=== PATIENT | female | born 1980 | race African-American/Black ===

== ENCOUNTER 2020-01-31 17:02 | Observation (INO) | payer OTHER ==
--- OUTSIDE RECORDS SUMMARY | 2020-01-31 17:07 | XMS REPORT | Continuity of Care Document ---
:1980 Author Organization [facility] t Address [address] [place] [address] Care Team Providers Name Role Phone UNKNOWN Primary Care Physician Unavailable MARIA E TRAORE MD MCandelario. 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 Medications Ordered Filled Start Stop Current Ordering Indication Dosage Frequency Signature Comments Components Source Medication Medication Date Date Medication? Clinician (SIG) Name Name amox/k clav amox/k clav No amox/k [place] tab tab clav tab da 875-125 875-125 875-125 [facility] amoxicillin amoxicillin No amoxicilli [place] 500 mg 500 mg n 500 mg da capsule capsule capsule [facility] brom/pse/dm brom/pse/dm No brom/pse/d [place] syp syp m syp da [facility] ciprofloxac ciprofloxac No ciprofloxa [place] in in nick da hydrochlori hydrochlori hydrochlor [facility] de 500 mg de 500 mg bryce 500 al tabs tabs mg tabs Health Outreac h Program fluticasone fluticasone No fluticason [place] propionate propionate e da 50 mcg/act 50 mcg/act propionate [facility] susp susp 50 al mcg/act Health susp Outreac h Program fluticasone fluticasone No fluticason [place] propionate propionate e da 50 50 propionate [facility] mcg/actuati mcg/actuati 50 a l on nasal on nasal mcg/actuat H ealth spray,suspe spray,suspe ion nasal Outreac nsion nsion spray,susp h ension Program hydrocodone hydrocodone No hydrocodon [place] 10 10 e 10 da mg-acetamin mg-acetamin mg-acetami [facility] ophen 325 ophen 325 nophen 325 al mg tablet mg tablet mg tablet Health Outreac h Program hydrocodone hydrocodone No hydrocodon [place] 5 5 e 5 da mg-acetamin mg-acetamin mg-acetami [facility] ophen 325 ophen 325 nophen 325 al mg tablet mg tablet mg tablet Health Outreac h Program hydroxyzine hydroxyzine No hydroxyzin [place] hcl 50 mg hcl 50 mg e hcl 50 da tabs tabs mg tabs [facility] hydroxyzine hydroxyzine No 1 TID hydroxyzin [place] HCl 25 mg HCl 25 mg e HCl 25 d a tablet Take tablet Take mg tablet [facility] 1 tablet 3 1 tablet 3 Take 1 a l times a day times a day tablet 3 Health by oral by oral times a Outrea c route as route as day by h needed. needed. oral route Pro gram as needed. ibuprofen ibuprofen No ibuprofen [place] 600 mg tabs 600 mg tabs 600 mg da tabs [facility] indomethaci indomethaci No indomethac [place] n 50 mg n 50 mg in 50 mg da caps caps caps [facility] latuda 60 latuda 60 No latuda 60 [place] mg tabs mg tabs mg tabs da [facility] Latuda 60 Latuda 60 No 1 Q1D Latuda 60 [place] mg tablet mg tablet mg tablet da Take 1 Take 1 Take 1 [facility] tablet tablet tablet al every day every day every day Health by oral by oral by oral Outrea c route at route at route at h bedtime. bedtime. bedtime. Pro gram Lexapro 10 Lexapro 10 No 1 Q1D Lexapro 10 [place] mg tablet mg tablet mg tablet da Take 1 Take 1 Take 1 [facility] tablet tablet tablet al every day every day every day Health by oral by oral by oral Outrea c route in route in route in h the the the Program morning. morning. morning. lisinopril lisinopril No lisinopril [place] 10 mg tabs 10 mg tabs 10 mg d a tabs [facility] loratadine loratadine No loratadine [place] 10 mg tabs 10 mg tabs 10 mg d a tabs [facility] Lyrica 100 Lyrica 100 No Lyrica 100 [place] mg capsule mg capsule mg capsule da [facility] Lyrica 50 Lyrica 50 No Lyrica 50 [place] mg capsule mg capsule mg capsule da [facility] ondansetron ondansetron No ondansetro [place] odt 4 mg odt 4 mg n odt 4 d a tbdp tbdp mg tbdp [facility] prazosin 2 prazosin 2 No 1capsul Q1D prazosin 2 [place] mg capsule mg capsule e(s) mg capsule da Take 1 Take 1 Take 1 [facility] capsule capsule capsule al every day every day every day Health by oral by oral by oral Outrea c route at route at route at h bedtime. bedtime. bedtime. Pro gram tizanidine tizanidine No tizanidine [place] 4 mg tablet 4 mg tablet 4 mg d a tablet [facility] tramadol 50 tramadol 50 No tramadol [place] mg tablet mg tablet 50 mg da tablet [facility] Van[place]of DM [place] DM No Van[place]of DM [place] 10 mg-18 10 mg-18 10 mg-18 da mg-200 mg-200 mg-200 [facility] mg/15 mL mg/15 mL mg/15 mL al oral liquid oral liquid oral H ealth liquid Outreac h Program Procedures This patient has no known procedures. Plan of Care Planned Activity Planned Date Details Comments Source Future Appointment 2020-02-04 00:00:00 Juankeith Weiner, [address] [facility]; , [place] Program [id number] [facility] Outreach Program Encounters Start End Encounter Admission Attending Care Care Encounter Source Date/Time Date/Time Type Type Clinicians Facility Department ID 2020-01-05 2020-01-05 Juan LOPEZ [place] - [id number] M ashleigh 00:00:00 00:00:00 Todd Weiner MD: [facility] [address] [facility] [id number] Progr am , Ph. [phone] Results Test Description Test Time Test Comments Results Result Comments Source Culture, Blood 2017-06-28 Specimen: Routine 08:19:00 BloodCollected: 06/23/2017 04:30 Status: Final Last Updated: 06/28/2017 08:18 Culture Result (Final) (Final) No Growth After 5 Days Culture, Blood 2017-06-28 Specimen: Routine 08:18:00 BloodCollected: 06/23/2017 04:15 Status: Final Last Updated: 06/28/2017 08:18 Culture Result (Final) (Final) No Growth After 5 Days Uric Acid, Urine Random 2017-06-26 06:06:00 Test Item Value Reference Range Interpretation Comme nts Uric Acid, Urine (test code = UAURRM) 28 mg/dL Magnesium, [id number] 05:40:00 Test Item Value Reference Range Interpretation Comments Magnesium (test code = MG) 1.8 mg/dL 1.7-2.5 N Basic Metabolic [id number] 05:40:00 Test Item Value Reference Range Interpretation Comments Sodium (test code = 139 mmol/L 135-145 N NA) Potassium (test 3.7 mmol/L 3.5-5.1 N code = K) Chloride (test code 103 mmol/L 98-105 N = CL) Carbon Dioxide 24 mmol/L 22-29 N (test code = CO2) Glucose (test code 96 mg/dL 70-115 N = GLU) Blood Urea Nitrogen 5 mg/dL 6-20 L (test code = BUN) Creatinine (test 0.7 mg/dL 0.5-0.9 N code = CREAT) Calcium (test code 8.6 mg/dL 8.3-10.5 N = CA) BUN/Creatinine 7.1 Ratio (test code = BCRATIO) Anion Gap (test 12 mmol/L 7-16 N code = AGAP) Estimated GFR (test >60 eGFR (es timated code = GFR) mL/min/1.73m2 Glomerular Keron tration Rate) is an est imated value,calculate d from the patient's s teddy creatinine usin g the MDRD equation.I t is NOT the patient 's actual GFR. The eGFR provides a more clinicallyusefu l measure of kidn ey disease than se rum creatinine alone.This calculation rich es sex and race into account, if the informationis provided. If th e race is not provided , and the patient isAfrican-Ameri can, multiply by 1.2 12. If sex is not prov ided, and thepatient is female, multipl y by 0.742. Results for patients <18 ye ars ofage have not been validated by th e MDRD study and shoul d be interpretedwith caution.eGFR Re sult Interpretation: eGFR > or = 60 is in t he Normal RangeeGF R < 60 may mean kidney diseaseeGFR < 1 5 may mean kidney failureRange s recommended by the National Kidney Foundation,http ://nkd ep.nih.gov CBC with [id number] 05:28:00 Test Item Value Reference Range Interpretation Comments WBC (test code = WBC) 14.9 K/cumm 4.4-10.5 H RBC (test code = RBC) 3.57 M/cumm 3.75-5.20 L Hemoglobin (test code = HGB) 10.7 gm/dL 12.2-14.8 L Hematocrit (test code = HCT) 31.2 % 36.5-44.4 L MCV (test code = MCV) 87.4 fL 80-100 N MCH (test code = MCH) 30.0 pg 27.0-32.5 N MCHC (test code = MCHC) 34.4 g/dL 32.0-37.5 N RDW (test code = RDW) 13.3 % 11.5-14.5 N Platelet Count (test code = 336 K/cumm 140-440 N PLTCT) MPV (test code = MPV) 10.1 fL Diff Method (test code = DIFFM) Auto Neutrophil (test code = NEUT) 55.2 % 36-70 N Lymphocyte (test code = LYMPH) 32.7 % 12-44 N Monocyte (test code = MONO) 7.7 % 0-11 N Eosinophil (test code = EOS) 3.9 % 0-7 N Basophil (test code = BASO) 0.6 % 0-2 N Neutro Abs (test code = ANEUT) 8.3 K/cumm 1.6-7.4 H Lymph Abs (test code = ALYMPH) 4.9 K/cumm 0.5-4.6 H [place] Abs (test code = AMONO) 1.1 K/cumm 0.0-1.2 N Eos Abs (test code = AEOS) 0.59 K/cumm 0.00-0.74 N Baso Abs (test code = ABASO) 0.1 K/cumm 0.00-0.21 N [id number] 05:20:00 Test Item Value Reference Range Interpretation Comments Phosphorus (test code = PO4) 3.3 mg/dL 2.70-4.50 N Basic Metabolic [id number] 05:20:00 Test Item Value Reference Range Interpretation Comments Sodium (test code = 139 mmol/L 135-145 N NA) Potassium (test 3.5 mmol/L 3.5-5.1 N code = K) Chloride (test code 106 mmol/L 98-105 H = CL) Carbon Dioxide 22 mmol/L 22-29 N (test code = CO2) Glucose (test code 94 mg/dL 70-115 N = GLU) Blood Urea Nitrogen 6 mg/dL 6-20 N (test code = BUN) Creatinine (test 0.8 mg/dL 0.5-0.9 N code = CREAT) Calcium (test code 8.0 mg/dL 8.3-10.5 L = CA) BUN/Creatinine 7.5 Ratio (test code = BCRATIO) Anion Gap (test 11 mmol/L 7-16 N code = AGAP) Estimated GFR (test >60 eGFR (es timated code = GFR) mL/min/1.73m2 Glomerular Keron tration Rate) is an est imated value,calculate d from the patient's s teddy creatinine usin g the MDRD equation.I t is NOT the patient 's actual GFR. The eGFR provides a more clinicallyusefu l measure of kidn ey disease than se rum creatinine alone.This calculation rich es sex and race into account, if the informationis provided. If th e race is not provided , and the patient isAfyohana-Amdestiney can, multiply by 1.2 12. If sex is not prov ided, and thepatient is female, multipl y by 0.742. Results for patients <18 ye ars ofage have not been validated by th e MDRD study and neetuul d be interpretedwith caution.eGFR Re sult Interpretation: eGFR > or = 60 is in t he Normal RangeeGF R < 60 may mean kidney diseaseeGFR < 1 5 may mean kidney failureRange s recommended by the National Kidney Foundation,http ://nkd ep.nih.gov Magnesium, [id number] 05:20:00 Test Item Value Reference Range Interpretation Comments Magnesium (test code = MG) 1.6 mg/dL 1.7-2.5 L CBC with [id number] 04:55:00 Test Item Value Reference Range Interpretation Comments WBC (test code = WBC) 17.9 K/cumm 4.4-10.5 H RBC (test code = RBC) 3.31 M/cumm 3.75-5.20 L Hemoglobin (test code = HGB) 9.6 gm/dL 12.2-14.8 L Hematocrit (test code = HCT) 30.2 % 36.5-44.4 L MCV (test code = MCV) 91.4 fL 80-100 N MCH (test code = MCH) 29.2 pg 27.0-32.5 N MCHC (test code = MCHC) 31.9 g/dL 32.0-37.5 L RDW (test code = RDW) 13.6 % 11.5-14.5 N Platelet Count (test code = 299 K/cumm 140-440 N PLTCT) MPV (test code = MPV) 9.7 fL Diff Method (test code = DIFFM) Auto Neutrophil (test code = NEUT) 63.4 % 36-70 N Lymphocyte (test code = LYMPH) 26.0 % 12-44 N Monocyte (test code = MONO) 7.5 % 0-11 N Eosinophil (test code = EOS) 2.6 % 0-7 N Basophil (test code = BASO) 0.6 % 0-2 N Neutro Abs (test code = ANEUT) 11.4 K/cumm 1.6-7.4 H Lymph Abs (test code = ALYMPH) 4.7 K/cumm 0.5-4.6 H [place] Abs (test code = AMONO) 1.4 K/cumm 0.0-1.2 H Eos Abs (test code = AEOS) 0.46 K/cumm 0.00-0.74 N Baso Abs (test code = ABASO) 0.1 K/cumm 0.00-0.21 N Hypochromic (test code = HYPO) Slight Blood Gas+Lytes+Glu+Ca+Hgb+Hct+[id number] 12:34:00 Test Item Value Reference Range Interpretation Comments pH, Blood Gas (test code = 7.412 pH Units 7.35-7.45 N BGPH) pCO2 (test code = PCO2) 39.9 mm Hg 35-45 N pO2 (test code = PO2) 103.0 mm Hg 80-100 HH Bicarbonate (test code = 25.4 mmol/L 22.0-26.0 N HCO3) Base Excess (test code = BE) 0.7 mmol/L O2 Saturation (test code = 98.5 % 80.0-100.0 N O2SAT) Sodium, Blood Gas (test code 146 mmol/L 135-145 H = BGNA) Potassium, Blood Gas (test 3.7 mmol/L 3.5-4.5 N code = BGK) Chloride, Blood Gas (test 113 mmol/L 98-105 H code = BGCL) Calcium, Ionized, Blood Gas 1.20 mmol/L 1.00-1.50 N (test code = BGCAI) Glucose, Blood Gas (test 118 mg/dL 75-115 H code = BGGLU) tHB (test code = RTHB) 10.6 gm/dL 12.2-17.4 L Hematocrit, Blood Gas (test 32.5 % 34.0-52.0 L code = BGHCT) O2Hb (test code = RO2HB) 97 80-100 N Carboxyhemoglobin (test code 1.3 % 0.0-20.0 N = CARHGB) Methemoglobin (test code = 0.7 % 0.0-20.0 N METHGB) FIO2 % (test code = FIO2) 30 % Patient Temperature (test 37.0 Degrees code = PTTEMP) Celcius Comment (test code = qns rblv crit COMMENT) vals to Dr. Hoover @ [id number] Puncture Site (test code = Brachial. R PUNSITE) Drawing Tech ID (test code = dnguyen DRAWTECH) Lactic Acid, Blood Gas (test 1.3 mmol/L code = BGLA) iPAP (test code = IPAP) 0 cmH2O Peep (test code = RPEEP) 5 Respiratory Rate (test code 0 = RESP RATE) XR CHEST 1 [id number] 07:41:10EXAM: CHEST ONE VIEWINDICATION: IntubatedCOMPARISON: None availableTECHNIQUE: AP view of the chest.FINDINGS: The endotracheal tube and enteric tube are unchanged. Thecardiomediastinal silhouette is normal. There is mild diffuse pulmonaryedema. No pneumothorax or pleural effusion is identified. The osseousstructures are unremarkable.IMPRESSION: Mild diffuse pulmonary edema.LOCATION: [id number] Metabolic [id number] 05:44:00 Test Item Value Reference Range Interpretation Comments Sodium (test code = 143 mmol/L 135-145 N NA) Potassium (test 3.3 mmol/L 3.5-5.1 L code = K) Chloride (test code 111 mmol/L 98-105 H = CL) Carbon Dioxide 25 mmol/L 22-29 N (test code = CO2) Glucose (test code 109 mg/dL 70-115 N = GLU) Blood Urea Nitrogen 6 mg/dL 6-20 N (test code = BUN) Creatinine (test 0.6 mg/dL 0.5-0.9 N code = CREAT) Calcium (test code 8.5 mg/dL 8.3-10.5 N = CA) BUN/Creatinine 10.0 Ratio (test code = BCRATIO) Anion Gap (test 7 mmol/L 7-16 N code = AGAP) Estimated GFR (test >60 eGFR (es timated code = GFR) mL/min/1.73m2 Glomerular Keron tration Rate) is an est imated value,calculate d from the patient's s teddy creatinine usin g the MDRD equation.I t is NOT the patient 's actual GFR. The eGFR provides a more clinicallyusefu l measure of kidn ey disease than se rum creatinine alone.This calculation rich es sex and race into account, if the informationis provided. If th e race is not provided , and the patient isJaniya can, multiply by 1.2 12. If sex is not prov ided, and thepatient is female, multipl y by 0.742. Results for patients <18 ye ars ofage have not been validated by th e MDRD study and stef d be interpretedwith caution.eGFR Re sult Interpretation: eGFR > or = 60 is in t he Normal RangeeGF R < 60 may mean kidney diseaseeGFR < 1 5 may mean kidney failureRange s recommended by the National Kidney Foundation,http ://nkd ep.nih.gov [id number] 05:44:00 Test Item Value Reference Range Interpretation Comments Phosphorus (test code = PO4) 3.2 mg/dL 2.70-4.50 N Magnesium, [id number] 05:44:00 Test Item Value Reference Range Interpretation Comments Magnesium (test code = MG) 1.7 mg/dL 1.7-2.5 N CBC with [id number] 05:28:00 Test Item Value Reference Range Interpretation Comments WBC (test code = WBC) 17.0 K/cumm 4.4-10.5 H RBC (test code = RBC) 3.56 M/cumm 3.75-5.20 L Hemoglobin (test code = HGB) 10.2 gm/dL 12.2-14.8 L Hematocrit (test code = HCT) 31.8 % 36.5-44.4 L MCV (test code = MCV) 89.4 fL 80-100 N MCH (test code = MCH) 28.8 pg 27.0-32.5 N MCHC (test code = MCHC) 32.1 g/dL 32.0-37.5 N RDW (test code = RDW) 14.0 % 11.5-14.5 N Platelet Count (test code = 349 K/cumm 140-440 N PLTCT) MPV (test code = MPV) 9.6 fL Diff Method (test code = DIFFM) Auto Neutrophil (test code = NEUT) 76.4 % 36-70 H Lymphocyte (test code = LYMPH) 14.3 % 12-44 N Monocyte (test code = MONO) 6.2 % 0-11 N Eosinophil (test code = EOS) 2.9 % 0-7 N Basophil (test code = BASO) 0.2 % 0-2 N Neutro Abs (test code = ANEUT) 13.0 K/cumm 1.6-7.4 H Lymph Abs (test code = ALYMPH) 2.4 K/cumm 0.5-4.6 N [place] Abs (test code = AMONO) 1.1 K/cumm 0.0-1.2 N Eos Abs (test code = AEOS) 0.50 K/cumm 0.00-0.74 N Baso Abs (test code = ABASO) 0.0 K/cumm 0.00-0.21 N Blood Gas+Lytes+Glu+Ca+Hgb+Hct+[id number] 05:12:00 Test Item Value Reference Range Interpretation Comments pH, Blood Gas (test code = 7.371 pH Units 7.35-7.45 N BGPH) pCO2 (test code = PCO2) 43.6 mm Hg 35-45 N pO2 (test code = PO2) 105.0 mm Hg 80-100 HH Bicarbonate (test code = 25.2 mmol/L 22.0-26.0 N HCO3) Base Excess (test code = -0.2 mmol/L BE) O2 Saturation (test code = 98.4 % 80.0-100.0 N O2SAT) Sodium, Blood Gas (test 147 mmol/L 135-145 H code = BGNA) Potassium, Blood Gas (test 3.4 mmol/L 3.5-4.5 L code = BGK) Chloride, Blood Gas (test 115 mmol/L 98-105 H code = BGCL) Calcium, Ionized, Blood 1.23 mmol/L 1.00-1.50 N Gas (test code = BGCAI) Glucose, Blood Gas (test 112 mg/dL 75-115 N code = BGGLU) tHB (test code = RTHB) 10.2 gm/dL 12.2-17.4 L Hematocrit, Blood Gas 31.1 % 34.0-52.0 L (test code = BGHCT) O2Hb (test code = RO2HB) 96 80-100 N Carboxyhemoglobin (test 1.3 % 0.0-20.0 N code = CARHGB) Methemoglobin (test code = 0.7 % 0.0-20.0 N METHGB) FIO2 % (test code = FIO2) 30 % Patient Temperature (test 37.0 Degrees code = PTTEMP) Celcius Comment (test code = qns.[email or web address].p02.rblv.o COMMENT) [email or web address] Puncture Site (test code = Radial. R PUNSITE) Drawing Tech ID (test code jzozobrado = DRAWTECH) Lactic Acid, Blood Gas 0.8 mmol/L (test code = BGLA) iPAP (test code = IPAP) 0 cmH2O Peep (test code = RPEEP) 5 Respiratory Rate (test 0 code = RESP RATE) CBC with [id number] 05:34:00 Test Item Value Reference Range Interpretation Comments WBC (test code = WBC) 10.4 K/cumm 4.4-10.5 N RBC (test code = RBC) 3.71 M/cumm 3.75-5.20 L Hemoglobin (test code 10.9 gm/dL 12.2-14.8 L = HGB) Hematocrit (test code 33.2 % 36.5-44.4 L = HCT) MCV (test code = MCV) 89.5 fL 80-100 N MCH (test code = MCH) 29.5 pg 27.0-32.5 N MCHC (test code = 32.9 g/dL 32.0-37.5 N MCHC) RDW (test code = RDW) 13.7 % 11.5-14.5 N Platelet Count (test 309 K/cumm 140-440 N VERIFIE D BY REPEAT code = PLTCT) TESTINGREAD BA CK LAB VALUESPLT DELTA CHECKED WITH Celina MARTINEZ /SAMAN @ 05 30 ON 06/23/2017 BY Dian Yen MPV (test code = MPV) 9.9 fL Diff Method (test Auto code = DIFFM) Neutrophil (test code 75.8 % 36-70 H = NEUT) Lymphocyte (test code 18.9 % 12-44 N = LYMPH) Monocyte (test code = 3.8 % 0-11 N MONO) Eosinophil (test code 1.4 % 0-7 N = EOS) Basophil (test code = 0.2 % 0-2 N BASO) Neutro Abs (test code 7.9 K/cumm 1.6-7.4 H = ANEUT) Lymph Abs (test code 2.0 K/cumm 0.5-4.6 N = ALYMPH) [place] Abs (test code = 0.4 K/cumm 0.0-1.2 N AMONO) Eos Abs (test code = 0.14 K/cumm 0.00-0.74 N AEOS) Baso Abs (test code = 0.0 K/cumm 0.00-0.21 N ABASO) Thyroid Stimulating Hormone (TSH)2017-06-23 05:31:00 Test Item Value Reference Range Interpretation Comments TSH (test code = TSH) 0.24 mIU/mL 0.270-4.200 L Free T4 (Free Thyroxine)2017-06-23 05:31:00 Test Item Value Reference Range Interpretation Comments T4, Free (test code = FT4) 0.83 ng/dL 0.930-1.700 L Urinalysis [id number] 05:26:00 Test Item Value Reference Range Interpretation Comments Color (test code = COLOR) Yellow Yellow,Straw,Pl N yellow Clarity (test code = Clear Clear N CLAR) Specific [place] (test 1.004 1.001-1.035 N code = SPGR) pH (test code = PH) 6.0 5.0-9.0 N Ketone (test code = KET) Negative mg/dL Negative N Glucose (test code = Negative mg/dL Negative N GLUCUR) Protein (test code = Negative mg/dL Negative N PROT) Bilirubin (test code = Negative mg/dL Negative N BILI) Occult Blood (test code = Moderate Negative A UDOB) Urobilinogen (test code = 0.2 mg/dL 0.2-1.0 N UROB) Nitrite (test code = NIT) Negative Negative N Leuk Esterase (test code Small Negative A = LEUK) Micros Exam (test code = Indicated MEXAM) Epithelial Cells (test Few /LPF 0-30 A code = EPI) WBC, Urine (test code = 6-10 /HPF 0-5 A UWBC) RBC, Urine (test code = 3-5 /HPF 0-5 A URBC) Bacteria (test code = Few /HPF BACT) [id number] 05:20:00 Test Item Value Reference Range Interpretation Comments Phosphorus (test code = PO4) 1.7 mg/dL 2.70-4.50 L Comprehensive Metabolic [id number] 05:20:00 Test Item Value Reference Range Interpretation Comments Sodium (test code = 145 mmol/L 135-145 N NA) Potassium (test 3.9 mmol/L 3.5-5.1 N code = K) Chloride (test code 112 mmol/L 98-105 H = CL) Carbon Dioxide 24 mmol/L 22-29 N (test code = CO2) Glucose (test code 97 mg/dL 70-115 N = GLU) Blood Urea Nitrogen 8 mg/dL 6-20 N (test code = BUN) Creatinine (test 0.7 mg/dL 0.5-0.9 N code = CREAT) Calcium (test code 8.7 mg/dL 8.3-10.5 N = CA) Prot Total (test 5.3 g/dL 6.4-8.3 L code = TP) Albumin (test code 3.2 g/dL 3.5-5.2 L = ALB) A/G Ratio (test 1.5 Ratio code = AGRATIO) Globulin (test code 2.1 2.9-3.1 L = GLOB) Bili Total (test 0.3 mg/dL 0.1-0.9 N code = TBIL) Alk Phos (test code 62 U/L 35-104 N = APHOS) AST (test code = 79 U/L 1-32 H AST) ALT (test code = 31 U/L 1-33 N ALT) BUN/Creatinine 11.4 Ratio (test code = BCRATIO) Anion Gap (test 9 mmol/L 7-16 N code = AGAP) Estimated GFR (test >60 eGFR (es timated code = GFR) mL/min/1.73m2 Glomerular Keron tration Rate) is an est imated value,calculate d from the patient's s teddy creatinine usin g the MDRD equation.I t is NOT the patient 's actual GFR. The eGFR provides a more clinicallyusefu l measure of kidn ey disease than se rum creatinine alone.This calculation rich es sex and race into account, if the informationis provided. If th e race is not provided , and the patient isAfrican-Ameri can, multiply by 1.2 12. If sex is not prov ided, and thepatient is female, multipl y by 0.742. Results for patients <18 ye ars ofage have not been validated by vitaly fisher MDRD study and stef yen be interpretedwith caution.eGFR Re sult Interpretation: eGFR > or = 60 is in t he Normal RangeeGF R < 60 may mean kidney diseaseeGFR < 1 5 may mean kidney failureRange s recommended by the National Kidney Foundation,http ://nkd ep.nih.gov Magnesium, [id number] 05:20:00 Test Item Value Reference Range Interpretation Comments Magnesium (test code = MG) 1.7 mg/dL 1.7-2.5 N Blood Gas+Lytes+Glu+Ca+Hgb+Hct+[id number] 05:14:00 Test Item Value Reference Range Interpretation Comments pH, Blood Gas (test code = 7.408 pH Units 7.35-7.45 N BGPH) pCO2 (test code = PCO2) 38.0 mm Hg 35-45 N pO2 (test code = PO2) 155.0 mm Hg 80-100 HH Bicarbonate (test code = 24.0 mmol/L 22.0-26.0 N HCO3) Base Excess (test code = -0.5 mmol/L BE) O2 Saturation (test code = 99.8 % 80.0-100.0 N O2SAT) Sodium, Blood Gas (test 148 mmol/L 135-145 H code = BGNA) Potassium, Blood Gas (test 3.7 mmol/L 3.5-4.5 N code = BGK) Chloride, Blood Gas (test 117 mmol/L 98-105 H code = BGCL) Calcium, Ionized, Blood Gas 1.25 mmol/L 1.00-1.50 N (test code = BGCAI) Glucose, Blood Gas (test 99 mg/dL 75-115 N code = BGGLU) tHB (test code = RTHB) 10.2 gm/dL 12.2-17.4 L Hematocrit, Blood Gas (test 31.3 % 34.0-52.0 L code = BGHCT) O2Hb (test code = RO2HB) 98 80-100 N Carboxyhemoglobin (test 1.2 % 0.0-20.0 N code = CARHGB) Methemoglobin (test code = 0.8 % 0.0-20.0 N METHGB) FIO2 % (test code = FIO2) 50 % Patient Temperature (test 37.0 Degrees code = PTTEMP) Celcius Comment (test code = crit- po2/ rblv- COMMENT) jeffrey [place] @ [id number] ebrown Puncture Site (test code = Brachial. R PUNSITE) Drawing Tech ID (test code ebrown = DRAWTECH) Lactic Acid, Blood Gas 2.2 mmol/L (test code = BGLA) iPAP (test code = IPAP) 0 cmH2O Peep (test code = RPEEP) 5 Respiratory Rate (test code 18 = RESP RATE) Tidal Volume (test code = 0.500 Liters TIDALVOL) CT HEAD OR BRAIN WO [id number] 02:06:48AFTER HOURS SERVICE ON: 06/23/2017 2:06 AMCT Scan of the Brain Without ContrastLocation Code [id number]: altered mental statusTechnique: Scans were performed on a helical scanner pre IV contrastonly. The study is limited secondary to lack of intravenous contrast,particularly for evaluation of masses.CT images were performed kozoth11 hours at arrival to the facility. One or more of the following dose reduction techniques were used:Automated exposure control, adjustment of the mA and/or kV accordingtopatient size, and/or utilization of iterative reconstruction technique.Findings: There is no hydrocephalus. Basal cisterns are patent. There is nointracranial hyperdense hemorrhage. There is no midline shift or masseffect. No effacement of the mcgrath-white matter junction to indicateacute infarction. Air-fluid level noted in the left sphenoid sinus. Impression:No acute intracranial CT findings.Acute sphenoid sinusitis.Lactic Acid Bld 2017-06-23 00:55:00 Test Item Value Reference Range Interpretation Comments Lactic Acid, Bld (test 4.5 mmol/L 0.5-1.9 HH александр r blvver rblv code = LAC) Basic Metabolic [id number] 23:49:00 Test Item Value Reference Range Interpretation Comments Sodium (test code = 140 mmol/L 135-145 N NA) Potassium (test 5.4 mmol/L 3.5-5.1 H The value H EMO code = K) originally rele ased by MAREK on 06/22/2017 23:4 6 waschanged to 5 .4 by MAREK on 06/22/2017 23:48hemolyzed Chloride (test code 107 mmol/L 98-105 H = CL) Carbon Dioxide 22 mmol/L 22-29 N (test code = CO2) Glucose (test code 120 mg/dL 70-115 H = GLU) Blood Urea Nitrogen 9 mg/dL 6-20 N (test code = BUN) Creatinine (test 0.9 mg/dL 0.5-0.9 N code = CREAT) Calcium (test code 8.6 mg/dL 8.3-10.5 N = CA) BUN/Creatinine 10.0 Ratio (test code = BCRATIO) Anion Gap (test 11 mmol/L 7-16 N code = AGAP) Estimated GFR (test >60 eGFR (es timated code = GFR) mL/min/1.73m2 Glomerular Keron tration Rate) is an est imated value,calculate d from the patient's s teddy creatinine usin g the MDRD equation.I t is NOT the patient 's actual GFR. The eGFR provides a more clinicallyusefu l measure of kidn ey disease than se rum creatinine alone.This calculation rich es sex and race into account, if the informationis provided. If th e race is not provided , and the patient isAfrican-Ameri can, multiply by 1.2 12. If sex is not prov ided, and thepatient is female, multipl y by 0.742. Results for patients <18 ye ars ofage have not been validated by th e MDRD study and stef d be interpretedwith caution.eGFR Re sult Interpretation: eGFR > or = 60 is in t he Normal RangeeGF R < 60 may mean kidney diseaseeGFR < 1 5 may mean kidney failureRange s recommended by the National Kidney Foundation,http ://nkd ep.nih.gov [id number] 23:46:00 Test Item Value Reference Range Interpretation Comments Acetaminophen (test code = ACET) <15.0 ug/mL 15.0-30.0 L [id number] 23:46:00 Test Item Value Reference Range Interpretation Comments Phosphorus (test code = PO4) 1.8 mg/dL 2.70-4.50 L Magnesium, [id number] 23:46:00 Test Item Value Reference Range Interpretation Comments Magnesium (test code = MG) 1.8 mg/dL 1.7-2.5 N CBC with [id number] 23:40:00 Test Item Value Reference Range Interpretation Comments WBC (test code = 6.8 K/cumm 4.4-10.5 N WBC) RBC (test code = 3.76 M/cumm 3.75-5.20 N RBC) Hemoglobin (test 11.2 gm/dL 12.2-14.8 L code = HGB) Hematocrit (test 33.9 % 36.5-44.4 L code = HCT) MCV (test code = 90.2 fL 80-100 N MCV) MCH (test code = 29.8 pg 27.0-32.5 N MCH) MCHC (test code = 33.1 g/dL 32.0-37.5 N MCHC) RDW (test code = 13.4 % 11.5-14.5 N RDW) Platelet Count (test 74 K/cumm 140-440 L VERIFIE D BY REPEAT code = PLTCT) TESTINGREAD BA CK LAB VALUESPLATELET DELTA CHECKED WITH Ewelina CURTIS/SAMAN @23 32 ON 06/22/2017REASO N UNKNOWN PER MICHELLE SE MPV (test code = 10.6 fL MPV) Diff Method (test Auto code = DIFFM) Neutrophil (test 70.9 % 36-70 H code = NEUT) Lymphocyte (test 22.7 % 12-44 N code = LYMPH) Monocyte (test code 5.3 % 0-11 N = MONO) Eosinophil (test 0.7 % 0-7 N code = EOS) Basophil (test code 0.3 % 0-2 N = BASO) Neutro Abs (test 4.8 K/cumm 1.6-7.4 N code = ANEUT) Lymph Abs (test code 1.5 K/cumm 0.5-4.6 N = ALYMPH) [place] Abs (test code 0.4 K/cumm 0.0-1.2 N = AMONO) Eos Abs (test code = 0.05 K/cumm 0.00-0.74 N AEOS) Baso Abs (test code 0.0 K/cumm 0.00-0.21 N = ABASO) Hypochromic (test Slight code = HYPO) Urinalysis [id number] 20:50:00 Test Item Value Reference Range Interpretation Comments Color (test code = Yellow Yellow,Straw,Pl N COLOR) yellow Clarity (test code = Clear Clear N CLAR) Specific [place] (test 1.028 1.001-1.035 N code = SPGR) pH (test code = PH) 5.0 5.0-9.0 N Ketone (test code = 5 mg/dL Negative A KET) Glucose (test code = Negative mg/dL Negative N GLUCUR) Protein (test code = 75 mg/dL Negative A PROT) Bilirubin (test code = Negative mg/dL Negative N BILI) Occult Blood (test code Mod to Large Negative A = UDOB) Urobilinogen (test code 0.2 mg/dL 0.2-1.0 N = UROB) Nitrite (test code = Negative Negative N NIT) Leuk Esterase (test Small Negative A code = LEUK) Micros Exam (test code Indicated = MEXAM) Epithelial Cells (test 0-2 /LPF 0-30 A code = EPI) WBC, Urine (test code = 6-10 /HPF 0-5 A UWBC) RBC, Urine (test code = 21-30 /HPF 0-5 A URBC) Bacteria (test code = Few /HPF BACT) Casts (test code = 25-50 Hyaline 0-1 CASTS) Granular /HPF BHCG, Urine, [id number] 20:30:00 Test Item Value Reference Range Interpretation Comments Preg Qual [Ur] (test code = HUHCG) Negative Negative N [id number] 20:28:00 Test Item Value Reference Range Interpretation Comments Amphetamine (test Negative Negative N For diagno stic code = AMPH) purposes only, positive result s should always b e assessedin conjunctionwith the patient's medic al history,clinica l examination and otherfindings.T o fulfill legal requirements, a more specific altern ate chemical method must be used inorder to obtain a Confirmed radha lytical result. GC/MS i s the preferred confi rmatory method. Barbiturates (test Negative Negative N code = KLARISSA) Benzodiazepine (test POSITIVE Negative A code = HAMLET) Cocaine (test code = Negative Negative N COCA) Methadone (test code Negative Negative N = MTHD) Opiates (test code = POSITIVE Negative A OPIA) PCP (test code = PCP) Negative Negative N Propoxyphene (test Negative Negative N code = PROPOX) THC (test code = THC) Negative Negative N Alcohol, Urine (test <0.01 g/dL 0.00-0.01 N code = ETOHU) XR CHEST 1 [id number] 20:19:17CHEST X-RAY 1 VIEW Location: [id number] HISTORY: IntubationTechnique:2 frontal views of the chest were obtainedFindings:The bony structures are unremarkable. The aortic, hilar, and cardiacoutlines are normal. ET tube projects over the trachea in satisfactoryposition. An NG tube is seen in the stomach projecting in satisfactoryposition. There is mild central vascular congestion. The lungs are clearof infiltrates or nodules. No pneumothorax. No pleural effusions. IMPRESSION:ET tube and NG tube project in satisfactory position. Mild centralvascular congestion.Partial Thromboplastin [id number] 20:14:00 Test Item Value Reference Range Interpretation Comments aPTT (test code = PTT) 29.10 seconds 24.39-37.25 N Prothrombin [id number] 20:14:00 Test Item Value Reference Range Interpretation Comments PT (test code = PT) 11.60 seconds 9.78-13.35 N INR (test code = INR) 1.02 Ratio 0.6-1.2 N CBC with [id number] 20:06:00 Test Item Value Reference Range Interpretation Comments WBC (test code = WBC) 11.2 K/cumm 4.4-10.5 H RBC (test code = RBC) 4.07 M/cumm 3.75-5.20 N Hemoglobin (test code = HGB) 11.8 gm/dL 12.2-14.8 L Hematocrit (test code = HCT) 37.7 % 36.5-44.4 N MCV (test code = MCV) 92.8 fL 80-100 N MCH (test code = MCH) 29.1 pg 27.0-32.5 N MCHC (test code = MCHC) 31.4 g/dL 32.0-37.5 L RDW (test code = RDW) 13.3 % 11.5-14.5 N Platelet Count (test code = 397 K/cumm 140-440 N PLTCT) MPV (test code = MPV) 9.3 fL Diff Method (test code = DIFFM) Auto Neutrophil (test code = NEUT) 70.8 % 36-70 H Lymphocyte (test code = LYMPH) 21.4 % 12-44 N Monocyte (test code = MONO) 6.9 % 0-11 N Eosinophil (test code = EOS) 0.6 % 0-7 N Basophil (test code = BASO) 0.3 % 0-2 N Neutro Abs (test code = ANEUT) 7.9 K/cumm 1.6-7.4 H Lymph Abs (test code = ALYMPH) 2.4 K/cumm 0.5-4.6 N [place] Abs (test code = AMONO) 0.8 K/cumm 0.0-1.2 N Eos Abs (test code = AEOS) 0.07 K/cumm 0.00-0.74 N Baso Abs (test code = ABASO) 0.0 K/cumm 0.00-0.21 N Hypochromic (test code = HYPO) Slight Blood Gas+Lytes+Glu+Ca+Hgb+[id number] 20:04:00 Test Item Value Reference Range Interpretation Comments pH, Blood Gas (test code = 7.208 pH Units 7.35-7.45 L BGPH) pCO2 (test code = PCO2) 54.5 mm Hg 35-45 H pO2 (test code = PO2) 530.0 mm Hg 80-100 HH Bicarbonate (test code = 21.7 mmol/L 22.0-26.0 LL HCO3) Base Excess (test code = -6.6 mmol/L BE) O2 Saturation (test code = 100.6 % 80.0-100.0 H O2SAT) Sodium, Blood Gas (test 142 mmol/L 135-145 N code = BGNA) Potassium, Blood Gas (test 4.1 mmol/L 3.5-4.5 N code = BGK) Chloride, Blood Gas (test 111 mmol/L 98-105 H code = BGCL) Calcium, Ionized, Blood 1.28 mmol/L 1.00-1.50 N Gas (test code = BGCAI) Glucose, Blood Gas (test 148 mg/dL 75-115 H code = BGGLU) tHB (test code = RTHB) 12.0 gm/dL 12.2-17.4 L Hematocrit, Blood Gas 36.8 % 34.0-52.0 N (test code = BGHCT) O2Hb (test code = RO2HB) 97 80-100 N Carboxyhemoglobin (test 3.3 % 0.0-20.0 N code = CARHGB) Methemoglobin (test code = 0.7 % 0.0-20.0 N METHGB) FIO2 % (test code = FIO2) 100 % FLOW (LPM) (test code = 15 L/min FLOW) Patient Temperature (test 37.0 Degrees code = PTTEMP) Celcius Comment (test code = qns.crit.vals.rblv. COMMENT) [email or web address] Puncture Site (test code = Brachial. L PUNSITE) Drawing Tech ID (test code jzozobrado = DRAWTECH) iPAP (test code = IPAP) 0 cmH2O Respiratory Rate (test 0 code = RESP RATE) Lactic Acid, Blood Gas 4.3 mmol/L (test code = BGLA) [id number] 20:03:00 Test Item Value Reference Range Interpretation Comments Acetaminophen (test code = ACET) <15.0 ug/mL 15.0-30.0 L [id number] 20:03:00 Test Item Value Reference Range Interpretation Comments Salicylate (test code <0.3 mg/dL 0.3-10.0 L Anayeli nge in unit of = SALI) measurement for Salicylate ( fr om ug/mL to mg/dL ) Comprehensive Metabolic [id number] 20:03:00 Test Item Value Reference Range Interpretation Comments Sodium (test code = 142 mmol/L 135-145 N NA) Potassium (test 4.0 mmol/L 3.5-5.1 N code = K) Chloride (test code 105 mmol/L 98-105 N = CL) Carbon Dioxide 25 mmol/L 22-29 N (test code = CO2) Glucose (test code 139 mg/dL 70-115 H = GLU) Blood Urea Nitrogen 10 mg/dL 6-20 N (test code = BUN) Creatinine (test 1.1 mg/dL 0.5-0.9 H code = CREAT) Calcium (test code 9.1 mg/dL 8.3-10.5 N = CA) Prot Total (test 6.7 g/dL 6.4-8.3 N code = TP) Albumin (test code 4.2 g/dL 3.5-5.2 N = ALB) A/G Ratio (test 1.7 Ratio code = AGRATIO) Globulin (test code 2.5 2.9-3.1 L = GLOB) Bili Total (test <0.1 mg/dL 0.1-0.9 L code = TBIL) Alk Phos (test code 69 U/L 35-104 N = APHOS) AST (test code = 20 U/L 1-32 N AST) ALT (test code = 19 U/L 1-33 N ALT) BUN/Creatinine 9.1 Ratio (test code = BCRATIO) Anion Gap (test 12 mmol/L 7-16 N code = AGAP) Estimated GFR (test >60 eGFR (es timated code = GFR) mL/min/1.73m2 Glomerular Keron tration Rate) is an est imated value,calculate d from the patient's s teddy creatinine usin g the MDRD equation.I t is NOT the patient 's actual GFR. The eGFR provides a more clinicallyusefu l measure of kidn ey disease than se rum creatinine alone.This calculation rich es sex and race into account, if the informationis provided. If th e race is not provided , and the patient isAfrican-Ameri can, multiply by 1.2 12. If sex is not prov ided, and thepatient is female, multipl y by 0.742. Results for patients <18 ye ars ofage have not been validated by th e MDRD study and shoul d be interpretedwith caution.eGFR Re sult Interpretation: eGFR > or = 60 is in t he Normal RangeeGF R < 60 may mean kidney diseaseeGFR < 1 5 may mean kidney failureRange s recommended by the National Kidney Foundation,http ://nkd ep.nih.gov
[2020-01-31 17:42] LABS: Basophils % 0.8 % (0-1.3); Hematocrit 34.5 % (36.0-45.0); Lymphocytes % 42.3 % (15.3-44.8); MPV 7.6 fL (7.6-11.3); RBC Red Blood Cell Count 3.81 M/uL (3.86-4.86)
[2020-01-31 17:44] LABS: Protime INR 1.12
[2020-01-31 17:57] LABS: ALT/SGPT 30 U/L (12-78); AST/SGOT 24 U/L (15-37); Albumin 3.3 g/dL (3.4-5.0); Alkaline Phosphatase 64 U/L (45-117); BUN Blood Urea Nitrogen 8 mg/dL (7-18); Bicarbonate 26 mmol/L (21-32); Bilirubin Direct < 0.1 mg/dL (0-0.2); Bilirubin Total 0.3 mg/dL (0.2-1.0); Glucose Level 112 mg/dL (74-106); Potassium 3.7 mmol/L (3.5-5.1); Protein, Total 6.8 g/dL (6.4-8.2); Sodium Level 141 mmol/L (136-145)
--- NOTE | 2020-01-31 19:07 | ER ---
Nurse's Notes [facility] Name: Anamaria Baer Age: 39 yrs Sex: Female : 1980 Arrival Date: 01/31/2020 Time: 17:05 Bed 7 Private MD: Diagnosis: Altered mental status, unspecified Presentation: 01/30 17:06 Chief complaint: EMS states: called out by family for AMS and not breathing. On EMS sv arrival pt was breathing on her own and altered. Pt stated that she had taken her Lisinopril and 2 tabs of Advil PM today because she didn't sleep last night. [facility] and was seen here. BP 110/82 HR-85 BS-126. Coronavirus screen: Proceed with normal triage. Patient denies a cough. Patient denies shortness of breath or difficulty breathing. Patient denies measured and/or subjective temperature greater than 100.4F prior to today's visit. Patient denies travel on a cruise ship or to a country the [facility] currently lists as an affected area. Patient denies contact with known and/or suspected case of COVID-19. Ebola Screen: No symptoms or risks identified at this time. Initial Sepsis Screen: Does the patient meet any 2 criteria? HR > 90 bpm. No. Patient's initial sepsis screen is negative. Does the patient have a suspected source of infection? No. Patient's initial sepsis screen is negative. Risk Assessment: Do you want to hurt yourself or someone else? Patient reports no desire to harm self or others. Onset of symptoms was January 31, 2020. 17:06 Method Of Arrival: EMS: [facility] sv 17:06 Acuity: DEVONTE 3 sv Triage Assessment: 17:06 General: Appears in no apparent distress. comfortable, obese, well groomed, well sv developed, Behavior is calm, cooperative, appropriate for age, crying. Pain: Denies pain. Neuro: Level of Consciousness is awake, alert, obeys commands, Oriented to person, place, time, situation, Moves all extremities. Full function Speech is normal, Facial symmetry appears normal. Respiratory: Airway is patent Respiratory effort is even, unlabored, Respiratory pattern is regular, symmetrical. Derm: Skin is intact, Skin is pink, warm \T\ dry. Musculoskeletal: Range of motion: intact in all extremities. 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 - Social history:: Patient/guardian denies using alcohol, street drugs, The patient lives with family, Smoking status: unknown. - Family history:: not pertinent. Screenin:48 Abuse screen: Denies threats or abuse. Denies injuries from another. Nutritional ph screening: No deficits noted. Tuberculosis screening: No symptoms or risk factors identified. Fall Risk No fall in past 12 months (0 pts). No secondary diagnosis (0 pts). IV access (20 points). Ambulatory Aid- None/Bed Rest/Nurse Assist (0 pts). Gait- Weak (10 pts.). Mental Status- Overestimates/Forgets Limitations (15 pts.). Total Arredondo Fall Scale indicates Low Risk Score (25-44 pts). Fall prevention measures have been instituted. Side Rails Up X 2 Placed close to Nursing Station Frequent Obs/Assesments occuring As available Patient and Family Educated on Fall Prevention Program and strategies. Assessment: 17:47 General: Appears in no apparent distress. comfortable, Behavior is cooperative, drowsy. ph Pain: Denies pain. Neuro: Level of Consciousness is obeys commands, confused, Oriented to person, place, Speech is normal. Cardiovascular: Capillary refill < 3 seconds in bilateral fingers Patient's skin is warm and dry. Respiratory: Airway is patent Respiratory effort is even, unlabored, Respiratory pattern is regular, symmetrical. GI: No signs and/or symptoms were reported involving the gastrointestinal system. Derm: Skin is intact, is healthy with good turgor, Skin is pink, warm \T\ dry. Musculoskeletal: Circulation, motion, and sensation intact. Range of motion: intact in all extremities. 18:19 Reassessment: Patient appears in no apparent distress at this time. Pt asleep at this sv time. No respiratory distress noted. Will continue to monitor. 19:12 Reassessment: Patient appears in no apparent distress at this time. Patient and/or family updated on plan of care and expected duration. Pain level reassessed. Pt still drowsy but is awake able, informed of POC need for admit. General: Appears in no apparent distress. Behavior is cooperative, drowsy. Pain: Denies pain. Neuro: Level of Consciousness is obeys commands, drowsy. Oriented to person, place, time, Speech is normal. Cardiovascular: Capillary refill < 3 seconds. Respiratory: Airway is patent Respiratory effort is even, unlabored, Respiratory pattern is regular, symmetrical. GI: Abdomen is flat, non-distended. : No signs and/or symptoms were reported regarding the genitourinary system. EENT: No signs and/or symptoms were reported regarding the EENT system. Derm: Skin is intact, is healthy with good turgor, Skin is pink, warm \T\ dry. normal. Musculoskeletal: Circulation, motion, and sensation intact. Range of motion: intact in all extremities. Vital Signs: 17:06 BP 127 / 90; Pulse 92; Resp 14; Temp 98.4; Pulse Ox 96% ; Height 5 ft. 5 in. (165.10 sv cm); 18:21 BP 111 / 80; Pulse 86; Resp 13; Pulse Ox 94% ; sv 19:14 BP 97 / 64; Pulse 85; Resp 14; Pulse Ox 96% ; wh 20:00 BP 111 / 85; Pulse 85; Resp 18; Pulse Ox 98% on R/A; wh 21:05 BP 116 / 92; Pulse 83; Resp 14; Pulse Ox 99% on R/A; wh ED Course: 17:05 Patient arrived in ED. sv 17:06 Evi Garibay, RN is Primary Nurse. sv 17:06 Maintain EMS IV. Dressing intact. Good blood return noted. Site clean \T\ dry. Gauge \T\ sv site: 18G R AC. 17:07 Triage completed. sv 17:10 Arm band placed on. sv 17:10 Patient has correct armband on for positive identification. Placed in gown. Bed in low sv position. Call light in reach. Side rails up X2. Pulse ox on. NIBP on. monitoring specialist on. Door closed. Head of bed elevated. 17:11 Landon Baker MD is Attending Physician. ma2 17:49 Patient has correct armband on for positive identification. Placed in gown. Bed in low ph position. Call light in reach. Side rails up X2. monitoring specialist on. Pulse ox on. NIBP on. 17:50 Awaiting lab results. sv 17:50 Acetaminophen Sent. sv 17:50 Basic Metabolic Panel Sent. sv 18:19 EKG done, by ED staff, reviewed by Landon Baker MD. 19:02 Primary Nurse role handed off by Evi Garibay, SAMAN 19:06 Landon Brar MD is Hospitalizing Provider. ma 19:53 Ayala Casey is Primary Nurse. 20:02 Urine Drug Screen Sent. oe 21:04 No provider procedures requiring assistance completed. Patient admitted, IV remains in place. Administered Medications: No medications were administered Outcome: 19:06 Decision to Hospitalize by Provider. ma2 21:04 Admitted to ER Hold. Please see [facility] for further documentation. 21:04 Condition: stable 21:04 Instructed on the need for admit. 07 06:16 Patient left the ED. Signatures: Evi Garibay, RN SAMAN Maria Luz Steinberg RN RN Rashel Smith Ayala Casey Landon Baker MD MD ma2 Corrections: (The following items were deleted from the chart) 01/30 17:49 17:06 Chief complaint: EMS states: called out by family for AMS and not breathing. On EMS arrival pt was breathing on her own and altered. Pt stated that she had taken her Lisinopril and 2 tabs of Advil PM today. BP 110/82 HR-85 BS-126 sv
--- NOTE | 2020-01-31 19:07 | EDPHYS ---
Physician Documentation [facility] Name: Anamaria Baer Age: 39 yrs Sex: Female : 1980 Arrival Date: 01/31/2020 Time: 17:05 Bed 7 Private MD: ED Physician Landon Baker HPI: 01/30 17:35 This 39 yrs old Black Female presents to ER via EMS with complaints of Altered Mental ma2 Status. 17:35 The patient presents with confusion. The patient presents with confusion, decreased ma2 mental status. Onset: The symptoms/episode began/occurred gradually, 1 day(s) ago. Associated signs and symptoms: Pertinent positives: Pertinent negatives: ataxia, chest pain, confusion, diaphoresis. Current symptoms: In the emergency department the patient's symptoms have improved. The patient has experienced similar episodes in the past. CLIENT SUCCESS DIRECTOR: 20:00 LMP 12/2019 wh Historical: - Allergies: 17:08 Naproxen; sv - PMHx: 17:08 Hypertension; sv - PSHx: 17:08 None; sv - Immunization history:: Adult Immunizations unknown. - Social history:: Patient/guardian denies using alcohol, street drugs, The patient lives with family, Smoking status: unknown. - Family history:: not pertinent. ROS: 17:35 Constitutional: Negative for fever, chills, and weight loss. ma2 17:35 All other systems are negative. Exam: 17:35 Constitutional: This is a well developed, well nourished patient who is awake, alert, ma2 and in no acute distress. Chest/axilla: Normal chest wall appearance and motion. Nontender with no deformity. No lesions are appreciated. Cardiovascular: Regular rate and rhythm with a normal S1 and S2. No gallops, murmurs, or rubs. Normal PMI, no JVD. No pulse deficits. Respiratory: Lungs have equal breath sounds bilaterally, clear to auscultation and percussion. No rales, rhonchi or wheezes noted. No increased work of breathing, no retractions or nasal flaring. Abdomen/GI: Soft, non-tender, with normal bowel sounds. No distension or tympany. No guarding or rebound. No evidence of tenderness throughout. Back: No spinal tenderness. No costovertebral tenderness. Full range of motion. Skin: Warm, dry with normal turgor. Normal color with no rashes, no lesions, and no evidence of cellulitis. MS/ Extremity: Pulses equal, no cyanosis. Neurovascular intact. Full, normal range of motion. Neuro: samnolent yet arousable to verbal stimuli, GCS 14, oriented to person, place, time, and situation. Cranial nerves II-XII grossly intact. Motor strength 5/5 in all extremities. Sensory grossly intact. Cerebellar exam normal. Normal gait. 17:35 Psych: Awake, alert, with orientation to person, place and time. Behavior, mood, and [facility] affect are within normal limits. Vital Signs: 17:06 BP 127 / 90; Pulse 92; Resp 14; Temp 98.4; Pulse Ox 96% ; Height 5 ft. 5 in. (165.10 sv cm); 18:21 BP 111 / 80; Pulse 86; Resp 13; Pulse Ox 94% ; sv 19:14 BP 97 / 64; Pulse 85; Resp 14; Pulse Ox 96% ; wh 20:00 BP 111 / 85; Pulse 85; Resp 18; Pulse Ox 98% on R/A; wh 21:05 BP 116 / 92; Pulse 83; Resp 14; Pulse Ox 99% on R/A; wh MDM: 17:12 Patient medically screened. [facility] 17:35 Differential Diagnosis: hypoglycemia, overdose, UTI, volume depletion. [facility] 19:03 Data reviewed: vital signs, nurses notes. Counseling: I had a detailed discussion with [facility] the patient and/or guardian regarding: the historical points, exam findings, and any diagnostic results supporting the discharge/admit diagnosis, the presence of at least one elevated blood pressure reading (>120/80) during this emergency department visit, the need for further work-up and treatment in the hospital. Response to treatment: the patient's symptoms have markedly improved after treatment. 01/30 17:12 Order name: Acetaminophen [facility] 01/30 17:12 Order name: Basic Metabolic Panel [facility] 01/30 17:12 Order name: CBC with Diff; Complete Time: 18:38 [facility] 01/30 17:12 Order name: ETOH Level; Complete Time: 18:38 [facility] 01/30 17:12 Order name: Hepatic Function; Complete Time: 18:38 [facility] 01/30 17:12 Order name: PT-INR; Complete Time: 18:38 [facility] 01/30 17:12 Order name: Ptt, Activated; Complete Time: 18:38 [facility] 01/30 17:12 Order name: Salicylate; Complete Time: 18:38 [facility] 01/30 17:12 Order name: Urine Drug Screen [facility] 01/30 17:13 Order name: Acetaminophen Level; Complete Time: 18:38 [facility] 01/30 17:13 Order name: Basic Metabolic Panel; Complete Time: 18:38 [facility] 01/30 19:14 Order name: Comprehensive Metabolic Panel [facility] 01/30 19:14 Order name: Comprehensive Metabolic Panel [facility] 01/30 19:15 Order name: Protime (+INR) [facility] 01/30 17:12 Order name: Urine Test (obtain specimen); Complete Time: 19:53 [facility] 01/30 17:12 Order name: EKG; Complete Time: 17:14 [facility] 01/30 17:12 Order name: EKG - Nurse/Tech; Complete Time: 18:21 [facility] 01/30 19:14 Order name: CONS Pharmacy Consult [facility] 01/30 19:14 Order name: Heart Healthy [facility] 01/30 19:15 Order name: Protime (+INR) [facility] 01/30 19:15 Order name: PTT, Activated Partial Thromb [facility] 01/30 19:15 Order name: PTT, Activated Partial Thromb [facility] 01/30 19:15 Order name: CBC with Automated Diff [facility] 01/30 19:15 Order name: CBC with Automated Diff [facility] 01/30 19:56 Order name: CT Head Brain wo Cont ss 01/30 20:00 Order name: Urine Dipstick--Ancillary (enter results) [facility] 01/30 20:00 Order name: Urine --Ancillary (enter results) [facility] 01/30 20:06 Order name: Urine --Ancillary [facility] 01/30 20:06 Order name: Urine Dipstick-Ancillary [facility] 01/30 20:29 Order name: CT [facility] 01/30 17:12 Order name: IV Saline Lock; Complete Time: 17:39 [facility] 01/30 17:12 Order name: Labs collected and sent; Complete Time: 17:39 [facility] 01/30 17:12 Order name: Urine Dipstick-Ancillary (obtain specimen); Complete Time: 19:54 ma2 Administered Medications: No medications were administered Disposition: 01/31/20 19:06 Hospitalization ordered by Landon Brar for Observation. Preliminary diagnosis is Altered mental status, unspecified. - Bed requested for [facility] ER HOLD. - Status is Observation. - Condition is Stable. - Problem is new. - Symptoms are unchanged. Signatures: Dispatcher [employer] EDMS Evi Garibay RN RN Kate Coats RN RN Maria Luz Steinberg RN RN [facility] DaciaLandon barron MD MD ma2 Corrections: (The following items were deleted from the chart) 21:02 19:06 Hospitalization Ordered by Landon Brar MD for Observation. Preliminary diagnosis is Altered mental status, unspecified. Bed requested for Telemetry/MedSurg (observation). Status is Observation. Condition is Stable. Problem is new. Symptoms are unchanged. ma2 01/31 06:16 07/04 21:02 01/31/2020 19:06 Hospitalization Ordered by Landon Brar MD for Observation. Preliminary diagnosis is Altered mental status, unspecified. Bed requested for [facility] ER HOLD. Status is Observation. Condition is Stable. Problem is new. Symptoms are unchanged. ss
[2020-01-31] MEDS ORDERED: ONDANSETRON 4 MG/2 ML VIAL IV PRN (19:11)
[2020-01-31] MEDS ORDERED: ACETAMINOPHEN 500 MG TAB PO PRN (19:11)
[2020-01-31] MEDS: NA CHLORIDE 0.9% 1,000 ML IV SCH (20:00)
[2020-01-31 20:06] LABS: Urine Blood 1+ (NEG); Urine Glucose NEGATIVE (NEG); Urine Protein NEGATIVE (NEG); Urine Specific Gravity 1.025 (1.005-1.030)
[2020-01-31 20:20] LABS: Barbiturates NEGATIVE (NEGATIVE); Benzodiazepines POSITIVE (NEGATIVE); Cocaine NEGATIVE (NEGATIVE); METHAMPHETAM NEGATIVE (NEGATIVE); Methadone NEGATIVE (NEGATIVE); Opiates NEGATIVE (NEGATIVE); Phencyclidine NEGATIVE (NEGATIVE); THC Cannibis NEGATIVE (NEGATIVE)
--- NOTE | 2020-01-31 20:28 | RAD REPORT ---
EXAM DESCRIPTION: CT - Head Brain Wo Cont - 01/31/2020 8:23 pm CLINICAL HISTORY: drowsy Headache, drowsiness COMPARISON: No comparisons TECHNIQUE: All CT scans are performed using dose optimization technique as appropriate and may inclu de automated exposure control or mA/KV adjustment according to patient size. FINDINGS: No intracranial hemorrhage, hydrocephalus or extra-axial fluid collection.No areas of brai n edema or evidence of midline shift. The paranasal sinuses and mastoids are clear. The calvarium is intact. IMPRESSION: No acute intracranial abnormality.
[2020-01-31 21:14] VITALS: BMI 43.2
[2020-01-31] MEDS ORDERED: NA CHLORIDE 0.9% 1,000 ML ONE (21:53)
--- NOTE | 2020-01-31 21:56 | P.SSS ---
Patient History Date of Service: 02/13/20 Reason for admission: OD History of Present Illness: Patient is a 39-year-old female came to the hospital with unintentional overdose of Benadryl. She was lethargic and difficult to arouse. She was admitted to the hospital for observation. Her son from gunshot wound. She has been really upset and depressed and wanted to sleep so she took a few Benadryl. She was admitted to the hospital for further evaluation. Allergies naproxen Allergy (Intermediate, Verified 01/31/20 21:09) Hives/Rash Home Medications: ALPRAZolam [Xanax*] 0.25 mg PO BID #30 tab 02/01/20 Escitalopram [Lexapro*] 10 mg PO BID #60 tab 02/01/20 - Past Medical/Surgical History Diabetic: No -: Hypertension -: Bipolar -: Anxiety Past Surgical History: Patient denies surgical history - Family History Family History: Reviewed- Non-Contributory - Social History Smoking Status: Unknown if ever smoked Place of Residence: Home Review of Systems 10-point ROS is otherwise unremarkable Physical Examination - Vital Signs Temperature: 98 F Blood Pressure: 130/80 Pulse: 80 Respirations: 16 Pulse Ox (%): 96 - Physical Exam General: Alert, In no apparent distress, Oriented x3 HEENT: Atraumatic, PERRLA, Mucous membr. moist/pink, EOMI, Sclerae nonicteric Neck: Supple, 2+ carotid pulse no bruit, No LAD, Without JVD or thyroid abnormality Respiratory: Clear to auscultation bilaterally, Normal air movement Cardiovascular: Regular rate/rhythm, Normal S1 S2 Gastrointestinal: Normal bowel sounds, No tenderness Musculoskeletal: No tenderness Integumentary: No rashes Neurological: Normal gait, Normal speech, Normal strength at 5/5 x4 extr, Normal tone, Normal affect Lymphatics: No axilla or inguinal lymphadenopathy - Studies Laboratory Data (last 24 hrs) 01/31/20 17:20: PT 13.2 H, INR 1.12, APTT 33.8 01/31/20 17:20: WBC 9.4, Hgb 11.5 L, Hct 34.5 L, Plt Count 343 01/31/20 17:20: Sodium 141, Potassium 3.7, BUN 8, Creatinine 0.78, Glucose 112 H, Total Bilirubin 0.3, AST 24, ALT 30, Alkaline Phosphatase 64 Treatment Summary: Patient has done well during hospital stay. Clinically she appears to be doing well. Will observe her as her Benadryl level has made her really lethargic and she is having a hard time staying awake. Anticipate discharge home in the morning. - Disposition Condition: GOOD Patient Discharge Instructions: OK TO DC IV AND DC HOME. FOLLOW-UP WITH PRIMARY CARE PROVIDER IN 1-2 WEEKS. RETURN TO THE ER IF SYMPTOMS WORSENS. CALL DR. LOPEZ AT [phone] IF ANY QUESTIONS REGARDING HOSPITAL STAY. PLEASE CALL THE FLOOR AT [phone] IF ANY MEDICATION OR NURSING QUESTIONS. Diet: Regular Activity: Fall precautions Time Spent Managing Pts Care (In Minutes): 54
[2020-01-31] MEDS ORDERED: ALPRAZOLAM 0.25 MG TABLET PO PRN (22:27)
[2020-01-31] MEDS ORDERED: ESCITALOPRAM 20 MG TAB PO SCH (23:00)
[2020-01-31] MEDS ORDERED: ESCITALOPRAM 20 MG TAB ONE (23:44)
[2020-02-01 02:34] VITALS: O2SAT 99
[2020-02-01 04:51] LABS: Basophils % 1.2 % (0-1.3); Hematocrit 33.4 % (36.0-45.0); MPV 7.8 fL (7.6-11.3); RBC Red Blood Cell Count 3.65 M/uL (3.86-4.86)
[2020-02-01 05:09] LABS: ALT/SGPT 31 U/L (12-78); AST/SGOT 24 U/L (15-37); Alkaline Phosphatase 63 U/L (45-117); BUN Blood Urea Nitrogen 8 mg/dL (7-18); Bicarbonate 27 mmol/L (21-32); Bilirubin Total 0.2 mg/dL (0.2-1.0); Glucose Level 103 mg/dL (74-106); Potassium 3.8 mmol/L (3.5-5.1); Protein, Total 6.3 g/dL (6.4-8.2); Sodium Level 142 mmol/L (136-145)
[2020-02-01 05:13] LABS: Protime INR 1.11
[2020-02-01] MEDS: NA CHLORIDE 0.9% 1,000 ML IV SCH (05:20)
[2020-02-13 05:14] VITALS: BP 130/80; TEMP 98
--- NOTE | 2020-02-13 05:15 | P.DS ---
Discharge Date: 02/01/20 Disposition: ROUTINE DISCHARGE Discharge Condition: GOOD Reason for Admission: OD Brief History of Present Illness: Patient is a 39-year-old female came to the hospital with unintentional overdose of Benadryl. She was lethargic and difficult to arouse. She was admitted to the hospital for observation. Her son from gunshot wound. She has been really upset and depressed and wanted to sleep so she took a few Benadryl. She was admitted to the hospital for further evaluation. Hospital Course: Patient has done well during hospital stay. At this time, patient is stable for discharge home with outpatient follow-up. Vital Signs/Physical Exam: Temp Pulse Resp BP Pulse Ox 98 F 80 16 130/80 96 02/13/20 05:13 02/13/20 05:13 02/13/20 05:13 02/13/20 05:13 02/13/20 05:13 General: Alert, In no apparent distress, Oriented x3 Laboratory Data at Discharge: WBC 8.2 K/uL (4.3-10.9) 02/01/20 04:28 Hgb 10.9 g/dL (12.0-15.0) L 02/01/20 04:28 Hct 33.4 % (36.0-45.0) L 02/01/20 04:28 Plt Count 340 K/uL (152-406) 02/01/20 04:28 PT 13.1 SECONDS (9.5-12.5) H 02/01/20 04:55 INR 1.11 02/01/20 04:55 APTT 34.1 SECONDS (24.3-36.9) 02/01/20 04:55 Sodium 142 mmol/L (136-145) 02/01/20 04:28 Potassium 3.8 mmol/L (3.5-5.1) 02/01/20 04:28 BUN 8 mg/dL (7-18) 02/01/20 04:28 Creatinine 0.73 mg/dL (0.55-1.3) 02/01/20 04:28 Glucose 103 mg/dL (74-106) 02/01/20 04:28 Total Bilirubin 0.2 mg/dL (0.2-1.0) 02/01/20 04:28 AST 24 U/L (15-37) 02/01/20 04:28 ALT 31 U/L (12-78) 02/01/20 04:28 Alkaline Phosphatase 63 U/L (45-117) 02/01/20 04:28 Home Medications: ALPRAZolam [Xanax*] 0.25 mg PO BID #30 tab 02/01/20 Escitalopram [Lexapro*] 10 mg PO BID #60 tab 02/01/20 New Medications: Escitalopram [Lexapro*] 10 mg PO BID #60 tab ALPRAZolam [Xanax*] 0.25 mg PO BID #30 tab Patient Discharge Instructions: OK TO DC IV AND DC HOME. FOLLOW-UP WITH PRIMARY CARE PROVIDER IN 1-2 WEEKS. RETURN TO THE ER IF SYMPTOMS WORSENS. CALL DR. LOPEZ AT [phone] IF ANY QUESTIONS REGARDING HOSPITAL STAY. PLEASE CALL THE FLOOR AT [phone] IF ANY MEDICATION OR NURSING QUESTIONS. Diet: Regular Activity: Fall precautions Time spent managing pt's care (in minutes): 25
== END 2020-02-01 06:18 | disposition home or self-care (01) ==
LOC: ER 17:02 → ERHOLD 19:11
PROVIDERS: ADMIT Hospitalist; ATTEND Hospitalist
DX: T45.0X1A Poisoning by antiallergic and antiemetic drugs, accidental (unintentional), initial encounter (principal); I49.3 Ventricular premature depolarization; R94.31 Abnormal electrocardiogram [ECG] [EKG]; F41.9 Anxiety disorder, unspecified; F31.9 Bipolar disorder, unspecified; I10 Essential (primary) hypertension; Z79.899 Other long term (current) drug therapy
CPT/HCPCS: 93005; 85025 ×2; 80048; 36415; 80320; 80329 ×2; 81025; 85610 ×2; 80076; 80307 ×8; 85730 ×2; 81003; 80053; 70450; 99285; J7030; G0378 ×3

== ENCOUNTER 2020-03-03 11:57 | Emergency (ER) | payer OTHER ==
--- OUTSIDE RECORDS SUMMARY | 2020-03-03 12:04 | XMS REPORT | Continuity of Care Document ---
:1980 Author Organization [facility] t Address [address] [place] [address] Care Team Providers Name Role Phone UNKNOWN [...] I 6-08 da disorder, Disorder, 00:00: Epis manager endoscopy most Most 00 al recent Recent Health [...] 50 da tabs tabs mg tabs [facility] hydroxyzine hydroxyzine No [...] mg tabs 600 mg da tabs [facility] indomethaci indomethaci No indomethac [place] n 50 mg n 50 mg in 50 mg da caps caps caps [facility] latuda 60 latuda 60 No latuda 60 [place] mg tabs mg tabs mg tabs da [facility] Latuda 60 Latuda [...] tabs 10 mg d a tabs [facility] loratadine loratadine No loratadine [place] 10 mg tabs 10 mg tabs 10 mg d a tabs [facility] Lyrica 100 Lyrica 100 No Lyrica 100 [place] mg capsule mg capsule mg capsule da [facility] Lyrica 50 Lyrica 50 No Lyrica 50 [place] mg capsule mg capsule mg capsule da [facility] ondansetron ondansetron No ondansetro [place] odt 4 mg odt 4 mg n odt 4 d a tbdp tbdp mg tbdp [facility] prazosin 2 prazosin [...] mg tablet 4 mg d [facility] tramadol 50 tramadol 50 No tramadol [place] mg tablet mg tablet 50 mg da tablet [facility] [place] DM [place] DM No [place] DM [place] 10 mg-18 10 mg-18 10 mg-18 da mg-200 mg-200 mg-200 [facility] mg/15 mL mg/15 mL mg/15 mL al oral liquid oral liquid oral H ealth liquid Outreac [facility] Program Procedures This patient has no known procedures. Plan of Care Planned Activity Planned Date Details Comments Source Instructions [facility] Encounters Start End Encounter Admission Attending Care Care Encounter Source Date/Time Date/Time Type Type Clinicians Facility Department ID 2020-01-05 2020-01-05 Juan LOPEZ [place] - [id number] M [facility] 00:00:00 00:00:00 Todd Weiner MD: [facility] [address] [facility] [place] [facility] [place] [address] [place]gr am , Ph. [phone] Results Test Description Test Time Test Comments [...] (test code = UAURRM) 28 mg/dL Magnesium, [id number] 05:40:00 Test Item Value Reference Range Interpretation Comments Magnesium (test code = MG) 1.8 mg/dL 1.7-2.5 N Basic Metabolic [id number] 05:40:00 Test Item Value Reference Range Interpretation [...] National Kidney Foundation,http ://nkd ep.nih.gov CBC with [id number] 05:28:00 Test Item Value Reference Range Interpretation [...] code = ALYMPH) 4.9 K/cumm 0.5-4.6 H [place] Abs (test code = AMONO) 1.1 K/cumm 0.0-1.2 N Eos Abs (test code = AEOS) 0.59 K/cumm 0.00-0.74 N Baso Abs (test code = ABASO) 0.1 K/cumm 0.00-0.21 N [id number] 05:20:00 Test Item Value Reference Range Interpretation Comments Phosphorus (test code = PO4) 3.3 mg/dL 2.70-4.50 N Basic Metabolic [id number] 05:20:00 Test Item Value Reference Range Interpretation [...] the National Kidney Foundation,http ://nkd ep.nih.gov Magnesium, [id number] 05:20:00 Test Item Value Reference Range Interpretation Comments Magnesium (test code = MG) 1.6 mg/dL 1.7-2.5 L CBC with [id number] 04:55:00 Test Item Value Reference Range Interpretation [...] code = ALYMPH) 4.7 K/cumm 0.5-4.6 H [place] Abs (test code = AMONO) 1.4 K/cumm 0.0-1.2 H Eos Abs (test code = AEOS) 0.46 K/cumm 0.00-0.74 N Baso Abs (test code = ABASO) 0.1 K/cumm 0.00-0.21 N Hypochromic (test code = HYPO) Slight Blood Gas+Lytes+Glu+Ca+Hgb+Hct+[id number] 12:34:00 Test Item Value Reference Range Interpretation [...] crit COMMENT) vals to Dr. Hoover @ 7722.dn Puncture Site (test code = Brachial. R PUNSITE) Drawing Tech ID (test code = dnguyen DRAWTECH) Lactic Acid, Blood Gas (test 1.3 mmol/L code = BGLA) iPAP (test code = IPAP) 0 cmH2O Peep (test code = RPEEP) 5 Respiratory Rate (test code 0 = RESP RATE) XR CHEST 1 [id number] 07:41:10EXAM: CHEST ONE VIEWINDICATION: IntubatedCOMPARISON: None availableTECHNIQUE: AP view of the chest.FINDINGS: The endotracheal tube and enteric tube are unchanged. Thecardiomediastinal silhouette is normal. There is mild diffuse pulmonaryedema. No pneumothorax or pleural effusion is identified. The osseousstructures are unremarkable.IMPRESSION: Mild diffuse pulmonary edema.LOCATION: [id number] Metabolic [id number] 05:44:00 Test Item Value Reference Range Interpretation [...] by the National Kidney Foundation,http ://nkd ep.nih.gov [id number] 05:44:00 Test Item Value Reference Range Interpretation Comments Phosphorus (test code = PO4) 3.2 mg/dL 2.70-4.50 N Magnesium, [id number] 05:44:00 Test Item Value Reference Range Interpretation Comments Magnesium (test code = MG) 1.7 mg/dL 1.7-2.5 N CBC with [id number] 05:28:00 Test Item Value Reference Range Interpretation [...] code = ALYMPH) 2.4 K/cumm 0.5-4.6 N [place] Abs (test code = AMONO) 1.1 K/cumm 0.0-1.2 N Eos Abs (test code = AEOS) 0.50 K/cumm 0.00-0.74 N Baso Abs (test code = ABASO) 0.0 K/cumm 0.00-0.21 N Blood Gas+Lytes+Glu+Ca+Hgb+Hct+[id number] 05:12:00 Test Item Value Reference Range Interpretation [...] Celcius Comment (test code = qns.crit.p02.rblv.o COMMENT) [id number] Puncture Site (test code = Radial. R PUNSITE) Drawing Tech ID (test code jzozobrado = DRAWTECH) Lactic Acid, Blood Gas 0.8 mmol/L (test code = BGLA) iPAP (test code = IPAP) 0 cmH2O Peep (test code = RPEEP) 5 Respiratory Rate (test 0 code = RESP RATE) CBC with [id number] 05:34:00 Test Item Value Reference Range Interpretation [...] DELTA CHECKED WITH Celina MARTINEZ /SAMAN @ 12 26 ON 06/23/2017 BY Dian Yen MPV (test [...] code 2.0 K/cumm 0.5-4.6 N = ALYMPH) [place] Abs (test code = 0.4 K/cumm 0.0-1.2 [...] = FT4) 0.83 ng/dL 0.930-1.700 L Urinalysis [id number] 05:26:00 Test Item Value Reference Range Interpretation Comments Color (test code = COLOR) Yellow Yellow,Straw,Pl N yellow Clarity (test code = Clear Clear N CLAR) Specific Point Clear (test 1.004 1.001-1.035 N code = SPGR) [...] Bacteria (test code = Few /HPF BACT) [id number] 05:20:00 Test Item Value Reference Range Interpretation Comments Phosphorus (test code = PO4) 1.7 mg/dL 2.70-4.50 L Comprehensive Metabolic [id number] 05:20:00 Test Item Value Reference Range Interpretation [...] by th e MDRD study and stef yen be interpretedwith caution.eGFR Re sult Interpretation: eGFR > or = 60 is in t he Normal RangeeGF R < 60 may mean kidney diseaseeGFR < 1 5 may mean kidney failureRange s recommended by the National Kidney Foundation,http ://nkd ep.nih.gov Magnesium, [id number] 05:20:00 Test Item Value Reference Range Interpretation Comments Magnesium (test code = MG) 1.7 mg/dL 1.7-2.5 N Blood Gas+Lytes+Glu+Ca+Hgb+Hct+[id number] 05:14:00 Test Item Value Reference Range Interpretation [...] (test code = crit- po2/ rblv- COMMENT) rnEd Sabillon @ 0593 ebrown Puncture Site (test code = Brachial. R PUNSITE) Drawing Tech ID (test code ebrown = DRAWTECH) Lactic Acid, Blood Gas 2.2 mmol/L (test code = BGLA) iPAP (test code = IPAP) 0 cmH2O Peep (test code = RPEEP) 5 Respiratory Rate (test code 18 = RESP RATE) Tidal Volume (test code = 0.500 Liters TIDALVOL) CT HEAD OR BRAIN WO [id number] 02:06:48AFTER HOURS SERVICE ON: 06/23/2017 2:06 AMCT Scan of the Brain Without ContrastLocation Code E56Iuacifa: altered mental statusTechnique: Scans were performed on a helical scanner pre IV contrastonly. The study is limited secondary to lack of intravenous contrast,particularly for evaluation of masses.CT images were performed prhjyk45 hours at arrival to the facility. One [...] blvver rblv code = LAC) Basic Metabolic [id number] 23:49:00 Test Item Value Reference Range Interpretation [...] by the National Kidney Foundation,http ://nkd ep.nih.gov [id number] 23:46:00 Test Item Value Reference Range Interpretation Comments Acetaminophen (test code = ACET) <15.0 ug/mL 15.0-30.0 L [id number] 23:46:00 Test Item Value Reference Range Interpretation Comments Phosphorus (test code = PO4) 1.8 mg/dL 2.70-4.50 L Magnesium, [id number] 23:46:00 Test Item Value Reference Range Interpretation Comments Magnesium (test code = MG) 1.8 mg/dL 1.7-2.5 N CBC with [id number] 23:40:00 Test Item Value Reference Range Interpretation [...] CK LAB VALUESPLATELET DELTA CHECKED WITH Ewelina SABILLON/SAMAN @[facility] ON 06/22/2017REASO N UNKNOWN PER MICHELLE SE [...] code 1.5 K/cumm 0.5-4.6 N = ALYMPH) [place] Abs (test code 0.4 K/cumm 0.0-1.2 N = AMONO) Eos Abs (test code = 0.05 K/cumm 0.00-0.74 N AEOS) Baso Abs (test code 0.0 K/cumm 0.00-0.21 N = ABASO) Hypochromic (test Slight code = HYPO) Urinalysis [id number] 20:50:00 Test Item Value Reference Range Interpretation Comments Color (test code = Yellow Yellow,Straw,Pl N COLOR) yellow Clarity (test code = Clear Clear N CLAR) Specific Point Clear (test 1.028 1.001-1.035 N code = SPGR) [...] Hyaline 0-1 CASTS) Granular /HPF BHCG, Urine, [id number] 20:30:00 Test Item Value Reference Range Interpretation Comments Preg Qual [Ur] (test code = HUHCG) Negative Negative N [id number] 20:28:00 Test Item Value Reference Range Interpretation [...] N code = ETOHU) XR CHEST 1 [id number] 20:19:17CHEST X-RAY 1 VIEW Location: [id number] HISTORY: IntubationTechnique:2 frontal views of the chest [...] in satisfactory position. Mild centralvascular congestion.Partial Thromboplastin [id number] 20:14:00 Test Item Value Reference Range Interpretation Comments aPTT (test code = PTT) 29.10 seconds 24.39-37.25 N Prothrombin [id number] 20:14:00 Test Item Value Reference Range Interpretation Comments PT (test code = PT) 11.60 seconds 9.78-13.35 N INR (test code = INR) 1.02 Ratio 0.6-1.2 N CBC with [id number] 20:06:00 Test Item Value Reference Range Interpretation [...] code = ALYMPH) 2.4 K/cumm 0.5-4.6 N [place] Abs (test code = AMONO) 0.8 K/cumm 0.0-1.2 N Eos Abs (test code = AEOS) 0.07 K/cumm 0.00-0.74 N Baso Abs (test code = ABASO) 0.0 K/cumm 0.00-0.21 N Hypochromic (test code = HYPO) Slight Blood Gas+Lytes+Glu+Ca+Hgb+Hct+[id number] 20:04:00 Test Item Value Reference Range Interpretation [...] Celcius Comment (test code = qns.crit.vals.rblv. COMMENT) [email or web address] Puncture Site (test code = Brachial. L PUNSITE) Drawing Tech ID (test code jzozobrado = DRAWTECH) iPAP (test code = IPAP) 0 cmH2O Respiratory Rate (test 0 code = RESP RATE) Lactic Acid, Blood Gas 4.3 mmol/L (test code = BGLA) [id number] 20:03:00 Test Item Value Reference Range Interpretation Comments Acetaminophen (test code = ACET) <15.0 ug/mL 15.0-30.0 L [id number] 20:03:00 Test Item Value Reference Range Interpretation Comments Salicylate (test code <0.3 mg/dL 0.3-10.0 L Anayeli nge in unit of = SALI) measurement for Salicylate ( fr om ug/mL to mg/dL ) Comprehensive Metabolic [id number] 20:03:00 Test Item Value Reference Range Interpretation [...]
--- NOTE | 2020-03-03 14:07 | ER ---
Nurse's Notes [facility] Name: Anamaria Baer Age: 39 yrs Sex: Female : 1980 Arrival Date: 03/03/2020 Time: 12:02 Bed 20 Private MD: Diagnosis: Depression Presentation: 03/03 12:35 Chief complaint: Patient states: Son was murdered on the 24 of January. Was on ca1 Alprazolam and another medication for anxiety prescribed by Dr. Brar. Was told to come back once meds run out. Feels sad, not eating, not sleeping, and can't get anything done. Coronavirus screen: Client denies travel out of the [place] in the last 14 days. At this time, the client does not indicate any symptoms associated with coronavirus-19. Ebola Screen: Patient negative for fever greater than or equal to 101.5 degrees Fahrenheit, and additional compatible Ebola Virus Disease symptoms Patient denies exposure to infectious person. Patient denies travel to an Ebola-affected area in the 21 days before illness onset. No symptoms or risks identified at this time. Initial Sepsis Screen: Does the patient meet any 2 criteria? No. Patient's initial sepsis screen is negative. Does the patient have a suspected source of infection? No. Patient's initial sepsis screen is negative. Risk Assessment: Do you want to hurt yourself or someone else? Patient reports no desire to harm self or others. Onset of symptoms was March 03, 2020. 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 - Social history:: Smoking status: Patient reports the use of cigarette tobacco products, smokes one-half pack cigarettes per day. Screenin:07 Abuse screen: Denies threats or abuse. Nutritional screening: No deficits noted. tw2 Tuberculosis screening: No symptoms or risk factors identified. Fall Risk None identified. Assessment: 13:53 Reassessment: provider at bedside at this time. tw2 14:08 General: Appears in no apparent distress. Behavior is calm, cooperative, appropriate tw2 for age, pt denies SI/HI. Pain: Denies pain. Cardiovascular: Patient's skin is warm and dry. Respiratory: Airway is patent Respiratory effort is even, unlabored, Respiratory pattern is regular, symmetrical. GI: No signs and/or symptoms were reported involving the gastrointestinal system. :. Musculoskeletal: Range of motion: intact in all extremities. 14:18 Neuro: Level of Consciousness is awake, alert, obeys commands, Oriented to person, tw2 place, time, situation. 14:19 Reassessment: Patient appears in no apparent distress at this time. No changes from tw2 previously documented assessment. Patient and/or family updated on plan of care and expected duration. Pain level reassessed. Patient is alert, oriented x 3, equal unlabored respirations, skin warm/dry/pink. Vital Signs: 12:35 BP 120 / 83; Pulse 86; Resp 18 S; Temp 97.5(TE); Pulse Ox 100% on R/A; Height 5 ft. 5 ca1 in. (165.10 cm) (R); ED Course: 12:02 Patient arrived in ED. fj1 12:39 Triage completed. ca1 12:39 Arm band placed on right wrist. ca1 13:26 Bed in low position. Call light in reach. tw2 13:30 Amy Childers RN is Primary Nurse. tw2 13:37 Justin Bagley PA is PHCP. [facility] 13:37 Blaise Banks MD is Attending Physician. [facility] 14:19 No provider procedures requiring assistance completed. Patient did not have IV access tw2 during this emergency room visit. Administered Medications: No medications were administered Outcome: 14:07 Discharge ordered by . [facility] 14:19 Discharged to home ambulatory. tw2 14:19 Condition: stable 14:19 Discharge instructions given to patient, Instructed on discharge instructions, follow up and referral plans. no drinking with medication, no driving heavy equipment, medication usage, Demonstrated understanding of instructions, follow-up care, medications, Prescriptions given X 1. 14:19 Patient left the ED. tw2 Signatures: Justin Bagley PA PA Amy Cespedes RN RN tw2 Kathryn Blackmon RN RN ca1 Alvin Mehta fj1 Corrections: (The following items were deleted from the chart) 14:18 14:08 General: Appears in no apparent distress. Behavior is calm, cooperative, tw2 appropriate for age, tw2
--- NOTE | 2020-03-03 14:07 | EDPHYS ---
Physician Documentation [facility] Name: Anamaria Baer Age: 39 yrs Sex: Female : 1980 Arrival Date: 03/03/2020 Time: 12:02 Bed 20 Private MD: ED Physician Blaise Banks HPI: 03/03 13:48 This 39 yrs old Black Female presents to ER via Ambulatory with complaints of jmm Depression. 13:48 The patient presents to the emergency department with anxiety, depression. Onset: The jmm symptoms/episode began/occurred gradually. This is a 39 year old female with a history of htn, bipolar, that presents to the ED with complaints of ongoing depression since her son was killed approx 1 month ago. Patient was admitted to the hospital for a benadryl over dose. Patient states she was not trying to harm herself at the time. Patient discharged with alprazolam but states she has run out. Patient states she has an appoint with psychiatry next week. Currently denies HI or SI. . 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 - Social history:: Smoking status: Patient reports the use of cigarette tobacco products, smokes one-half pack cigarettes per day. ROS: 13:48 Constitutional: Negative for fever, chills, and weight loss, Cardiovascular: Negative jmm for chest pain, palpitations, and edema, Respiratory: Negative for shortness of breath, cough, wheezing, and pleuritic chest pain. 13:48 Psych: Positive for anxiety, depression. 13:48 All other systems are negative. Exam: 13:48 Constitutional: This is a well developed, well nourished patient who is awake, alert, jmm and in no acute distress. Head/Face: atraumatic. Eyes: EOMI, no conjunctival erythema appreciated ENT: Moist Mucus Membranes Neck: Trachea midline, Supple Chest/axilla: Normal chest wall appearance and motion. Cardiovascular: Regular rate and rhythm. No edema appreciated Respiratory: Normal respirations, no respiratory distress appreciated Abdomen/GI: Non distended, soft Back: Normal ROM Skin: General appearance color normal MS/ Extremity: Moves all extremities, no obvious deformities appreciated, no edema noted to the lower extremities Neuro: Awake and alert, normal gait 13:48 Psych: Behavior/mood is pleasant, cooperative, anxious. Vital Signs: 12:35 BP 120 / 83; Pulse 86; Resp 18 S; Temp 97.5(TE); Pulse Ox 100% on R/A; Height 5 ft. 5 ca1 in. (165.10 cm) (R); MDM: 13:48 Patient medically screened. [facility] 14:03 Data reviewed: vital signs, nurses notes. Counseling: I had a detailed discussion with [facility] the patient and/or guardian regarding: the historical points, exam findings, and any diagnostic results supporting the discharge/admit diagnosis, the need for outpatient follow up, to return to the emergency department if symptoms worsen or persist or if there are any questions or concerns that arise at home. 14:03 ED course: Previous admission was reviewed. Patient is advised to follow up with [facility] psychiatry for further management. I do not currently suspect the patient is suicidal or homicidal or have intent to harm herself. . Administered Medications: No medications were administered Disposition: 03/04 08:05 Co-signature as Attending Physician, Blaise Banks MD I agree with the assessment and kdr plan of care. Disposition: 03/03/20 14:07 Discharged to Home. Impression: Depression. - Condition is Stable. - Discharge Instructions: Major Depressive Disorder. - Prescriptions for Xanax 0.5 mg Oral Tablet - take 1 tablet by ORAL route every 8 hours As needed; 10 tablet. - Medication Reconciliation Form, Thank You Letter, Antibiotic Education, Prescription Opioid Use form. - Follow up: Private Physician; When: 2 - 3 days; Reason: Recheck today's complaints, Continuance of care, Re-evaluation by your physician. Signatures: Blaise Banks MD MD kdr Mickail, Joel, PA PA [facility] Amy Childers RN RN tw2 Kathryn Blackmon RN RN ca1 Corrections: (The following items were deleted from the chart) 03/03 14:19 14:07 03/03/2020 14:07 Discharged to Home. Impression: Depression. Condition is Stable. tw2 Forms are Medication Reconciliation Form, Thank You Letter, Antibiotic Education, Prescription Opioid Use. Follow up: Private Physician; When: 2 - 3 days; Reason: Recheck today's complaints, Continuance of care, Re-evaluation by your physician. radha
[2020-03-03 14:24] VITALS: BP 120/83; TEMP 97.5; O2SAT 100
== END 2020-03-03 14:19 | disposition home or self-care (01) ==
LOC: ER 11:57
DX: F32.9 Major depressive disorder, single episode, unspecified (principal); I10 Essential (primary) hypertension; F17.210 Nicotine dependence, cigarettes, uncomplicated; Z88.6 Allergy status to analgesic agent
CPT/HCPCS: 99282

== ENCOUNTER 2020-04-22 16:00 | Emergency (ER) | payer OTHER ==
--- OUTSIDE RECORDS SUMMARY | 2020-04-22 16:03 | XMS REPORT | Continuity of Care Document ---
:1980 Author Organization [facility] t Address [address] [place] [address] Care Team Providers Name Role Phone UNKNOWN Primary Care Physician Unavailable MARIA E TRAORE MD MCandelario. 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.] tabs 10 mg d a tabs [facility] loratadine loratadine No loratadine [place] 10 mg tabs 10 mg tabs 10 mg d a tabs [facility] Lyrica 100 Lyrica 100 No Lyrica 100 [place] mg capsule mg capsule mg capsule da [facility] Lyrica 50 Lyrica 50 No Lyrica 50 [place] mg capsule mg capsule mg capsule da [facility] ondansetron ondansetron No ondansetro [place] odt 4 mg odt 4 mg n odt 4 d a tbdp tbdp mg tbdp [facility] prazosin 2 prazosin [...] tablet 4 mg d a tablet [facility] tramadol 50 tramadol 50 No tramadol [place] mg tablet mg tablet 50 mg da tablet [facility] [place] DM [place] DM No [place]of DM [place] 10 mg-18 10 mg-18 10 mg-18 da mg-200 mg-200 mg-200 [facility] mg/15 mL mg/15 mL mg/15 mL al oral liquid oral liquid oral H ealth liquid Outreac h Program Procedures This patient has no known procedures. Plan of Care Planned Activity Planned Date Details Comments Source Instructions [facility] Outreach Program Encounters Start End Encounter Admission Attending Care Care Encounter Source Date/Time Date/Time Type Type Clinicians Facility Department ID 2020-01-05 2020-01-05 Juan LOPEZ [place] - [id number] M [facility] 00:00:00 00:00:00 Todd Weiner MD: [facility] [address] [facility] [place] [address] Progr am , Ph. [phone] Results Test Description Test Time Test Comments [...] (test code = UAURRM) 28 mg/dL Magnesium, [id number] 05:40:00 Test Item Value Reference Range Interpretation Comments Magnesium (test code = MG) 1.8 mg/dL 1.7-2.5 N Basic Metabolic [id number] 05:40:00 Test Item Value Reference Range Interpretation [...] imated value,calculate d from the patient's s tedyd creatinine usin g the MDRD equation.I t [...] National Kidney Foundation,http ://nkd ep.nih.gov CBC with [id number] 05:28:00 Test Item Value Reference Range Interpretation [...] code = ALYMPH) 4.9 K/cumm 0.5-4.6 H Kenton Abs (test code = AMONO) 1.1 K/cumm 0.0-1.2 N Eos Abs (test code = AEOS) 0.59 K/cumm 0.00-0.74 N Baso Abs (test code = ABASO) 0.1 K/cumm 0.00-0.21 N [id number] 05:20:00 Test Item Value Reference Range Interpretation Comments Phosphorus (test code = PO4) 3.3 mg/dL 2.70-4.50 N Basic Metabolic [id number] 05:20:00 Test Item Value Reference Range Interpretation [...] the National Kidney Foundation,http ://nkd ep.nih.gov Magnesium, [id number] 05:20:00 Test Item Value Reference Range Interpretation Comments Magnesium (test code = MG) 1.6 mg/dL 1.7-2.5 L CBC with [id number] 04:55:00 Test Item Value Reference Range Interpretation [...] code = ALYMPH) 4.7 K/cumm 0.5-4.6 H Kenton Abs (test code = AMONO) 1.4 K/cumm 0.0-1.2 H Eos Abs (test code = AEOS) 0.46 K/cumm 0.00-0.74 N Baso Abs (test code = ABASO) 0.1 K/cumm 0.00-0.21 N Hypochromic (test code = HYPO) Slight Blood Gas+Lytes+Glu+Ca+Hgb+Hct+[id number] 12:34:00 Test Item Value Reference Range Interpretation [...] crit COMMENT) vals to Dr. Hoover @ 1876.dn Puncture Site (test code = Brachial. R PUNSITE) Drawing Tech ID (test code = dnguyen DRAWTECH) Lactic Acid, Blood Gas (test 1.3 mmol/L code = BGLA) iPAP (test code = IPAP) 0 cmH2O Peep (test code = RPEEP) 5 Respiratory Rate (test code 0 = RESP RATE) XR CHEST 1 [id number] 07:41:10EXAM: CHEST ONE VIEWINDICATION: IntubatedCOMPARISON: None availableTECHNIQUE: AP view of the chest.FINDINGS: The endotracheal tube and enteric tube are unchanged. Thecardiomediastinal silhouette is normal. There is mild diffuse pulmonaryedema. No pneumothorax or pleural effusion is identified. The osseousstructures are unremarkable.IMPRESSION: Mild diffuse pulmonary edema.LOCATION: V24Odtud Metabolic [id number] 05:44:00 Test Item Value Reference Range Interpretation [...] by the National Kidney Foundation,http ://nkd ep.nih.gov [id number] 05:44:00 Test Item Value Reference Range Interpretation Comments Phosphorus (test code = PO4) 3.2 mg/dL 2.70-4.50 N Magnesium, [id number] 05:44:00 Test Item Value Reference Range Interpretation Comments Magnesium (test code = MG) 1.7 mg/dL 1.7-2.5 N CBC with [id number] 05:28:00 Test Item Value Reference Range Interpretation [...] code = ALYMPH) 2.4 K/cumm 0.5-4.6 N Kenton Abs (test code = AMONO) 1.1 K/cumm 0.0-1.2 N Eos Abs (test code = AEOS) 0.50 K/cumm 0.00-0.74 N Baso Abs (test code = ABASO) 0.0 K/cumm 0.00-0.21 N Blood Gas+Lytes+Glu+Ca+Hgb+Hct+[id number] 05:12:00 Test Item Value Reference Range Interpretation [...] 0 code = RESP RATE) CBC with [id number] 05:34:00 Test Item Value Reference Range Interpretation [...] /SAMAN @ 12 26 ON 06/23/2017 BY Phillip Yen MPV (test code = MPV) 9.9 [...] code 2.0 K/cumm 0.5-4.6 N = ALYMPH) Kenton Abs (test code = 0.4 K/cumm 0.0-1.2 [...] = FT4) 0.83 ng/dL 0.930-1.700 L Urinalysis [id number] 05:26:00 Test Item Value Reference Range Interpretation Comments Color (test code = COLOR) Yellow Yellow,Straw,Pl N yellow Clarity (test code = Clear Clear N CLAR) Specific [place] (test 1.004 1.001-1.035 N code = SPGR) [...] Bacteria (test code = Few /HPF BACT) [id number] 05:20:00 Test Item Value Reference Range Interpretation Comments Phosphorus (test code = PO4) 1.7 mg/dL 2.70-4.50 L Comprehensive Metabolic [id number] 05:20:00 Test Item Value Reference Range Interpretation [...] ofage have not been validated by th phillip MDRD study and stef d be interpretedwith caution.eGFR Re sult Interpretation: eGFR > or = 60 is in t he Normal RangeeGF R < 60 may mean kidney diseaseeGFR < 1 5 may mean kidney failureRange s recommended by the National Kidney Foundation,http ://nkd ep.nih.gov Magnesium, [id number] 05:20:00 Test Item Value Reference Range Interpretation Comments Magnesium (test code = MG) 1.7 mg/dL 1.7-2.5 N Blood Gas+Lytes+Glu+Ca+Hgb+Hct+[id number] 05:14:00 Test Item Value Reference Range Interpretation [...] crit- po2/ rblv- COMMENT) rnEd Sabillon @ 0545 ebrown Puncture Site (test code = Brachial. R PUNSITE) Drawing Tech ID (test code ebrown = DRAWTECH) Lactic Acid, Blood Gas 2.2 mmol/L (test code = BGLA) iPAP (test code = IPAP) 0 cmH2O Peep (test code = RPEEP) 5 Respiratory Rate (test code 18 = RESP RATE) Tidal Volume (test code = 0.500 Liters TIDALVOL) CT HEAD OR BRAIN WO [id number] 02:06:48AFTER HOURS SERVICE ON: 06/23/2017 2:06 AMCT Scan of the Brain Without ContrastLocation Code T60Lujiqis: altered mental statusTechnique: Scans were performed on a helical scanner pre IV contrastonly. The study is limited secondary to lack of intravenous contrast,particularly for evaluation of masses.CT images were performed swovuo68 hours at arrival to the facility. One [...] blvver rblv code = LAC) Basic Metabolic [id number] 23:49:00 Test Item Value Reference Range Interpretation [...] by the National Kidney Foundation,http ://nkd ep.nih.gov [id number] 23:46:00 Test Item Value Reference Range Interpretation Comments Acetaminophen (test code = ACET) <15.0 ug/mL 15.0-30.0 L [id number] 23:46:00 Test Item Value Reference Range Interpretation Comments Phosphorus (test code = PO4) 1.8 mg/dL 2.70-4.50 L Magnesium, [id number] 23:46:00 Test Item Value Reference Range Interpretation Comments Magnesium (test code = MG) 1.8 mg/dL 1.7-2.5 N CBC with [id number] 23:40:00 Test Item Value Reference Range Interpretation [...] LAB VALUESPLATELET DELTA CHECKED WITH Ewelina SABILLON/SAMAN @ ON 06/22/2017REASO N UNKNOWN PER MICHELLE SE [...] code 1.5 K/cumm 0.5-4.6 N = ALYMPH) Kenton Abs (test code 0.4 K/cumm 0.0-1.2 N = AMONO) Eos Abs (test code = 0.05 K/cumm 0.00-0.74 N AEOS) Baso Abs (test code 0.0 K/cumm 0.00-0.21 N = ABASO) Hypochromic (test Slight code = HYPO) Urinalysis [id number] 20:50:00 Test Item Value Reference Range Interpretation Comments Color (test code = Yellow Yellow,Straw,Pl N COLOR) yellow Clarity (test code = Clear Clear N CLAR) Specific [place] (test 1.028 1.001-1.035 N code = SPGR) [...] Hyaline 0-1 CASTS) Granular /HPF BHCG, Urine, [id number] 20:30:00 Test Item Value Reference Range Interpretation Comments Preg Qual [Ur] (test code = HUHCG) Negative Negative N [id number] 20:28:00 Test Item Value Reference Range Interpretation [...] N code = ETOHU) XR CHEST 1 [id number] 20:19:17CHEST X-RAY 1 VIEW Location: [id number] HISTORY: IntubationTechnique:2 frontal views of the chest [...] in satisfactory position. Mild centralvascular congestion.Partial Thromboplastin [id number] 20:14:00 Test Item Value Reference Range Interpretation Comments aPTT (test code = PTT) 29.10 seconds 24.39-37.25 N Prothrombin [id number] 20:14:00 Test Item Value Reference Range Interpretation Comments PT (test code = PT) 11.60 seconds 9.78-13.35 N INR (test code = INR) 1.02 Ratio 0.6-1.2 N CBC with [id number] 20:06:00 Test Item Value Reference Range Interpretation [...] code = ALYMPH) 2.4 K/cumm 0.5-4.6 N Kenton Abs (test code = AMONO) 0.8 K/cumm 0.0-1.2 N Eos Abs (test code = AEOS) 0.07 K/cumm 0.00-0.74 N Baso Abs (test code = ABASO) 0.0 K/cumm 0.00-0.21 N Hypochromic (test code = HYPO) Slight Blood Gas+Lytes+Glu+Ca+Hgb+Hct+[id number] 20:04:00 Test Item Value Reference Range Interpretation [...] Gas 4.3 mmol/L (test code = BGLA) [id number] 20:03:00 Test Item Value Reference Range Interpretation Comments Acetaminophen (test code = ACET) <15.0 ug/mL 15.0-30.0 L [id number] 20:03:00 Test Item Value Reference Range Interpretation Comments Salicylate (test code <0.3 mg/dL 0.3-10.0 L Anayeli nge in unit of = SALI) measurement for Salicylate ( fr om ug/mL to mg/dL ) Comprehensive Metabolic [id number] 20:03:00 Test Item Value Reference Range Interpretation [...]
--- NOTE | 2020-04-22 16:50 | EDPHYS ---
[facility] Name: Anamaria Baer Age: 39 yrs Sex: Female : 1980 Arrival Date: 04/22/2020 Time: 16:03 Bed 24 Private MD: ED Physician Tanner Collier HPI: 04/22 16:48 This 39 yrs old Black Female presents to ER via Ambulatory with complaints of Anxiety, jr8 Depression. 16:48 pt presents with continuous anxiety/depression. The pt states that she would like Xanax jr8 for anxiety because she is not able to function at home. The patient denies SI/HI and states that her daughter stays with her as a support. Denies any other symptoms at this time. The pt is tearful in the room, but in no acute distress.. Historical: - Allergies: 16:31 Naproxen; ss - PMHx: 16:31 Hypertension; ss - PSHx: 16:31 None; ss - Immunization history:: Adult Immunizations up to date. - Social history:: Smoking status: Patient denies any tobacco usage or history of. ROS: 17:21 Eyes: Negative for injury, pain, redness, and discharge, ENT: Negative for injury, jr8 pain, and discharge, Neck: Negative for injury, pain, and swelling, Cardiovascular: Negative for chest pain, palpitations, and edema, Respiratory: Negative for shortness of breath, cough, wheezing, and pleuritic chest pain, Abdomen/GI: Negative for abdominal pain, nausea, vomiting, diarrhea, and constipation, Back: Negative for injury and pain, MS/Extremity: Negative for injury and deformity, Skin: Negative for injury, rash, and discoloration, Neuro: Negative for headache, weakness, numbness, tingling, and seizure. 17:21 Psych: Positive for anxiety, depression, Negative for alcohol dependence, auditory hallucinations, visual hallucinations, homicidal ideation, insomnia, suicide gesture, suicidal ideation. Exam: 17:21 Constitutional: This is a well developed, well nourished patient who is awake, alert, jr8 and in no acute distress. Cardiovascular: Regular rate and rhythm with a normal S1 and S2. No gallops, murmurs, or rubs. Normal PMI, no JVD. No pulse deficits. Respiratory: Lungs have equal breath sounds bilaterally, clear to auscultation and percussion. No rales, rhonchi or wheezes noted. No increased work of breathing, no retractions or nasal flaring. Skin: Warm, dry with normal turgor. Normal color with no rashes, no lesions, and no evidence of cellulitis. MS/ Extremity: Pulses equal, no cyanosis. Neurovascular intact. Full, normal range of motion. Neuro: Awake and alert, GCS 15, oriented to person, place, time, and situation. Cranial nerves II-XII grossly intact. Motor strength 5/5 in all extremities. Sensory grossly intact. Cerebellar exam normal. Normal gait. 17:21 Psych: Behavior/mood is cooperative, depressed, Affect is calm, Oriented to person, place, time, Patient has no thoughts/intents to harm self or others. Judgement / Insight is normal. Memory is normal. Delusions/hallucinations are not present. Vital Signs: 16:29 BP 162 / 115; Pulse 102; Resp 18; Temp 99.1(TE); Pulse Ox 99% on R/A; Weight 96.62 kg; ss Height 5 ft. 5 in. (165.10 cm); Pain 0/10; 16:29 Body Mass Index 35.44 (96.62 kg, 165.10 cm) ss MDM: 16:[address] [facility] 16:48 Data reviewed: vital signs, nurses notes, and as a result, I will discharge patient. jr8 Data interpreted: Pulse oximetry: on room air is 99 %. Interpretation: normal. Counseling: I had a detailed discussion with the patient and/or guardian regarding: the historical points, exam findings, and any diagnostic results supporting the discharge/admit diagnosis, the need for outpatient follow up, a psychiatrist, to return to the emergency department if symptoms worsen or persist or if there are any questions or concerns that arise at home. ED course: Patient with no HI/SI. Has good support system at home. Will refer to psych out patient [place] for chronic anxiety and depression. Patient very interested in this and wants the help. Administered Medications: 16:55 Drug: XANax Tablet 1 mg Route: PO; ss 17:23 Follow up: Response: No adverse reaction; Anxiety decreased ss 17:04 Drug: TORadol 30 mg Route: IM; Site: left deltoid; ss 17:23 Follow up: Response: No adverse reaction; Marked relief of symptoms ss Disposition: 17:34 Co-signature as Attending Physician, Tanner Collier MD. rn Disposition: 04/22/20 16:49 Discharged to Home. Impression: Anxiety disorder, unspecified, Major depressive disorder, recurrent. - Condition is Stable. - Discharge Instructions: Panic Attacks, Generalized Anxiety Disorder, Major Depressive Disorder. - Prescriptions for Hydroxyzine HCl 50 mg Oral Tablet - take 1 tablet by ORAL route every 8 hours As needed; 20 tablet. - Medication Reconciliation Form, Thank You Letter, Antibiotic Education, Prescription Opioid Use form. - Follow up: Humberto Kelly MD; When: 2 - 3 days; Reason: Recheck today's complaints, Continuance of care, Re-evaluation by your physician. - Problem is new. - Symptoms have improved. Signatures: Tanner Collier MD MD rn Kate Coats RN RN Stanley Crenshaw, SOPHIA CORTES jr8 Corrections: (The following items were deleted from the chart) 17:23 16:49 04/22/2020 16:49 Discharged to Home. Impression: Anxiety disorder, unspecified; ss Major depressive disorder, recurrent. Condition is Stable. Forms are Medication Reconciliation Form, Thank You Letter, Antibiotic Education, Prescription Opioid Use. Follow up: Humberto Kelly; When: 2 - 3 days; Reason: Recheck today's complaints, Continuance of care, Re-evaluation by your physician. Problem is new. Symptoms have improved. jr8
--- NOTE | 2020-04-22 16:50 | ER ---
Nurse's Notes [facility] Name: Anamaria Baer Age: 39 yrs Sex: Female : 1980 Arrival Date: 04/22/2020 Time: 16:03 Bed 24 Private MD: Diagnosis: Anxiety disorder, unspecified;Major depressive disorder, recurrent Presentation: 04/22 16:29 Chief complaint: Patient states: "I lost my son a couple months ago and I just haven't ss gotten over it yet." Pt reports anxiety. Coronavirus screen: Client denies travel out of the [place] in the last 14 days. Ebola Screen: Patient denies exposure to infectious person. Patient denies travel to an Ebola-affected area in the 21 days before illness onset. Initial Sepsis Screen: Does the patient meet any 2 criteria? No. Patient's initial sepsis screen is negative. Does the patient have a suspected source of infection? No. Patient's initial sepsis screen is negative. Risk Assessment: Do you want to hurt yourself or someone else? Patient reports no desire to harm self or others. Onset of symptoms is unknown. 16:29 Method Of Arrival: Ambulatory ss 16:29 Acuity: DEVONTE 5 ss Historical: - Allergies: 16:31 Naproxen; ss - PMHx: 16:31 Hypertension; ss - PSHx: 16:31 None; ss - Immunization history:: Adult Immunizations up to date. - Social history:: Smoking status: Patient denies any tobacco usage or history of. Screenin:44 Abuse screen: Denies threats or abuse. Denies injuries from another. Nutritional ss screening: No deficits noted. Tuberculosis screening: Never had TB. Fall Risk None identified. Assessment: 16:44 General: Appears uncomfortable, Behavior is cooperative, anxious. General: Pt reports ss she is out of her Xanax from her previous ER visit and would like another prescription and perhaps something stronger. . Pain: Complains of pain in headache. 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 Full function. Cardiovascular: Capillary refill < 3 seconds is brisk in bilateral fingers Patient's skin is warm and dry. Respiratory: Airway is patent Respiratory effort is even, unlabored, Respiratory pattern is regular, symmetrical. GI: Patient currently denies nausea, vomiting. : Denies burning with urination, urinary frequency. EENT: Nares are clear. Derm: Skin is dry, Skin is pink, warm \\T\\ dry. normal. Musculoskeletal: Circulation, motion, and sensation intact. Range of motion: intact in all extremities. Vital Signs: 16:29 BP 162 / 115; Pulse 102; Resp 18; Temp 99.1(TE); Pulse Ox 99% on R/A; Weight 96.62 kg; ss Height 5 ft. 5 in. (165.10 cm); Pain 0/10; 16:29 Body Mass Index 35.44 (96.62 kg, 165.10 cm) ED Course: 16:03 Patient arrived in ED. ag5 16:31 Triage completed. 16:31 Arm band placed on right wrist. 16:44 Stanley Crenshaw PA is PHCP. jr8 16:44 Tanner Collier MD is Attending Physician. [facility] 16:44 Patient has correct armband on for positive identification. Bed in low position. Call ss light in reach. 16:49 Humberto Kelly MD is Referral Physician. jr8 17:22 Kate Coats RN is Primary Nurse. 17:23 No provider procedures requiring assistance completed. Patient did not have IV access ss during this emergency room visit. Administered Medications: 16:55 Drug: XANax Tablet 1 mg Route: PO; 17:23 Follow up: Response: No adverse reaction; Anxiety decreased 17:04 Drug: TORadol 30 mg Route: IM; Site: left deltoid; 17:23 Follow up: Response: No adverse reaction; Marked relief of symptoms Outcome: 16:49 Discharge ordered by . jr8 17:23 Discharged to home ambulatory, with family. 17:23 Condition: good 17:23 Discharge instructions given to patient, Instructed on discharge instructions, follow up and referral plans. medication usage, Demonstrated understanding of instructions, follow-up care, medications, Prescriptions given X 1. 17:23 Patient left the ED. Signatures: Kate Coats RN RN Stanley Crenshaw PA PA 8 Scarlett Oconnor 5
[2020-04-22] MEDS ORDERED: ALPRAZOLAM 1 MG TABLET ONE (17:06)
[2020-04-22] MEDS ORDERED: KETOROLAC 30 MG/ML INJ ONE (17:11)
[2020-04-22 17:30] VITALS: BP 162/115; TEMP 99.1; O2SAT 99
== END 2020-04-22 17:23 | disposition home or self-care (01) ==
LOC: ER 16:00
DX: F33.9 Major depressive disorder, recurrent, unspecified (principal); I10 Essential (primary) hypertension; Z88.5 Allergy status to narcotic agent
CPT/HCPCS: 96372; 99283

== ENCOUNTER 2020-11-01 08:42 | Emergency (ER) | payer OTHER ==
--- OUTSIDE RECORDS SUMMARY | 2020-11-01 08:46 | XMS REPORT | Continuity of Care Document ---
:1980 Author Organization [facility] t Address [address] [place] [address] Care Team Providers Name Role Phone UNKNOWN Primary Care Physician Unavailable MARIA E TRAORE MD, M.D. 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 Clinician (SIG) Name Name alprazolam alprazolam No alprazolam [place] 0.25 mg 0.25 mg 0.25 mg da tablet tablet tablet [facility] alprazolam alprazolam No alprazolam [place] 0.5 mg 0.5 mg 0.5 mg da tablet tablet tablet [facility] amox/k clav amox/k clav No amox/k [place] tab tab clav tab da 875-125 875-125 875-125 [facility] amoxicillin amoxicillin No amoxicilli [place] 500 mg 500 mg n 500 mg da capsule capsule capsule [facility] brom/pse/dm brom/pse/dm No brom/pse/d [place] syp syp m syp da [facility] buspirone buspirone No buspirone [place] 15 mg 15 mg 15 mg da tablet tablet tablet [facility] buspirone buspirone No buspirone [place] hcl 15 mg hcl 15 mg hcl 15 mg da tabs tabs tabs [facility] ciprofloxac ciprofloxac No ciprofloxa [place] in in nick da hydrochlori hydrochlori hydrochlor [facility] de 500 mg de 500 mg bryce 500 al tabs tabs mg tabs [facility] escitalopra escitalopra No escitalopr [place] m oxalate m oxalate am oxalate da 10 mg tabs 10 mg tabs 10 mg E [facility]isc[facility] tabs al [facility] fluticasone fluticasone No [...] 50 da tabs tabs mg tabs [facility] hydroxyzine hydroxyzine No [...] needed. oral route Pro gram as needed. hydroxyzine hydroxyzine No hydroxyzin [place] HCl 50 mg HCl 50 mg e HCl 50 d a tablet tablet mg tablet [facility] hydroxyzine hydroxyzine No hydroxyzin [place] hydrochlori hydrochlori e d a de 25 mg de 25 mg hydrochlor [facility] tabs tabs [facility] ibuprofen ibuprofen No ibuprofen [place] 600 mg tabs 600 mg tabs 600 mg da tabs [facility] ibuprofen ibuprofen No ibuprofen [place] 600 mg 600 mg 600 mg da tablet tablet tablet [facility] indomethaci indomethaci No indomethac [place] n 50 mg n 50 mg in 50 mg da caps caps caps [facility] lamotrigine lamotrigine No lamotrigin [place] 25 mg 25 mg e 25 mg da tablet tablet tablet [facility] h Program latuda 20 latuda 20 No latuda 20 [place] mg tabs mg tabs mg tabs da [facility] h Program latuda 60 latuda 60 No latuda 60 [place] mg tabs mg tabs mg tabs da [facility] h Program Latuda 40 Latuda 40 No Latuda 40 [place] mg tablet mg tablet mg tablet da [facility] Program Latuda 60 Latuda 60 No 1 [...] mg tabs 10 mg d a tabs [facility] lisinopril lisinopril No lisinopril [place] 10 mg 10 mg 10 mg da tablet tablet tablet [facility] loratadine loratadine No loratadine [place] 10 mg tabs 10 mg tabs 10 mg d a tabs [facility] Lyrica 100 Lyrica 100 No Lyrica 100 [place] mg capsule mg capsule mg capsule da [facility] Lyrica 50 Lyrica 50 No Lyrica 50 [place] mg capsule mg capsule mg capsule da [facility] ondansetron ondansetron No ondansetro [place] odt 4 mg odt 4 mg n odt 4 d a tbdp tbdp mg tbdp [facility] prazosin 2 prazosin 2 No 1capsul Q1D prazosin 2 [place] mg capsule mg capsule e(s) mg capsule da Take 1 Take 1 Take 1 [facility] capsule capsule capsule al every day every day every day Health by oral by oral by oral Outrea c route at route at route at h bedtime. bedtime. bedtime. Pro gram prazosin prazosin No prazosin [place] hydrochlori hydrochlori hydrochlor da de 2 mg de 2 mg bryce 2 mg [facility] caps caps caps al [facility] pregabalin pregabalin No pregabalin [place] 150 mg 150 mg 150 mg da capsule capsule capsule [facility] tizanidine tizanidine No tizanidine [place] 4 mg tablet 4 mg tablet 4 mg d a tablet [facility] tizanidine tizanidine No tizanidine [place] hydrochlori hydrochlori hydrochlor da de 4 mg de 4 mg bryce 4 mg [facility] tabs tabs tabs al [facility] tramadol 50 tramadol 50 No tramadol [place] mg tablet mg tablet 50 mg da tablet [facility] [place] DM [place] DM No [place] DM [place] 10 mg-18 10 mg-18 10 mg-18 da mg-200 mg-200 mg-200 [facility] mg/15 mL mg/15 mL mg/15 mL al oral liquid oral liquid oral [facility] liquid [facility]re[facility] Procedures This patient has no known procedures. Encounters Start End Encounter Admission Attending Care Care Encounter Source Date/Time Date/Time Type Type Clinicians Facility Department ID 2020-05-17 2020-05-17 Juan LOPEZ [place] - [id number] M [place] 00:00:00 00:00:00 Todd Weiner MD: Yarsani [facility] [address] [facility] [address].[facility] [place] [address] Progr am , Ph. [phone] -20072020-01-05 2020-01-05 Juan LOPEZ [place] - [id number] M [place] 00:00:00 00:00:00 Todd Weiner MD: Yarsani [facility]pi [facility] [address].[facility] [address] Progr am , Ph. [phone] -[phone] Results Test Description Test Time Test Comments [...] (test code = UAURRM) 28 mg/dL Magnesium, [id number] 05:40:00 Test Item Value Reference Range Interpretation Comments Magnesium (test code = MG) 1.8 mg/dL 1.7-2.5 N Basic Metabolic [id number] 05:40:00 Test Item Value Reference Range Interpretation [...] National Kidney Foundation,http ://nkd ep.nih.gov CBC with [id number] 05:28:00 Test Item Value Reference Range Interpretation [...] code = ALYMPH) 4.9 K/cumm 0.5-4.6 H Bland Abs (test code = AMONO) 1.1 K/cumm 0.0-1.2 N Eos Abs (test code = AEOS) 0.59 K/cumm 0.00-0.74 N Baso Abs (test code = ABASO) 0.1 K/cumm 0.00-0.21 N [id number] 05:20:00 Test Item Value Reference Range Interpretation Comments Phosphorus (test code = PO4) 3.3 mg/dL 2.70-4.50 N Basic Metabolic [id number] 05:20:00 Test Item Value Reference Range Interpretation [...] ars ofage have not been validated by e MDRD study and neetuul d be interpretedwith caution.eGFR Re sult Interpretation: eGFR > or = 60 is in t he Normal RangeeGF R < 60 may mean kidney diseaseeGFR < 1 5 may mean kidney failureRange s recommended by the National Kidney Foundation,http ://nkd ep.nih.gov Magnesium, [id number] 05:20:00 Test Item Value Reference Range Interpretation Comments Magnesium (test code = MG) 1.6 mg/dL 1.7-2.5 L CBC with [id number] 04:55:00 Test Item Value Reference Range Interpretation [...] code = ALYMPH) 4.7 K/cumm 0.5-4.6 H Bland Abs (test code = AMONO) 1.4 K/cumm 0.0-1.2 H Eos Abs (test code = AEOS) 0.46 K/cumm 0.00-0.74 N Baso Abs (test code = ABASO) 0.1 K/cumm 0.00-0.21 N Hypochromic (test code = HYPO) Slight Blood Gas+Lytes+Glu+Ca+Hgb+Hct+[id number] 12:34:00 Test Item Value Reference Range Interpretation [...] crit COMMENT) vals to Dr. Hoover @ 3585.dn Puncture Site (test code = Brachial. R PUNSITE) Drawing Tech ID (test code = dnguyen DRAWTECH) Lactic Acid, Blood Gas (test 1.3 mmol/L code = BGLA) iPAP (test code = IPAP) 0 cmH2O Peep (test code = RPEEP) 5 Respiratory Rate (test code 0 = RESP RATE) XR CHEST 1 [id number] 07:41:10EXAM: CHEST ONE VIEWINDICATION: IntubatedCOMPARISON: None availableTECHNIQUE: AP view of the chest.FINDINGS: The endotracheal tube and enteric tube are unchanged. Thecardiomediastinal silhouette is normal. There is mild diffuse pulmonaryedema. No pneumothorax or pleural effusion is identified. The osseousstructures are unremarkable.IMPRESSION: Mild diffuse pulmonary edema.LOCATION: B98Mtxre Metabolic [id number] 05:44:00 Test Item Value Reference Range Interpretation [...] ars ofage have not been validated by e MDRD study and stef d be interpretedwith caution.eGFR Re sult Interpretation: eGFR > or = 60 is in t he Normal RangeeGF R < 60 may mean kidney diseaseeGFR < 1 5 may mean kidney failureRange s recommended by the National Kidney Foundation,http ://nkd ep.nih.gov [id number] 05:44:00 Test Item Value Reference Range Interpretation Comments Phosphorus (test code = PO4) 3.2 mg/dL 2.70-4.50 N Magnesium, [id number] 05:44:00 Test Item Value Reference Range Interpretation Comments Magnesium (test code = MG) 1.7 mg/dL 1.7-2.5 N CBC with [id number] 05:28:00 Test Item Value Reference Range Interpretation [...] code = ALYMPH) 2.4 K/cumm 0.5-4.6 N Bland Abs (test code = AMONO) 1.1 K/cumm 0.0-1.2 N Eos Abs (test code = AEOS) 0.50 K/cumm 0.00-0.74 N Baso Abs (test code = ABASO) 0.0 K/cumm 0.00-0.21 N Blood Gas+Lytes+Glu+Ca+Hgb+Hct+[id number] 05:12:00 Test Item Value Reference Range Interpretation [...] 0 code = RESP RATE) CBC with [id number] 05:34:00 Test Item Value Reference Range Interpretation [...] code 2.0 K/cumm 0.5-4.6 N = ALYMPH) Bland Abs (test code = 0.4 K/cumm 0.0-1.2 [...] = FT4) 0.83 ng/dL 0.930-1.700 L Urinalysis [id number] 05:26:00 Test Item Value Reference Range Interpretation Comments Color (test code = COLOR) Yellow Yellow,Straw,Pl N yellow Clarity (test code = Clear Clear N CLAR) Specific Purmela (test 1.004 1.001-1.035 N code = SPGR) [...] Bacteria (test code = Few /HPF BACT) [id number] 05:20:00 Test Item Value Reference Range Interpretation Comments Phosphorus (test code = PO4) 1.7 mg/dL 2.70-4.50 L Comprehensive Metabolic [id number] 05:20:00 Test Item Value Reference Range Interpretation [...] the National Kidney Foundation,http ://nkd ep.nih.gov Magnesium, [id number] 05:20:00 Test Item Value Reference Range Interpretation Comments Magnesium (test code = MG) 1.7 mg/dL 1.7-2.5 N Blood Gas+Lytes+Glu+Ca+Hgb+Hct+[id number] 05:14:00 Test Item Value Reference Range Interpretation [...] Liters TIDALVOL) CT HEAD OR BRAIN WO [id number] 02:06:48AFTER HOURS SERVICE ON: 06/23/2017 2:06 AMCT Scan of the Brain Without ContrastLocation Code [id number]: altered mental statusTechnique: Scans were performed on a helical scanner pre IV contrastonly. The study is limited secondary to lack of intravenous contrast,particularly for evaluation of masses.CT images were performed qxeupy58 hours at arrival to the facility. One [...] blvver rblv code = LAC) Basic Metabolic [id number] 23:49:00 Test Item Value Reference Range Interpretation [...] by the National Kidney Foundation,http ://nkd ep.nih.gov [id number] 23:46:00 Test Item Value Reference Range Interpretation Comments Acetaminophen (test code = ACET) <15.0 ug/mL 15.0-30.0 L [id number] 23:46:00 Test Item Value Reference Range Interpretation Comments Phosphorus (test code = PO4) 1.8 mg/dL 2.70-4.50 L Magnesium, [id number] 23:46:00 Test Item Value Reference Range Interpretation Comments Magnesium (test code = MG) 1.8 mg/dL 1.7-2.5 N CBC with [id number] 23:40:00 Test Item Value Reference Range Interpretation [...] VALUESPLATELET DELTA CHECKED WITH Ewelina SABILLON/SAMAN @ 32 ON 06/22/2017REASO N UNKNOWN PER MICHELLE [...] code 1.5 K/cumm 0.5-4.6 N = ALYMPH) Bland Abs (test code 0.4 K/cumm 0.0-1.2 N = AMONO) Eos Abs (test code = 0.05 K/cumm 0.00-0.74 N AEOS) Baso Abs (test code 0.0 K/cumm 0.00-0.21 N = ABASO) Hypochromic (test Slight code = HYPO) Urinalysis [id number] 20:50:00 Test Item Value Reference Range Interpretation Comments Color (test code = Yellow Yellow,Straw,Pl N COLOR) yellow Clarity (test code = Clear Clear N CLAR) Specific Purmela (test 1.028 1.001-1.035 N code = SPGR) [...] Hyaline 0-1 CASTS) Granular /HPF BHCG, Urine, [id number] 20:30:00 Test Item Value Reference Range Interpretation Comments Preg Qual [Ur] (test code = HUHCG) Negative Negative N [id number] 20:28:00 Test Item Value Reference Range Interpretation [...] N code = ETOHU) XR CHEST 1 [id number] 20:19:17CHEST X-RAY 1 VIEW Location: [id number] HISTORY: IntubationTechnique:2 frontal views of the chest [...] in satisfactory position. Mild centralvascular congestion.Partial Thromboplastin [id number] 20:14:00 Test Item Value Reference Range Interpretation Comments aPTT (test code = PTT) 29.10 seconds 24.39-37.25 N Prothrombin [id number] 20:14:00 Test Item Value Reference Range Interpretation Comments PT (test code = PT) 11.60 seconds 9.78-13.35 N INR (test code = INR) 1.02 Ratio 0.6-1.2 N CBC with [id number] 20:06:00 Test Item Value Reference Range Interpretation [...] code = ALYMPH) 2.4 K/cumm 0.5-4.6 N Bland Abs (test code = AMONO) 0.8 K/cumm 0.0-1.2 N Eos Abs (test code = AEOS) 0.07 K/cumm 0.00-0.74 N Baso Abs (test code = ABASO) 0.0 K/cumm 0.00-0.21 N Hypochromic (test code = HYPO) Slight Blood Gas+Lytes+Glu+Ca+Hgb+Hct+[id number] 20:04:00 Test Item Value Reference Range Interpretation [...] Gas 4.3 mmol/L (test code = BGLA) [id number] 20:03:00 Test Item Value Reference Range Interpretation Comments Acetaminophen (test code = ACET) <15.0 ug/mL 15.0-30.0 L [id number] 20:03:00 Test Item Value Reference Range Interpretation Comments Salicylate (test code <0.3 mg/dL 0.3-10.0 L Anayeli nge in unit of = SALI) measurement for Salicylate ( fr om ug/mL to mg/dL ) Comprehensive Metabolic [id number] 20:03:00 Test Item Value Reference Range Interpretation [...]
[2020-11-01 09:48] LABS: Absolute Lymphocytes (CBC) 4.2 K/uL (0.7-4.9); Hematocrit 31.8 % (36.0-45.0); Lymphocytes % 42.5 % (15.3-44.8); MPV 7.7 fL (7.6-11.3); RBC Red Blood Cell Count 3.71 M/uL (3.86-4.86)
[2020-11-01 10:15] LABS: ALT/SGPT 29 U/L (12-78); AST/SGOT 13 U/L (15-37); Albumin 3.4 g/dL (3.4-5.0); Alkaline Phosphatase 86 U/L (45-117); BUN Blood Urea Nitrogen 7 mg/dL (7-18); Bicarbonate 27 mmol/L (21-32); Bilirubin Direct < 0.1 mg/dL (0-0.2); Bilirubin Total 0.2 mg/dL (0.2-1.0); Glucose Level 96 mg/dL (74-106); NT PRO-BNP 71 pg/mL (<125); Potassium 3.8 mmol/L (3.5-5.1); Protein, Total 7.4 g/dL (6.4-8.2); Sodium Level 139 mmol/L (136-145); Troponin (Emerg Dept Use Only) < 0.02 ng/mL (0.0-0.045)
--- NOTE | 2020-11-01 11:07 | RAD REPORT ---
EXAM DESCRIPTION: CT - Chest For Pe Angio - 11/01/2020 10:49 am CLINICAL HISTORY: CHEST PAIN COMPARISON: No comparisons TECHNIQUE: Dynamically enhanced 3 mm thick images of the chest were obtained during administration o f approximately 150mL Isovue 370 IV contrast. Coronal and oblique MIP reconstruction images were gene rated and reviewed. Exam utilizes a protocol to evaluate the pulmonary arterial tree. All CT scans are performed using dose optimization technique as appropriate and may include automated exposure control or mA/KV adjustment according to patient size. FINDINGS: No pulmonary emboli are identified. The aorta as imaged shows no acute or suspicious finding. No pericardial thickening or effusion. No infiltrate or mass in the lung parenchyma. Minimal atelectasis changes are present. There is some motion component which could mask mild lung base edema or infiltrate. No pleural effusion or pleural thickening. No mediastinal or hilar suspicious masses. No chest wall masses or abnormal axillary lymphadenopathy. Thyroid gland is enlarged but not adequately assessed on this study. Gland extends into the uppermost mediastinum. IMPRESSION: No pulmonary emboli identified. No mass, focal infiltrate or other acute lung parenchymal finding seen. There is some minimal atelect asis. Lung base motion artifact could mask minimal interstitial edema or infiltrate. Thyromegaly is present with the inferior left lobe extending into the upper mediastinum. This is inco mpletely assessed. Follow-up outpatient thyroid ultrasound could be performed as warranted.
--- NOTE | 2020-11-01 11:07 | RAD REPORT ---
EXAM DESCRIPTION: RAD - Chest Single View - 11/01/2020 10:28 am CLINICAL HISTORY: CHEST PAIN COMPARISON: No prior imaging TECHNIQUE: AP portable chest image was obtained 11/01/2020 10:28 am . FINDINGS: Lung volumes are low. Shallow inspiration and large body habitus affects create hazy incre ased opacification over both lung gregorio. True lung parenchymal process is unlikely. Heart and vasculature are normal. No measurable pleural effusion and no pneumothorax. No acute bony abnormality seen. No acute aortic findings suspected. IMPRESSION: No acute cardiopulmonary process.
[2020-11-01 11:53] LABS: Thyroid Stimulating Hormone 1.99 uIU/mL (0.360-3.740)
[2020-11-01 12:28] LABS: Blood Morphology Comment NOT SEEN (NOT SEEN); Platelet Estimate ADEQ
--- NOTE | 2020-11-01 12:56 | ER ---
Nurse's Notes [facility] Name: Anamaria Baer Age: 39 yrs Sex: Female : 1980 Arrival Date: 11/01/2020 Time: 08:43 Bed 18 Private MD: Diagnosis: Chest pain, unspecified;Palpitations Presentation: 11/01 08:48 Chief complaint: Patient states: yesterday started feeling like her heart was beating iw fast and having right arm pain and numbness , no cardiac history. Coronavirus screen: At this time, the client does not indicate any symptoms associated with coronavirus-19. Ebola Screen: Patient negative for fever greater than or equal to 101.5 degrees Fahrenheit, and additional compatible Ebola Virus Disease symptoms Patient denies exposure to infectious person. Patient denies travel to an Ebola-affected area in the 21 days before illness onset. No symptoms or risks identified at this time. Initial Sepsis Screen: Does the patient meet any 2 criteria? No. Patient's initial sepsis screen is negative. Does the patient have a suspected source of infection? No. Patient's initial sepsis screen is negative. Risk Assessment: Do you want to hurt yourself or someone else? Patient reports no desire to harm self or others. Onset of symptoms was October 31, 2020. 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 - Social history:: Smoking status: Patient reports the use of cigarette tobacco products, smokes one-half pack cigarettes per day. - Family history:: not pertinent. - Hospitalizations: : No recent hospitalization is reported. Screenin:54 Abuse screen: Denies threats or abuse. Nutritional screening: No deficits noted. bw Tuberculosis screening: No symptoms or risk factors identified. Fall Risk None identified. Assessment: 09:54 Reassessment: Patient appears in no apparent distress at this time. Patient and/or bw family updated on plan of care and expected duration. Pain level reassessed. Patient is alert, oriented x 3, equal unlabored respirations, skin warm/dry/pink. Pain: Complains of pain in chest Pain does not radiate. Pain began 1 day ago. Neuro: No deficits noted. Cardiovascular: No deficits noted. Respiratory: No deficits noted. GI: No deficits noted. : No deficits noted. EENT: No deficits noted. Derm: No deficits noted. 10:10 Reassessment: elevated DDIMER of 3,[address] Collier. bw 10:54 Reassessment: Patient appears in no apparent distress at this time. Patient and/or bw family updated on plan of care and expected duration. Pain level reassessed. Patient is alert, oriented x 3, equal unlabored respirations, skin warm/dry/pink. 13:19 Reassessment: Pt AA\T\Ox4, equal unlabored resp, skin warm/dry/nc, IV site dc'd intact, sr5 gauze and coban applied. Vital Signs: 08:50 BP 124 / 95; Pulse 90; Resp 20; Temp 98.3; Pulse Ox 100% on R/A; Weight 96.62 kg; iw Height 5 ft. 5 in. (165.10 cm); Pain 8/10; 09:54 BP 105 / 66; Pulse 79; Resp 19; Pulse Ox 99% on R/A; bw 10:54 BP 91 / 66; Pulse 64; Resp 20; Pulse Ox 100% on R/A; bw 08:50 Body Mass Index 35.45 (96.62 kg, 165.10 cm) iw ED Course: 08:43 Patient arrived in ED. ds1 08:49 Triage completed. iw 08:53 Tanner Collier MD is Attending Physician. rn 08:59 Ember Murphy, SAMAN is Primary Nurse. bw 09:54 Patient has correct armband on for positive identification. Bed in low position. Call light in reach. Side rails up X 1. desk monitor on. Pulse ox on. NIBP on. Warm blanket given. 09:54 No provider procedures requiring assistance completed. Inserted saline lock: 20 gauge bw in right antecubital area, using aseptic technique. Patient maintains SpO2 saturation greater than 95% on room air. 10:28 XRAY Chest (1 view) In Process Unspecified. EDMS 10:49 CT Chest For PE Angio In Process Unspecified. EDMS 12:23 Add On-Lab Sent. bw Administered Medications: No medications were administered Outcome: 12:55 Discharge ordered by . rn 13:30 Patient left the ED. bw Signatures: Dispatcher [employer] EDMS Saadia Reeves ds1 Teresita Castro, RN RN iw Tanner Collier MD MD rn Resecker, Sam, RN RN sr5 Ember Murphy RN RN bw Corrections: (The following items were deleted from the chart) 08:55 08:50 BP 147 / 103; Pulse 90bpm; Resp 20bpm; Pulse Ox 100% RA; Temp 98.3F; 96.62 kg; iw Height 5 ft. 5 in.; BMI: 35.4; Pain 8/10; iw
--- NOTE | 2020-11-01 12:56 | EDPHYS ---
Physician Documentation [facility] Name: Anamaria Baer Age: 39 yrs Sex: Female : 1980 Arrival Date: 11/01/2020 Time: 08:43 Bed 18 Private MD: ED Physician Tanner Collier HPI: 11/01 10:31 This 39 yrs old Black Female presents to ER via Ambulatory with complaints of Chest rn Pain, Irregular Pulse. 10:31 The patient or guardian reports chest pain that is located primarily in the anterior rn aspect of right upper chest. The pain radiates to the right arm. Associated signs and symptoms: Pertinent positives: palpitations, Pertinent negatives: abdominal pain, cough, lower extremity pain, lower extremity swelling, syncope. The chest pain is described as aching. Duration: The patient or guardian reports multiple episodes, that are intermittent. Modifying factors: The symptoms are alleviated by nothing. the symptoms are aggravated by nothing. Severity of pain: At its worst the pain was moderate in the emergency department the pain is unchanged. The patient has not experienced similar symptoms in the past. The patient has not recently seen a physician. Reports chest pain and palpitations since last night, not improved, different from previous anxiety episodes. No fever/cough. Reports pain radiates to right shoulder. . 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 - Social history:: Smoking status: Patient reports the use of cigarette tobacco products, smokes one-half pack cigarettes per day. - Family history:: not pertinent. - Hospitalizations: : No recent hospitalization is reported. ROS: 10:31 Constitutional: Negative for fever, chills, and weight loss, Eyes: Negative for injury, rn pain, redness, and discharge, Neck: Negative for injury, pain, and swelling, Cardiovascular: Negative for edema Respiratory: Negative for cough, wheezing, and pleuritic chest pain, Abdomen/GI: Negative for abdominal pain, nausea, vomiting, diarrhea, and constipation, Back: Negative for injury and pain, MS/Extremity: Negative for injury and deformity, Skin: Negative for injury, rash, and discoloration, Neuro: Negative for headache, and seizure. Exam: 10:31 Constitutional: This is a well developed, well nourished patient who is awake, alert, rn and in no acute distress. Appears anxious, + mild hyperventilation. Head/Face: Normocephalic, atraumatic. Eyes: Pupils equal round and reactive to light, extra-ocular motions intact. Lids and lashes normal. Conjunctiva and sclera are non-icteric and not injected. Cornea within normal limits. Periorbital areas with no swelling, redness, or edema. Cardiovascular: Regular rate and rhythm. No pulse deficits. Respiratory: Mild tachypnea, no retractions. Abdomen/GI: soft, non-tender Skin: Warm, dry MS/ Extremity: Pulses equal, no cyanosis. Equal circumference. Neuro: Awake and alert, GCS 15, oriented to person, place, time, and situation. Cranial nerves II-XII grossly intact. Motor strength 5/5 in all extremities. Sensory grossly intact. 11:51 ECG was reviewed by the Attending Physician. rn Vital Signs: 08:50 BP 124 / 95; Pulse 90; Resp 20; Temp 98.3; Pulse Ox 100% on R/A; Weight 96.62 kg; iw Height 5 ft. 5 in. (165.10 cm); Pain 8/10; 09:54 BP 105 / 66; Pulse 79; Resp 19; Pulse Ox 99% on R/A; bw 10:54 BP 91 / 66; Pulse 64; Resp 20; Pulse Ox 100% on R/A; bw 08:50 Body Mass Index 35.45 (96.62 kg, 165.10 cm) iw MDM: 08:53 Patient medically screened. rn 12:50 Differential diagnosis: acute myocardial infarction, acute pericarditis, anxiety, rn coronary artery disease chest wall pain, costochondritis, esophagitis, gastritis, gastroesophageal reflux disease (GERD), pleurisy, pneumothorax, pulmonary embolus. Data reviewed: vital signs, nurses notes, lab test result(s), EKG, radiologic studies, CT scan, plain films, and as a result, I will discharge patient. Counseling: I had a detailed discussion with the patient and/or guardian regarding: the historical points, exam findings, and any diagnostic results supporting the discharge/admit diagnosis, lab results, radiology results, the need for outpatient follow up, to return to the emergency department if symptoms worsen or persist or if there are any questions or concerns that arise at home. Response to treatment: the patient's symptoms have mildly improved after treatment, and as a result, I will discharge patient. Special discussion: I discussed with the patient/guardian in detail that at this point there is no indication for admission to the hospital. It is understood, however, that if the symptoms persist or worsen the patient needs to return immediately for re-evaluation. ED course: No acute findings on imaging, neg ct chest, neg bloodwork, stable vitals, BP cuff noted to be on wrist, explaining borderline BP. Pt states under a lot of stress lately with holidays, son murdered somewhat recently, and also started on lamictal, a couple of days ago and then had these palpitations, possibly side effect. Will dc home with pcp f/u and hold lamictal , will give a few doses of valium prn at home with return precautions. . 11/01 08:59 Order name: Basic Metabolic Panel; Complete Time: 10:30 rn 11/01 08:59 Order name: CBC with Diff; Complete Time: 12:45 rn 11/01 08:59 Order name: NT PRO-BNP; Complete Time: 10:30 rn 11/01 08:59 Order name: Troponin (emerg Dept Use Only); Complete Time: 10:30 rn 11/01 08:59 Order name: D-Dimer; Complete Time: 10:30 rn 11/01 08:59 Order name: LFT's; Complete Time: 10:30 rn 11/01 08:59 Order name: XRAY Chest (1 view); Complete Time: 11:16 rn 11/01 08:59 Order name: EKG; Complete Time: 08:59 rn 11/01 08:59 Order name: Cardiac monitoring; Complete Time: 09:16 rn 11/01 09:58 Order name: Manual Differential; Complete Time: 12:45 EDMS 11/01 10:31 Order name: CT Chest For PE Angio; Complete Time: 11:16 rn 11/01 11:20 Order name: Add On-Lab bd 11/01 11:22 Order name: T4 Free; Complete Time: 12:21 EDMS 11/01 11:22 Order name: Thyroid Stimulating Hormone; Complete Time: 12:21 [facility] 11/01 08:59 Order name: EKG - Nurse/Tech; Complete Time: rn 11/01 08:59 Order name: IV Saline Lock; Complete Time: rn 11/01 08:59 Order name: Labs collected and sent; Complete Time: rn 11/01 08:59 Order name: O2 Per Protocol; Complete Time: rn 11/01 08:59 Order name: O2 Sat Monitoring; Complete Time: rn EC:51 Rate is 81 beats/min. Rhythm is regular. QRS [place] is Normal. [place] interval is normal. QRS rn interval is normal. QT interval is normal. No Q waves. T waves are Normal. No ST changes noted. Clinical impression: NSR w/ Non-specific ST/T Changes. Interpreted by me. Reviewed by me. Administered Medications: No medications were administered Disposition: 11/01/20 12:55 Discharged to Home. Impression: Chest pain, unspecified, Palpitations. - Condition is Stable. - Discharge Instructions: Nonspecific Chest Pain, Palpitations. - Prescriptions for Valium 2 mg Oral Tablet - take 1 tablet by ORAL route every 8-12 hours As needed; 5 tablet. - Medication Reconciliation Form, Thank You Letter, Antibiotic Education, Prescription Opioid Use, Work release form form. - Follow up: Private Physician; When: As needed; Reason: Recheck today's complaints, Re-evaluation by your physician. - Problem is new. - Symptoms have improved. Signatures: Dispatcher [employer] Teresita Drake RN RN iw Nieto, Roman, MD MD rn Webb, Bethany, RN RN bw Corrections: (The following items were deleted from the chart) 13:30 12:55 11/01/2020 12:55 Discharged to Home. Impression: Chest pain, unspecified; bw Palpitations. Condition is Stable. Forms are Medication Reconciliation Form, Thank You Letter, Antibiotic Education, Prescription Opioid Use. Follow up: Private Physician; When: As needed; Reason: Recheck today's complaints, Re-evaluation by your physician. Problem is new. Symptoms have improved. rn
== END 2020-11-01 13:30 | disposition home or self-care (01) ==
LOC: ER 08:42
DX: R07.9 Chest pain, unspecified (principal); R00.2 Palpitations; F17.210 Nicotine dependence, cigarettes, uncomplicated; I10 Essential (primary) hypertension; F41.9 Anxiety disorder, unspecified
CPT/HCPCS: 93005; 85025; 80048; 36415; 85379; 80076; 84443; 84484; 84439; 83880; 71275; 71045; Q9967; 99285

== ENCOUNTER 2021-06-02 20:13 | Emergency (ER) | payer OTHER ==
[2021-06-02] MEDS ORDERED: ASPIRIN 81 MG CHEWABLE TABLET ONE (20:31)
[2021-06-02] MEDS ORDERED: ONDANSETRON 4 MG/2 ML VIAL ONE (20:32)
[2021-06-02] MEDS ORDERED: MORPHINE 2 MG/ML SYR ONE (20:32)
[2021-06-02] MEDS ORDERED: NA CHLORIDE 0.9% 1,000 ML ONE ×2 (20:32→21:14)
--- NOTE | 2021-06-02 20:41 | RAD REPORT ---
EXAM DESCRIPTION: RAD - Chest Single View - 06/02/2021 8:35 pm CLINICAL HISTORY: CHEST PAIN COMPARISON: Chest Single View dated 11/01/2020 FINDINGS: Lines: None. Lungs: No evidence of edema or pneumonia. Pleural: No significant pleural effusions or pneumothorax. Cardiac: The heart size is within normal limits. Bones: No acute fractures. Other: IMPRESSION: No acute cardiopulmonary disease.
[2021-06-02 20:43] LABS: Absolute Lymphocytes (CBC) 2.7 K/uL (0.7-4.9); Basophils % 0.4 % (0-1.3); Hematocrit 36.3 % (36.0-45.0); Lymphocytes % 15.9 % (15.3-44.8); MPV 7.2 fL (7.6-11.3); RBC Red Blood Cell Count 4.16 M/uL (3.86-4.86)
[2021-06-02 20:47] LABS: Protime INR 1.13
[2021-06-02 20:59] LABS: ALT/SGPT 22 U/L (12-78); AST/SGOT 12 U/L (15-37); Albumin 3.7 g/dL (3.4-5.0); Alkaline Phosphatase 82 U/L (45-117); BUN Blood Urea Nitrogen 6 mg/dL (7-18); Bicarbonate 23 mmol/L (21-32); Bilirubin Direct < 0.1 mg/dL (0-0.2); Bilirubin Total 0.4 mg/dL (0.2-1.0); Glucose Level 136 mg/dL (74-106); Magnesium 2.1 mg/dL (1.8-2.4); NT PRO-BNP 99 pg/mL (<125); Potassium 3.5 mmol/L (3.5-5.1); Protein, Total 7.8 g/dL (6.4-8.2); Sodium Level 142 mmol/L (136-145); Troponin (Emerg Dept Use Only) < 0.02 ng/mL (0.0-0.045)
[2021-06-02] MEDS ORDERED: LORazepam 2 MG/ML VIAL ONE (21:14)
[2021-06-02 21:20] LABS: Urine Blood Trace-intact (Negative); Urine Glucose Negative (Negative); Urine Protein Negative (Negative)
[2021-06-02 21:52] LABS: Barbiturates NEGATIVE (NEGATIVE); Benzodiazepines NEGATIVE (NEGATIVE); Cocaine NEGATIVE (NEGATIVE); METHAMPHETAM NEGATIVE (NEGATIVE); Methadone NEGATIVE (NEGATIVE); Opiates NEGATIVE (NEGATIVE); Phencyclidine NEGATIVE (NEGATIVE); THC Cannibis NEGATIVE (NEGATIVE)
[2021-06-02 23:02] LABS: Absolute Lymphocytes (CBC) 2.8 K/uL (0.7-4.9); Basophils % 0.2 % (0-1.3); Hematocrit 31.5 % (36.0-45.0); Lymphocytes % 17.3 % (15.3-44.8); MPV 7.2 fL (7.6-11.3)
--- NOTE | 2021-06-02 23:43 | EDPHYS ---
Physician Documentation [facility] Name: Anamaria Baer Age: 40 yrs Sex: Female : 1980 Arrival Date: 06/02/2021 Time: 20:14 Bed 5 Private MD: REENA Physician Onel Hein HPI: 06/02 21:05 This 40 yrs old Black Female presents to ER via Wheelchair with complaints of Breathing tara Difficulty, Chest Pain > 30 y/o. 21:05 The patient has shortness of breath at rest, during emotionally upset. 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 - Social history:: Smoking status: Patient reports the use of cigarette tobacco products, smokes one-half pack cigarettes per day. ROS: 21:08 Constitutional: Negative for fever, chills, and weight loss, Eyes: Negative for injury, tara pain, redness, and discharge, ENT: Negative for injury, pain, and discharge, Neck: Negative for injury, pain, and swelling, Abdomen/GI: Negative for abdominal pain, nausea, vomiting, diarrhea, and constipation, Back: Negative for injury and pain, : Negative for injury, bleeding, discharge, and swelling, MS/Extremity: Negative for injury and deformity, Skin: Negative for injury, rash, and discoloration, Neuro: Negative for headache, weakness, numbness, tingling, and seizure, Psych: Negative for depression, anxiety, suicide ideation, homicidal ideation, and hallucinations, Allergy/Immunology: Negative for hives, rash, and allergies, Endocrine: Negative for neck swelling, polydipsia, polyuria, polyphagia, and marked weight changes, Hematologic/Lymphatic: Negative for swollen nodes, abnormal bleeding, and unusual bruising. 21:08 Cardiovascular: Positive for chest pain, of the chest. 21:08 Respiratory: Positive for shortness of breath, at rest. Exam: 21:08 Constitutional: This is a well developed, well nourished patient who is awake, alert, tara and in no acute distress. Head/Face: Normocephalic, atraumatic. Eyes: Pupils equal round and reactive to light, extra-ocular motions intact. Lids and lashes normal. Conjunctiva and sclera are non-icteric and not injected. Cornea within normal limits. Periorbital areas with no swelling, redness, or edema. ENT: Nares patent. No nasal discharge, no septal abnormalities noted. Tympanic membranes are normal and external auditory canals are clear. Oropharynx with no redness, swelling, or masses, exudates, or evidence of obstruction, uvula midline. Mucous membranes moist. Neck: Trachea midline, no thyromegaly or masses palpated, and no cervical lymphadenopathy. Supple, full range of motion without nuchal rigidity, or vertebral point tenderness. No Meningismus. Chest/axilla: Normal chest wall appearance and motion. Nontender with no deformity. No lesions are appreciated. Cardiovascular: Regular rate and rhythm with a normal S1 and S2. No gallops, murmurs, or rubs. Normal PMI, no JVD. No pulse deficits. Respiratory: Lungs have equal breath sounds bilaterally, clear to auscultation and percussion. No rales, rhonchi or wheezes noted. No increased work of breathing, no retractions or nasal flaring. Abdomen/GI: Soft, non-tender, with normal bowel sounds. No distension or tympany. No guarding or rebound. No evidence of tenderness throughout. Back: No spinal tenderness. No costovertebral tenderness. Full range of motion. Skin: Warm, dry with normal turgor. Normal color with no rashes, no lesions, and no evidence of cellulitis. MS/ Extremity: Pulses equal, no cyanosis. Neurovascular intact. Full, normal range of motion. Neuro: Awake and alert, GCS 15, oriented to person, place, time, and situation. Cranial nerves II-XII grossly intact. Motor strength 5/5 in all extremities. Sensory grossly intact. Cerebellar exam normal. Normal gait. Psych: Awake, alert, with orientation to person, place and time. Behavior, mood, and affect are within normal limits. 21:08 ECG was reviewed by the Attending Physician. 21:08 Musculoskeletal/extremity: DVT Exam: No signs of deep vein thrombosis. no pain, no swelling, no tenderness, negative Homans' sign noted on exam, no appreciated bluish discoloration, no erythema, no increased warmth. Vital Signs: 20:30 BP 159 / 95; Pulse 113; Resp 24; Pulse Ox 100% on R/A; Weight 101.15 kg; Height 5 ft. 5 df1 in. (165.10 cm); Pain 10/10; 20:45 BP 152 / 94; Pulse 96; Resp 20; Temp 98.8(O); Pulse Ox 99% on R/A; Pain 9/10; kc4 21:49 BP 168 / 98; Pulse 100; Resp 20; Temp 98.8(O); Pulse Ox 100% on R/A; Pain 5/10; kc4 23:57 BP 158 / 96; Pulse 98; Resp 20; Temp 98.8; Pulse Ox 100% on R/A; Pain 3/10; kc4 20:30 Body Mass Index 37.11 (101.15 kg, 165.10 cm) df1 MDM: 20:19 Patient medically screened. tara 21:09 Differential diagnosis: Anemia Anxiety Reaction Bronchitis CHF exacerbation, pneumonia, tara Pneumothorax pulmonary edema, Pulmonary Embolism Sepsis. Antibiotic administration: Not indicated. The patient's Wells Deep Vein Thrombosis Score was calculated as follows: Heart Rate >100 BPM (1.5 Pts) Total Score: 0-2 Pts- Low Risk. The patient's pulmonary embolism risk score was calculated as follows: the patients heart rate is greater than 100 beats per minute (1.5 Pts) Total Score: 0-2 points. This patient was found to be at low risk for a pulmonary embolism by using the Well's assessment criteria. Immunization status:. Data reviewed: vital signs, nurses notes, lab test result(s), EKG, radiologic studies, plain films. Data interpreted: management assistant: rate is 113 beats/min, rhythm is regular, Pulse oximetry: on room air is 100 %. Test interpretation: by ED physician or midlevel provider: ECG, plain radiologic studies. Counseling: I had a detailed discussion with the patient and/or guardian regarding: the historical points, exam findings, and any diagnostic results supporting the discharge/admit diagnosis, lab results, radiology results, the need for further work-up and treatment in the hospital. 06/02 20:21 Order name: Basic Metabolic Panel [facility] 06/02 20:21 Order name: CBC with Diff; Complete Time: 21:03 [facility] 06/02 20:21 Order name: LFT's [facility] 06/02 20:21 Order name: Magnesium [facility] 06/02 20:21 Order name: NT PRO-BNP [facility] 06/02 20:21 Order name: PT-INR; Complete Time: 21:03 [facility] 06/02 20:21 Order name: Troponin (emerg Dept Use Only); Complete Time: 21:03 [facility] 06/02 20:21 Order name: UDS; Complete Time: 21:57 [facility] 06/02 20:21 Order name: SARS-COV-2 RT PCR (Document "Date of Onset" if Symptomatic); Complete Time: [facility] :57 06/02 20:22 Order name: Basic Metabolic Panel; Complete Time: 21:03 [facility] 06/02 20:22 Order name: Liver (Hepatic) Function; Complete Time: 21:03 [facility] 06/02 20:22 Order name: NT PRO-BNP; Complete Time: 21:03 [facility] 06/02 20:22 Order name: Magnesium; Complete Time: 21:04 [facility] 06/02 20:30 Order name: D-Dimer; Complete Time: 21:57 [facility] 06/02 20:21 Order name: XRAY Chest (1 view); Complete Time: 21:04 [facility] 06/02 20:21 Order name: EKG; Complete Time: 20:22 [facility] 06/02 21:05 Order name: CBC with Diff: after 2nd liter; Complete Time: 23:16 [facility] 06/02 21:19 Order name: Urine Dipstick-Ancillary; Complete Time: 21:57 [facility]MO 06/02 21:21 Order name: Urine --Ancillary (enter results) tt3 06/02 21:22 Order name: Urine --Ancillary; Complete Time: 21:57 [facility]MO 06/02 21:58 Order name: CT Chest For PE Angio [facility] 06/02 21:58 Order name: US Extremity Venous W Compression [place] [facility] 06/02 21:58 Order name: Troponin (emerg Dept Use Only): 11 pm; Complete Time: 23:34 [facility] 06/02 20:21 Order name: Cardiac monitoring; Complete Time: 20:30 [facility] 06/02 20:21 Order name: EKG - Nurse/Tech; Complete Time: 20:30 [facility] 06/02 20:21 Order name: IV Saline Lock; Complete Time: 20:30 [facility] 06/02 20:21 Order name: Labs collected and sent; Complete Time: 20:30 [facility] 06/02 20:21 Order name: O2 Per Protocol; Complete Time: 20:30 [facility] 06/02 20:21 Order name: O2 Sat Monitoring; Complete Time: 20:30 [facility] EC:08 Rate is 112 beats/min. Rhythm is regular. QRS [place] is Normal. [place] interval is normal. tara QRS interval is normal. QT interval is normal. No Q waves. T waves are Normal. No ST changes noted. Clinical impression: NSR w/ Non-specific ST/T Changes and No evidence of ischemia. Interpreted by me. Reviewed by me. Administered Medications: 20:36 Drug: morphine 2 mg Route: IVP; Site: right antecubital; [facility] 06/03 00:10 Follow up: Response: No adverse reaction; Pain is decreased [facility] 06/02 20:36 Drug: Zofran (Ondansetron) 4 mg Route: IVP; Site: right antecubital; 4 06/03 00:09 Follow up: Response: No adverse reaction [facility] 06/02 20:37 Drug: NS 0.9% 1000 ml Route: IV; Rate: 1 bolus; Site: right antecubital; 4 20:39 Drug: Aspirin Chewable Tablet 162 mg Route: PO; kc4 21:22 Drug: Ativan (LORazepam) 1 mg Route: IVP; Site: right antecubital; 3 06/03 00:09 Follow up: Response: No adverse reaction [facility] 06/02 21:22 Drug: NS 0.9% 1000 ml Route: IV; Rate: 1 bolus; Site: right antecubital; 3 06/03 00:09 Follow up: IV Status: Completed infusion 4 00:09 Follow up: Response: No adverse reaction [facility] 06/02 21:30 Drug: Ativan (LORazepam) 1 mg Route: IVP; Site: right antecubital; 4 23:49 Follow up: Response: No adverse reaction [facility] 06/03 00:09 Follow up: Response: No adverse reaction [facility] Disposition Summary: 06/02/21 23:42 Discharge Ordered Location: Home tara Problem: new tara Symptoms: have improved tara Condition: Stable tara Diagnosis - Chest pain, unspecified tara - Adjustment disorder with anxiety tara - Anxiety disorder, unspecified tara - Essential (primary) hypertension tara - Elevated white blood cell count tara Followup: tara - With: Private Physician - When: 2 - 3 days - Reason: Recheck today's complaints, Continuance of care, Re-evaluation by your physician Followup: tara - With: - When: 2 - 3 days - Reason: Recheck today's complaints, Continuance of care, Re-evaluation by your physician Discharge Instructions: - Discharge Summary Sheet tara - Panic Attack tara - Nonspecific Chest Pain, Adult tara - Hypertension, Adult tara - Hypertension, Adult, [id number] tara - Panic Attack, [id number] tara - Aspirin and Your Heart tara Forms: - Medication Reconciliation Form tara - Thank You Letter tara - Antibiotic Education tara - Prescription Opioid Use tara Prescriptions: - Xanax 1 mg Oral Tablet - take 1 tablet by ORAL route every 8 hours As needed; 20 tablet; Refills: 0, tara Product Selection Permitted Signatures: Dispatcher [employer] EDOnel Pereira MD MD cha Hardee, Latisha, RN RN lh3 Shannon Baez kc4 Neelam Juan df1
--- NOTE | 2021-06-02 23:43 | ER ---
Nurse's Notes [facility] Name: Anamaria Baer Age: 40 yrs Sex: Female : 1980 Arrival Date: 06/02/2021 Time: 20:14 Bed 5 Private MD: Diagnosis: Chest pain, unspecified;Adjustment disorder with anxiety;Anxiety disorder, unspecified;Essential (primary) hypertension;Elevated white blood cell count Presentation: 06/02 20:30 Chief complaint: Patient states: right side chest pain radiates to right arm x 2 hours. df1 Coronavirus screen: Vaccine status: Patient reports being unvaccinated. Client denies travel out of the [place] in the last 14 days. At this time, the client does not indicate any symptoms associated with coronavirus-19. Ebola Screen: Patient negative for fever greater than or equal to 101.5 degrees Fahrenheit, and additional compatible Ebola Virus Disease symptoms Patient denies exposure to infectious person. Patient denies travel to an Ebola-affected area in the 21 days before illness onset. Initial Sepsis Screen: Does the patient meet any 2 criteria? No. Patient's initial sepsis screen is negative. Does the patient have a suspected source of infection? No. Patient's initial sepsis screen is negative. Risk Assessment: Do you want to hurt yourself or someone else? Patient reports no desire to harm self or others. Onset of symptoms was June 02, 2021 at 18:00. 20:30 Method Of Arrival: Wheelchair df1 20:30 Acuity: DEVONTE 3 df1 20:33 Note Pt states right chest pain into right arm with numbness and vomiting x 2 hours. Pt df1 states at rest when pain started. daily smoker. Unable to state LMP. Triage Assessment: 23:55 General: Appears comfortable. Respiratory:. Respiratory: No deficits noted. kc4 23:56 Respiratory: No deficits noted. Reports. kc4 23:57 General: Appears Behavior is calm, cooperative, appropriate for age. Respiratory:. 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 - Social history:: Smoking status: Patient reports the use of cigarette tobacco products, smokes one-half pack cigarettes per day. Screenin:34 Abuse screen: Denies threats or abuse. Nutritional screening: No deficits noted. df1 Tuberculosis screening: No symptoms or risk factors identified. Fall Risk None identified. Assessment: 21:40 General: Appears distressed, uncomfortable, obese, Behavior is cooperative, anxious, kc4 crying, restless. Pain: Complains of pain in chest Pain does not radiate. Pain currently is 9 out of 10 on a pain scale. at worst was 10 out of 10 on a pain scale. level that patient reports is acceptable is 0 out of 10 on a pain scale. Quality of pain is described as sharp, shooting, Pain began 4 hours ago. Is continuous, Alleviated by medications, Aggravated by increased activity, Noted to be crying, moaning, restless, Also complains of Current management is with Morphine, is partially effective Goal of pain control is to. Neuro: No deficits noted. Cardiovascular: Rhythm is sinus tachycardia. Respiratory: Airway is patent Trachea midline Respiratory effort is even, unlabored, Respiratory pattern is regular, symmetrical, Breath sounds are clear bilaterally. GI: No deficits noted. No signs and/or symptoms were reported involving the gastrointestinal system. : No deficits noted. No signs and/or symptoms were reported regarding the genitourinary system. EENT: No deficits noted. No signs and/or symptoms were reported regarding the EENT system. Derm: No deficits noted. No signs and/or symptoms reported regarding the dermatologic system. Musculoskeletal: No deficits noted. No signs and/or symptoms reported regarding the musculoskeletal system. 06/03 00:08 Pain: Denies pain. kc4 Vital Signs: 06/02 20:30 BP 159 / 95; Pulse 113; Resp 24; Pulse Ox 100% on R/A; Weight 101.15 kg; Height 5 ft. 5 df1 in. (165.10 cm); Pain 10/10; 20:45 BP 152 / 94; Pulse 96; Resp 20; Temp 98.8(O); Pulse Ox 99% on R/A; Pain 9/10; kc4 21:49 BP 168 / 98; Pulse 100; Resp 20; Temp 98.8(O); Pulse Ox 100% on R/A; Pain 5/10; kc4 23:57 BP 158 / 96; Pulse 98; Resp 20; Temp 98.8; Pulse Ox 100% on R/A; Pain 3/10; kc4 20:30 Body Mass Index 37.11 (101.15 kg, 165.10 cm) df1 ED Course: 20:14 Patient arrived in ED. bp1 20:19 Onel Hein MD is Attending Physician. tara 20:25 Inserted saline lock: 18 gauge in right antecubital area, using aseptic technique. kc4 20:29 Yasmani Torres, RN is Primary Nurse. bp 20:30 Basic Metabolic Panel Sent. bp 20:30 LFT's Sent. bp 20:30 Magnesium Sent. bp 20:30 NT PRO-BNP Sent. bp 20:32 Triage completed. df1 20:34 No provider procedures requiring assistance completed. df1 20:34 Patient has correct armband on for positive identification. Placed in gown. Bed in low df1 position. Call light in reach. Side rails up X 1. 20:35 XRAY Chest (1 view) In Process Unspecified. EDMS 20:36 D-Dimer Sent. kc4 20:36 Magnesium Sent. kc4 20:36 Liver (Hepatic) Function Sent. kc4 20:36 Basic Metabolic Panel Sent. kc4 20:36 NT PRO-BNP Sent. kc4 20:36 SARS-COV-2 RT PCR (Document "Date of Onset" if Symptomatic) Sent. kc4 20:37 CBC with Diff Sent. kc4 20:37 PT-INR Sent. kc4 20:37 Troponin (emerg Dept Use Only) Sent. kc4 20:37 Magnesium Sent. kc4 20:37 Liver (Hepatic) Function Sent. kc4 20:37 NT PRO-BNP Sent. kc4 20:37 Basic Metabolic Panel Sent. kc4 20:37 SARS-COV-2 RT PCR (Document "Date of Onset" if Symptomatic) Sent. kc4 21:24 Urine --Ancillary (enter results) Sent. lh3 22:25 US Extremity Venous W Compression Kirby In Process Unspecified. EDMS 22:30 Arm band placed on right wrist. kc4 22:33 CT Chest For PE Angio In Process Unspecified. EDMS 22:53 Troponin (emerg Dept Use Only): 11 pm Sent. kc4 22:54 CBC with Diff: after 2nd liter Sent. kc4 23:42 Alexander Lopez MD is Referral Physician. [facility] 23:56 IV discontinued, intact, bleeding controlled, No redness/swelling at site. Pressure kc4 dressing applied. 23:59 Primary Nurse role handed off by Yasmani Torres RN [facility] 06/03 00:08 Shannon Baez is Primary Nurse. kc4 Administered Medications: 06/02 20:36 Drug: morphine 2 mg Route: IVP; Site: right antecubital; kc4 06/03 00:10 Follow up: Response: No adverse reaction; Pain is decreased [facility] 06/02 20:36 Drug: Zofran (Ondansetron) 4 mg Route: IVP; Site: right antecubital; kc4 06/03 00:09 Follow up: Response: No adverse reaction [facility] 06/02 20:37 Drug: NS 0.9% 1000 ml Route: IV; Rate: 1 bolus; Site: right antecubital; kc4 20:39 Drug: Aspirin Chewable Tablet 162 mg Route: PO; kc4 21:22 Drug: Ativan (LORazepam) 1 mg Route: IVP; Site: right antecubital; [facility] 06/03 00:09 Follow up: Response: No adverse reaction [facility] 06/02 21:22 Drug: NS 0.9% 1000 ml Route: IV; Rate: 1 bolus; Site: right antecubital; [facility] 06/03 00:09 Follow up: IV Status: Completed infusion kc4 00:09 Follow up: Response: No adverse reaction [facility] 06/02 21:30 Drug: Ativan (LORazepam) 1 mg Route: IVP; Site: right antecubital; kc4 23:49 Follow up: Response: No adverse reaction [facility] 06/03 00:09 Follow up: Response: No adverse reaction [facility] Outcome: 06/02 23:35 Discharged to home via wheelchair, with family. 3 Condition: good Discharge instructions given to patient, family, Instructed on discharge instructions, follow up and referral plans. medication usage, Demonstrated understanding of instructions, follow-up care, medications. 23:42 Discharge ordered by . tara 23:56 Discharged to home ambulatory. kc4 23:56 Condition: improved 23:56 Discharge instructions given to patient, Instructed on discharge instructions, follow up and referral plans. medication usage, Demonstrated understanding of instructions, follow-up care, medications, Prescriptions given X 1. 23:58 Patient left the ED. 3 11 00:10 Patient left the ED. kc4 Signatures: Dispatcher [employer] EDNV Onel Hein MD MD cha Peltier, Brian RN RN Carine Velásquez [facility] Beulah Samayoa RN RN [facility] Shannon Baez 4 Neelam Juan df1
[2021-06-03 00:54] VITALS: TEMP 98.8
[2021-06-03 00:56] VITALS: O2SAT 100
[2021-06-03 00:57] VITALS: BP 158/96
--- NOTE | 2021-06-03 08:27 | RAD REPORT ---
EXAM DESCRIPTION: US - Extrem Venous W Compress Kirby - 06/02/2021 10:25 pm CLINICAL HISTORY: PAIN Bilateral leg edema and swelling. COMPARISON: No comparisons TECHNIQUE: Real-time sonographic interrogation of the left and right lower extremity deep venous sys tems was performed. FINDINGS: Normal compressibility, flow augmentation, phasic flow and spontaneous flow is identified in both the left and right lower extremity deep venous systems. IMPRESSION: No sonographic evidence of left or right lower extremity deep venous thrombosis.
--- NOTE | 2021-06-03 08:33 | RAD REPORT ---
EXAM DESCRIPTION: CT CHEST ANGIOGRAPHY WITH IV CONTRAST CLINICAL HISTORY: Chest pain;Dyspnea COMPARISON: CT chest November 01, 2020 TECHNIQUE: Multiple helical axial tomographic images were obtained of the chest following administra tion of intravenous contrast per angiographic protocol. MIP reformatted images were obtained. This exam was performed according to our departmental dose-optimization program, which includes autom ated exposure control, adjustment of the mA and/or kV according to patient size and/or use of iterati ve reconstruction technique. FINDINGS: Thyroid gland: A 2 cm nodular density projecting from the inferior left thyroid lobe is un changed. Axilla: unremarkable. Pulmonary arteries: Pulmonary arteries appear patent. No evidence of pulmonary embolism. Aorta: No evidence of aortic dissection or aneurysm. Mediastinum: Unremarkable. No adenopathy. Heart: Heart is normal in size. Lungs/airways: No consolidation. Airways are patent. Small calcified granuloma in the right upper lob e is present. Pleural spaces: No significant pleural effusion. No pneumothorax. Osseous: Unremarkable. Soft tissues: Unremarkable. Visualized abdomen: Unremarkable. IMPRESSION: 1. No acute intrathoracic abnormality. 2. Left thyroid lobe 2 cm nodular density again demonstrated. Follow-up ultrasound recommended if n ot already performed. Electronically signed by: Daniel Mejia MD 06/02/2021 11:05 PM CDT Due to temporary technical issues with the PACS/Fluency reporting system, reports are being signed by the in house radiologist without review as a courtesy to ensure prompt reporting. The interpreting r adiologist is fully responsible for the content of the report.
--- NOTE | 2021-06-06 18:34 | EKG ---
Test Date: 2021-06-02 Test Time: 20:22:34 Pharmacist Apprentice: VICKY MEASUREMENT RESULTS: Intervals: Rate: 112 NM: 150 QRSD: 72 QT: 332 QTc: 453 [place]: P: 31 NM: 150 QRS: 21 T: 56 INTERPRETIVE STATEMENTS: Sinus tachycardia Possible Left atrial enlargement Cannot rule out Anterior infarct, age undetermined Abnormal ECG Compared to ECG 11/01/2020 09:09:00 Myocardial infarct finding now present Sinus rhythm no longer present Left ventricular hypertrophy no longer present Electronically Signed On 06-06-21 18:24:44 LEASE EXAMINER by Alexander Lopez
--- OUTSIDE RECORDS SUMMARY | 2021-06-11 12:02 | XMS REPORT | Continuity of Care Document ---
:1980 Author Organization [facility] t Address [address] [place] [address] Care Team Providers Name Role Phone UNKNOWN Primary Care Physician Unavailable MARIA E TRAORE MD MCandelario. 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 hydroxyzine hydroxyzine No hydroxyzin [place] hydrochlori hydrochlori e d a de 25 mg de 25 mg hydrochlor [facility] tabs tabs bryce 25 mg al tabFormerly [facility] ibuprofen ibuprofen No ibuprofen [place] 600 mg tabs 600 mg tabs 600 mg da tabs [facility] ibuprofen ibuprofen No ibuprofen [place] 600 mg 600 mg 600 mg da tablet tablet tablet [facility] indomethaci indomethaci No indomethac [place] n 50 mg n 50 mg in 50 mg da caps caps caps [facility] lamotrigine lamotrigine No lamotrigin [place] 25 mg 25 mg e 25 mg da tablet tablet tablet [facility] latuda 20 latuda 20 No latuda 20 [place] mg tabs mg tabs mg tabs da [facility] latuda 60 latuda 60 No latuda 60 [place] mg tabs mg tabs mg tabs da [facility] Latuda 40 Latuda 40 No Latuda 40 [place] mg tablet mg tablet mg tablet da [facility] Latuda 60 Latuda 60 No 1 [...] mg tabs 10 mg d a tabs [facility] lisinopril lisinopril No lisinopril [place] 10 mg 10 mg 10 mg da tablet tablet tablet [facility] loratadine loratadine No loratadine [place] 10 mg tabs 10 mg tabs 10 mg d a tabs [facility] [place] 100 Lyrica 100 No Lyrica 100 [place] mg capsule mg capsule mg capsule da [facility] Lyrica 50 Lyrica 50 No Lyrica 50 [place] mg capsule mg capsule mg capsule da [facility] ondansetron ondansetron No ondansetro [place] odt 4 mg odt 4 mg n odt 4 d a tbdp tbdp mg tbdp [facility] prazosin 2 prazosin [...] ID 2020-05-17 2020-05-17 Juan LOPEZ [place] - [id number] M [place] 00:00:00 00:00:00 Todd Weiner MD: [facility] [address] [place] [address] Progr am , Ph. [phone] 2020-01-05 Juan LOPEZ [place] - [id number] M [place] 00:00:00 00:00:00 Todd Weiner MD: [facility] [address] [place] [id number] Progr am , Ph. [phone] Results Test Description Test Time Test [...] (test code = UAURRM) 28 mg/dL Magnesium, [id number] 05:40:00 Test Item Value Reference Range Interpretation Comments Magnesium (test code = MG) 1.8 mg/dL 1.7-2.5 N Basic Metabolic [id number] 05:40:00 Test Item Value Reference Range Interpretation [...] National Kidney Foundation,http ://nkd ep.nih.gov CBC with [id number] 05:28:00 Test Item Value Reference Range Interpretation [...] code = ALYMPH) 4.9 K/cumm 0.5-4.6 H Cecil Abs (test code = AMONO) 1.1 K/cumm 0.0-1.2 N Eos Abs (test code = AEOS) 0.59 K/cumm 0.00-0.74 N Baso Abs (test code = ABASO) 0.1 K/cumm 0.00-0.21 N [id number] 05:20:00 Test Item Value Reference Range Interpretation Comments Phosphorus (test code = PO4) 3.3 mg/dL 2.70-4.50 N Basic Metabolic [id number] 05:20:00 Test Item Value Reference Range Interpretation [...] the National Kidney Foundation,http ://nkd ep.nih.gov Magnesium, [id number] 05:20:00 Test Item Value Reference Range Interpretation Comments Magnesium (test code = MG) 1.6 mg/dL 1.7-2.5 L CBC with [id number] 04:55:00 Test Item Value Reference Range Interpretation [...] code = ALYMPH) 4.7 K/cumm 0.5-4.6 H Cecil Abs (test code = AMONO) 1.4 K/cumm 0.0-1.2 H Eos Abs (test code = AEOS) 0.46 K/cumm 0.00-0.74 N Baso Abs (test code = ABASO) 0.1 K/cumm 0.00-0.21 N Hypochromic (test code = HYPO) Slight Blood Gas+Lytes+Glu+Ca+Hgb+Hct+[id number] 12:34:00 Test Item Value Reference Range Interpretation [...] crit COMMENT) vals to Dr. Hoover @ 1235.dn Puncture Site (test code = Brachial. R PUNSITE) Drawing Tech ID (test code = dnguyen DRAWTECH) Lactic Acid, Blood Gas (test 1.3 mmol/L code = BGLA) iPAP (test code = IPAP) 0 cmH2O Peep (test code = RPEEP) 5 Respiratory Rate (test code 0 = RESP RATE) XR CHEST 1 [id number] 07:41:10EXAM: CHEST ONE VIEWINDICATION: IntubatedCOMPARISON: None availableTECHNIQUE: AP view of the chest.FINDINGS: The endotracheal tube and enteric tube are unchanged. Thecardiomediastinal silhouette is normal. There is mild diffuse pulmonaryedema. No pneumothorax or pleural effusion is identified. The osseousstructures are unremarkable.IMPRESSION: Mild diffuse pulmonary edema.LOCATION: [id number] Metabolic [id number] 05:44:00 Test Item Value Reference Range Interpretation [...] been validated by e MDRD study and shoul d be interpretedwith caution.eGFR Re sult Interpretation: eGFR > or = 60 is in t he Normal RangeeGF R < 60 may mean kidney diseaseeGFR < 1 5 may mean kidney failureRange s recommended by the National Kidney Foundation,http ://nkd ep.nih.gov [id number] 05:44:00 Test Item Value Reference Range Interpretation Comments Phosphorus (test code = PO4) 3.2 mg/dL 2.70-4.50 N Magnesium, [id number] 05:44:00 Test Item Value Reference Range Interpretation Comments Magnesium (test code = MG) 1.7 mg/dL 1.7-2.5 N CBC with [id number] 05:28:00 Test Item Value Reference Range Interpretation [...] code = ALYMPH) 2.4 K/cumm 0.5-4.6 N Cecil Abs (test code = AMONO) 1.1 K/cumm 0.0-1.2 N Eos Abs (test code = AEOS) 0.50 K/cumm 0.00-0.74 N Baso Abs (test code = ABASO) 0.0 K/cumm 0.00-0.21 N Blood Gas+Lytes+Glu+Ca+Hgb+Hct+[id number] 05:12:00 Test Item Value Reference Range Interpretation [...] 0 code = RESP RATE) CBC with [id number] 05:34:00 Test Item Value Reference Range Interpretation [...] code 2.0 K/cumm 0.5-4.6 N = ALYMPH) Cecil Abs (test code = 0.4 K/cumm 0.0-1.2 [...] = FT4) 0.83 ng/dL 0.930-1.700 L Urinalysis [id number] 05:26:00 Test Item Value Reference Range Interpretation Comments Color (test code = COLOR) Yellow Yellow,Straw,Pl N yellow Clarity (test code = Clear Clear N CLAR) Specific [place] (test 1.004 1.001-1.035 N code = SPGR) [...] Bacteria (test code = Few /HPF BACT) [id number] 05:20:00 Test Item Value Reference Range Interpretation Comments Phosphorus (test code = PO4) 1.7 mg/dL 2.70-4.50 L Comprehensive Metabolic [id number] 05:20:00 Test Item Value Reference Range Interpretation [...] the National Kidney Foundation,http ://nkd ep.nih.gov Magnesium, [id number] 05:20:00 Test Item Value Reference Range Interpretation Comments Magnesium (test code = MG) 1.7 mg/dL 1.7-2.5 N Blood Gas+Lytes+Glu+Ca+Hgb+Hct+[id number] 05:14:00 Test Item Value Reference Range Interpretation [...] Liters TIDALVOL) CT HEAD OR BRAIN WO [id number] 02:06:48AFTER HOURS SERVICE ON: 06/23/2017 2:06 AMCT Scan of the Brain Without ContrastLocation Code [id number]: altered mental statusTechnique: Scans were performed on a helical scanner pre IV contrastonly. The study is limited secondary to lack of intravenous contrast,particularly for evaluation of masses.CT images were performed bafotc24 hours at arrival to the facility. One [...] blvver rblv code = LAC) Basic Metabolic [id number] 23:49:00 Test Item Value Reference Range Interpretation [...] by the National Kidney Foundation,http ://nkd ep.nih.gov [id number] 23:46:00 Test Item Value Reference Range Interpretation Comments Acetaminophen (test code = ACET) <15.0 ug/mL 15.0-30.0 L [id number] 23:46:00 Test Item Value Reference Range Interpretation Comments Phosphorus (test code = PO4) 1.8 mg/dL 2.70-4.50 L Magnesium, [id number] 23:46:00 Test Item Value Reference Range Interpretation Comments Magnesium (test code = MG) 1.8 mg/dL 1.7-2.5 N CBC with [id number] 23:40:00 Test Item Value Reference Range Interpretation [...] code 1.5 K/cumm 0.5-4.6 N = ALYMPH) Cecil Abs (test code 0.4 K/cumm 0.0-1.2 N = AMONO) Eos Abs (test code = 0.05 K/cumm 0.00-0.74 N AEOS) Baso Abs (test code 0.0 K/cumm 0.00-0.21 N = ABASO) Hypochromic (test Slight code = HYPO) Urinalysis [id number] 20:50:00 Test Item Value Reference Range Interpretation Comments Color (test code = Yellow Yellow,Straw,Pl N COLOR) yellow Clarity (test code = Clear Clear N CLAR) Specific [place] (test 1.028 1.001-1.035 N code = SPGR) [...] Hyaline 0-1 CASTS) Granular /HPF BHCG, Urine, [id number] 20:30:00 Test Item Value Reference Range Interpretation Comments Preg Qual [Ur] (test code = HUHCG) Negative Negative N [id number] 20:28:00 Test Item Value Reference Range Interpretation [...] N code = ETOHU) XR CHEST 1 [id number] 20:19:17CHEST X-RAY 1 VIEW Location: [id number] HISTORY: IntubationTechnique:2 frontal views of the chest [...] in satisfactory position. Mild centralvascular congestion.Partial Thromboplastin [id number] 20:14:00 Test Item Value Reference Range Interpretation Comments aPTT (test code = PTT) 29.10 seconds 24.39-37.25 N Prothrombin [id number] 20:14:00 Test Item Value Reference Range Interpretation Comments PT (test code = PT) 11.60 seconds 9.78-13.35 N INR (test code = INR) 1.02 Ratio 0.6-1.2 N CBC with [id number] 20:06:00 Test Item Value Reference Range Interpretation [...] code = ALYMPH) 2.4 K/cumm 0.5-4.6 N Cecil Abs (test code = AMONO) 0.8 K/cumm 0.0-1.2 N Eos Abs (test code = AEOS) 0.07 K/cumm 0.00-0.74 N Baso Abs (test code = ABASO) 0.0 K/cumm 0.00-0.21 N Hypochromic (test code = HYPO) Slight Blood Gas+Lytes+Glu+Ca+Hgb+Hct+[id number] 20:04:00 Test Item Value Reference Range Interpretation [...] Gas 4.3 mmol/L (test code = BGLA) [id number] 20:03:00 Test Item Value Reference Range Interpretation Comments Acetaminophen (test code = ACET) <15.0 ug/mL 15.0-30.0 L [id number] 20:03:00 Test Item Value Reference Range Interpretation Comments Salicylate (test code <0.3 mg/dL 0.3-10.0 L Anayeli nge in unit of = SALI) measurement for Salicylate ( fr om ug/mL to mg/dL ) Comprehensive Metabolic [id number] 20:03:00 Test Item Value Reference Range Interpretation [...]
== END 2021-06-03 00:10 | disposition home or self-care (01) ==
LOC: ER 20:13
DX: F43.22 Adjustment disorder with anxiety (principal); F41.9 Anxiety disorder, unspecified; I10 Essential (primary) hypertension; D72.829 Elevated white blood cell count, unspecified; F17.210 Nicotine dependence, cigarettes, uncomplicated; Z88.5 Allergy status to narcotic agent; Z20.822 Contact with and (suspected) exposure to COVID-19
CPT/HCPCS: 96361; 93005; 85025 ×2; 80048; 36415; 83735; 81025; 85610; 85379; 80076; 81003; 84484 ×2; 83880; 80307; 71275; 71045; 93970; 96375; 96374; 99284; U0003; Q9967; J2270; J7030 ×2; J2405

== ENCOUNTER 2021-10-03 08:16 | Emergency (ER) | payer OTHER ==
--- OUTSIDE RECORDS SUMMARY | 2021-10-03 08:20 | XMS REPORT | Continuity of Care Document ---
:1980 Author Organization [facility] t Address [address] [place] [address] Care Team Providers Name Role Phone Dian Wheeler Primary Care Physician Patricia RUFF, S Attending Clinician Doctor Unassigned, Name Attending Clinician Unavailable BEATRIZ Attending Clinician Unavailable Ge Attending Clinician Unavailable MARIA E TRAORE MD, MNoman Attending Clinician Unavailable BEATRIZ Admitting Clinician Unavailable Ge Admitting Clinician Unavailable MARIA E TRAORE MD MNoman, M Admitting Clinician Unavail able Payers Payer Name Policy Type Policy Number Effective Date Expiration Date S shwetha [facility] [id number] 2019 COMMUNITY PLAN - 00:00:00 [facility] (MEDICAID HMO) [facility] [id number] 2019 2019 [facility] - OPTION 00:00:00 00:00:00 PLUS (MEDICARE REPLACEMENT HMO) Problems Condition Condition Condition Status Onset Resolution Last Treating Co mments Source Name Details Category Date Date Treatment Clinician Date Chronic Chronic Problem Active [place] bipolar I Bipolar I 6-08 da disorder, 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 Social History Social Habit Start Date Stop Date Quantity Comments Source Sex Assigned At [birth year] [facility] 00:00:00 00:00:00 Medical Branch Smoking Status Start Date Stop Date Source Unknown if ever smoked [facility] Medical [facility] Medications Ordered Filled Start Stop Current Ordering Indication Dosage Frequency Signature Comments Components Source Medication Medication Date Date Medication? Clinician (SIG) Name Name alprazolam alprazolam No alprazolam [place] 0.25 mg 0.25 mg 0.25 mg da tablet tablet tablet [facility] alprazolam alprazolam No alprazolam [place] 0.5 mg 0.5 mg 0.5 mg da tablet tablet tablet [facility] amox/k clav amox/k clav No amox/k [place] tab tab clav tab da 875-125 875-125 875-125 [facility] amoxicillin amoxicillin No amoxicilli [place] 500 mg 500 mg n 500 mg da capsule capsule capsule [facility] brom/pse/dm brom/pse/dm No brom/pse/d [place] syp syp m syp da [facility] buspirone buspirone No buspirone [place] 15 mg 15 mg 15 mg da tablet tablet tablet [facility] buspirone buspirone No buspirone [place] hcl 15 mg hcl 15 mg hcl 15 mg da tabs tabs tabs [facility] ciprofloxac ciprofloxac No [...] 50 da tabs tabs mg tabs [facility] hydroxyzine hydroxyzine No [...] a tablet tablet mg tablet [facility] hydroxyzine hydroxyzine No hydroxyzin [place] hydrochlori hydrochlori e d a de 25 mg de 25 mg hydrochlor [facility] tabs tabs bryce 25 mg al tabs Health Outreac h Program ibuprofen ibuprofen No ibuprofen [place] 600 mg tabs 600 mg tabs 600 mg da tabs [facility] ibuprofen ibuprofen No ibuprofen [place] 600 mg 600 mg 600 mg da tablet tablet tablet [facility] indomethaci indomethaci No indomethac [place] n 50 mg n 50 mg in 50 mg da caps caps caps [facility] lamotrigine lamotrigine No lamotrigin [place] 25 mg 25 mg e 25 mg da tablet tablet tablet [facility] latuda 20 latuda 20 No latuda 20 [place] mg tabs mg tabs mg tabs da [facility] latuda 60 latuda 60 No latuda 60 [place] mg tabs mg tabs mg tabs da [facility] Out[facility] Program Latuda 40 Latuda 40 No Latuda 40 [place] mg tablet mg tablet mg tablet da [facility] h Program Latuda 60 Latuda 60 No [...] mg tabs 10 mg d a tabs [facility] Out[facility] Program lisinopril lisinopril No lisinopril [place] 10 mg 10 mg 10 mg da tablet tablet tablet [facility] h Program loratadine loratadine No loratadine [place] 10 mg tabs 10 mg tabs 10 mg d a tabs [facility] h Program Lyrica 100 Lyrica 100 No Lyrica 100 [place] mg capsule mg capsule mg capsule da [facility] Out[facility] Program Lyrica 50 Lyrica 50 No Lyrica 50 [place] mg capsule mg capsule mg capsule da [facility] h Program ondansetron ondansetron No ondansetro [place] odt 4 mg odt 4 mg n odt 4 d a tbdp tbdp mg tbdp [facility] h Program prazosin 2 prazosin 2 No [...] H ealth liquid Outreac h Program Procedures Procedure Date / Time Performed Performing Clinician [facility] e REFERRAL- 2021-08-15 06:01:00 Doctor Unassdonald, Hamida [facility] REQUEST/RESPONSE Name Medical Branch Encounters Start End Encounter Admission Attending Care Care Encounter Source Date/Time Date/Time Type Type Clinicians Facility Department ID 2021-08-25 2021-08-25 Letter YAJAIRA Gomez [id number] [facility] 00:00:00 00:00:00 (Out) Marco Antonio MENDOZA [id number] i ty of [place] [id number] Darek as [id number] [facility] 043 Branch 2021-08-15 2021-08-15 Orders Doctor YAJAIRA [id number] Univers 00:00:00 00:00:00 Only UnassignedKELLY [id number] ity of [place] [id number] Darek as [id number] [facility] 009 Branch 2020-05-31 2020-05-31 Outpatient [facility]Y [facility] 106 [id number] [place] 11:40:00 11:40:00 H [id number] [facility] 2020-05-17 2020-05-17 Outpatient DESAI_RAKES [facility] [id number] [place] 02:20:00 02:20:00 H [id number] [facility] 2020-05-17 2020-05-17 Juan LOPEZ [place] - [id number] [place] [facility] 00:00:00 00:00:00 Todd Weiner MD: [employer] [facility] 1700 HOP - [facility] [address] [facility] , Ph. ([phone]) --20072020-04-23 2020-04-23 Outpatient DESAI_RAKES [facility] 106 [id number] [place] 10:21:00 10:21:00 H [id number] [facility] 2020-01-05 2020-01-05 Outpatient DESAI_RAKES [facility] 106 [id number] [place] 03:51:00 03:51:00 H [id number] [facility] 2020-01-05 2020-01-05 Juan LOPEZ [place] - [id number] [facility] 00:00:00 00:00:00 Todd Weiner MD: [employer] [facility] [facility] [address] [place] [address] N[facility] , Ph. ([phone]) --20072019-11-25 2019-11-25 Outpatient DESAI_RAKES [facility] 106 [id number] [place] 12:49:00 12:49:00 H [id number] [facility] 2019-08-26 2019-08-26 Outpatient Palermo_Kai [facility] 106 [id number] [place] 04:57:00 04:57:00 tlin [id number] [facility] 2019-08-26 2019-08-26 Outpatient Palermo_Kai [facility] [phone] [place] 04:55:00 04:55:00 tlin [id number] da [facility] h Program Results Test Description Test Time Test Comments Results Result Comments Source SARS-CoV-2 (COVID-19), RT-PCR/TMA 2021-08-09 07:59:55 Test Item Value Reference Range Interpretation Comme nts SARS-CoV-2 INTERPRETATION NEGATIVE SEE NOTE S ARS-CoV-2 RNA NOT (test code = 84970) DETECTED Negative results do not preclude SARS-C oV-2 infection and should notb e used as the sole basis for patient management deci sions. Negativeresults must be combined with clinical o bservations, patient history ,and epidemiological information. Optimum specime n types and timingfor peak viral levels during infectio ns caused by SARS-CoV-2 have notbeen determined. Col lection of multiple specim ens or types ofspecimens may be necessary to detect virus. I mproper specimencollect ion and handling, sequence variab ility under primers/probes, or organism present below t he limit of detection may l ead to falsenegative r esults. Positive and negative pr edictive values oftesting are h ighly dependent on prevalence. False negative testresults are more likely when prevalence is h igh. SOURCE (test code = 20277) NASOPHARYNGEAL Note: Methodology is Kourtney Ophelia Real-Time RT-PCR. The expected r esult or reference range is NEGATIVE (Not Detected). For more information regarding COVID -19 testing to include clinica linformation, methodology det ail, intended use, FDA author ization andrecommended fact sheets for patients or a lthcare providers, see NewTest Announcement: S ARS-CoV-2 (COVID-19) by N AAT at URL below (note,fact shee ts are provided by method given in report:https:// www.[employer]/c linicians/alberto t-communications/ Alternatively, see downloadable PDF fact sheet at:https://www. [employer]/COVID -19-RT-PCR UNLESS OTHERWISE INDIC ATED, ALL TESTING PERFORMED [facility], [place] [address] [place] [address] 78 [phone] LABORATORY DIRE CTOR: DAVID HEATON M.D. CLIA NUMBER [id number] [place]. [id number] Culture, Blood [id number] 08:19:00Specimen: BloodCollected: 06/23/2017 04:30 Status: Final Last Updated: 06/28/2017 08:18 Culture Result (Final) (Final) No Growth After 5 DaysCulture, Blood [id number] 08:18:00 Specimen: BloodCollected: 06/23/2017 04:15 Status: Final Last Updated: 06/28/2017 08:18 Culture Result (Final) (Final) No Growth After 5 DaysUric Acid, Urine [id number] 06:06:00 Test Item Value Reference Range Interpretation Comments Uric Acid, Urine (test code = 28 mg/dL UAURRM) Magnesium, [id number] 05:40:00 Test Item Value Reference Range Interpretation Comments Magnesium (test code = MG) 1.8 mg/dL 1.7-2.5 N Basic Metabolic [id number] 05:40:00 Test Item Value Reference Range Interpretation [...] National Kidney Foundation,http ://nkd ep.nih.gov CBC with [id number] 05:28:00 Test Item Value Reference Range Interpretation [...] code = ALYMPH) 4.9 K/cumm 0.5-4.6 H Hale Abs (test code = AMONO) 1.1 K/cumm 0.0-1.2 N Eos Abs (test code = AEOS) 0.59 K/cumm 0.00-0.74 N Baso Abs (test code = ABASO) 0.1 K/cumm 0.00-0.21 N [id number] 05:20:00 Test Item Value Reference Range Interpretation Comments Phosphorus (test code = PO4) 3.3 mg/dL 2.70-4.50 N Basic Metabolic [id number] 05:20:00 Test Item Value Reference Range Interpretation [...] the National Kidney Foundation,http ://nkd ep.nih.gov Magnesium, [id number] 05:20:00 Test Item Value Reference Range Interpretation Comments Magnesium (test code = MG) 1.6 mg/dL 1.7-2.5 L CBC with [id number] 04:55:00 Test Item Value Reference Range Interpretation [...] code = ALYMPH) 4.7 K/cumm 0.5-4.6 H Hale Abs (test code = AMONO) 1.4 K/cumm 0.0-1.2 H Eos Abs (test code = AEOS) 0.46 K/cumm 0.00-0.74 N Baso Abs (test code = ABASO) 0.1 K/cumm 0.00-0.21 N Hypochromic (test code = HYPO) Slight Blood Gas+Lytes+Glu+Ca+Hgb+Hct+[id number] 12:34:00 Test Item Value Reference Range Interpretation [...] crit COMMENT) vals to Dr. Hoover @ 6315.dn Puncture Site (test code = Brachial. R PUNSITE) Drawing Tech ID (test code = dnguyen DRAWTECH) Lactic Acid, Blood Gas (test 1.3 mmol/L code = BGLA) iPAP (test code = IPAP) 0 cmH2O Peep (test code = RPEEP) 5 Respiratory Rate (test code 0 = RESP RATE) XR CHEST 1 [id number] 07:41:10EXAM: CHEST ONE VIEWINDICATION: IntubatedCOMPARISON: None availableTECHNIQUE: AP view of the chest.FINDINGS: The endotracheal tube and enteric tube are unchanged. Thecardiomediastinal silhouette is normal. There is mild diffuse pulmonaryedema. No pneumothorax or pleural effusion is identified. The osseousstructures are unremarkable.IMPRESSION: Mild diffuse pulmonary edema.LOCATION: S10Mioqs Metabolic [id number] 05:44:00 Test Item Value Reference Range Interpretation [...] by the National Kidney Foundation,http ://nkd ep.nih.gov [id number] 05:44:00 Test Item Value Reference Range Interpretation Comments Phosphorus (test code = PO4) 3.2 mg/dL 2.70-4.50 N Magnesium, [id number] 05:44:00 Test Item Value Reference Range Interpretation Comments Magnesium (test code = MG) 1.7 mg/dL 1.7-2.5 N CBC with [id number] 05:28:00 Test Item Value Reference Range Interpretation [...] code = ALYMPH) 2.4 K/cumm 0.5-4.6 N Hale Abs (test code = AMONO) 1.1 K/cumm 0.0-1.2 N Eos Abs (test code = AEOS) 0.50 K/cumm 0.00-0.74 N Baso Abs (test code = ABASO) 0.0 K/cumm 0.00-0.21 N Blood Gas+Lytes+Glu+Ca+Hgb+Hct+[id number] 05:12:00 Test Item Value Reference Range Interpretation [...] R PUNSITE) Drawing Tech ID (test code jzozobra = DRAWTECH) Lactic Acid, Blood Gas 0.8 mmol/L (test code = BGLA) iPAP (test code = IPAP) 0 cmH2O Peep (test code = RPEEP) 5 Respiratory Rate (test 0 code = RESP RATE) CBC with [id number] 05:34:00 Test Item Value Reference Range Interpretation [...] code 2.0 K/cumm 0.5-4.6 N = ALYMPH) Hale Abs (test code = 0.4 K/cumm 0.0-1.2 [...] = FT4) 0.83 ng/dL 0.930-1.700 L Urinalysis [id number] 05:26:00 Test Item Value Reference Range Interpretation Comments Color (test code = COLOR) Yellow Yellow,Straw,Pl N yellow Clarity (test code = Clear Clear N CLAR) Specific [place] (test 1.004 1.001-1.035 N code = SPGR) [...] Bacteria (test code = Few /HPF BACT) [id number] 05:20:00 Test Item Value Reference Range Interpretation Comments Phosphorus (test code = PO4) 1.7 mg/dL 2.70-4.50 L Comprehensive Metabolic [id number] 05:20:00 Test Item Value Reference Range Interpretation [...] the National Kidney Foundation,http ://nkd ep.nih.gov Magnesium, [id number] 05:20:00 Test Item Value Reference Range Interpretation Comments Magnesium (test code = MG) 1.7 mg/dL 1.7-2.5 N Blood Gas+Lytes+Glu+Ca+Hgb+Hct+[id number] 05:14:00 Test Item Value Reference Range Interpretation [...] code = crit- po2/ rblv- COMMENT) jeffrey Sabillon @ 0545 ebrown Puncture Site (test [...] Liters TIDALVOL) CT HEAD OR BRAIN WO [id number] 02:06:48AFTER HOURS SERVICE ON: 06/23/2017 2:06 AMCT Scan of the Brain Without ContrastLocation Code J01Sdpfrzx: altered mental statusTechnique: Scans were performed on a helical scanner pre IV contrastonly. The study is limited secondary to lack of intravenous contrast,particularly for evaluation of masses.CT images were performed vlmsxi55 hours at arrival to the facility. One [...] blvver rblv code = LAC) Basic Metabolic [id number] 23:49:00 Test Item Value Reference Range Interpretation [...] by the National Kidney Foundation,http ://nkd ep.nih.gov [id number] 23:46:00 Test Item Value Reference Range Interpretation Comments Acetaminophen (test code = ACET) <15.0 ug/mL 15.0-30.0 L [id number] 23:46:00 Test Item Value Reference Range Interpretation Comments Phosphorus (test code = PO4) 1.8 mg/dL 2.70-4.50 L Magnesium, [id number] 23:46:00 Test Item Value Reference Range Interpretation Comments Magnesium (test code = MG) 1.8 mg/dL 1.7-2.5 N CBC with [id number] 23:40:00 Test Item Value Reference Range Interpretation [...] code 1.5 K/cumm 0.5-4.6 N = ALYMPH) Hale Abs (test code 0.4 K/cumm 0.0-1.2 N = AMONO) Eos Abs (test code = 0.05 K/cumm 0.00-0.74 N AEOS) Baso Abs (test code 0.0 K/cumm 0.00-0.21 N = ABASO) Hypochromic (test Slight code = HYPO) Urinalysis [id number] 20:50:00 Test Item Value Reference Range Interpretation Comments Color (test code = Yellow Yellow,Straw,Pl N COLOR) yellow Clarity (test code = Clear Clear N CLAR) Specific [place] (test 1.028 1.001-1.035 N code = SPGR) [...] Hyaline 0-1 CASTS) Granular /HPF BHCG, Urine, [id number] 20:30:00 Test Item Value Reference Range Interpretation Comments Preg Qual [Ur] (test code = HUHCG) Negative Negative N [id number] 20:28:00 Test Item Value Reference Range Interpretation [...] N code = ETOHU) XR CHEST 1 [id number] 20:19:17CHEST X-RAY 1 VIEW Location: [id number] HISTORY: IntubationTechnique:2 frontal views of the chest [...] in satisfactory position. Mild centralvascular congestion.Partial Thromboplastin [id number] 20:14:00 Test Item Value Reference Range Interpretation Comments aPTT (test code = PTT) 29.10 seconds 24.39-37.25 N Prothrombin [id number] 20:14:00 Test Item Value Reference Range Interpretation Comments PT (test code = PT) 11.60 seconds 9.78-13.35 N INR (test code = INR) 1.02 Ratio 0.6-1.2 N CBC with [id number] 20:06:00 Test Item Value Reference Range Interpretation [...] code = ALYMPH) 2.4 K/cumm 0.5-4.6 N Hale Abs (test code = AMONO) 0.8 K/cumm 0.0-1.2 N Eos Abs (test code = AEOS) 0.07 K/cumm 0.00-0.74 N Baso Abs (test code = ABASO) 0.0 K/cumm 0.00-0.21 N Hypochromic (test code = HYPO) Slight Blood Gas+Lytes+Glu+Ca+Hgb+Hct+[id number] 20:04:00 Test Item Value Reference Range Interpretation [...] Celcius Comment (test code = qns.crit.vals.rblv. COMMENT) [email or web address] Puncture Site (test code = Brachial. L PUNSITE) Drawing Tech ID (test code jzozobrado = DRAWTECH) iPAP (test code = IPAP) 0 cmH2O Respiratory Rate (test 0 code = RESP RATE) Lactic Acid, Blood Gas 4.3 mmol/L (test code = BGLA) [id number] 20:03:00 Test Item Value Reference Range Interpretation Comments Acetaminophen (test code = ACET) <15.0 ug/mL 15.0-30.0 L [id number] 20:03:00 Test Item Value Reference Range Interpretation Comments Salicylate (test code <0.3 mg/dL 0.3-10.0 L Anayeli nge in unit of = SALI) measurement for Salicylate ( fr om ug/mL to mg/dL ) Comprehensive Metabolic [id number] 20:03:00 Test Item Value Reference Range Interpretation [...]
--- NOTE | 2021-10-03 08:31 | EDPHYS ---
Physician Documentation [facility] Name: Anamaria Baer Age: 40 yrs Sex: Female : 1980 Arrival Date: 10/03/2021 Time: 08:18 Bed 12 Private MD: ED Physician Wallace Atwood HPI: 10/03 09:12 This 40 yrs old Black Female presents to ER via Ambulatory with complaints of kb Toothache, Facial Swelling. 09:12 The patient presents with pain. The problem is located in the lower right first molar kb (#30). The patient has not recently seen a physician. 09:14 Onset: The symptoms/episode began/occurred 2 day(s) ago. Duration: The symptoms are kb continuous. Modifying factors: The symptoms are alleviated by nothing, the symptoms are aggravated by nothing. Associated signs and symptoms: Pertinent positives: pain. Severity of symptoms: At their worst the symptoms were moderate, in the emergency department the symptoms are unchanged. The patient has experienced similar episodes in the past. Pt reports toothache for 2 days. States it is the same tooth that she has had problems with in the past, but the pain stopped so she cancelled the appt she made with the dentist. 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 - Social history:: Smoking status: Patient reports the use of cigarette tobacco products, smokes one-half pack cigarettes per day. ROS: 09:12 Constitutional: Negative for fever, chills, and weight loss. kb 09:12 ENT: Positive for dental pain. 09:12 All other systems are negative. Exam: 09:12 Constitutional: This is a well developed, well nourished patient who is awake, alert, kb and in no acute distress. Head/Face: Normocephalic, atraumatic. Cardiovascular: Regular rate and rhythm with a normal S1 and S2. No gallops, murmurs, or rubs. No pulse deficits. Respiratory: Respirations even and unlabored. No increased work of breathing. Talking in full sentences Skin: Warm, dry with normal turgor. Normal color. MS/ Extremity: Pulses equal, no cyanosis. Neurovascular intact. Full, normal range of motion. Neuro: Awake and alert, GCS 15, oriented to person, place, time, and situation. Moves all extremities. Normal gait. Psych: Awake, alert, with orientation to person, place and time. Behavior, mood, and affect are within normal limits. 09:12 ENT: Dental exam: dental caries, that is moderate, specifically in the lower right first molar (#30), pain, that is moderate, specifically in the lower right first molar (#30). Vital Signs: 08:29 BP 142 / 92; Pulse 89; Resp 16; Temp 98.2(TE); Pulse Ox 100% on R/A; Weight 96.62 kg; ss Height 5 ft. 5 in. (165.10 cm); Pain 8/10; 08:29 Body Mass Index 35.44 (96.62 kg, 165.10 cm) ss MDM: 08:28 Patient medically screened. kb 09:12 Data reviewed: vital signs, nurses notes. Data interpreted: Pulse oximetry: on room air kb is 100 %. Interpretation: normal. Counseling: I had a detailed discussion with the patient and/or guardian regarding: the historical points, exam findings, and any diagnostic results supporting the discharge/admit diagnosis, the need for outpatient follow up, a dentist, to return to the emergency department if symptoms worsen or persist or if there are any questions or concerns that arise at home. Administered Medications: 08:34 Drug: Ketorolac 30 mg Route: IM; Site: right deltoid; ss 09:00 Follow up: Response: No adverse reaction; Medication administered at discharge. ss Disposition Summary: 10/03/21 08:30 Discharge Ordered Location: Home kb Condition: Stable kb Diagnosis - Dental caries, unspecified kb Followup: kb - With: Emergency Department - When: As needed - Reason: Worsening of condition Followup: kb - With: Private Physician - When: 2 - 3 days - Reason: Recheck today's complaints, Continuance of care, Re-evaluation by your physician Discharge Instructions: - Discharge Summary Sheet kb - Dental Caries, Adult kb - Dental Pain, Mhaa-yx-Egfj kb - Dental Abscess, Yaij-vy-Ruua kb Forms: - Medication Reconciliation Form kb - Thank You Letter kb - Antibiotic Education kb - Prescription Opioid Use kb Prescriptions: - Amoxicillin 875 mg Oral Tablet - take 1 tablet by ORAL route every 12 hours for 10 days; 20 tablet; Refills: 0, kb Product Selection Permitted Signatures: Katrina Jimenez, Kate Galvan, RN RN ss
[2021-10-03] MEDS ORDERED: KETOROLAC 30 MG/ML INJ ONE (08:36)
--- NOTE | 2021-10-03 09:02 | ER ---
Nurse's Notes [facility] Name: Anamaria Bare Age: 40 yrs Sex: Female : 1980 Arrival Date: 10/03/2021 Time: 08:18 Bed 12 Private MD: Diagnosis: Dental caries, unspecified Presentation: 10/03 08:29 Chief complaint: Patient states: Dental pain that began 2 days ago. Coronavirus screen: ss Client denies travel out of the [place] in the last 14 days. Ebola Screen: Patient denies exposure to infectious person. Patient denies travel to an Ebola-affected area in the 21 days before illness onset. Initial Sepsis Screen: Does the patient meet any 2 criteria? No. Patient's initial sepsis screen is negative. Does the patient have a suspected source of infection? No. Patient's initial sepsis screen is negative. Risk Assessment: Do you want to hurt yourself or someone else? Patient reports no desire to harm self or others. Onset of symptoms was October 02, 2021. 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 - Social history:: Smoking status: Patient reports the use of cigarette tobacco products, smokes one-half pack cigarettes per day. Screenin:30 Abuse screen: Denies threats or abuse. Denies injuries from another. Nutritional ss screening: No deficits noted. Tuberculosis screening: Never had TB. Fall Risk None identified. Assessment: 09:01 Reassessment: Patient appears in no apparent distress at this time. Patient and/or ss family updated on plan of care and expected duration. Pain level reassessed. Patient is alert, oriented x 3, equal unlabored respirations, skin warm/dry/pink. General: Appears in no apparent distress. comfortable, Behavior is calm, cooperative. Vital Signs: 08:29 BP 142 / 92; Pulse 89; Resp 16; Temp 98.2(TE); Pulse Ox 100% on R/A; Weight 96.62 kg; ss Height 5 ft. 5 in. (165.10 cm); Pain 8/10; 08:29 Body Mass Index 35.44 (96.62 kg, 165.10 cm) ED Course: 08:18 Patient arrived in ED. rg4 08:28 [facility] kb 08:28 Wallace Atwood MD is Attending Physician. kb 08:30 Triage completed. ss 08:30 Arm band placed on right wrist. ss 08:30 Patient has correct armband on for positive identification. Bed in low position. Call ss light in reach. 08:41 Kate Coats, SAMAN is Primary Nurse. ss 08:59 No provider procedures requiring assistance completed. Patient did not have IV access ss during this emergency room visit. Administered Medications: 08:34 Drug: Ketorolac 30 mg Route: IM; Site: right deltoid; 09:00 Follow up: Response: No adverse reaction; Medication administered at discharge. Outcome: 08:30 Discharge ordered by . kb 09:00 Discharged to home ambulatory. ss 09:00 Condition: good 09:00 Discharge instructions given to patient, Instructed on discharge instructions, follow up and referral plans. Demonstrated understanding of instructions, follow-up care, medications, Prescriptions given X 1. 09:01 Patient left the ED. Addendum: 08:33 Addendum: Other Pt c/o dental pain that began 2 weeks ago. Pain reported as 9/10. Pt s s reports she has had this issue in the past, and made a dental appointment, but cancelled it because her pain improved. Respirations even and unlabored. Skin is warm and dry. Signatures: Katrina Jimenez FNP-C FNP-Ckb Kate Coats, RN RN ss Bertram Shayla rg4
[2021-10-03 09:19] VITALS: BP 142/92; TEMP 98.2; O2SAT 100
== END 2021-10-03 09:01 | disposition home or self-care (01) ==
LOC: ER 08:16
DX: K02.9 Dental caries, unspecified (principal); I10 Essential (primary) hypertension; F17.210 Nicotine dependence, cigarettes, uncomplicated; Z88.5 Allergy status to narcotic agent
CPT/HCPCS: 96372; 99283

== ENCOUNTER 2021-10-03 17:52 | Emergency (ER) | payer OTHER ==
--- OUTSIDE RECORDS SUMMARY | 2021-10-03 17:55 | XMS REPORT | Continuity of Care Document ---
:[address] [facility] t Address [address] [place] [address] Care Team Providers Name Role Phone Dian Wheeler Primary Care Physician Patricia RUFF S Attending Clinician Doctor Unassigned, Name Attending Clinician Unavailable BEATRIZ Attending Clinician Unavailable Ge Attending Clinician Unavailable MARIA E TRAORE MD, MNoman Attending Clinician Unavailable BEATRIZ Admitting Clinician Unavailable Ge Admitting Clinician Unavailable MARIA E TRAORE MD MNoman, M Admitting Clinician Unavail able Payers Payer Name Policy Type Policy Number Effective Date Expiration Date S shwetha [facility] [id number] 2019 COMMUNITY PLAN - 00:00:00 [facility] (MEDICAID HMO) [facility] [id number] 2019 2019 [facility] 00:00:00 00:00:00 PLUS (MEDICARE REPLACEMENT [...] Comments Source Sex Assigned At [birth year] [facility] 00:00:00 00:00:00 Medical Branch Smoking Status Start Date Stop Date Source Unknown if ever smoked [facility] Medical [facility] Medications Ordered Filled Start Stop Current Ordering Indication Dosage Frequency Signature Comments Components Source Medication Medication Date Date Medication? Clinician (SIG) Name Name alprazolam alprazolam No alprazolam [place] 0.25 mg 0.25 mg 0.25 mg da tablet tablet tablet [facility] alprazolam alprazolam No alprazolam [place] 0.5 mg 0.5 mg 0.5 mg da tablet tablet tablet [facility] amox/k clav amox/k clav No amox/k [place] tab tab clav tab da [phone] 875-125 [facility] amoxicillin amoxicillin No amoxicilli [place] 500 mg 500 mg n 500 mg da capsule capsule capsule [facility] brom/pse/dm brom/pse/dm No brom/pse/d [place] syp syp m syp da [facility] buspirone buspirone No buspirone [place] 15 mg 15 mg 15 mg da tablet tablet tablet [facility] buspirone buspirone No buspirone [place] hcl 15 mg hcl 15 mg hcl 15 mg da tabs tabs tabs [facility] ciprofloxac ciprofloxac No [...] a tablet tablet mg tablet [facility] hydroxyzine hydroxyzine No hydroxyzin [place] hydrochlori hydrochlori e d a de 25 mg de 25 mg hydrochlor [facility] tabs tabs bryce 25 mg al tabs [facility] ibuprofen ibuprofen No ibuprofen [place] 600 mg tabs 600 mg tabs 600 mg da tabs [facility] ibuprofen ibuprofen No ibuprofen [place] 600 mg 600 mg 600 mg da tablet tablet tablet [facility] indomethaci indomethaci No indomethac [place] n 50 mg n 50 mg in 50 mg da caps caps caps [facility] lamotrigine lamotrigine No lamotrigin [place] 25 mg 25 mg e 25 mg da tablet tablet tablet [facility] latuda 20 latuda 20 No latuda 20 [place] mg tabs mg tabs mg tabs da [facility] latuda 60 latuda 60 No latuda 60 [place] mg tabs mg tabs mg tabs da [facility] Latuda 40 Latuda 40 No Latuda 40 [place] mg tablet mg tablet mg tablet da [facility] Latuda 60 Latuda 60 No [...] mg tabs 10 mg d a tabs [facility] lisinopril lisinopril No lisinopril [place] 10 mg 10 mg 10 mg da tablet tablet tablet [facility] loratadine loratadine No loratadine [place] 10 mg tabs 10 mg tabs 10 mg d a tabs [facility] Lyrica 100 Lyrica 100 No Lyrica 100 [place] mg capsule mg capsule mg capsule da [facility] Lyrica 50 Lyrica 50 No Lyrica 50 [place] mg capsule mg capsule mg capsule da [facility] ondansetron ondansetron No ondansetro [place] odt 4 mg odt 4 mg n odt 4 d a tbdp tbdp mg tbdp [facility] prazosin 2 prazosin 2 No [...] Procedure Date / Time Performed Performing Clinician [facility] e REFERRAL- 2021-08-15 06:01:00 Doctor Unassigned, Hamida [facility] REQUEST/RESPONSE Name Medical Branch Encounters Start End Encounter Admission Attending Care Care Encounter Source Date/Time Date/Time Type Type Clinicians Facility Department ID 2021-08-25 2021-08-25 Letter YAJAIRA Gomez [id number] [facility] 00:00:00 00:00:00 (Out) Marco Antonio MENDOZA [id number] i ty of [place] [id number] Darek as [phone] [facility] 043 Branch 2021-08-15 2021-08-15 Orders Doctor GATES [id number] Univers 00:00:00 00:00:00 Only UnassignedKELLY [id number] ity [place] [id number] Darek as [id number] [facility] 009 Branch 2020-05-31 2020-05-31 Outpatient MICHAEL_WENDY MAMILENA [facility] 106 [id number] [place] 11:40:00 11:40:00 H [id number] [facility] 2020-05-17 2020-05-17 Outpatient DESAI_RAKES [facility] [id number] [place] 02:20:00 02:20:00 H [id number] [facility] 2020-05-17 2020-05-17 Juan LOPEZ [place] - [id number] M [facility] 00:00:00 00:00:00 Todd Weiner MD: [facility] 1700 HOP - [facility] [place] [address] [facility] , Ph. ([phone]) --20072020-04-23 2020-04-23 Outpatient DESAI_RAKES [facility] 106 [id number] [place] 10:21:00 10:21:00 H [id number] [facility] 2020-01-05 2020-01-05 Outpatient DESAI_RAKES [facility] 106 [id number] [place] 03:51:00 03:51:00 H [id number] [facility] 2020-01-05 2020-01-05 Juan MAMILENA [place] - [id number] M [facility] 00:00:00 00:00:00 Todd Weiner MD: [facility] [address] [place] [address] [facility] , Ph. ([phone]) --20072019-11-25 2019-11-25 Outpatient DESAI_RAKES [facility] 106 [id number] [place] 12:49:00 12:49:00 H [id number] [facility] 2019-08-26 2019-08-26 Outpatient Palermo_Kai [facility] 106 [id number] [place] 04:57:00 04:57:00 tlin [id number] [facility] 2019-08-26 2019-08-26 Outpatient Palermo_Kai [facility] 106 [id number] [place] 04:55:00 04:55:00 tlin [id number] [facility] Results Test Description Test Time Test Comments Results Result Comments Source SARS-CoV-2 (COVID-19), RT-PCR/TMA 2021-08-09 07:59:55 Test Item Value Reference Range Interpretation Comme nts SARS-CoV-2 INTERPRETATION NEGATIVE SEE NOTE S ARS-CoV-2 RNA NOT (test code = 08196) DETECTED Negative results do not preclude SARS-C [...] is h igh. SOURCE (test code = 69650) NASOPHARYNGEAL Note: Methodology is Kourtney Ophelia Real-Time [...] are provided by method given in report:https:// www.[employer]/c linicians/alberto t-communications/ Alternatively, see downloadable PDF fact sheet at:https://www. [employer]/COVID -19-RT-PCR UNLESS OTHERWISE INDIC ATED, ALL TESTING PERFORMED [facility], [place] [address] [place] [address] 78 54 LABORATORY DIRE CTOR: DAVID HEATON M.D. CLIA NUMBER [id number] [place]. [id number] Culture, Blood [id number] 08:19:00Specimen: BloodCollected: 06/23/2017 04:30 Status: Final Last Updated: 06/28/2017 08:18 Culture Result (Final) (Final) No Growth After 5 DaysCulture, Blood [id number] 08:18:00 Specimen: BloodCollected: 06/23/2017 04:15 Status: Final Last Updated: 06/28/2017 08:18 Culture Result (Final) (Final) No Growth After 5 DaysUric Acid, Urine [id number] 06:06:00 Test Item Value Reference Range Interpretation Comments Uric Acid, Urine (test code = 28 mg/dL UAURRM) Magnesium, [id number] 05:40:00 Test Item Value Reference Range Interpretation Comments Magnesium (test code = MG) 1.8 mg/dL 1.7-2.5 N Basic Metabolic [id number] 05:40:00 Test Item Value Reference Range Interpretation [...] by vitaly fisher MDRD study and stef jorge be interpretedwith caution.eGFR Re sult Interpretation: eGFR > or = 60 is in t he Normal RangeeGF R < 60 may mean kidney diseaseeGFR < 1 5 may mean kidney failureRange s recommended by the National Kidney Foundation,http ://nkd ep.nih.gov CBC with [id number] 05:28:00 Test Item Value Reference Range Interpretation [...] code = ALYMPH) 4.9 K/cumm 0.5-4.6 H Hawkins Abs (test code = AMONO) 1.1 K/cumm 0.0-1.2 N Eos Abs (test code = AEOS) 0.59 K/cumm 0.00-0.74 N Baso Abs (test code = ABASO) 0.1 K/cumm 0.00-0.21 N [id number] 05:20:00 Test Item Value Reference Range Interpretation Comments Phosphorus (test code = PO4) 3.3 mg/dL 2.70-4.50 N Basic Metabolic [id number] 05:20:00 Test Item Value Reference Range Interpretation [...] the National Kidney Foundation,http ://nkd ep.nih.gov Magnesium, [id number] 05:20:00 Test Item Value Reference Range Interpretation Comments Magnesium (test code = MG) 1.6 mg/dL 1.7-2.5 L CBC with [id number] 04:55:00 Test Item Value Reference Range Interpretation [...] code = ALYMPH) 4.7 K/cumm 0.5-4.6 H Hawkins Abs (test code = AMONO) 1.4 K/cumm 0.0-1.2 H Eos Abs (test code = AEOS) 0.46 K/cumm 0.00-0.74 N Baso Abs (test code = ABASO) 0.1 K/cumm 0.00-0.21 N Hypochromic (test code = HYPO) Slight Blood Gas+Lytes+Glu+Ca+Hgb+Hct+[id number] 12:34:00 Test Item Value Reference Range Interpretation [...] crit COMMENT) vals to Dr. Hoover @ 9735.dn Puncture Site (test code = Brachial. R PUNSITE) Drawing Tech ID (test code = dnguyen DRAWTECH) Lactic Acid, Blood Gas (test 1.3 mmol/L code = BGLA) iPAP (test code = IPAP) 0 cmH2O Peep (test code = RPEEP) 5 Respiratory Rate (test code 0 = RESP RATE) XR CHEST 1 [id number] 07:41:10EXAM: CHEST ONE VIEWINDICATION: IntubatedCOMPARISON: None availableTECHNIQUE: AP view of the chest.FINDINGS: The endotracheal tube and enteric tube are unchanged. Thecardiomediastinal silhouette is normal. There is mild diffuse pulmonaryedema. No pneumothorax or pleural effusion is identified. The osseousstructures are unremarkable.IMPRESSION: Mild diffuse pulmonary edema.LOCATION: G11Of[facility]oy Metabolic [id number] 05:44:00 Test Item Value Reference Range Interpretation [...] by the National Kidney Foundation,http ://nkd ep.nih.gov [id number] 05:44:00 Test Item Value Reference Range Interpretation Comments Phosphorus (test code = PO4) 3.2 mg/dL 2.70-4.50 N Magnesium, [id number] 05:44:00 Test Item Value Reference Range Interpretation Comments Magnesium (test code = MG) 1.7 mg/dL 1.7-2.5 N CBC with [id number] 05:28:00 Test Item Value Reference Range Interpretation [...] code = ALYMPH) 2.4 K/cumm 0.5-4.6 N Hawkins Abs (test code = AMONO) 1.1 K/cumm 0.0-1.2 N Eos Abs (test code = AEOS) 0.50 K/cumm 0.00-0.74 N Baso Abs (test code = ABASO) 0.0 K/cumm 0.00-0.21 N Blood Gas+Lytes+Glu+Ca+Hgb+Hct+[id number] 05:12:00 Test Item Value Reference Range Interpretation [...] 0 code = RESP RATE) CBC with [id number] 05:34:00 Test Item Value Reference Range Interpretation [...] @ 12 26 ON 06/23/2017 BY Dian Jorge MPV (test code = MPV) 9.9 fL [...] code 2.0 K/cumm 0.5-4.6 N = ALYMPH) Hawkins Abs (test code = 0.4 K/cumm 0.0-1.2 [...] = FT4) 0.83 ng/dL 0.930-1.700 L Urinalysis [id number] 05:26:00 Test Item Value Reference Range Interpretation Comments Color (test code = COLOR) Yellow Yellow,Straw,Pl N yellow Clarity (test code = Clear Clear N CLAR) Specific Ferris (test 1.004 1.001-1.035 N code = SPGR) [...] Bacteria (test code = Few /HPF BACT) [id number] 05:20:00 Test Item Value Reference Range Interpretation Comments Phosphorus (test code = PO4) 1.7 mg/dL 2.70-4.50 L Comprehensive Metabolic [id number] 05:20:00 Test Item Value Reference Range Interpretation [...] by th e MDRD study and stef jorge be interpretedwith caution.eGFR Re sult Interpretation: eGFR > or = 60 is in t he Normal RangeeGF R < 60 may mean kidney diseaseeGFR < 1 5 may mean kidney failureRange s recommended by the National Kidney Foundation,http ://nkd ep.nih.gov Magnesium, [id number] 05:20:00 Test Item Value Reference Range Interpretation Comments Magnesium (test code = MG) 1.7 mg/dL 1.7-2.5 N Blood Gas+Lytes+Glu+Ca+Hgb+Hct+[id number] 05:14:00 Test Item Value Reference Range Interpretation [...] Liters TIDALVOL) CT HEAD OR BRAIN WO [id number] 02:06:48AFTER HOURS SERVICE ON: 06/23/2017 2:06 AMCT Scan of the Brain Without ContrastLocation Code A69Mymimrp: altered mental statusTechnique: Scans were performed on a helical scanner pre IV contrastonly. The study is limited secondary to lack of intravenous contrast,particularly for evaluation of masses.CT images were performed hours at arrival to the facility. One [...] blvver rblv code = LAC) Basic Metabolic [id number] 23:49:00 Test Item Value Reference Range Interpretation [...] by the National Kidney Foundation,http ://nkd ep.nih.gov [id number] 23:46:00 Test Item Value Reference Range Interpretation Comments Acetaminophen (test code = ACET) <15.0 ug/mL 15.0-30.0 L [id number] 23:46:00 Test Item Value Reference Range Interpretation Comments Phosphorus (test code = PO4) 1.8 mg/dL 2.70-4.50 L Magnesium, [id number] 23:46:00 Test Item Value Reference Range Interpretation Comments Magnesium (test code = MG) 1.8 mg/dL 1.7-2.5 N CBC with [id number] 23:40:00 Test Item Value Reference Range Interpretation [...] code 1.5 K/cumm 0.5-4.6 N = ALYMPH) Hawkins Abs (test code 0.4 K/cumm 0.0-1.2 N = AMONO) Eos Abs (test code = 0.05 K/cumm 0.00-0.74 N AEOS) Baso Abs (test code 0.0 K/cumm 0.00-0.21 N = ABASO) Hypochromic (test Slight code = HYPO) Urinalysis [id number] 20:50:00 Test Item Value Reference Range Interpretation Comments Color (test code = Yellow Yellow,Straw,Pl N COLOR) yellow Clarity (test code = Clear Clear N CLAR) Specific Ferris (test 1.028 1.001-1.035 N code = SPGR) [...] Hyaline 0-1 CASTS) Granular /HPF BHCG, Urine, [id number] 20:30:00 Test Item Value Reference Range Interpretation Comments Preg Qual [Ur] (test code = HUHCG) Negative Negative N [id number] 20:28:00 Test Item Value Reference Range Interpretation [...] N code = ETOHU) XR CHEST 1 [id number] 20:19:17CHEST X-RAY 1 VIEW Location: [id number] HISTORY: IntubationTechnique:2 frontal views of the chest [...] in satisfactory position. Mild centralvascular congestion.Partial Thromboplastin [id number] 20:14:00 Test Item Value Reference Range Interpretation Comments aPTT (test code = PTT) 29.10 seconds 24.39-37.25 N Prothrombin [id number] 20:14:00 Test Item Value Reference Range Interpretation Comments PT (test code = PT) 11.60 seconds 9.78-13.35 N INR (test code = INR) 1.02 Ratio 0.6-1.2 N CBC with [id number] 20:06:00 Test Item Value Reference Range Interpretation [...] code = ALYMPH) 2.4 K/cumm 0.5-4.6 N Hawkins Abs (test code = AMONO) 0.8 K/cumm 0.0-1.2 N Eos Abs (test code = AEOS) 0.07 K/cumm 0.00-0.74 N Baso Abs (test code = ABASO) 0.0 K/cumm 0.00-0.21 N Hypochromic (test code = HYPO) Slight Blood Gas+Lytes+Glu+Ca+Hgb+Hct+[id number] 20:04:00 Test Item Value Reference Range Interpretation [...] Gas 4.3 mmol/L (test code = BGLA) [id number] 20:03:00 Test Item Value Reference Range Interpretation Comments Acetaminophen (test code = ACET) <15.0 ug/mL 15.0-30.0 L [id number] 20:03:00 Test Item Value Reference Range Interpretation Comments Salicylate (test code <0.3 mg/dL 0.3-10.0 L Anayeli nge in unit of = SALI) measurement for Salicylate ( fr om ug/mL to mg/dL ) Comprehensive Metabolic [id number] 20:03:00 Test Item Value Reference Range Interpretation [...]
[2021-10-03] MEDS ORDERED: BUPIVACAINE 0.5% PF 10 ML VIAL ONE (19:39)
--- NOTE | 2021-10-03 20:29 | ER ---
Nurse's Notes [facility] Name: Anamaria Baer Age: 40 yrs Sex: Female : 1980 Arrival Date: 10/03/2021 Time: 17:55 Bed 11 Private MD: Diagnosis: Dental pain Presentation: 10/03 18:02 Chief complaint: Patient states: "I came in earlier about my tooth and she gave me a ab2 shot and antibiotics and told me to take ibuprofen. The pain has gotten worse.". Coronavirus screen: Vaccine status: Patient reports being unvaccinated. Client denies travel out of the [place] in the last 14 days. At this time, the client does not indicate any symptoms associated with coronavirus-19. Ebola Screen: Patient negative for fever greater than or equal to 101.5 degrees Fahrenheit, and additional compatible Ebola Virus Disease symptoms Patient denies exposure to infectious person. Patient denies travel to an Ebola-affected area in the 21 days before illness onset. No symptoms or risks identified at this time. Initial Sepsis Screen: Does the patient meet any 2 criteria? No. Patient's initial sepsis screen is negative. Does the patient have a suspected source of infection? No. Patient's initial sepsis screen is negative. Risk Assessment: Do you want to hurt yourself or someone else? Patient reports no desire to harm self or others. Onset of symptoms is unknown. 18:02 Method Of Arrival: Ambulatory ab2 18:02 Acuity: DEVONTE 4 ab2 Triage Assessment: 18:06 General: Appears in no apparent distress. uncomfortable, Behavior is calm, cooperative, ab2 appropriate for age. Pain: Complains of pain in left jaw Pain currently is 10 out of 10 on a pain scale. 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 - Social history:: Smoking status: Patient reports the use of cigarette tobacco products, smokes one-half pack cigarettes per day. Screenin:38 Abuse screen: Denies threats or abuse. Denies injuries from another. Nutritional sm5 screening: No deficits noted. Tuberculosis screening: No symptoms or risk factors identified. Fall Risk None identified. Assessment: 20:36 General: Appears in no apparent distress. Behavior is cooperative. Pain: Complains of sm5 pain in lower right first molar (#30) and face and left jaw. Neuro: No deficits noted. Level of Consciousness is awake, alert, obeys commands, Oriented to person, place, time, situation. Cardiovascular: No deficits noted. Capillary refill < 3 seconds Patient's skin is warm and dry. Respiratory: No deficits noted. Airway is patent Trachea midline Respiratory effort is even, unlabored. EENT: Reports pain in lower right first molar (#30) and face and left jaw. Vital Signs: 18:02 BP 146 / 90; Pulse 78; Resp 18; Temp 98.1; Pulse Ox 100% ; Weight 96.62 kg; Height 5 ab2 ft. 5 in. (165.10 cm); Pain 10/10; 20:37 BP 141 / 85; Pulse 71; Resp 17; Pulse Ox 99% on R/A; sm5 18:02 Body Mass Index 35.44 (96.62 kg, 165.10 cm) ab2 ED Course: 17:55 Patient arrived in ED. ds1 18:05 Triage completed. ab2 18:06 Arm band placed on right wrist. ab2 19:18 Justin Bagley PA is PHCP. [facility] 19:18 Blaise Banks MD is Attending Physician. [facility] 19:20 Johana Toribio, SAMAN is Primary Nurse. sm5 20:38 Patient has correct armband on for positive identification. Call light in reach. sm5 20:38 No provider procedures requiring assistance completed. Patient did not have IV access sm5 during this emergency room visit. Administered Medications: 19:42 Drug: Marcaine (bupivacaine) (0.5 %) 10 ml {Note: administered by SOPHIA Anderson.} Volume: 10 sm5 ml; Route: Infiltration; Outcome: 20:28 Discharge ordered by . [facility] 20:38 Discharged to home ambulatory. sm5 20:38 Condition: stable 20:38 Discharge instructions given to patient, Instructed on discharge instructions, follow up and referral plans. medication usage, Demonstrated understanding of instructions, follow-up care, medications, Prescriptions given X 1. 20:38 Patient left the ED. 5 Signatures: Justin Bagley PA PA jmm Sanford, Demi ds1 Johana Toribio RN RN sm5 Tereso Waldrop2
--- NOTE | 2021-10-03 20:29 | EDPHYS ---
Physician Documentation [facility] Name: Anamaria Baer Age: 40 yrs Sex: Female : 1980 Arrival Date: 10/03/2021 Time: 17:55 Bed 11 Private MD: ED Physician Blaise Banks HPI: 10/03 19:26 This 40 yrs old Black Female presents to ER via Ambulatory with complaints of Dental jmm Pain. 19:26 The patient presents with pain. Onset: The symptoms/episode began/occurred gradually, 2 jmm day(s) ago. Duration: The symptoms are continuous, and are steadily getting worse. Modifying factors: The symptoms are alleviated by nothing, the symptoms are aggravated by nothing. Associated signs and symptoms: Pertinent positives: swelling, Pertinent negatives: fever. It is unknown whether or not the patient has had similar symptoms in the past. Patient was seen earlier today for the same dental pain. Patient states the pain is worsened. Patient states taking ibuprofen without relief.. 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 Historical: - Allergies: 18:05 Naproxen; ab2 - Home Meds: 18:05 Clonidine Oral [Active]; lisinopril 10 mg Oral tab 1 tab once daily [Active]; ab2 - PMHx: 18:05 Anxiety; Hypertension; ab2 - PSHx: 18:05 None; ab2 - Immunization history:: Adult Immunizations up to date. - Social history:: Smoking status: Patient reports the use of cigarette tobacco products, smokes one-half pack cigarettes per day. ROS: 19:26 Constitutional: Negative for fever, chills, and weight loss. jmm 19:26 ENT: Positive for dental pain. 19:26 All other systems are negative. Exam: 19:26 Constitutional: This is a well developed, well nourished patient who is awake, alert, jmm and in no acute distress. Head/Face: atraumatic. Eyes: EOMI, no conjunctival erythema appreciated 19:26 Neck: Trachea midline, Supple Chest/axilla: Normal chest wall appearance and motion. Cardiovascular: Regular rate and rhythm. No edema appreciated Respiratory: Normal respirations, no respiratory distress appreciated Abdomen/GI: Non distended, soft Back: Normal ROM Skin: General appearance color normal MS/ Extremity: Moves all extremities, no obvious deformities appreciated, no edema noted to the lower extremities Neuro: Awake and alert Psych: Behavior is normal, Mood is normal, Patient is cooperative and pleasant 19:26 ENT: Posterior pharynx: is normal, Dental exam: dental caries, that is moderate, specifically in the lower right first molar (#30). Vital Signs: 18:02 BP 146 / 90; Pulse 78; Resp 18; Temp 98.1; Pulse Ox 100% ; Weight 96.62 kg; Height 5 ab2 ft. 5 in. (165.10 cm); Pain 10/10; 20:37 BP 141 / 85; Pulse 71; Resp 17; Pulse Ox 99% on R/A; sm5 18:02 Body Mass Index 35.44 (96.62 kg, 165.10 cm) ab2 MDM: 19:26 Patient medically screened. [facility] 20:26 Data reviewed: vital signs, nurses notes. Counseling: I had a detailed discussion with radha the patient and/or guardian regarding: the historical points, exam findings, and any diagnostic results supporting the discharge/admit diagnosis, the need for outpatient follow up, to return to the emergency department if symptoms worsen or persist or if there are any questions or concerns that arise at home. ED course: Patient was administered 3 mils of 0.5% Marcaine to the right infraalveolar region. This achieved partial anesthesia. Patient has decreased pain in the ED. Patient advised to continue previously prescribed oral antibiotics. Will prescribe some pain medication. 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 Administered Medications: 19:42 Drug: Marcaine (bupivacaine) (0.5 %) 10 ml {Note: administered by PA. Justin} Volume: 10 sm5 ml; Route: Infiltration; Disposition: 22:49 Co-signature as Attending Physician, Blaise Banks MD I agree with the assessment and kdr plan of care. Disposition Summary: 10/03/21 20:28 Discharge Ordered Location: Home [facility] Condition: Stable radha Diagnosis - Dental pain yelitza Followup: radha - With: Private Physician - When: 2 - 3 days - Reason: Recheck today's complaints, Continuance of care, Re-evaluation by your physician Discharge Instructions: - Discharge Summary Sheet yelitza - Dental Pain [facility] Forms: - Medication Reconciliation Form radha - Thank You Letter jmm - Antibiotic Education jmm - Prescription Opioid Use jmm - Work release form 5 Prescriptions: - Ultracet 37.5-325 mg Oral Tablet - take 1 tablet by ORAL route every 6 hours - for up to 5 days; do not exceed 8 jmm tablets per day.; 12 tablet; Refills: 0, Product Selection Permitted Signatures: Blaise Banks MD MD kdr Mickail, Joel, PA PA jmm Mazur, Sarah, RN RN [facility] Tereso Waldrop
[2021-10-03 21:38] VITALS: BP 141/85; O2SAT 99
[2021-10-03 21:40] VITALS: TEMP 98.1
== END 2021-10-03 20:38 | disposition home or self-care (01) ==
LOC: ER 17:52
DX: K08.89 Other specified disorders of teeth and supporting structures (principal); I10 Essential (primary) hypertension; F41.9 Anxiety disorder, unspecified; F17.210 Nicotine dependence, cigarettes, uncomplicated; Z88.5 Allergy status to narcotic agent
CPT/HCPCS: 99283

== ENCOUNTER 2021-12-21 14:06 | Emergency (ER) | payer OTHER ==
--- OUTSIDE RECORDS SUMMARY | 2021-12-21 14:10 | XMS REPORT | Continuity of Care Document ---
:1980 Author Organization [facility] Address [address] [place] [address] [address]. [address] [place] [address] Care Team Providers Name Role Phone UNKNOWN Primary Care Physician Unavailable BEATRIZ Attending Clinician Unavailable Ge Attending Clinician Unavailable MARIA E TRAORE MD, MNoman Attending Clinician Unavailable BEATRIZ Admitting Clinician Unavailable Ge Admitting Clinician Unavailable MARIA E TRAORE MD, MNoman, M Admitting Clinician Unavail able Payers Payer Name Policy Type Policy Number Effective Date Expiration Date S [facility] [id number] 2019 COMMUNITY PLAN - 00:00:00 [facility] (MEDICAID HMO) [facility] [id number] 2019 2019 [facility] 00:00:00 00:00:00 PLUS (MEDICARE REPLACEMENT HMO) Problems Condition Condition Condition Status Onset Resolution Last Treating Co mments Source Name Details Category Date Date Treatment Clinician Date Chronic Chronic Problem Active [place] bipolar I Bipolar I 6-08 da disorder, Disorder, 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 00 al 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 Recent Health episode Episode Outreac depressed Depressed h Program Posttrauma Posttrauma Problem Active 2020-0 M [place] tic stress tic Stress 6-08 [...] hcl 50 da tabs tabs [facility] hydroxyzine hydroxyzine No [...] a tablet tablet mg tablet [facility] hydroxyzine hydroxyzine No hydroxyzin [place] hydrochlori hydrochlori e d a de 25 mg de 25 mg hydrochlor [facility] tabs tabs bryce 25 mg al tabs Health Outreac h Program ibuprofen ibuprofen No ibuprofen [place] 600 mg tabs 600 mg tabs 600 mg da [facility] ibuprofen ibuprofen No ibuprofen [place] 600 mg 600 mg 600 mg da tablet tablet tablet [facility] indomethaci indomethaci No indomethac [place] n 50 mg n 50 mg in 50 mg da caps caps caps [facility] lamotrigine lamotrigine No lamotrigin [place] 25 mg 25 mg e 25 mg da tablet tablet tablet [facility] latuda 20 latuda 20 No latuda 20 [place] mg tabs mg tabs mg tabs da [facility] latuda 60 latuda 60 No latuda 60 [place] mg tabs mg tabs mg tabs da [facility] Latuda 40 Latuda 40 No Latuda 40 [place] mg tablet mg tablet mg tablet da [facility] Latuda 60 Latuda [...] tabs [facility] lisinopril lisinopril No lisinopril [place] 10 mg 10 mg 10 mg da tablet tablet tablet [facility] loratadine loratadine No loratadine [place] 10 mg tabs 10 mg tabs 10 mg d a tabs [facility] Lyrica 100 Lyrica 100 No Lyrica 100 [place] mg capsule mg capsule mg capsule da [facility] Lyrica 50 Lyrica 50 No Lyrica 50 [place] mg capsule mg capsule mg capsule da [facility] ondansetron ondansetron No ondansetro [place] odt 4 mg odt 4 mg n odt 4 d a tbdp tbdp mg tbdp [facility] prazosin 2 prazosin [...] Date/Time Type Type Clinicians Facility Department ID 2020-05-31 2020-05-31 Outpatient [facility] [phone] [place] 11:40:00 11:40:00 H [id number] [facility] 2020-05-17 2020-05-17 Outpatient DESAI_[facility] [phone] [place] 02:20:00 02:20:00 H [id number] [facility] 2020-05-17 2020[facility]05[facility] [place] [facility] [id number] [place] 00:00:00 00:00:00 Todd Weiner MD: Christian Epi scop [address] [facility] [address] [facility] , Ph. [phone] 2020-04-23 Outpatient DESAI_[facility] [phone] [place] 10:21:00 10:21:00 H [id number] [facility] 2020-01-05 2020-01-05 Outpatient DESAI_[facility] [phone] [place] 03:51:00 03:51:00 H [id number] [facility] 2020-01-05 2020-01-05 [facility] [place] [facility] [id number] [place] 00:00:00 00:00:00 Todd Weiner MD: Christian Epi sc[facility] [address] [place] [address] Progr am , Ph. [phone] 2019-11-25 2019-11-25 Outpatient ABRIL LOPEZ [facility] 106 [id number] [place] 12:49:00 12:49:00 H [id number] [facility] Program 2019-08-26 2019-08-26 Outpatient Rene [facility] 106 [id number] [place] 04:57:00 04:57:00 tlin [id number] da [facility] Program 2019-08-26 2019-08-26 Outpatient Rene [facility] 106 [id number] [place] 04:55:00 04:55:00 tlin [id number] [facility] Program Results Test Description Test Time Test Comments Results Result Comments Source COMPREHENSIVE METABOLIC PANEL 2021-11-16 05:01:16 Test Item Value Reference Range Interpretation Comme nts GLUCOSE (test code = 2217) 103 MG/DL 70-99 H BUN (test code = 2208) 8 MG/DL 6-20 CREATININE (test code = 0.73 MG/DL 0.60-1.30 2213) eGFR (2020 CKD-EPI) (test 107 ML/MIN/1.73 >60 code = 16328) CALC BUN/CREAT (test code = 11 RATIO 01-24) SODIUM (test code = 2231) 142 MEQ/L 133-146 POTASSIUM (test code = 2228) 4.4 MEQ/L 3.5-5.4 CHLORIDE (test code = 2215) 109 MEQ/L 95-107 H CARBON DIOXIDE (test code = 22 MEQ/L 31 2205) CALCIUM (test code = 2209) 9.2 MG/DL 8.5-10.5 PROTEIN, TOTAL (test code = 6.7 G/DL 6.1-8.3 2228) ALBUMIN (test code = 2201) 4.0 G/DL 3.5-5.2 CALC GLOBULIN (test code = 2.7 G/DL 1.9-3.7 2239) CALC A/G RATIO (test code = 1.5 RATIO 1.0-2.6 2233) BILIRUBIN, TOTAL (test code <0.2 MG/DL See_Comment [Automated message] The = 2207) system which ge nerated this result transmit viviana reference range : <=1.2. The reference range was not used to interpr et this result as hilary l/abnormal. ALKALINE PHOSPHATASE (test 84 U/L 40-112 code = 2204) AST (test code = 2218) 14 U/L 9-40 ALT (test code = 2219) 15 U/L 5-40 LIPID [id number] 05:01:16 Test Item Value Reference Range Interpretation Comments CHOLESTEROL (test 237 MG/DL <200 H code = 2210) TRIGLYCERIDES (test 274 MG/DL <150 H code = 2232) HDL CHOLESTEROL (test 35 MG/DL >39 L code = 2220) CALC LDL CHOL (test 157 MG/DL <100 H NOTE: C ALCULATED LDL code = 2237) IS BASED ON MELISA-DIAZ METHOD WHICHINCLUDES ADJUSTABLE TRIGLYCERIDE:VL DL CHOLESTEROL RAT IO.THIS FACTOR VARIES B Y MEASURED TRIGLY CERIDE AND NON-HDLCHOL ESTEROL CONCENTRATIONS WITH INCREASED CALCU LATED LDL SEENIN HIGH ER TRIGLYCERIDE OR LOWER NON-HDL SPECIME NS. FOR MOREINFORMATION , SEE CLIENT ANNOUNCE MENT AT [email or web address] RISK RATIO LDL/HDL 4.49 RATIO <3.22 H UN LESS (test code = 2238) OTHERWISE INDICATED, ALL TESTING PER FORMED [facility], I [address] [place] [address] LABORATORY DIRE CTOR: DAVID AVINA M.D. CLIA NUMBER [id number] CAP ACCREDITATION N O. [id number] CBC W/AUTO DIFF WITH [id number] 01:39:34 Test Item Value Reference Range Interpretation Comments WBC (test code = 8.3 K/UL 3.5-11.0 1001) RBC (test code = 3.72 M/UL 3.80-5.40 L 1002) HEMOGLOBIN (test code 9.8 G/DL 11.5-15.5 L = 1003) HEMATOCRIT (test code 30.2 % 34.0-45.0 L = 1004) MCV (test code = 81.2 fL 80.0-99.0 1005) MCH (test code = 26.3 PG 25.0-33.0 1006) MCHC (test code = 32.5 G/DL 31.0-36.0 1007) RDW (test code = 14.5 % 11.5-15.0 1038) NEUTROPHILS (test 35.9 % code = 1008) LYMPHOCYTES (test 44.6 % code = 1010) MONOCYTES (test code 12.4 % = 1011) EOSINOPHILS (test 5.5 % code = 1012) BASOPHILS (test code 1.4 % = 1013) IMMATURE GRANULOCYTES 0.2 % (test code = 1036) NUCLEATED RBCS (test 0.0 /100 See_Comment [Autom ated code = 1065) WBC'S message] The sy stem which generated this result transmitted reference range : 0.0. The refere nce range was not u sed to interpret th is result as normal/abnormal . PLATELET COUNT (test 619 K/UL 130-400 H code = 1015) ABSOLUTE NEUTROPHILS 2.99 K/UL 1.50-7.50 (test code = 1066) ABSOLUTE LYMPHOCYTES 3.72 K/UL 1.00-4.00 (test code = 1067) ABSOLUTE MONOCYTES 1.03 K/UL 0.20-1.00 H (test code = 1068) ABSOLUTE EOSINOPHILS 0.46 K/UL 0.00-0.50 (test code = 1040) ABSOLUTE BASOPHILS 0.12 K/UL 0.00-0.20 (test code = 1069) ABS IMMATURE 0.02 K/UL 0.00-0.10 GRANULOCYTES (test code = 1020) ABS NUCLEATED RBCS 0.00 K/UL 0.00-0.11 (test code = 99810) SARS-CoV-2 (COVID-19), RT-PCR/[id number] 07:59:55 Test Item Value Reference Interpretation Comments Range SARS-CoV-2 NEGATIVE SEE NOTE SARS-CoV-2 RNA NOT INTERPRETATION DETECTEDNegat audrey (test code = 60219) results do not preclude SARS-CoV-2 infe ction and should notb e used as the sole bas is for patient managem ent decisions. Negativeresults must be combined with c linical observations, p atient history,and epidemiological information. Op timum specimen types and timingfor peak viral levels during infections caus ed by SARS-CoV-2 have notbeen determined. Col lection of multiple spe cimens or types ofspec imens may be necessar y to detect virus. I mproper specimencollect ion and handling, seque nce variability und er primers/probes, or organism presen t below the limit of de tection may lead to falsenegative r esults. Positive and ne gative predictive valu es oftesting are h ighly dependent on prevalence. Fal se negative testre sults are more likely when prevalence is h igh. SOURCE (test code = NASOPHARY[place] [address]) Kourtney Ophelia [place] l-Time RT-PCR. The exp ected result or ref erence range is NEGATI VE (Not Detected). For more information reg arding COVID-19 testin g to include clinicalinforma tion, methodology det ail, intended use, F DA authorization andrecommended fact sheets for melodie ents or healthcare prov iders, see NewTest Announcement: SARS-CoV-2 (COV ID-19) by NAAT at URL below (note,fact shee ts are provided by met hod given in report:https:// www.Beepcom/clinici ans/clie nt-communicatio ns/ Alternatively, see downloadable PD F fact sheet at:https://www. Vastari/COVID-19-RT -PCR UNLESS OTHERW ISE INDICATED, ALL TESTING PERFORMED [facility] [address] [place] [address] 4 LABORATORY DI АННА: Alec ALSTON [id number] CAP ACCREDITATION N O. [id number] Culture, Blood [id number] 08:19:00Specimen: BloodCollected: 06/23/2017 04:30 Status: Final Last Updated: 06/28/2017 08:18 Culture Result (Final) (Final) No Growth After 5 DaysCulture, Blood [id number] 08:18:00 Specimen: BloodCollected: 06/23/2017 04:15 Status: Final Last Updated: 06/28/2017 08:18 Culture Result (Final) (Final) No Growth After 5 DaysUric Acid, Urine [id number] 06:06:00 Test Item Value Reference Range Interpretation Comments Uric Acid, Urine (test code = 28 mg/dL UAURRM) Magnesium, [id number] 05:40:00 Test Item Value Reference Range Interpretation Comments Magnesium (test code = MG) 1.8 mg/dL 1.7-2.5 N Basic Metabolic [id number] 05:40:00 Test Item Value Reference Range Interpretation [...] National Kidney Foundation,http ://nkd ep.nih.gov CBC with [id number] 05:28:00 Test Item Value Reference Range Interpretation [...] code = ALYMPH) 4.9 K/cumm 0.5-4.6 H Wake Abs (test code = AMONO) 1.1 K/cumm 0.0-1.2 N Eos Abs (test code = AEOS) 0.59 K/cumm 0.00-0.74 N Baso Abs (test code = ABASO) 0.1 K/cumm 0.00-0.21 N [id number] 05:20:00 Test Item Value Reference Range Interpretation Comments Phosphorus (test code = PO4) 3.3 mg/dL 2.70-4.50 N Basic Metabolic [id number] 05:20:00 Test Item Value Reference Range Interpretation [...] the National Kidney Foundation,http ://nkd ep.nih.gov Magnesium, [id number] 05:20:00 Test Item Value Reference Range Interpretation Comments Magnesium (test code = MG) 1.6 mg/dL 1.7-2.5 L CBC with [id number] 04:55:00 Test Item Value Reference Range Interpretation [...] code = ALYMPH) 4.7 K/cumm 0.5-4.6 H Wake Abs (test code = AMONO) 1.4 K/cumm 0.0-1.2 H Eos Abs (test code = AEOS) 0.46 K/cumm 0.00-0.74 N Baso Abs (test code = ABASO) 0.1 K/cumm 0.00-0.21 N Hypochromic (test code = HYPO) Slight Blood Gas+Lytes+Glu+Ca+Hgb+Hct+[id number] 12:34:00 Test Item Value Reference Range Interpretation [...] crit COMMENT) vals to Dr. Hoover @ 3688.dn Puncture Site (test code = Brachial. R PUNSITE) Drawing Tech ID (test code = dnguyen DRAWTECH) Lactic Acid, Blood Gas (test 1.3 mmol/L code = BGLA) iPAP (test code = IPAP) 0 cmH2O Peep (test code = RPEEP) 5 Respiratory Rate (test code 0 = RESP RATE) XR CHEST 1 [id number] 07:41:10EXAM: CHEST ONE VIEWINDICATION: IntubatedCOMPARISON: None availableTECHNIQUE: AP view of the chest.FINDINGS: The endotracheal tube and enteric tube are unchanged. Thecardiomediastinal silhouette is normal. There is mild diffuse pulmonaryedema. No pneumothorax or pleural effusion is identified. The osseousstructures are unremarkable.IMPRESSION: Mild diffuse pulmonary edema.LOCATION: C18Cvdtx Metabolic [id number] 05:44:00 Test Item Value Reference Range Interpretation [...] by the National Kidney Foundation,http ://nkd ep.nih.gov [id number] 05:44:00 Test Item Value Reference Range Interpretation Comments Phosphorus (test code = PO4) 3.2 mg/dL 2.70-4.50 N Magnesium, [id number] 05:44:00 Test Item Value Reference Range Interpretation Comments Magnesium (test code = MG) 1.7 mg/dL 1.7-2.5 N CBC with [id number] 05:28:00 Test Item Value Reference Range Interpretation [...] code = ALYMPH) 2.4 K/cumm 0.5-4.6 N Wake Abs (test code = AMONO) 1.1 K/cumm 0.0-1.2 N Eos Abs (test code = AEOS) 0.50 K/cumm 0.00-0.74 N Baso Abs (test code = ABASO) 0.0 K/cumm 0.00-0.21 N Blood Gas+Lytes+Glu+Ca+Hgb+Hct+[id number] 05:12:00 Test Item Value Reference Range Interpretation [...] Celcius Comment (test code = qns.crit.p02.rblv.o COMMENT) [email or web address] Puncture Site (test code = Radial. R PUNSITE) Drawing Tech ID (test code jzozobrado = DRAWTECH) Lactic Acid, Blood Gas 0.8 mmol/L (test code = BGLA) iPAP (test code = IPAP) 0 cmH2O Peep (test code = RPEEP) 5 Respiratory Rate (test 0 code = RESP RATE) CBC with [id number] 05:34:00 Test Item Value Reference Range Interpretation [...] code 2.0 K/cumm 0.5-4.6 N = ALYMPH) Wake Abs (test code = 0.4 K/cumm 0.0-1.2 [...] = FT4) 0.83 ng/dL 0.930-1.700 L Urinalysis [id number] 05:26:00 Test Item Value Reference Range Interpretation Comments Color (test code = COLOR) Yellow Yellow,Straw,Pl N yellow Clarity (test code = Clear Clear N CLAR) Specific [place] (test 1.004 1.001-1.035 N code = SPGR) [...] Bacteria (test code = Few /HPF BACT) [id number] 05:20:00 Test Item Value Reference Range Interpretation Comments Phosphorus (test code = PO4) 1.7 mg/dL 2.70-4.50 L Comprehensive Metabolic [id number] 05:20:00 Test Item Value Reference Range Interpretation [...] the National Kidney Foundation,http ://nkd ep.nih.gov Magnesium, [id number] 05:20:00 Test Item Value Reference Range Interpretation Comments Magnesium (test code = MG) 1.7 mg/dL 1.7-2.5 N Blood Gas+Lytes+Glu+Ca+Hgb+Hct+[id number] 05:14:00 Test Item Value Reference Range Interpretation [...] Liters TIDALVOL) CT HEAD OR BRAIN WO [id number] 02:06:48AFTER HOURS SERVICE ON: 06/23/2017 2:06 AMCT Scan of the Brain Without ContrastLocation Code Q30Dhlgxnh: altered mental statusTechnique: Scans were performed on a helical scanner pre IV contrastonly. The study is limited secondary to lack of intravenous contrast,particularly for evaluation of masses.CT images were performed fhfewo40 hours at arrival to the facility. One [...] blvver rblv code = LAC) Basic Metabolic [id number] 23:49:00 Test Item Value Reference Range Interpretation [...] by the National Kidney Foundation,http ://nkd ep.nih.gov [id number] 23:46:00 Test Item Value Reference Range Interpretation Comments Acetaminophen (test code = ACET) <15.0 ug/mL 15.0-30.0 L [id number] 23:46:00 Test Item Value Reference Range Interpretation Comments Phosphorus (test code = PO4) 1.8 mg/dL 2.70-4.50 L Magnesium, [id number] 23:46:00 Test Item Value Reference Range Interpretation Comments Magnesium (test code = MG) 1.8 mg/dL 1.7-2.5 N CBC with [id number] 23:40:00 Test Item Value Reference Range Interpretation [...] CK LAB VALUESPLATELET DELTA CHECKED WITH Ewelina SABILLON/RN @23 32 ON 06/22/2017REASO N UNKNOWN PER [...] code 1.5 K/cumm 0.5-4.6 N = ALYMPH) Wake Abs (test code 0.4 K/cumm 0.0-1.2 N = AMONO) Eos Abs (test code = 0.05 K/cumm 0.00-0.74 N AEOS) Baso Abs (test code 0.0 K/cumm 0.00-0.21 N = ABASO) Hypochromic (test Slight code = HYPO) Urinalysis [id number] 20:50:00 Test Item Value Reference Range Interpretation Comments Color (test code = Yellow Yellow,Straw,Pl N COLOR) yellow Clarity (test code = Clear Clear N CLAR) Specific [place] (test 1.028 1.001-1.035 N code = SPGR) [...] Hyaline 0-1 CASTS) Granular /HPF BHCG, Urine, [id number] 20:30:00 Test Item Value Reference Range Interpretation Comments Preg Qual [Ur] (test code = HUHCG) Negative Negative N [id number] 20:28:00 Test Item Value Reference Range Interpretation [...] N code = ETOHU) XR CHEST 1 [id number] 20:19:17CHEST X-RAY 1 VIEW Location: [id number] HISTORY: IntubationTechnique:2 frontal views of the chest [...] in satisfactory position. Mild centralvascular congestion.Partial Thromboplastin [id number] 20:14:00 Test Item Value Reference Range Interpretation Comments aPTT (test code = PTT) 29.10 seconds 24.39-37.25 N Prothrombin [id number] 20:14:00 Test Item Value Reference Range Interpretation Comments PT (test code = PT) 11.60 seconds 9.78-13.35 N INR (test code = INR) 1.02 Ratio 0.6-1.2 N CBC with [id number] 20:06:00 Test Item Value Reference Range Interpretation [...] code = ALYMPH) 2.4 K/cumm 0.5-4.6 N Wake Abs (test code = AMONO) 0.8 K/cumm 0.0-1.2 N Eos Abs (test code = AEOS) 0.07 K/cumm 0.00-0.74 N Baso Abs (test code = ABASO) 0.0 K/cumm 0.00-0.21 N Hypochromic (test code = HYPO) Slight Blood Gas+Lytes+Glu+Ca+Hgb+Hct+[id number] 20:04:00 Test Item Value Reference Range Interpretation [...] Gas 4.3 mmol/L (test code = BGLA) [id number] 20:03:00 Test Item Value Reference Range Interpretation Comments Acetaminophen (test code = ACET) <15.0 ug/mL 15.0-30.0 L [id number] 20:03:00 Test Item Value Reference Range Interpretation Comments Salicylate (test code <0.3 mg/dL 0.3-10.0 L Anayeli nge in unit of = SALI) measurement for Salicylate ( fr om ug/mL to mg/dL ) Comprehensive Metabolic [id number] 20:03:00 Test Item Value Reference Range Interpretation [...] validated by e MDRD study and stef yen be interpretedwith caution.eGFR Re sult Interpretation: eGFR > or = 60 is in t he Normal RangeeGF R < 60 may mean kidney diseaseeGFR < 1 5 may mean kidney failureRange s recommended by the National Kidney Foundation,http ://nkd ep.nih.gov
[2021-12-21 15:13] LABS: Urine Blood Trace-intact (Negative); Urine Glucose Negative (Negative); Urine Protein Trace (Negative); Urine Specific Gravity >=1.030 (1.005-1.030)
--- NOTE | 2021-12-21 15:17 | RAD REPORT ---
EXAM DESCRIPTION: US - Abdomen Exam Limited - 12/21/2021 2:59 pm CLINICAL HISTORY: ABD PAIN COMPARISON: No comparisons FINDINGS: The gallbladder demonstrates no gallstones. No pericholecystic fluid or gallbladder wall t hickening. The common bile duct is normal measuring 3mm. The liver demonstrates no findings of intrahepatic biliary dilatation. IMPRESSION: Unremarkable examination.
[2021-12-21 15:19] LABS: Absolute Lymphocytes (CBC) 3.5 K/uL (0.7-4.9); Hematocrit 34.4 % (36.0-45.0); Lymphocytes % 37.9 % (15.3-44.8); RBC Red Blood Cell Count 4.06 M/uL (3.86-4.86)
[2021-12-21] MEDS ORDERED: ONDANSETRON 4 MG/2 ML VIAL ONE (15:23)
[2021-12-21] MEDS ORDERED: MORPHINE 4 MG/ML SYR ONE ×2 (15:23→18:51)
[2021-12-21 15:49] LABS: Albumin 3.4 g/dL (3.4-5.0); Bilirubin Total 0.1 mg/dL (0.2-1.0); Potassium 3.6 mmol/L (3.5-5.1); Protein, Total 6.8 g/dL (6.4-8.2); Troponin High Sensitivity 6.7 pg/mL (<58.9)
--- NOTE | 2021-12-21 18:11 | RAD REPORT ---
EXAM DESCRIPTION: RAD - Chest Single View - 12/21/2021 5:48 pm CLINICAL HISTORY: CHEST PAIN Chest pain. COMPARISON: Chest Single View dated 06/02/2021; Chest Single View dated 11/01/2020 FINDINGS: Portable technique limits examination quality. There is a small opacity seen in the medial right lung base which may represent infiltrate/ pneumonia in the correct clinical setting. The lungs are otherwise grossly clear. The heart is normal in size. No displaced fractures.
--- NOTE | 2021-12-21 18:48 | ER ---
Nurse's Notes [facility] Name: Anamaria Baer Age: 40 yrs Sex: Female : 1980 Arrival Date: 12/21/2021 Time: 14:09 Bed 23 Private MD: Diagnosis: Chest pain, unspecified;Community-acquired pneumonia;Epigastric pain Presentation: 12/21 14:17 Chief complaint: Patient states: RUQ pain radiating up into chest since Sunday. iw Coronavirus screen: At this time, the client does not indicate any symptoms associated with coronavirus-19. Ebola Screen: Patient negative for fever greater than or equal to 101.5 degrees Fahrenheit, and additional compatible Ebola Virus Disease symptoms Patient denies exposure to infectious person. Patient denies travel to an Ebola-affected area in the 21 days before illness onset. No symptoms or risks identified at this time. Initial Sepsis Screen: Does the patient meet any 2 criteria? No. Patient's initial sepsis screen is negative. Does the patient have a suspected source of infection? No. Patient's initial sepsis screen is negative. Risk Assessment: Do you want to hurt yourself or someone else? Patient reports no desire to harm self or others. Onset of symptoms was December 18, 2021. 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 - Social history:: Smoking status: Patient reports the use of cigarette tobacco products, smokes one-half pack cigarettes per day. Screenin:38 Abuse screen: Denies threats or abuse. Denies injuries from another. Nutritional iw screening: No deficits noted. Tuberculosis screening: No symptoms or risk factors identified. Fall Risk None identified. Assessment: 14:37 General: Appears in no apparent distress. Behavior is calm, cooperative. Pain: iw Complains of pain in right breast Pain does not radiate. Pain currently is 8 out of 10 on a pain scale. Quality of pain is described as Pain began 2-3 days ago. Neuro: Level of Consciousness is awake, alert, obeys commands, Oriented to person, place, time, situation. Cardiovascular: Patient's skin is warm and dry. Respiratory: Respiratory effort is even, unlabored. 15:27 Reassessment: Patient appears in no apparent distress at this time. Patient and/or iw family updated on plan of care and expected duration. Pain level reassessed. Patient is alert, oriented x 3, equal unlabored respirations, skin warm/dry/pink. 19:35 Reassessment: Patient and/or family updated on plan of care and expected duration. Pain ag7 level reassessed. Patient is alert, oriented x 3, equal unlabored respirations, skin warm/dry/pink. Report received Patient states feeling better. Patient states symptoms have improved. Pain: Complains of pain in chest and abdomen Pain currently is 6 out of 10 on a pain scale. Vital Signs: 14:17 BP 114 / 71; Pulse 91; Resp 16; Temp 97.6; Pulse Ox 100% on R/A; Weight 101.15 kg; iw Height 5 ft. 5 in. (165.10 cm); Pain 8/10; 19:15 BP 118 / 90; Pulse 68; Resp 16 S; Pulse Ox 100% ; Pain 6/10; ag7 19:35 Pain 6/10; ag7 14:17 Body Mass Index 37.11 (101.15 kg, 165.10 cm) ED Course: 14:09 Patient arrived in ED. mr 14:10 Justin Bagley PA is PHCP. [facility] 14:10 Tanner Collier MD is Attending Physician. [facility] 14:18 Triage completed. iw 14:18 Arm band placed on. iw 14:37 Teresita Castro, RN is Primary Nurse. iw 14:51 US Abdomen Limited In Process Unspecified. EDMS 15:08 Bed in low position. Call light in reach. Side rails up X 1. Door closed. mb7 15:08 CBC with Diff Sent. mb7 15:08 CMP Sent. mb7 15:08 Lipase Sent. mb7 15:08 Inserted saline lock: 20 gauge in left antecubital area, using aseptic technique. Blood mb7 collected. 17:50 Chest Single View XRAY In Process Unspecified. EDMS 19:05 No provider procedures requiring assistance completed. Patient maintains SpO2 ss saturation greater than 95% on room air. 19:53 Client placed on continuous cardiac and pulse oximetry monitoring. NIBP monitoring ag7 applied. environmental monitoring technician on. Pulse ox on. 19:53 IV discontinued, intact, bleeding controlled, No redness/swelling at site. Pressure ag7 dressing applied. Administered Medications: 15:26 Drug: morphine 4 mg Route: IVP; Infused Over: 4 mins; Site: left antecubital; iw 16:42 Follow up: Response: No adverse reaction; RASS: Alert and Calm (0) ss 15:27 Drug: Zofran (Ondansetron) 4 mg Route: IVP; Site: left antecubital; iw 16:42 Follow up: Response: No adverse reaction ss 19:04 Drug: morphine 4 mg Route: IVP; Infused Over: 4 mins; Site: left antecubital; ss 19:35 Follow up: Pain 6/10 Adult; Response: No adverse reaction; Pain is decreased ag7 19:05 Drug: Rocephin (cefTRIAXone) 1 grams Route: IV; Rate: calculated rate; Site: left ss antecubital; 19:34 Follow up: Response: No adverse reaction; IV Status: Completed infusion; IV Intake: ag7 100ml 19:05 Drug: Zithromax (azithromycin) 500 mg Route: PO; ss 19:54 Follow up: Response: No adverse reaction ag7 Medication: 19:53 VIS not applicable for this client. ag7 Intake: 19:34 IV: 100ml; Total: 100ml. ag7 Outcome: 18:48 Discharge ordered by MD. garcia 19:53 Discharged to home ambulatory. ag7 19:53 Condition: stable 19:53 Discharge instructions given to patient, Instructed on discharge instructions, follow up and referral plans. medication usage, Demonstrated understanding of instructions, follow-up care, medications, Prescriptions given X 2. 19:54 Patient left the ED. ag7 Signatures: Dispatcher [employer] EDMS Justin Bagley PA PA jmm Rivera, Mary mr Williams, Irene, Kate Levi RN, RN RN ss Breneman, Mary mb7 Glenn, Angela, RN RN ag7 Corrections: (The following items were deleted from the chart) 14:19 14:17 Pulse 91bpm; Resp 16bpm; Pulse Ox 100% RA; Temp 97.6F; 101.15 kg; Height 5 ft. 5 iw in.; BMI: 37.1; Pain 8/10; iw 19:34 19:34 IV Status: Completed infusion; IV Intake: 100ml ag7 ag7
--- NOTE | 2021-12-21 18:48 | EDPHYS ---
Physician Documentation [facility] Name: Anamaria Baer Age: 40 yrs Sex: Female : 1980 Arrival Date: 12/21/2021 Time: 14:09 Bed 23 Private MD: ED Physician Tanner Collier HPI: 12/21 14:17 This 40 yrs old Black Female presents to ER via Ambulatory with complaints of Chest jmm Pain. 14:17 Is a 40-year-old female with history of hypertension the presents emerged part with [facility] complaints of right epigastric pain which is since to the right side of her chest. Denies radiation to the back. Denies vomiting or diarrhea. Denies shortness of breath or fever.. 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 - Social history:: Smoking status: Patient reports the use of cigarette tobacco products, smokes one-half pack cigarettes per day. ROS: 14:17 Constitutional: Negative for fever, chills, and weight loss. jmm 14:17 Cardiovascular: Positive for chest pain. 14:17 Respiratory: Negative for cough, shortness of breath. 14:17 Abdomen/GI: Positive for abdominal pain. 14:17 All other systems are negative. Exam: 14:17 Constitutional: This is a well developed, well nourished patient who is awake, alert, jmm and in no acute distress. Head/Face: atraumatic. Eyes: EOMI, no conjunctival erythema appreciated ENT: Moist Mucus Membranes Neck: Trachea midline, Supple Chest/axilla: Normal chest wall appearance and motion. Cardiovascular: Regular rate and rhythm. No edema appreciated Respiratory: Normal respirations, no respiratory distress appreciated 14:17 Back: Normal ROM Skin: General appearance color normal MS/ Extremity: Moves all extremities, no obvious deformities appreciated, no edema noted to the lower extremities Neuro: Awake and alert Psych: Behavior is normal, Mood is normal, Patient is cooperative and pleasant 14:17 Abdomen/GI: Inspection: abdomen appears normal, Bowel sounds: normal, Palpation: soft, mild abdominal tenderness, in the right upper quadrant. Vital Signs: 14:17 BP 114 / 71; Pulse 91; Resp 16; Temp 97.6; Pulse Ox 100% on R/A; Weight 101.15 kg; iw Height 5 ft. 5 in. (165.10 cm); Pain 8/10; 19:15 BP 118 / 90; Pulse 68; Resp 16 S; Pulse Ox 100% ; Pain 6/10; ag7 19:35 Pain 6/10; ag7 14:17 Body Mass Index 37.11 (101.15 kg, 165.10 cm) iw MDM: 14:17 Patient medically screened. [facility] 18:47 Data reviewed: vital signs, nurses notes. Counseling: I had a detailed discussion with radha the patient and/or guardian regarding: the historical points, exam findings, and any diagnostic results supporting the discharge/admit diagnosis, lab results, radiology results, the need for outpatient follow up, to return to the emergency department if symptoms worsen or persist or if there are any questions or concerns that arise at home. ED course: Patient is alert nontoxic in appearance in the ED. No signs of respiratory distress. Patient advised to follow-up PCP and otherwise given strict return precautions. Patient understood agrees plan of care.. 12/21 14:19 Order name: CBC with Diff; Complete Time: 15:36 [facility] 12/21 14:19 Order name: CMP; Complete Time: 16:02 [facility] 12/21 14:19 Order name: Lipase; Complete Time: 16:02 [facility] 12/21 14:19 Order name: Troponin High Sensitivity; Complete Time: 16:02 [facility] 12/21 15:13 Order name: Urine Dipstick-Ancillary; Complete Time: 15:13 [facility] 12/21 14:19 Order name: IV Saline Lock; Complete Time: 15:07 [facility] 12/21 14:21 Order name: US Abdomen Limited; Complete Time: 15:36 [facility] 12/21 17:06 Order name: Chest Single View XRAY; Complete Time: 18:20 [facility] 12/21 14:19 Order name: Labs collected and sent; Complete Time: 15:07 [facility] 12/21 14:19 Order name: Urine Dipstick-Ancillary (obtain specimen); Complete Time: 15:13 [facility] 12/21 14:20 Order name: EKG - Nurse/Tech; Complete Time: 16:42 [facility] Administered Medications: 15:26 Drug: morphine 4 mg Route: IVP; Infused Over: 4 mins; Site: left antecubital; iw 16:42 Follow up: Response: No adverse reaction; RASS: Alert and Calm (0) ss 15:27 Drug: Zofran (Ondansetron) 4 mg Route: IVP; Site: left antecubital; iw 16:42 Follow up: Response: No adverse reaction ss 19:04 Drug: morphine 4 mg Route: IVP; Infused Over: 4 mins; Site: left antecubital; ss 19:35 Follow up: Pain 6/10 Adult; Response: No adverse reaction; Pain is decreased ag7 19:05 Drug: Rocephin (cefTRIAXone) 1 grams Route: IV; Rate: calculated rate; Site: left ss antecubital; 19:34 Follow up: Response: No adverse reaction; IV Status: Completed infusion; IV Intake: ag7 100ml 19:05 Drug: Zithromax (azithromycin) 500 mg Route: PO; ss 19:54 Follow up: Response: No adverse reaction ag7 Disposition Summary: 12/21/21 18:48 Discharge Ordered Location: Home [facility] Condition: Stable jmm Diagnosis - Chest pain, unspecified jmm - Community-acquired pneumonia jmm - Epigastric pain [facility] Followup: [facility] - With: Private Physician - When: 2 - 3 days - Reason: Recheck today's complaints, Continuance of care, Re-evaluation by your physician Discharge Instructions: - Discharge Summary Sheet jmm - Nonspecific Chest Pain, Adult jmm - Community-Acquired Pneumonia, Adult jm Forms: - Medication Reconciliation Form [facility] - Thank You Letter jm - Antibiotic Education m - Prescription Opioid Use [facility] - Work release form ag7 Prescriptions: - Zithromax Z-Abraham 250 mg Oral Tablet - take 1 tablet by ORAL route as directed for 5 days Day 1 - take two (2) tablets jmm one time. Day 2, 3, 4 , 5 take one (1) tablet once daily.; 6 tablet; Refills: 0, Product Selection Permitted - Ultracet 37.5-325 mg Oral Tablet - take 1 tablet by ORAL route every 6 hours - for up to 5 days; do not exceed 8 jmm tablets per day.; 12 tablet; Refills: 0, Product Selection Permitted Addendum: 12/23/2021 06:59 Co-signature as Attending Physician, Tanner Collier MD. r n Signatures: Dispatcher [employer] Justin Duong PA PA jmm Williams, Irene, RN RN iw Nieto, Roman, MD MD rn Smirch, Shelby, RN RN ss Glenn, Angela RN ag7
[2021-12-21] MEDS ORDERED: AZITHROMYCIN 250 MG TAB ONE (18:52)
[2021-12-21] MEDS ORDERED: NA CHLORIDE 0.9% 50 ML ONE (18:52)
[2021-12-21] MEDS ORDERED: CEFTRIAXONE 1000 MG/VIAL ONE (18:52)
[2021-12-21 19:59] VITALS: TEMP 97.6; O2SAT 100
[2021-12-21 20:00] VITALS: BP 118/90
--- NOTE | 2021-12-22 07:54 | EKG ---
Test Date: 2021-12-21 Test Time: 16:00:33 Air Pollution Specialist: JESSICA MEASUREMENT RESULTS: Intervals: Rate: 72 NE: 164 QRSD: 76 QT: 416 QTc: 455 Tyler: P: 38 NE: 164 QRS: 38 T: 49 INTERPRETIVE STATEMENTS: Normal sinus rhythm Possible Left atrial enlargement Borderline ECG Compared to ECG 06/02/2021 20:22:34 Sinus tachycardia no longer present Myocardial infarct finding no longer present Electronically Signed On 12-22-21 07:52:08 CDT by Alexander Lopez
== END 2021-12-21 19:54 | disposition home or self-care (01) ==
LOC: ER 14:06
DX: J18.9 Pneumonia, unspecified organism (principal); R10.13 Epigastric pain; I10 Essential (primary) hypertension; F17.210 Nicotine dependence, cigarettes, uncomplicated; Z88.5 Allergy status to narcotic agent
CPT/HCPCS: 96365; 93005; 85025; 36415; 81003; 84484; 83690; 80053; 71045; 76705; 96375; 99285; J2405

== ENCOUNTER 2021-12-29 09:10 | Emergency (ER) | payer OTHER ==
--- OUTSIDE RECORDS SUMMARY | 2021-12-29 09:15 | XMS REPORT | Continuity of Care Document ---
:1980 Author Organization [facility] Address [address] [place] [address] Dr. Carpenter. [address] [place] [address] Care Team Providers Name Role Phone UNKNOWN Primary Care Physician Unavailable BEATRIZ Attending Clinician Unavailable Ge Attending Clinician Unavailable MARIA E TRAORE MD, MNoman Attending Clinician Unavailable BEATRIZ Admitting Clinician Unavailable Ge Admitting Clinician Unavailable MARIA E TRAORE MD, MNoman, M Admitting Clinician Unavail able Payers Payer Name Policy Type Policy Number Effective Date Expiration Date S [facility] [id number] 2019 COMMUNITY PLAN - 00:00:00 [facility] (MEDICAID HMO) [facility] [id number] 2019 2019 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 Recent Health [...] hcl 50 da tabs tabs mg tabs [facility] hydroxyzine hydroxyzine No [...] a tablet tablet mg tablet [facility] hydroxyzine hydroxyzine No hydroxyzin [place] hydrochlori hydrochlori e d a de 25 mg de 25 mg hydrochlor [facility] tabs tabs bryce 25 mg al tabs [facility] ibuprofen ibuprofen No ibuprofen [place] 600 mg tabs 600 mg tabs 600 mg da tabs [facility] ibuprofen ibuprofen No ibuprofen [place] 600 mg 600 mg 600 mg da tablet tablet tablet [facility] indomethaci indomethaci No indomethac [place] n 50 mg n 50 mg in 50 mg da caps caps caps [facility] lamotrigine lamotrigine No lamotrigin [place] 25 mg 25 mg e 25 mg da tablet tablet tablet [facility] latuda 20 latuda 20 No latuda 20 [place] mg tabs mg tabs mg tabs da [facility] latuda 60 latuda 60 No latuda 60 [place] mg tabs mg tabs mg tabs da [facility] Latuda 40 Latuda 40 No Latuda 40 [place] mg tablet mg tablet mg tablet da [facility] Latuda 60 [...] mg 10 mg da tablet tablet tablet [facility] loratadine loratadine No loratadine [place] 10 mg tabs 10 mg tabs 10 mg d a tabs [facility] Lyrica 100 Lyrica 100 No Lyrica 100 [place] mg capsule mg capsule mg capsule da [facility] Lyrica 50 Lyrica 50 No Lyrica 50 [place] mg capsule mg capsule mg capsule da [facility] ondansetron ondansetron No ondansetro [place] odt 4 mg odt 4 mg n odt 4 d a tbdp tbdp mg tbdp [facility] prazosin 2 prazosin [...] mg da capsule capsule capsule [facility] tizanidine tizanidine No [...] Clinicians Facility Department ID 2020-05-31 2020-05-31 Outpatient [facility] [phone] [place] 11:40:00 11:40:00 H [id number] da [facility] 2020-05-17 2020-05-17 Outpatient [facility] [phone] [place] 02:20:00 02:20:00 H [id number] [facility] 2020-05-17 2020-05-17 [facility] [place] [facility] [id number] M [place] 00:00:00 00:00:00 Todd Weiner MD: Scientologist Epi scop [facility] [facility] [place] [address] [facility] , Ph. [phone] 2020-04-23 Outpatient [facility] [phone] [place] 10:21:00 10:21:00 H [id number] [facility] 2020-01-05 2020-01-05 Outpatient [facility] [phone] [place] 03:51:00 03:51:00 H [id number] [facility] 2020-01-05 2020-01-05 [facility] [place] - [id number] [place] 00:00:00 00:00:00 Todd Weiner MD: Scientologist Epi scop [address] [facility] [place] [address] Progr am , Ph. [phone] 2019-11-25 Outpatient A[facility]IL [facility] 106 [place] 12:49:00 12:49:00 H [id number] [facility] 2019-08-26 2019-08-26 Outpatient Rene [facility] [id number] [place] 04:57:00 04:57:00 tlin [id number] [facility] 2019-08-26 2019-08-26 Outpatient Rene [facility] 106 [place] 04:55:00 04:55:00 tlin [id number] [facility] Program Results Test Description Test Time Test Comments Results Result Comments Source COMPREHENSIVE METABOLIC PANEL 2021-11-16 05:01:16 Test Item Value Reference Range Interpretation Comme nts GLUCOSE (test code = 2217) 103 MG/DL 70-99 H BUN (test code = 2208) 8 MG/DL 6-20 CREATININE (test code = 0.73 MG/DL 0.60-1.30 2213) eGFR (2020 CKD-EPI) (test 107 ML/MIN/1.73 >60 code = 84081) CALC BUN/CREAT (test code = 11 RATIO 01-24) SODIUM (test code = 2231) 142 MEQ/L 133-146 POTASSIUM (test code = 2228) 4.4 MEQ/L 3.5-5.4 CHLORIDE (test code = 2215) 109 MEQ/L 95-107 H CARBON DIOXIDE (test code = 22 MEQ/L 2205) CALCIUM (test code = 2209) 9.2 [...] code = 2219) 15 U/L 5-40 LIPID [id number] 05:01:16 Test Item Value Reference Range Interpretation [...] MOREINFORMATION , SEE CLIENT ANNOUNCE MENT AT [email or web address] Hyd /CalcLDL-C RISK RATIO LDL/HDL 4.49 RATIO <3.22 H UN LESS (test code = 2238) OTHERWISE INDICATED, ALL TESTING PER FORMED [facility], I [place]. [address] [place] [address] LABORATORY DIRE CTOR: DAVID AVINA M.D. CLIA NUMBER [id number] CAP ACCREDITATION N O. [id number] CBC W/AUTO DIFF WITH [id number] 01:39:34 Test Item Value Reference Range Interpretation [...] RBCS 0.00 K/UL 0.00-0.11 (test code = 28785) SARS-CoV-2 (COVID-19), RT-PCR/[id number] 07:59:55 Test Item Value Reference Interpretation Comments Range SARS-CoV-2 NEGATIVE SEE NOTE SARS-CoV-2 RNA NOT INTERPRETATION DETECTEDNegat audrey (test code = 17442) results do not preclude SARS-CoV-2 infe ction [...] (test code = [place]OP[place]: [place] [address]) Kourtney Ophelia [place] l-Time RT-PCR. The exp ected result or [...] provided by met hod given in report:https:// [email or web address].Fidel[employer]on Systemscom/clinici ans/clie nt-communicatio ns/ Alternatively, see downloadable PD F fact sheet at:[email or web address]://www. zappit/COVID-19-RT -PCR UNLESS OTHERW ISE INDICATED, ALL TESTING PERFORMED [facility] [address] [place] [address] 4 LABORATORY DI АННА: Alec ALSTON [id number] CAP ACCREDITATION N O. [id number] Culture, Blood [id number] 08:19:00Specimen: BloodCollected: 06/23/2017 04:30 Status: Final Last Updated: 06/28/2017 08:18 Culture Result (Final) (Final) No Growth After 5 DaysCulture, Blood [id number] 08:18:00 Specimen: BloodCollected: 06/23/2017 04:15 Status: Final Last Updated: 06/28/2017 08:18 Culture Result (Final) (Final) No Growth After 5 DaysUric Acid, Urine [id number] 06:06:00 Test Item Value Reference Range Interpretation Comments Uric Acid, Urine (test code = 28 mg/dL UAURRM) Magnesium, [id number] 05:40:00 Test Item Value Reference Range Interpretation Comments Magnesium (test code = MG) 1.8 mg/dL 1.7-2.5 N Basic Metabolic [id number] 05:40:00 Test Item Value Reference Range Interpretation [...] National Kidney Foundation,http ://nkd ep.nih.gov CBC with [id number] 05:28:00 Test Item Value Reference Range Interpretation [...] code = ALYMPH) 4.9 K/cumm 0.5-4.6 H [place] Abs (test code = AMONO) 1.1 K/cumm 0.0-1.2 N Eos Abs (test code = AEOS) 0.59 K/cumm 0.00-0.74 N Baso Abs (test code = ABASO) 0.1 K/cumm 0.00-0.21 N [id number] 05:20:00 Test Item Value Reference Range Interpretation Comments Phosphorus (test code = PO4) 3.3 mg/dL 2.70-4.50 N Basic Metabolic [id number] 05:20:00 Test Item Value Reference Range Interpretation [...] the National Kidney Foundation,http ://nkd ep.nih.gov Magnesium, [id number] 05:20:00 Test Item Value Reference Range Interpretation Comments Magnesium (test code = MG) 1.6 mg/dL 1.7-2.5 L CBC with [id number] 04:55:00 Test Item Value Reference Range Interpretation [...] code = ALYMPH) 4.7 K/cumm 0.5-4.6 H [place] Abs (test code = AMONO) 1.4 K/cumm 0.0-1.2 H Eos Abs (test code = AEOS) 0.46 K/cumm 0.00-0.74 N Baso Abs (test code = ABASO) 0.1 K/cumm 0.00-0.21 N Hypochromic (test code = HYPO) Slight Blood Gas+Lytes+Glu+Ca+Hgb+Hct+[id number] 12:34:00 Test Item Value Reference Range Interpretation [...] crit COMMENT) vals to Dr. Hoover @ 2150.dn Puncture Site (test code = Brachial. R PUNSITE) Drawing Tech ID (test code = dnguyen DRAWTECH) Lactic Acid, Blood Gas (test 1.3 mmol/L code = BGLA) iPAP (test code = IPAP) 0 cmH2O Peep (test code = RPEEP) 5 Respiratory Rate (test code 0 = RESP RATE) XR CHEST 1 [id number] 07:41:10EXAM: CHEST ONE VIEWINDICATION: IntubatedCOMPARISON: None availableTECHNIQUE: AP view of the chest.FINDINGS: The endotracheal tube and enteric tube are unchanged. Thecardiomediastinal silhouette is normal. There is mild diffuse pulmonaryedema. No pneumothorax or pleural effusion is identified. The osseousstructures are unremarkable.IMPRESSION: Mild diffuse pulmonary edema.LOCATION: Z84Uqkje Metabolic [id number] 05:44:00 Test Item Value Reference Range Interpretation [...] by the National Kidney Foundation,http ://nkd ep.nih.gov [id number] 05:44:00 Test Item Value Reference Range Interpretation Comments Phosphorus (test code = PO4) 3.2 mg/dL 2.70-4.50 N Magnesium, [id number] 05:44:00 Test Item Value Reference Range Interpretation Comments Magnesium (test code = MG) 1.7 mg/dL 1.7-2.5 N CBC with [id number] 05:28:00 Test Item Value Reference Range Interpretation [...] code = ALYMPH) 2.4 K/cumm 0.5-4.6 N [place] Abs (test code = AMONO) 1.1 K/cumm 0.0-1.2 N Eos Abs (test code = AEOS) 0.50 K/cumm 0.00-0.74 N Baso Abs (test code = ABASO) 0.0 K/cumm 0.00-0.21 N Blood Gas+Lytes+Glu+Ca+Hgb+Hct+[id number] 05:12:00 Test Item Value Reference Range Interpretation [...] Celcius Comment (test code = qns.crit.p02.rblv.o COMMENT) [email or web address] Puncture Site (test code = Radial. R PUNSITE) Drawing Tech ID (test code jzozobrado = DRAWTECH) Lactic Acid, Blood Gas 0.8 mmol/L (test code = BGLA) iPAP (test code = IPAP) 0 cmH2O Peep (test code = RPEEP) 5 Respiratory Rate (test 0 code = RESP RATE) CBC with [id number] 05:34:00 Test Item Value Reference Range Interpretation [...] code 2.0 K/cumm 0.5-4.6 N = ALYMPH) [place] Abs (test code = 0.4 K/cumm 0.0-1.2 [...] = FT4) 0.83 ng/dL 0.930-1.700 L Urinalysis [id number] 05:26:00 Test Item Value Reference Range Interpretation Comments Color (test code = COLOR) Yellow Yellow,Straw,Pl N yellow Clarity (test code = Clear Clear N CLAR) Specific [place] (test 1.004 1.001-1.035 N code = SPGR) [...] Bacteria (test code = Few /HPF BACT) [id number] 05:20:00 Test Item Value Reference Range Interpretation Comments Phosphorus (test code = PO4) 1.7 mg/dL 2.70-4.50 L Comprehensive Metabolic [id number] 05:20:00 Test Item Value Reference Range Interpretation [...] the National Kidney Foundation,http ://nkd ep.nih.gov Magnesium, [id number] 05:20:00 Test Item Value Reference Range Interpretation Comments Magnesium (test code = MG) 1.7 mg/dL 1.7-2.5 N Blood Gas+Lytes+Glu+Ca+Hgb+Hct+[id number] 05:14:00 Test Item Value Reference Range Interpretation [...] Liters TIDALVOL) CT HEAD OR BRAIN WO [id number] 02:06:48AFTER HOURS SERVICE ON: 06/23/2017 2:06 AMCT Scan of the Brain Without ContrastLocation Code B87Fkszvoe: altered mental statusTechnique: Scans were performed on a helical scanner pre IV contrastonly. The study is limited secondary to lack of intravenous contrast,particularly for evaluation of masses.CT images were performed xoalhn89 hours at arrival to the facility. One [...] blvver rblv code = LAC) Basic Metabolic [id number] 23:49:00 Test Item Value Reference Range Interpretation [...] by the National Kidney Foundation,http ://nkd ep.nih.gov [id number] 23:46:00 Test Item Value Reference Range Interpretation Comments Acetaminophen (test code = ACET) <15.0 ug/mL 15.0-30.0 L [id number] 23:46:00 Test Item Value Reference Range Interpretation Comments Phosphorus (test code = PO4) 1.8 mg/dL 2.70-4.50 L Magnesium, [id number] 23:46:00 Test Item Value Reference Range Interpretation Comments Magnesium (test code = MG) 1.8 mg/dL 1.7-2.5 N CBC with [id number] 23:40:00 Test Item Value Reference Range Interpretation [...] code 1.5 K/cumm 0.5-4.6 N = ALYMPH) [place] Abs (test code 0.4 K/cumm 0.0-1.2 N = AMONO) Eos Abs (test code = 0.05 K/cumm 0.00-0.74 N AEOS) Baso Abs (test code 0.0 K/cumm 0.00-0.21 N = ABASO) Hypochromic (test Slight code = HYPO) Urinalysis [id number] 20:50:00 Test Item Value Reference Range Interpretation Comments Color (test code = Yellow Yellow,Straw,Pl N COLOR) yellow Clarity (test code = Clear Clear N CLAR) Specific [place] (test 1.028 1.001-1.035 N code = SPGR) [...] Hyaline 0-1 CASTS) Granular /HPF BHCG, Urine, [id number] 20:30:00 Test Item Value Reference Range Interpretation Comments Preg Qual [Ur] (test code = HUHCG) Negative Negative N [id number] 20:28:00 Test Item Value Reference Range Interpretation [...] N code = ETOHU) XR CHEST 1 [id number] 20:19:17CHEST X-RAY 1 VIEW Location: [id number] HISTORY: IntubationTechnique:2 frontal views of the chest [...] in satisfactory position. Mild centralvascular congestion.Partial Thromboplastin [id number] 20:14:00 Test Item Value Reference Range Interpretation Comments aPTT (test code = PTT) 29.10 seconds 24.39-37.25 N Prothrombin [id number] 20:14:00 Test Item Value Reference Range Interpretation Comments PT (test code = PT) 11.60 seconds 9.78-13.35 N INR (test code = INR) 1.02 Ratio 0.6-1.2 N CBC with [id number] 20:06:00 Test Item Value Reference Range Interpretation [...] code = ALYMPH) 2.4 K/cumm 0.5-4.6 N [place] Abs (test code = AMONO) 0.8 K/cumm 0.0-1.2 N Eos Abs (test code = AEOS) 0.07 K/cumm 0.00-0.74 N Baso Abs (test code = ABASO) 0.0 K/cumm 0.00-0.21 N Hypochromic (test code = HYPO) Slight Blood Gas+Lytes+Glu+Ca+Hgb+Hct+[id number] 20:04:00 Test Item Value Reference Range Interpretation [...] Gas 4.3 mmol/L (test code = BGLA) [id number] 20:03:00 Test Item Value Reference Range Interpretation Comments Acetaminophen (test code = ACET) <15.0 ug/mL 15.0-30.0 L [id number] 20:03:00 Test Item Value Reference Range Interpretation Comments Salicylate (test code <0.3 mg/dL 0.3-10.0 L Anayeli nge in unit of = SALI) measurement for Salicylate ( fr om ug/mL to mg/dL ) Comprehensive Metabolic [id number] 20:03:00 Test Item Value Reference Range Interpretation [...] into account, if the informationis provided. If e race is not provided , and [...]
[2021-12-29] MEDS ORDERED: NA CHLORIDE 0.9% 1,000 ML ONE (09:42)
[2021-12-29 09:51] LABS: Absolute Lymphocytes (CBC) 3.6 K/uL (0.7-4.9); Hematocrit 33.4 % (36.0-45.0); Lymphocytes % 35.9 % (15.3-44.8); MPV 7.3 fL (7.6-11.3); RBC Red Blood Cell Count 4.01 M/uL (3.86-4.86)
[2021-12-29 09:57] LABS: Protime INR 1.09
[2021-12-29] MEDS ORDERED: ONDANSETRON 4 MG/2 ML VIAL ONE (10:08)
[2021-12-29] MEDS ORDERED: MORPHINE 4 MG/ML SYR ONE (10:08)
--- NOTE | 2021-12-29 10:12 | RAD REPORT ---
EXAM DESCRIPTION: RAD - Chest Single View - 12/29/2021 10:00 am CLINICAL HISTORY: CHEST PAIN COMPARISON: Chest Single View dated 12/21/2021; Chest Single View dated 06/02/2021; Chest Single View dated 11/01/2020; Chest For Pe Angio dated 06/02/2021 FINDINGS: Lines: None. Lungs: No evidence of edema or pneumonia. Pleural: No significant pleural effusions or pneumothorax. Cardiac: Mild cardiomegaly. Bones: No acute fractures. Other: IMPRESSION: No acute cardiopulmonary disease.
[2021-12-29 10:25] LABS: ALT/SGPT 28 U/L (12-78); AST/SGOT 14 U/L (15-37); Albumin 3.2 g/dL (3.4-5.0); Alkaline Phosphatase 75 U/L (45-117); BUN Blood Urea Nitrogen 5 mg/dL (7-18); Bicarbonate 24 mmol/L (21-32); Bilirubin Total 0.1 mg/dL (0.2-1.0); Glomerular Filtration Rate 111 ml/min (=/>90); Glucose Level 91 mg/dL (74-106); Lipase 86 U/L (73-393); Magnesium 1.8 mg/dL (1.8-2.4); NT PRO-BNP 85 pg/mL (<125); Potassium 3.8 mmol/L (3.5-5.1); Protein, Total 6.7 g/dL (6.4-8.2); Sodium Level 138 mmol/L (136-145); Troponin High Sensitivity 7.6 pg/mL (<58.9)
[2021-12-29 10:26] LABS: Bilirubin Direct < 0.1 mg/dL (0-0.2)
[2021-12-29 10:27] LABS: Urine Blood Trace-intact (Negative); Urine Glucose Negative (Negative); Urine Protein Negative (Negative); Urine pH 6.5 (5.0-7.0)
--- NOTE | 2021-12-29 11:07 | RAD REPORT ---
EXAM DESCRIPTION: CTAngio Aorta For Dissection - 12/29/2021 10:49 am CLINICAL HISTORY: cp dyspnea COMPARISON: No comparisons TECHNIQUE: CTA of the chest, abdomen, and pelvis was performed with IV contrast. MIPS were performed .. All CT scans are performed using dose optimization technique as appropriate and may include automated exposure control or mA/KV adjustment according to patient size. FINDINGS: Thorax: Chest Wall: Several thyroid nodules, the largest measuring 2 cm in the left lobe. Lungs: No acute abnormality. Pleura: Small left effusion. Trace right effusion. Selena/Mediastinum: No lymphadenopathy. Aorta/Pulmonary Arteries: Unremarkable Heart: Mild cardiomegaly. Abdomen/Pelvis: Liver: No acute abnormality or suspicious lesions. Biliary: No biliary ductal dilatation. Stomach: No significant focal abnormality. Duodenum: No significant focal abnormality. Pancreas: No significant abnormality. Spleen: No significant abnormality. Adrenal: No suspicious lesions. Kidney/ureter: No hydronephrosis. No renal calculi. Too small to characterize and/or benign appearing renal lesions are noted. Retroperitoneum: No retroperitoneal adenopathy. Vascular: No aneurysm. Bowel: Large colonic stool burden. Peritoneum: No ascites or free air. Bladder: Grossly unremarkable. Reproductive: Bilateral adnexal cysts, largest measuring 3.9 cm in the right ovary. These are likely physiologic. Bones: No acute fracture. Other: n/a IMPRESSION: No evidence of aortic aneurysm, aortic dissection, or pulmonary embolus. Small pleural effusions which are nonspecific could be related to a component of mild edema. Thyroid nodules, the largest measuring 2 cm. Recommend nonemergent thyroid ultrasound. Large stool burden in the proximal third of the colon. No bowel obstruction.
--- NOTE | 2021-12-29 11:48 | ER ---
Nurse's Notes [facility] Name: Anamaria Baer Age: 41 yrs Sex: Female : 1980 Arrival Date: 12/29/2021 Time: 09:11 Bed 5 Private MD: Shukri Irby Diagnosis: Pleural effusion, not elsewhere classified;UTI/ Urinary tract infection, site not specified Presentation: 12/29 09:15 Chief complaint: Patient states: last week i came in and they told me i had pneumonia. tw2 i took all the medicine like they told me. it has just gotten worse. the pain when i take a deep breath and my bra even hurts me. i went to my doctor, well the clinic in [place], and they told me to come back here. Coronavirus screen: difficulty breathing, Client presents with at least one sign or symptom that may indicate coronavirus-19. Standard/surgical mask placed on the client. Provider contacted for isolation considerations. Ebola Screen: Patient denies travel to an Ebola-affected area in the 21 days before illness onset. Initial Sepsis Screen: Does the patient meet any 2 criteria? No. Patient's initial sepsis screen is negative. Does the patient have a suspected source of infection? No. Patient's initial sepsis screen is negative. Risk Assessment: Do you want to hurt yourself or someone else? Patient reports no desire to harm self or others. Onset of symptoms was December 29, 2021. 09:15 Method Of Arrival: Ambulatory tw2 09:15 Acuity: DEVONTE 3 tw2 Triage Assessment: 09:18 General: Appears in no apparent distress. uncomfortable, obese, Behavior is calm, tw2 cooperative, appropriate for age. Pain: Complains of pain in back and chest. Cardiovascular: Reports chest pain. Respiratory: Airway is patent Respiratory effort is even, unlabored. 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 - Social history:: Smoking status: Patient reports the use of cigarette tobacco products, 6 or 7 cigarettes a day, maybe less. - Family history:: not pertinent. Screenin:20 Abuse screen: Denies threats or abuse. Nutritional screening: No deficits noted. tw2 Tuberculosis screening: No symptoms or risk factors identified. Fall Risk None identified. 09:40 Patient has been NPO before screening. The patient is alert, able to follow commands. kramer The patient does not exhibit slurred or garbled speech The patient is not exhibiting difficulty speaking. The patient does not exhibit difficulty understanding words. The patient is able to swallow own secretions with no drooling or need for suction. Patient tolerated one teaspoon of water. No drooling, immediate coughing, gurgling, or clearing of the throat was noted. The patient tolerated 90mL of water. No drooling, immediate coughing, gurgling, or clearing of the throat was noted. Assessment: 09:21 Pain: Pain radiates to back and left arm Pain began last week. tw2 09:40 Also complains of inability to perform ADLs. General: Appears in no apparent distress. kramer Behavior is cooperative. Neuro: Level of Consciousness is awake, alert, obeys commands, Oriented to person, place, time, situation, Reports numbness in left arm. Musculoskeletal: Reports weakness in left arm numbness in left arm. 10:30 Reassessment: PT RETURNED FROM CT. bp Vital Signs: 09:15 BP 114 / 66; Pulse 92; Resp 17; Temp 99.0(TE); Pulse Ox 100% on R/A; Weight 101.15 kg tw2 (R); Height 5 ft. 5 in. (165.10 cm); Pain 9/10; 10:30 BP 112 / 49; Pulse 76; Resp 21; Pulse Ox 100% ; bp 09:15 Body Mass Index 37.11 (101.15 kg, 165.10 cm) tw2 NIH Stroke Scale Scores: 09:36 NIHSS Score: 0 tara 09:40 NIHSS Score: 0 kramer ED Course: 09:11 Patient arrived in ED. bp1 09:12 Onel Hein MD is Attending Physician. tara 09:12 Shukri Irby is Private Physician. bp1 09:18 Triage completed. tw2 09:19 Arm band placed on. tw2 09:19 Bed in low position. Call light in reach. Client placed on continuous cardiac and pulse tw2 oximetry monitoring. NIBP monitoring applied. 09:20 Patient maintains SpO2 saturation greater than 95% on room air. tw2 09:26 Yasmani Torres, RN is Primary Nurse. bp 09:27 EKG done, by ED staff, reviewed by Onel Hein MD. dh3 09:45 No provider procedures requiring assistance completed. Inserted saline lock: 20 gauge kramer in left antecubital area, using aseptic technique. 10:01 XRAY Chest (1 view) In Process Unspecified. EDMS 10:51 CT Aorta for Dissection: pe/dissection In Process Unspecified. EDMS 11:46 Shukri Irby is Referral Physician. tara 11:50 Lasha Edmonds MD is Referral Physician. tara 12:17 IV discontinued, intact, Pressure dressing applied. kramer Administered Medications: 10:09 Drug: NS 0.9% 1000 ml Route: IV; Rate: 1 bolus; Site: right antecubital; kramer 10:30 Drug: morphine 2 mg Route: IV; Rate: per protocol; Site: right antecubital; kramer 10:30 Drug: morphine 2 mg Route: IV; Rate: per protocol; Site: right antecubital; kramer 10:30 Drug: Zofran (Ondansetron) 4 mg Route: IVP; Site: right antecubital; kramer 10:31 Follow up: Response: No adverse reaction kramer 11:44 CANCELLED (Duplicate Order): Rocephin (cefTRIAXone) 1 grams IV at per protocol once; tara Given slow IV push per pharmacy instructions 11:44 CANCELLED (Duplicate Order): Zithromax (azithromycin) 500 mg PO once tara 11:54 CANCELLED (Duplicate Order): Motrin (ibuprofen) 800 mg PO once tara 12:12 Drug: LevOfloxacin 750 mg Route: PO; kramer 12:12 Follow up: Response: No adverse reaction kramer Medication: 09:40 VIS not applicable for this client. kramer Outcome: 11:48 Discharge ordered by . tara 12:16 Discharged to home ambulatory. kramer 12:16 Condition: good 12:16 Discharge instructions given to patient, Prescriptions given X 2. 12:17 Patient left the ED. kramer NIH Stroke Scale - NIH Stroke Score Date: 12/29/2021 Time: 09:36 Total Score = 0 1a. Level of Consciousness (LOC) - 0(Alert) 1b. Level of Consciousness (LOC) (Month \T\ Age) - 0(Both) 1c. LOC Commands (Open \T\ Closes Eyes/Slurry Blender) - 0(Both) 2. Best Gaze (Lateral Gaze Paresis) - 0(Normal) 3. Visual Field Loss - 0(No visual loss) 4. Facial Palsy - 0(Normal) 5a. Left Arm: Motor (10-second hold) - 0(No drift) 5b. Right Arm: Motor (10-second hold) - 0(No drift) 6a. Left Leg: Motor (5-second hold - always test supine) - 0(No drift) 6b. Right Leg: Motor (5-second hold - always test supine) - 0(No drift) 7. Limb Ataxia (finger/nose \T\ heel/salinas - test with eyes open) - 0(Absent) 8. Sensory Loss (pinprick arms/legs/face) - 0(Normal) 9. Best Language: Aphasia (description/naming/reading) - 0(No aphasia) 10. Dysarthria (speech clarity - read or repeat words) - 0(Normal) 11. Extinction and Inattention (visual/tactile/auditory/spatial/personal) - 0(No abnormality) Initials: [facility] NIH Stroke Scale - NIH Stroke Score Date: 12/29/2021 Time: 09:40 Total Score = 0 1a. Level of Consciousness (LOC) - 0(Alert) 1b. Level of Consciousness (LOC) (Month \T\ Age) - 0(Both) 1c. LOC Commands (Open \T\ Closes Eyes/Slurry Blender) - 0(Both) 2. Best Gaze (Lateral Gaze Paresis) - 0(Normal) 3. Visual Field Loss - 0(No visual loss) 4. Facial Palsy - 0(Normal) 5a. Left Arm: Motor (10-second hold) - 0(No drift) 5b. Right Arm: Motor (10-second hold) - 0(No drift) 6a. Left Leg: Motor (5-second hold - always test supine) - 0(No drift) 6b. Right Leg: Motor (5-second hold - always test supine) - 0(No drift) 7. Limb Ataxia (finger/nose \T\ heel/salinas - test with eyes open) - 0(Absent) 8. Sensory Loss (pinprick arms/legs/face) - 0(Normal) 9. Best Language: Aphasia (description/naming/reading) - 0(No aphasia) 10. Dysarthria (speech clarity - read or repeat words) - 0(Normal) 11. Extinction and Inattention (visual/tactile/auditory/spatial/personal) - 0(No abnormality) Initials: kramer Signatures: Dispatcher [employer] EDOnel Pereira MD MD cha Wise, Tara RN RN tw2 Sonam Lagunas [facility] Yasmani Torres RN RN Carine Velásquez [facility] Tiffani Villarreal RN RN ha Corrections: (The following items were deleted from the chart) 09:20 09:15 Chief complaint: Patient states: last week i came in and they told me i tw2 had pneumonia. i took all the medicine like they told me. it has just gotten worse. the pain when i take a deep breath and my bra even hurts me. i went to my doctor and he told me to come back here. tw2
--- NOTE | 2021-12-29 11:49 | EDPHYS ---
Physician Documentation [facility] Name: Anamaria Baer Age: 41 yrs Sex: Female : 1980 Arrival Date: 12/29/2021 Time: 09:11 Bed 5 Private MD: Shukri Irby ED Physician Onel Hein HPI: 12/29 09:36 This 41 yrs old Black Female presents to ER via Ambulatory with complaints of Chest tara Pain, Back Pain, Numbness - hands/feet. 09:36 The patient or guardian reports chest pain that is located primarily in the anterior tara chest wall, bilaterally. Onset: 2 day(s) ago. The pain does not radiate. Associated signs and symptoms: Pertinent positives: dizziness, shortness of breath. The chest pain is described as aching, sharp. Duration: The patient or guardian reports multiple episodes, that are intermittent. Modifying factors: The symptoms are alleviated by remaining still, the symptoms are aggravated by deep breath, movement. Severity of pain: At its worst the pain was moderate in the emergency department the pain is unchanged. The patient has not experienced similar symptoms in the past. 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 - Social history:: Smoking status: Patient reports the use of cigarette tobacco products, 6 or 7 cigarettes a day, maybe less. - Family history:: not pertinent. ROS: 09:36 Constitutional: Negative for fever, chills, and weight loss, Eyes: Negative for injury, tara pain, redness, and discharge, ENT: Negative for injury, pain, and discharge, Neck: Negative for injury, pain, and swelling, Respiratory: Negative for shortness of breath, cough, wheezing, and pleuritic chest pain, Abdomen/GI: Negative for abdominal pain, nausea, vomiting, diarrhea, and constipation, Back: Negative for injury and pain, : Negative for injury, bleeding, discharge, and swelling, MS/Extremity: Negative for injury and deformity, Skin: Negative for injury, rash, and discoloration, Neuro: Negative for headache, weakness, numbness, tingling, and seizure, Psych: Negative for depression, anxiety, suicide ideation, homicidal ideation, and hallucinations, Allergy/Immunology: Negative for hives, rash, and allergies, Endocrine: Negative for neck swelling, polydipsia, polyuria, polyphagia, and marked weight changes, Hematologic/Lymphatic: Negative for swollen nodes, abnormal bleeding, and unusual bruising. 09:36 Cardiovascular: Positive for chest pain, of the chest. Exam: 09:36 Constitutional: This is a well developed, well nourished patient who is awake, alert, tara and in no acute distress. Head/Face: Normocephalic, atraumatic. Eyes: Pupils equal round and reactive to light, extra-ocular motions intact. Lids and lashes normal. Conjunctiva and sclera are non-icteric and not injected. Cornea within normal limits. Periorbital areas with no swelling, redness, or edema. ENT: Nares patent. No nasal discharge, no septal abnormalities noted. Tympanic membranes are normal and external auditory canals are clear. Oropharynx with no redness, swelling, or masses, exudates, or evidence of obstruction, uvula midline. Mucous membranes moist. Neck: Trachea midline, no thyromegaly or masses palpated, and no cervical lymphadenopathy. Supple, full range of motion without nuchal rigidity, or vertebral point tenderness. No Meningismus. Chest/axilla: Normal chest wall appearance and motion. Nontender with no deformity. No lesions are appreciated. Cardiovascular: Regular rate and rhythm with a normal S1 and S2. No gallops, murmurs, or rubs. Normal PMI, no JVD. No pulse deficits. Respiratory: Lungs have equal breath sounds bilaterally, clear to auscultation and percussion. No rales, rhonchi or wheezes noted. No increased work of breathing, no retractions or nasal flaring. Abdomen/GI: Soft, non-tender, with normal bowel sounds. No distension or tympany. No guarding or rebound. No evidence of tenderness throughout. Back: No spinal tenderness. No costovertebral tenderness. Full range of motion. Female : Normal external genitalia. Skin: Warm, dry with normal turgor. Normal color with no rashes, no lesions, and no evidence of cellulitis. MS/ Extremity: Pulses equal, no cyanosis. Neurovascular intact. Full, normal range of motion. Neuro: Awake and alert, GCS 15, oriented to person, place, time, and situation. Cranial nerves II-XII grossly intact. Motor strength 5/5 in all extremities. Sensory grossly intact. Cerebellar exam normal. Normal gait. Psych: Awake, alert, with orientation to person, place and time. Behavior, mood, and affect are within normal limits. 10:18 ECG was reviewed by the Attending Physician. tara Vital Signs: 09:15 BP 114 / 66; Pulse 92; Resp 17; Temp 99.0(TE); Pulse Ox 100% on R/A; Weight 101.15 kg tw2 (R); Height 5 ft. 5 in. (165.10 cm); Pain 9/10; 10:30 BP 112 / 49; Pulse 76; Resp 21; Pulse Ox 100% ; bp 09:15 Body Mass Index 37.11 (101.15 kg, 165.10 cm) tw2 NIH Stroke Scale Scores: 09:36 NIHSS Score: 0 tara 09:40 NIHSS Score: 0 kramer MDM: 09:19 Patient medically screened. tara 09:38 Differential diagnosis: abnormal EKG, anxiety, coronary artery disease pancreatitis, tara pneumothorax, pulmonary embolus, stable angina, unstable angina. HEART Score: History: Slightly Suspicious (0), ECG: Normal (0), Age: < or = 45 years (0), Risk Factors: > or = 3 Risk factors for atherosclerotic disease (2), [Hypertension] [+ Family HX] [Obesity] Troponin: < or = 1 x Normal Limit (0). The patient was not given aspirin in the Emergency Department. Not indicated due to patient's past medical history. The patient's deep vein thrombosis risk score was calculated as follows: Total Score: 0. This patient was found to be at low risk for a deep vein thrombosis by using the Well's assessment criteria. The patient's pulmonary embolism risk score was calculated as follows: Total Score: 0-2 points. This patient was found to be at low risk for a pulmonary embolism by using the Well's assessment criteria. MECHELLE Risk Score: TOTAL SCORE = 0. Data reviewed: vital signs, nurses notes, lab test result(s), EKG, radiologic studies, plain films. Data interpreted: quality assurance monitor chassis: rate is 92 beats/min, rhythm is regular, Pulse oximetry: on room air is 100 %. Test interpretation: by ED physician or midlevel provider: ECG, plain radiologic studies. Counseling: I had a detailed discussion with the patient and/or guardian regarding: the historical points, exam findings, and any diagnostic results supporting the discharge/admit diagnosis, lab results, radiology results, the need for outpatient follow up. 12/29 09:35 Order name: Basic Metabolic Panel; Complete Time: 11:35 [facility] 12/29 09:35 Order name: CBC with Diff; Complete Time: 11:35 [facility] 12/29 09:35 Order name: LFT's; Complete Time: 11:35 [facility] 12/29 09:35 Order name: Magnesium; Complete Time: 11:35 tara 12/29 09:35 Order name: NT PRO-BNP; Complete Time: 11:35 [facility] 12/29 09:35 Order name: PT-INR; Complete Time: 11:35 [facility] 12/29 09:35 Order name: Troponin HS; Complete Time: 11:35 [facility] 12/29 09:35 Order name: XRAY Chest (1 view); Complete Time: 11:35 [facility] 12/29 09:35 Order name: Lipase; Complete Time: 11:35 [facility] 12/29 09:35 Order name: CT Aorta for Dissection: pe/dissection; Complete Time: 11:35 tara 12/29 10:27 Order name: Urine --Ancillary (enter results); Complete Time: 11:35 12/29 10:27 Order name: Urine Dipstick-Ancillary; Complete Time: 11:35 [facility]MN 12/29 11:43 Order name: Urine Culture [facility] 12/29 09:35 Order name: EKG; Complete Time: 09:36 [facility] 12/29 09:35 Order name: Cardiac monitoring; Complete Time: 10:06 [facility] 12/29 09:35 Order name: EKG - Nurse/Tech; Complete Time: 10:06 tara 12/29 09:35 Order name: IV Saline Lock; Complete Time: 10:06 [facility] 12/29 09:35 Order name: Labs collected and sent; Complete Time: 10:06 [facility] 12/29 09:35 Order name: O2 Per Protocol; Complete Time: 10:07 [facility] 12/29 09:35 Order name: O2 Sat Monitoring; Complete Time: 10:09 [facility] 12/29 09:35 Order name: Urine Dipstick-Ancillary (obtain specimen); Complete Time: 10:29 [facility] 12/29 09:35 Order name: Urine Test (obtain specimen); Complete Time: : [facility] EC:18 Rate is 77 beats/min. Rhythm is regular. QRS [place] is Normal. [place] interval is normal. QRS tara interval is normal. QT interval is normal. No Q waves. T waves are Normal. No ST changes noted. Clinical impression: NSR w/ Non-specific ST/T Changes and No evidence of ischemia. Interpreted by me. Reviewed by me. Administered Medications: 10:09 Drug: NS 0.9% 1000 ml Route: IV; Rate: 1 bolus; Site: right antecubital; kramer 10:30 Drug: morphine 2 mg Route: IV; Rate: per protocol; Site: right antecubital; kramer 10:30 Drug: morphine 2 mg Route: IV; Rate: per protocol; Site: right antecubital; kramer 10:30 Drug: Zofran (Ondansetron) 4 mg Route: IVP; Site: right antecubital; kramer 10:31 Follow up: Response: No adverse reaction kramer 11:44 CANCELLED (Duplicate Order): Rocephin (cefTRIAXone) 1 grams IV at per protocol once; tara Given slow IV push per pharmacy instructions 11:44 CANCELLED (Duplicate Order): Zithromax (azithromycin) 500 mg PO once tara 11:54 CANCELLED (Duplicate Order): Motrin (ibuprofen) 800 mg PO once tara 12:12 Drug: LevOfloxacin 750 mg Route: PO; kramer 12:12 Follow up: Response: No adverse reaction kramer Disposition Summary: 12/29/21 11:48 Discharge Ordered Location: Home tara Problem: new tara Symptoms: have improved tara Condition: Stable tara Diagnosis - Pleural effusion, not elsewhere classified tara - UTI/ Urinary tract infection, site not specified tara Followup: tara - With: Private Physician - When: 2 - 3 days - Reason: Recheck today's complaints, Continuance of care, Re-evaluation by your physician Followup: tara - With: Shukri Irby - When: 2 - 3 days - Reason: Recheck today's complaints, Re-evaluation by your physician Followup: tara - With: Lasha Edmonds MD - When: 2 - 3 days - Reason: Recheck today's complaints, Continuance of care, Re-evaluation by your physician Discharge Instructions: - Discharge Summary Sheet tara - Pleural Effusion tara - Pleurisy tara - Urinary Tract Infection, Adult tara - Urinary Tract Infection, Adult, [id number] tara - Pleurisy, [id number] tara Forms: - Medication Reconciliation Form tara - Thank You Letter tara - Antibiotic Education tara - Prescription Opioid Use tara - Work release form kramer Prescriptions: - Pepcid 20 mg Oral Tablet - take 1 tablet by ORAL route every 12 hours for 15 days; 30 tablet; Refills: 0, [facility] Product Selection Permitted - levofloxacin 500 mg Oral Tablet - take 1 tablet by ORAL route once daily for 8-10 days; 9 tablet; Refills: 0, [facility] Product Selection Permitted NIH Stroke Scale - NIH Stroke Score Date: 12/29/2021 Time: 09:36 Total Score = 0 1a. Level of Consciousness (LOC) - 0(Alert) 1b. Level of Consciousness (LOC) (Month \T\ Age) - 0(Both) 1c. LOC Commands (Open \T\ Closes Eyes/Tone Regulator) - 0(Both) 2. Best Gaze (Lateral Gaze Paresis) - 0(Normal) 3. Visual Field Loss - 0(No visual loss) 4. Facial Palsy - 0(Normal) 5a. Left Arm: Motor (10-second hold) - 0(No drift) 5b. Right Arm: Motor (10-second hold) - 0(No drift) 6a. Left Leg: Motor (5-second hold - always test supine) - 0(No drift) 6b. Right Leg: Motor (5-second hold - always test supine) - 0(No drift) 7. Limb Ataxia (finger/nose \T\ heel/salinas - test with eyes open) - 0(Absent) 8. Sensory Loss (pinprick arms/legs/face) - 0(Normal) 9. Best Language: Aphasia (description/naming/reading) - 0(No aphasia) 10. Dysarthria (speech clarity - read or repeat words) - 0(Normal) 11. Extinction and Inattention (visual/tactile/auditory/spatial/personal) - 0(No abnormality) Initials: tara NIH Stroke Scale - NIH Stroke Score Date: 12/29/2021 Time: 09:40 Total Score = 0 1a. Level of Consciousness (LOC) - 0(Alert) 1b. Level of Consciousness (LOC) (Month \T\ Age) - 0(Both) 1c. LOC Commands (Open \T\ Closes Eyes/Tone Regulator) - 0(Both) 2. Best Gaze (Lateral Gaze Paresis) - 0(Normal) 3. Visual Field Loss - 0(No visual loss) 4. Facial Palsy - 0(Normal) 5a. Left Arm: Motor (10-second hold) - 0(No drift) 5b. Right Arm: Motor (10-second hold) - 0(No drift) 6a. Left Leg: Motor (5-second hold - always test supine) - 0(No drift) 6b. Right Leg: Motor (5-second hold - always test supine) - 0(No drift) 7. Limb Ataxia (finger/nose \T\ heel/salinas - test with eyes open) - 0(Absent) 8. Sensory Loss (pinprick arms/legs/face) - 0(Normal) 9. Best Language: Aphasia (description/naming/reading) - 0(No aphasia) 10. Dysarthria (speech clarity - read or repeat words) - 0(Normal) 11. Extinction and Inattention (visual/tactile/auditory/spatial/personal) - 0(No abnormality) Initials: kramer Signatures: Dispatcher [employer] EDMS Onel Hein MD MD cha Wise, Tara RN RN tw2 Darling-Tiffani Cramer RN RN kramer Corrections: (The following items were deleted from the chart) 11:44 11:43 Rocephin (cefTRIAXone) 1 grams IV at per protocol once; Given slow IV tara push per pharmacy instructions ordered. [facility] 11:44 11:43 Zithromax (azithromycin) 500 mg PO once ordered. [facility] 11:54 11:49 Motrin (ibuprofen) 800 mg PO once ordered. tara tara
[2021-12-29] MEDS ORDERED: levoFLOXacin 750 MG TAB ONE (12:10)
[2021-12-29 12:30] VITALS: TEMP 99; O2SAT 100
[2021-12-29 12:33] VITALS: BP 112/49
--- NOTE | 2021-12-31 14:34 | EKG ---
Test Date: 2021-12-29 Test Time: 09:20:33 Efficiency Expert: BRUNO MEASUREMENT RESULTS: Intervals: Rate: 77 MN: 156 QRSD: 74 QT: 380 QTc: 430 [place]: P: 28 MN: 156 QRS: 18 T: 32 INTERPRETIVE STATEMENTS: Normal sinus rhythm Cannot rule out Anterior infarct, age undetermined Abnormal ECG Compared to ECG 12/21/2021 16:00:33 Myocardial infarct finding now present Electronically Signed On 12-31-21 14:33:30 CDT by Wilbur Pittman
== END 2021-12-29 12:17 | disposition home or self-care (01) ==
LOC: ER 09:10
DX: J90 Pleural effusion, not elsewhere classified (principal); N39.0 Urinary tract infection, site not specified; I10 Essential (primary) hypertension; F41.9 Anxiety disorder, unspecified; Z72.0 Tobacco use; Z88.6 Allergy status to analgesic agent
CPT/HCPCS: 93005; 87088; 85025; 87086; 80048; 36415; 83735; 81025; 85610; 80076; 81003; 84484; 83690; 83880; 71275; 74175; 71045; 96375; 96374; 99284; Q9967; J7030; J2405

== ENCOUNTER 2022-08-24 15:58 | Emergency (ER) | payer OTHER ==
--- OUTSIDE RECORDS SUMMARY | 2022-08-24 16:04 | XMS REPORT | Continuity of Care Document ---
:1980 Author Organization [facility] t Address [address] [place] [address] Care Team Providers Name Role Phone Maggy Mckeon Primary Care Physician [phone] BEATRIZ Attending Clinician Unavailable Ge Attending Clinician Unavailable MARIA E TRAORE MD, MCandelario., MARIA E RUFF M.D. Attending Maximiliani nician Unavailable BEATRIZ Admitting Clinician Unavailable Ge Admitting Clinician Unavailable MARIA E TRAORE MD MCandelario., MARIA E Meyer Admitting Clinician Unavailable Payers Payer Name Policy Type Policy Number Effective Date Expiration Date S shwetha [facility] [id number] 2019 COMMUNITY PLAN - 00:00:00 [facility] (MEDICAID HMO) [facility] [id number] 2019 2019 OF [place] - OPTION 00:00:00 00:00:00 PLUS (MEDICARE REPLACEMENT HMO) Problems Condition Condition Condition Status Onset Resolution Last Treating Co mments Source Name Details Category Date Date Treatment Clinician Date Chronic Chronic Problem Active [place] bipolar I Bipolar I 6-08 da disorder, 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, 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 Recent Health episode Episode Outreac depressed Depressed h Program Posttrauma Posttrauma Problem Active M [place] tic stress tic Stress 6-08 da disorder Disorder 00:00: Episco p 00 al Health Outreac h Program Allergies, Adverse Reactions, Alerts Allergy Allergy Status Severity Reaction(s) Onset Inactive Treating Comm ents Source Name Type Date Date Clinician n Propensi Active ty to 5-17 adverse 00:00: reaction 00 to drug Naproxen Propensi Active 2021-0 - Oral ty to 3-09 adverse 00:00: reaction 00 to drug Naproxen Propensi Active 2021-0 ty to 3-02 adverse 00:00: reaction 00 to drug Medications Ordered Filled Start Stop Current Ordering Indication Dosage Frequency Signature Comments Components Source Medication Medication Date Date Medication? Clinician (SIG) Name Name CLONIDINE 2021- No 3 HYDROCHLORI 1-21 DE 0.3 MG 00:00: TABS 00 TAKE BY 2021- No MOUTH 1-14 DIRECTED BY 00:00: PACKAGE 00 INSTRUCTION S. Dose 2021-0 No Unknown 8 00:00: 00 TAKE 1 2021-0 No 3 TABLET BY 8-29 MOUTH 00:00: EVERYDAY AT 00 BEDTIME TAKE 1 2021-0 No TABLET BY 8-29 MOUTH THREE 00:00: TIMES A DAY 00 TAKE 1 2021-0 No 20 TABLET BY 8-24 MOUTH EVERY 00:00: 12 HOURS 00 FOR 15 DAYS TAKE BY 2021-0 No 4 MOUTH 8-19 DIRECTED BY 00:00: PACKAGE 00 INSTRUCTION S. TAKE 1 2021-0 No 750 TABLET BY 8-04 MOUTH THREE 00:00: TIMES A DAY 00 NEEDED FOR PAIN SPRAY 1 2021-0 No SQUIRT IN 02-24 THE 00:00: NOSTRILS 00 TWICE A DAY USE FOR 5 DAYS ONLY TAKE 1 2021-0 No 3 TABLET BY 7-21 MOUTH 00:00: NIGHTLY 00 Dose 2021-0 No Unknown 7-21 00:00: 00 TAKE 1 2021-0 No TABLET BY 7-21 MOUTH EVERY 00:00: 6 HOURS 00 NEEDED FOR PAIN UP TO 5 DAYS, MAX OF 8 TABS PER DAY &lt 2022-0 No 10 7-13 00:00: 00 TAKE 1 2021-0 No 1 TABLET BY 7-13 MOUTH EVERY 00:00: 8 HOURS 00 NEEDED TAKE ONE 2021-0 No 10 (1) 7-12 TABLET(S) 00:00: BY MOUTH 00 EVERY EIGHT HOURS NEEDED. &lt 2022-0 No 800 7-12 00:00: 00 &lt 2022-0 No 3 7-12 00:00: 00 TAKE 1 2-0 No 500 TABLET BY 7-12 MOUTH EVERY 00:00: DAY FOR 00 8-10 DAYS TAKE BY 2022-0 No 4 MOUTH 7-12 DIRECTED BY 00:00: PACKAGE 00 INSTRUCTION S. &lt 2022-0 No 200 7-12 00:00: 00 &lt 2022-0 No 10 7-12 00:00: 00 &lt 2022-0 No 10 7-12 00:00: 00 Dose 2022-0 No Unknown 7-12 00:00: 00 TAKE 1 2022-0 No 10 TABLET BY 7-12 MOUTH EVERY 00:00: DAY 00 TAKE ONE 2022-0 No 75 (1) 7-12 TABLET(S) 00:00: BY MOUTH 00 TWICE A DAY. &lt 2022-0 No 300 7-12 00:00: 00 TAKE ONE 2022-0 No 10 (1) 7-12 TABLET(S) 00:00: BY MOUTH 00 EVERY EIGHT HOURS NEEDED. &lt 2022-0 No 800 7-12 00:00: 00 &lt 2022-0 No 3 7-12 00:00: 00 TAKE 1 2-0 No 500 TABLET BY 7-12 MOUTH EVERY 00:00: DAY FOR 00 8-10 DAYS TAKE BY 2021-0 No 4 MOUTH 7-12 DIRECTED BY 00:00: PACKAGE 00 INSTRUCTION S. &lt 2022-0 No 200 7-12 00:00: 00 &lt 2022-0 No 10 7-12 00:00: 00 &lt 2022-0 No 10 7-12 00:00: 00 Dose 2022-0 No Unknown 712 00:00: 00 TAKE 1 2022-0 No 10 TABLET BY 7-12 MOUTH EVERY 00:00: DAY 00 TAKE ONE 2-0 No 75 (1) 7-12 TABLET(S) 00:00: BY MOUTH 00 TWICE A DAY. &lt 2022-0 No 300 - 00:00: 00 TAKE 6 2022-0 No TABLETS ON 12-29 DAY 1 00:00: DIRECTED ON 00 PACKAGE AND DECREASE BY 1 TAB EACH DAY FOR A TOTAL OF 6 DAYS TAKE 1 2022-0 No TABLET BY - MOUTH TWICE 00:00: A DAY FOR 00 15 DAYS TAKE 1 2022-0 No TABLET BY 6- MOUTH EVERY 00:00: DAY 00 TAKE 6 2022-0 No TABLETS ON 1 00:00: DIRECTED ON 00 PACKAGE AND DECREASE BY 1 TAB EACH DAY FOR A TOTAL OF 6 DAYS TAKE 1 2022-0 No TABLET BY 6-02 MOUTH TWICE 00:00: A DAY FOR 00 15 DAYS TAKE 1 2022-0 No TABLET BY 6-02 MOUTH EVERY 00:00: DAY 00 Trileptal 2022-0 No 1mg 300 mg 5-24 tablet 00:00: 00 clonidine 2022-0 No 1mg HCl 0.3 mg 5-24 tablet 00:00: 00 Seroquel 2022-0 No 1mg 300 mg 5-24 tablet 00:00: 00 Trileptal 2022-0 No 1mg 300 mg 5-24 tablet 00:00: 00 clonidine 2022-0 No 1mg HCl 0.3 mg 5-24 tablet 00:00: 00 Seroquel 2022-0 No 1mg 300 mg 5-24 tablet 00:00: 00 loratadine 2022-0 No 1mg 10 mg 5-17 tablet 00:00: 00 loratadine 2022-0 No 1mg 10 mg 5-17 tablet 00:00: 00 Trileptal 2022-0 No 1mg 300 mg 5-10 tablet 00:00: 00 clonidine 2022-0 No 1mg HCl 0.3 mg 5-10 tablet 00:00: 00 Trileptal 2022-0 No 1mg 300 mg 5-10 tablet 00:00: 00 clonidine 2022-0 No 1mg HCl 0.3 mg 5-10 tablet 00:00: 00 Trileptal 2022-0 No 1mg 300 mg 4-27 tablet 00:00: 00 clonidine 2022-0 No 1mg HCl 0.3 mg 4-27 tablet 00:00: 00 Trileptal 2022-0 No 1mg 300 mg 4-27 tablet 00:00: 00 clonidine 2022-0 No 1mg HCl 0.3 mg 4-27 tablet 00:00: 00 methocarbam 2022-0 No 1mg ol 750 mg 4-18 tablet 00:00: 00 ibuprofen 2022-0 No 1mg 800 mg 4-18 tablet 00:00: 00 methocarbam 2022-0 No 1mg ol 750 mg 4-18 tablet 00:00: 00 ibuprofen 2022-0 No 1mg 800 mg 4-18 tablet 00:00: 00 loratadine 2022-0 No 1mg 10 mg 4-12 tablet 00:00: 00 loratadine 2022-0 No 1mg 10 mg 4-12 tablet 00:00: 00 Dose 2022-0 No Unknown 3-09 00:00: 00 Dose 2022-0 No Unknown 3-09 00:00: 00 Dose 2022-0 No Unknown 3-09 00:00: 00 ibuprofen 2022-0 No 1mg 800 mg 3-09 tablet 00:00: 00 methocarbam 2022-0 No 1mg ol 750 mg 3-09 tablet 00:00: 00 Dose 2022-0 No Unknown 3-09 00:00: 00 Dose 2022-0 No Unknown 3-09 00:00: 00 Dose 2022-0 No Unknown 3-09 00:00: 00 Dose 2022-0 No Unknown 3-09 00:00: 00 Dose 2022-0 No Unknown 3-09 00:00: 00 Dose 2022-0 No Unknown 3-09 00:00: 00 Dose 2022-0 No Unknown 3-09 00:00: 00 Dose 2022-0 No Unknown 3-09 00:00: 00 Dose 2022-0 No Unknown 3-09 00:00: 00 Dose 2022-0 No Unknown 3-09 00:00: 00 Dose 2022-0 No Unknown 3-09 00:00: 00 Dose 2022-0 No Unknown 3-09 00:00: 00 Dose 2022-0 No Unknown 3-09 00:00: 00 Dose 2022-0 No Unknown 3-09 00:00: 00 Dose 2022-0 No Unknown 3-09 00:00: 00 Dose 2022-0 No Unknown 3-09 00:00: 00 Dose 2022-0 No Unknown 3-09 00:00: 00 Dose 2022-0 No Unknown 3-09 00:00: 00 Dose 2022-0 No Unknown 3-09 00:00: 00 Dose 2022-0 No Unknown 3-09 00:00: 00 Dose 2022-0 No Unknown 3-09 00:00: 00 ibuprofen 2022-0 No 1mg 800 mg 3-09 tablet 00:00: 00 methocarbam 2022-0 No 1mg ol 750 mg 3-09 tablet 00:00: 00 Dose 2022-0 No Unknown 3-09 00:00: 00 Dose 2022-0 No Unknown 3-09 00:00: 00 Dose 2022-0 No Unknown 3-09 00:00: 00 Dose 2022-0 No Unknown 3-09 00:00: 00 Dose 2022-0 No Unknown 3-09 00:00: 00 Dose 2022-0 No Unknown 3-09 00:00: 00 Dose 2022-0 No Unknown 3-09 00:00: 00 Dose 2022-0 No Unknown 3-09 00:00: 00 Dose 2022-0 No Unknown 3-09 00:00: 00 Dose 2022-0 No Unknown 3-09 00:00: 00 Dose 2022-0 No Unknown 3-09 00:00: 00 Dose 2022-0 No Unknown 3-09 00:00: 00 Dose 2022-0 No Unknown 3-09 00:00: 00 Dose 2022-0 No Unknown 3-09 00:00: 00 Dose 2022-0 No Unknown 3-09 00:00: 00 Dose 2022-0 No Unknown 3-09 00:00: 00 Dose 2022-0 No Unknown 3-09 00:00: 00 Dose 2022-0 No Unknown 3-09 00:00: 00 Trileptal 2022-0 No 1mg 300 mg 3-02 tablet 00:00: 00 clonidine 2022-0 No 1mg HCl 0.3 mg 3-02 tablet 00:00: 00 Seroquel 2022-0 No 1mg 200 mg 3-02 tablet 00:00: 00 Trileptal 2022-0 No 1mg 300 mg 3-02 tablet 00:00: 00 clonidine 2022-0 No 1mg HCl 0.3 mg 3-02 tablet 00:00: 00 Seroquel 2022-0 No 1mg 200 mg 3-02 tablet 00:00: 00 Dose 2022-0 No Unknown 2-07 00:00: 00 Dose 2022-0 No Unknown 2-07 00:00: 00 Dose 2022-0 No Unknown 2-07 00:00: 00 Dose 2022-0 No Unknown 2-07 00:00: 00 Dose 2022-0 No Unknown 2-07 00:00: 00 Dose 2022-0 No Unknown 2-07 00:00: 00 Dose 2022-0 No Unknown 1-24 00:00: 00 Dose 2022-0 No Unknown 1-24 00:00: 00 Dose 2022-0 No Unknown 1-24 00:00: 00 Dose 2022-0 No Unknown 1-24 00:00: 00 Dose 2022-0 No Unknown 1-24 00:00: 00 Dose 2-0 No Unknown 1-24 00:00: 00 Dose 2-0 No Unknown 1-05 00:00: 00 Dose 2022-0 No Unknown 1-05 00:00: 00 Dose 2022-0 No Unknown 1-05 00:00: 00 Dose 2-0 No Unknown 1-05 00:00: 00 Dose 2022-0 No Unknown 1-05 00:00: 00 Dose 2022-0 No Unknown 1-05 00:00: 00 Dose 1-1 No Unknown 2-22 00:00: 00 Dose 2020-1 No Unknown 2-22 00:00: 00 Dose 2020-1 No Unknown 2-07 00:00: 00 Dose 2020-1 No Unknown 2-07 00:00: 00 Dose 2020-1 No Unknown 2-07 00:00: 00 Dose 2020-1 No Unknown 2-07 00:00: 00 methocarbam 2020-1 No 1mg ol 750 mg 1-22 tablet 00:00: 00 Dose 2020-1 No Unknown 1-22 00:00: 00 Dose 2020-1 No Unknown 1-22 00:00: 00 methocarbam 2020-1 No 1mg ol 750 mg 1-22 tablet 00:00: 00 Dose 2020-1 No Unknown 1-22 00:00: 00 Dose 2020-1 No Unknown 1-22 00:00: 00 amlodipine 1-1 No 1mg 5 mg tablet 1-04 00:00: 00 Dose 2020-1 No Unknown 1-04 00:00: 00 Dose 2020-1 No Unknown 1-04 00:00: 00 Dose 2020-1 No Unknown 1-04 00:00: 00 amlodipine 1-1 No 1mg 5 mg tablet 1-04 00:00: 00 Dose 2020-1 No Unknown 1-04 00:00: 00 Dose 2020-1 No Unknown 1-04 00:00: 00 Dose 2020-1 No Unknown 1-04 00:00: 00 methocarbam 2020-1 No 1mg ol 750 mg 0-19 tablet 00:00: 00 methocarbam 2020-1 No 1mg ol 750 mg 0-19 tablet 00:00: 00 Dose 2021-1 No Unknown 0-13 00:00: 00 Dose 2021-1 No Unknown 0-13 00:00: 00 Lamictal 1-1 No 1mg 150 mg 0-08 tablet 00:00: 00 hydroxyzine 2021-1 No 1mg HCl 10 mg 0-08 tablet 00:00: 00 clonidine 2021-1 No 1mg HCl 0.3 mg 0-08 tablet 00:00: 00 Lamictal 1-1 No 1mg 150 mg 0-08 tablet 00:00: 00 hydroxyzine 1-1 No 1mg HCl 10 mg 0-08 tablet 00:00: 00 clonidine 2021-1 No 1mg HCl 0.3 mg 0-08 tablet 00:00: 00 Dose 2021-0 No Unknown 9-24 00:00: 00 Dose 2021-0 No Unknown 9-24 00:00: 00 Dose 2021-0 No Unknown 9-24 00:00: 00 Dose 2021-0 No Unknown 9-24 00:00: 00 Dose 2021-0 No Unknown 9-20 00:00: 00 Dose 2021-0 No Unknown 9-20 00:00: 00 methocarbam 2021-0 No 12mg ol 750 mg 9-20 tablet 00:00: 00 Dose 2021-0 No Unknown 9-20 00:00: 00 Dose 2021-0 No Unknown 9-20 00:00: 00 Dose 2021-0 No Unknown 9-20 00:00: 00 Dose 2021-0 No Unknown 9-20 00:00: 00 methocarbam 2021-0 No 12mg ol 750 mg 9-20 tablet 00:00: 00 Dose 2021-0 No Unknown 9-20 00:00: 00 Dose 2021-0 No Unknown 9-20 00:00: 00 lisinopril 2021-0 No 1mg 10 mg 8-26 tablet 00:00: 00 lisinopril 2021-0 No 1mg 10 mg 8-26 tablet 00:00: 00 Lamictal 2021-0 No 1mg 150 mg 8-17 tablet 00:00: 00 clonidine 2021-0 No 1mg HCl 0.3 mg 8-17 tablet 00:00: 00 Lamictal 2021-0 No 1mg 150 mg 8-17 tablet 00:00: 00 clonidine 2021-0 No 1mg HCl 0.3 mg 8-17 tablet 00:00: 00 Lamictal 2021-0 No 1mg 150 mg 6-22 tablet 00:00: 00 clonidine 2021-0 No 1mg HCl 0.3 mg 6-22 tablet 00:00: 00 Lamictal 2021-0 No 1mg 150 mg 6-22 tablet 00:00: 00 clonidine 2021-0 No 1mg HCl 0.3 mg 6-22 tablet 00:00: 00 clonidine 2021-0 No 1mg HCl 0.3 mg 5-12 tablet 00:00: 00 clonidine 2021-0 No 1mg HCl 0.3 mg 5-12 tablet 00:00: 00 Lamictal 2021-0 No 1mg 150 mg 4-29 tablet 00:00: 00 doxepin 10 1-0 No 1mg mg capsule 4-29 00:00: 00 Lamictal 2021-0 No 1mg 150 mg 4-29 tablet 00:00: 00 doxepin 10 1-0 No 1mg mg capsule 4-29 00:00: 00 Lamictal 2021-0 No 1mg 150 mg 4-01 tablet 00:00: 00 clonidine 2021-0 No 1mg HCl 0.2 mg 4-01 tablet 00:00: 00 Lamictal 2021-0 No 1mg 150 mg 4-01 tablet 00:00: 00 clonidine 2021-0 No 1mg HCl 0.2 mg 4-01 tablet 00:00: 00 Lamictal 2021-0 No 1mg 150 mg 3-10 tablet 00:00: 00 lisinopril 2021-0 No 1mg 10 mg 3-10 tablet 00:00: 00 clonidine 2021-0 No 1mg HCl 0.2 mg 3-10 tablet 00:00: 00 Lamictal 2021-0 No 1mg 150 mg 3-10 tablet 00:00: 00 lisinopril 2021-0 No 1mg 10 mg 3-10 tablet 00:00: 00 clonidine 2021-0 No 1mg HCl 0.2 mg 3-10 tablet 00:00: 00 Lamictal 25 2019-1 No 1mg mg tablet 1- 00:00: 00 Lamictal 2020-1 No 5mg 100 mg 1-09 tablet 00:00: 00 clonidine 2020-1 No 51mg HCl 0.1 mg 1-09 tablet 00:00: 00 Lamictal 25 2020-1 No 1mg mg tablet 08-07 00:00: 00 Lamictal 2020-1 No 5mg 100 mg 1-09 tablet 00:00: 00 clonidine 2020-1 No 51mg HCl 0.1 mg 1-09 tablet 00:00: 00 Lamictal 25 2020-0 No 1mg mg tablet 03-12 00:00: 00 Seroquel 50 2020-0 No 12mg mg tablet 03-12 00:00: 00 Lyrica 150 2020-0 No 1mg mg capsule 03-12 00:00: 00 Lamictal 25 2020-0 No 1mg mg tablet 03-12 00:00: 00 Seroquel 50 2020-0 No 12mg mg tablet 03-12 00:00: 00 Lyrica 150 2020-0 No 1mg mg capsule 03-12 00:00: 00 Dose 2020-0 No Unknown 7-31 00:00: 00 Dose 2020-0 No Unknown 7-31 00:00: 00 Dose 2020-0 No Unknown 7-31 00:00: 00 Dose 2020-0 No Unknown 7-31 00:00: 00 lisinopril 2020-0 No 1mg 10 mg 6-29 tablet 00:00: 00 ibuprofen 2020-0 No 1mg 600 mg 6-29 tablet 00:00: 00 lisinopril 2020-0 No 1mg 10 mg 6-29 tablet 00:00: 00 ibuprofen 2020-0 No 1mg 600 mg 6-29 tablet 00:00: 00 lisinopril 2020-0 No 1mg 10 mg 6-26 tablet 00:00: 00 ibuprofen 2020-0 No 1mg 600 mg 6-26 tablet 00:00: 00 ibuprofen 2020-0 No 1mg 600 mg 6-26 tablet 00:00: 00 lisinopril 2020-0 No 1mg 10 mg 6-26 tablet 00:00: 00 ibuprofen 2020-0 No 1mg 600 mg 6-26 tablet 00:00: 00 ibuprofen 2020-0 No 1mg 600 mg 6-26 tablet 00:00: 00 buspirone 2020-0 No 1mg 15 mg 6-23 tablet 00:00: 00 Latuda 20 2020-0 No 1mg mg tablet 6-23 00:00: 00 buspirone 2020-0 No 1mg 15 mg 6-23 tablet 00:00: 00 Latuda 20 2020-0 No 1mg mg tablet 6-23 00:00: 00 lisinopril 2020-0 No 1mg 10 mg 5-26 tablet 00:00: 00 ciprofloxac 2020-0 No 1mg in 500 mg 5-26 tablet 00:00: 00 ondansetron 2020-0 No 12mg 4 mg 5-26 disintegrat 00:00: ing tablet 00 Dose 2020-0 No Unknown 5-26 00:00: 00 Bromfed DM 2020-0 No 5mg/5 2 mg-30 5-26 mL mg-10 mg/5 00:00: mL oral 00 syrup lisinopril 2020-0 No 1mg 10 mg 5-26 tablet 00:00: 00 ciprofloxac 2020-0 No 1mg in 500 mg 5-26 tablet 00:00: 00 ondansetron 2020-0 No 12mg 4 mg 5-26 disintegrat 00:00: ing tablet 00 Dose 2020-0 No Unknown 5-26 00:00: 00 Bromfed DM 2020-0 No 5mg/5 2 mg-30 5-26 mL mg-10 mg/5 00:00: mL oral 00 syrup hydroxyzine 2020-0 No 51mg HCl 50 mg 4-28 tablet 00:00: 00 Latuda 20 2020-0 No 1mg mg tablet 4-28 00:00: 00 hydroxyzine 2020-0 No 51mg HCl 50 mg 4-28 tablet 00:00: 00 Latuda 20 2020-0 No 1mg mg tablet 4-28 00:00: 00 Flonase 2020-0 No 1mcg/ac Allergy 4-27 tuation Relief 50 00:00: mcg/actuati 00 on nasal spray,suspe nsion loratadine 2020-0 No 1mg 10 mg 4-27 tablet 00:00: 00 ibuprofen 2020-0 No 1mg 600 mg 4-27 tablet 00:00: 00 Flonase 2020-0 No 1mcg/ac Allergy 4-27 tuation Relief 50 00:00: mcg/actuati 00 on nasal spray,suspe nsion loratadine 2020-0 No 1mg 10 mg 4-27 tablet 00:00: 00 ibuprofen 2020-0 No 1mg 600 mg 4-27 tablet 00:00: 00 lisinopril 2020-0 No 1mg 10 mg 4-25 tablet 00:00: 00 amoxicillin 2020-0 No 1mg 875 4-25 mg-potassiu 00:00: m 00 clavulanate 125 mg tablet lisinopril 2020-0 No 1mg 10 mg 4-25 tablet 00:00: 00 amoxicillin 2020-0 No 1mg 875 4-25 mg-potassiu 00:00: m 00 clavulanate 125 mg tablet tizanidine tizanidine No tizanidine [place] hydrochlori hydrochlori hydrochlor da de 4 mg de 4 mg bryce 4 mg [facility] tabs tabs tabs al [facility] Outre[facility] [...] oral H ealth liquid Outreac h Program alprazolam alprazolam No alprazolam [place] 0.25 mg 0.25 mg 0.25 mg da tablet tablet tablet [facility] alprazolam alprazolam No alprazolam [place] 0.5 mg 0.5 mg 0.5 mg da tablet tablet tablet [facility] amox/k clav amox/k clav No amox/k [place] tab 875-125 tab 875-125 clav tab da 875-125 [facility] amoxicillin amoxicillin [...] 500 mg de 500 mg bryce 500 mg al tabs tabs tabs [facility] escitalopra escitalopra No escitalopr [place] m oxalate m oxalate am oxalate da 10 mg tabs 10 mg tabs 10 mg tabs [facility] fluticasone fluticasone No fluticason [place] propionate propionate e da 50 mcg/act 50 mcg/act propionate [facility] susp susp 50 mcg/act al susp [facility] fluticasone fluticasone No [...] mg hcl 50 mg e hcl 50 d a tabs tabs mg tabs [facility] [...] de 25 mg de 25 mg hydrochlor E [facility]isc[facility] tabs tabs brcye 25 mg al tabs Health Outre[facility] Program ibuprofen ibuprofen No ibuprofen [place] 600 mg tabs 600 mg tabs 600 mg da tabs [facility] ibuprofen ibuprofen No ibuprofen [place] 600 mg 600 mg 600 mg da tablet tablet tablet [facility] indomethaci indomethaci No indomethac [place] n 50 mg n 50 mg in 50 mg da caps caps caps [facility] lamotrigine lamotrigine No lamotrigin [place] 25 mg 25 mg e 25 mg da tablet tablet tablet [facility] latuda 20 latuda 20 No latuda 20 [place] mg tabs mg tabs mg tabs da [facility] latuda 60 latuda 60 No latuda 60 [place] [facility] tabs mg [facility] Latuda 40 No Latuda 40 [place] mg tablet mg tablet [facility] Lat[facility] Latuda 60 No [...] mg tabs 10 mg tabs 10 mg tabs da [facility] lisinopril lisinopril No lisinopril [place] 10 mg 10 mg 10 mg da tablet tablet tablet [facility] loratadine loratadine No loratadine [place] 10 mg tabs 10 mg tabs 10 mg tabs da [facility] Lyrica 100 Lyrica 100 No Lyrica 100 [place] mg capsule mg capsule mg capsule da [facility] Lyrica 50 Lyrica 50 No Lyrica 50 [place] mg capsule mg capsule mg capsule da [facility] ondansetron ondansetron No ondansetro [place] odt 4 mg odt 4 mg n odt 4 mg d a tbdp tbdp tbdp [facility] prazosin 2 prazosin 2 No 1capsul [...] mg de 2 mg bryce 2 mg [facility] caps caps caps [facility] pregabalin pregabalin No pregabalin [place] 150 mg 150 mg 150 mg da capsule capsule capsule [facility] tizanidine tizanidine No tizanidine [place] 4 mg tablet 4 mg tablet 4 mg d a tablet [facility] Vital Signs Vital Name Observation Time Observation Value Comments Source BP Systolic 2021-11-14 16:28:00 116 mm[Hg] BP Diastolic 2021-11-14 16:28:00 70 mm[Hg] Weight Measured 2021-11-14 16:28:00 227.00 pounds Height Measured 2021-11-14 16:28:00 65.00 inches Body Temperature 2021-11-14 16:28:00 97.30 degrees Heart Rate 2021-11-14 16:28:00 91.00 /min Respiratory Rate 2021-11-14 16:28:00 21.00 /min BP Systolic 2021-08-05 17:28:00 BP Diastolic 2021-08-05 17:28:00 Weight Measured 2021-08-05 17:28:00 213.00 pounds Height Measured 2021-08-05 17:28:00 65.00 inches Body Temperature 2021-08-05 17:28:00 Heart Rate 2021-08-05 17:28:00 Respiratory Rate 2021-08-05 17:28:00 BP Systolic 2021-06-02 10:07:00 BP Diastolic 2021-06-02 10:07:00 Weight Measured 2021-06-02 10:07:00 224.00 pounds Height Measured 2021-06-02 10:07:00 65.00 inches Body Temperature 2021-06-02 10:07:00 Heart Rate 2021-06-02 10:07:00 Respiratory Rate 2021-06-02 10:07:00 BP Systolic 2021-05-18 11:39:00 104 mm[Hg] BP Diastolic 2021-05-18 11:39:00 70 mm[Hg] Weight Measured 2021-05-18 11:39:00 224.80 pounds Height Measured 2021-05-18 11:39:00 458.27 inches Body Temperature 2021-05-18 11:39:00 98.40 degrees Heart Rate 2021-05-18 11:39:00 89.00 /min Respiratory Rate 2021-05-18 11:39:00 BP Systolic 2021-05-17 09:35:00 132 mm[Hg] BP Diastolic 2021-05-17 09:35:00 87 mm[Hg] Weight Measured 2021-05-17 09:35:00 224.80 pounds Height Measured 2021-05-17 09:35:00 65.00 inches Body Temperature 2021-05-17 09:35:00 98.70 degrees Heart Rate 2021-05-17 09:35:00 87.00 /min Respiratory Rate 2021-05-17 09:35:00 BP Systolic 2021-05-16 19:22:00 BP Diastolic 2021-05-16 19:22:00 Weight Measured 2021-05-16 19:22:00 226.00 pounds Height Measured 2021-05-16 19:22:00 65.00 inches Body Temperature 2021-05-16 19:22:00 Heart Rate 2021-05-16 19:22:00 Respiratory Rate 2021-05-16 19:22:00 BP Systolic 2019-11-24 09:07:00 106 mm[Hg] BP Diastolic 2019-11-24 09:07:00 69 mm[Hg] Weight Measured 2019-11-24 09:07:00 226.60 pounds Height Measured 2019-11-24 09:07:00 65.00 inches Body Temperature 2019-11-24 09:07:00 98.40 degrees Heart Rate 2019-11-24 09:07:00 92.00 /min Respiratory Rate 2019-11-24 09:07:00 16.00 /min Procedures This patient has no known procedures. Plan of Care Planned Activity Planned Date Details Comments Source Goal Plan of Care Note [code = 56728-4] Goal Plan of Care Note [code = 60885-6] Goal Plan of Care Note [code = 57373-4] Goal Plan of Care Note [code = 51776-9] Goal Plan of Care Note [code = 35308-3] Goal Plan of Care Note [code = 93385-4] Goal Plan of Care Note [code = 57409-9] Goal Plan of Care Note [code = 46373-5] Goal Plan of Care Note [code = 12468-3] Goal Plan of Care Note [code = 11622-4] Goal Plan of Care Note [code = 07844-9] Goal Plan of Care Note [code = 30446-2] Goal Plan of Care Note [code = 42514-8] Goal Plan of Care Note [code = 29692-8] Goal Plan of Care Note [code = 45255-4] Goal Plan of Care Note [code = 66219-1] Goal Plan of Care Note [code = 92137-9] Goal Plan of Care Note [code = 41352-4] Goal Plan of Care Note [code = 33052-1] Goal Plan of Care Note [code = 70537-8] Goal Plan of Care Note [code = 33456-0] Goal Plan of Care Note [code = 00195-0] Goal Plan of Care Note [code = 88342-1] Goal Plan of Care Note [code = 35816-0] Goal Plan of Care Note [code = 38548-4] Goal Plan of Care Note [code = 50278-4] Goal Plan of Care Note [code = 91179-4] Goal Plan of Care Note [code = 33649-3] Goal Plan of Care Note [code = 45040-6] Goal Plan of Care Note [code = 62584-2] Goal Plan of Care Note [code = 97825-1] Goal Plan of Care Note [code = 91068-2] Goal Plan of Care Note [code = 73681-1] Goal Plan of Care Note [code = 86713-4] Goal Plan of Care Note [code = 55819-9] Goal Plan of Care Note [code = 70925-9] Goal Plan of Care Note [code = 69107-9] Goal Plan of Care Note [code = 32241-7] Goal Plan of Care Note [code = 67562-8] Goal Plan of Care Note [code = 16406-2] Goal Plan of Care Note [code = 08432-9] Goal Plan of Care Note [code = 66284-8] Encounters Start End Encounter Admission Attending Care Care Encounter Source Date/Time Date/Time Type Type Clinicians Facility Department ID 2022-06-21 2022-06-21 Outpatient [facility] [id number] [place] 08:08:21 08:08:21 [id number] F Sheng 2022-06-19 2022-06-19 Outpatient [facility] [id number] N[place] 17:03:34 17:03:34 [id number] F Sheng 2022-06-19 2022-06-19 Outpatient [id number] 00:00:00 00:00:00 Visit 3w0h-32we b6t-01rz-d -gk63-1j4 [id number] 5d830n 2022-02-07 2022-02-07 Outpatient [id number] 00:00:00 00:00:00 Visit 84n5-3452 6r3-8070-2 -80eb-548 [id number]-[id number] 2020-05-31 [facility] 106 [id number] [place] 11:40:00 11:40:00 H [address] 2020-05-17 2020-05-17 Outpatient [facility] 106 [id number] [place] 02:20:00 02:20:00 H 97668 [facility] 2020-05-17 2020-05-17 [facility] [place] - [id number] M [place] 00:00:00 00:00:00 Todd Weiner MD: [facility] [address] [facility] [place] [address] [facility] , Ph. (109) --20072020-04-23 2020-04-23 Outpatient [facility] 106 [id number] [place] 10:21:00 10:21:00 H [address]64 [facility] 2020-01-05 2020-01-05 Outpatient [facility] 106 [id number] [place] 03:51:00 03:51:00 H 13225 [facility] 2020-01-05 2020-01-05 [facility] [place] - [id number] M [place] 00:00:00 00:00:00 Todd Weiner MD: [facility] [address] [facility] [place] [facility] [id number] [facility] , Ph. ([phone]) --20072019-11-25 2019-11-25 Outpatient VICKYAI_WENDY [facility] [phone] [place] 12:49:00 12:49:00 H [id number] [facility] 2019-08-26 2019-08-26 Outpatient Palermo_Gerson [facility] [phone]- [place] 04:57:00 04:57:00 tlin [id number] [facility] 2019-08-26 2019-08-26 Outpatient Palermo_Gerson [facility] [phone] [place] 04:55:00 04:55:00 tlin [address] [facility] Results Test Description Test Time Test Comments Results Result Comments Source COMPREHENSIVE METABOLIC PANEL 2021-11-16 05:01:16 Test Item Value Reference Range Interpretation Comme nts GLUCOSE (test code = 2217) 103 MG/DL 70-99 H BUN (test code = 2208) 8 MG/DL 01-16 CREATININE (test code = 0.73 MG/DL 0.60-1.30 2213) eGFR (2020 CKD-EPI) (test 107 ML/MIN/1.73 >60 code = 97148) CALC BUN/CREAT (test code = 11 RATIO 01-245) SODIUM (test code = 2231) 142 MEQ/L 133-146 POTASSIUM (test code = 2228) 4.4 MEQ/L 3.5-5.4 CHLORIDE (test code = 2215) 109 MEQ/L 95-107 H CARBON DIOXIDE (test code = 22 MEQ/L -2205) CALCIUM (test code = 2209) 9.2 MG/DL 8.5-10.5 PROTEIN, TOTAL (test code = 6.7 G/DL 6.1-8.3 2228) ALBUMIN (test code = 220) 4.0 G/DL 3.5-5.2 CALC GLOBULIN (test code = 2.7 G/DL 1.9-3.7 2239) CALC A/G RATIO (test code = 1.5 RATIO 1.0-2.6 2233) BILIRUBIN, TOTAL (test code <0.2 MG/DL See_Comment [Automated message] The = 2206) system which ge nerated this result transmit viviana reference range : <=1.2. The reference range was not used to interpr et this result as hilary l/abnormal. ALKALINE PHOSPHATASE (test 84 U/L 40-112 code = 2204) AST (test code = 2218) 14 U/L 9-40 ALT (test code = 2219) 15 U/L 5-40 LIPID [id number] 05:01:16 Test Item Value Reference Range Interpretation [...] MOREINFORMATION , SEE CLIENT ANNOUNCE MENT AT [email or web address] [email or web address] RATIO LDL/HDL 4.49 RATIO <3.22 H UNLESS O THERWISE (test code = 2238) INDICATED , ALL TESTING PERFORMED [facility], [place] [address] [place] [place] [address] [facility] VICTORIA DIRECTOR: Alec YUENIA NUMBER [id number] [facility] ACCREDITATION N O. [id number] CBC W/AUTO DIFF WITH [id number] 01:39:34 Test Item Value Reference Range Interpretation [...] = 1036) NUCLEATED RBCS (test 0.0 /100 WBC'S See_Comment [Aut omated code = 1065) message] The sy stem which generated this [...] RBCS 0.00 K/UL 0.00-0.11 (test code = 83522) COMPREHENSIVE METABOLIC [id number] 00:00:00 Test Item Value Reference Range Interpretation Comments GLUCOSE (test code = 2217) 103 MG/DL BUN (test code = 2208) 8 MG/DL CREATININE (test code = 2214) 0.73 MG/DL eGFR (2020 CKD-EPI) (test 107 ML/MIN/1.73 code = 88712) CALC BUN/CREAT (test code = 11 RATIO 2235) SODIUM (test code = 2231) 142 MEQ/L POTASSIUM (test code = 2228) 4.4 MEQ/L CHLORIDE (test code = 2215) 109 MEQ/L CARBON DIOXIDE (test code = 22 MEQ/L 2205) CALCIUM (test code = 2209) 9.2 MG/DL PROTEIN, TOTAL (test code = 6.7 G/DL 2228) ALBUMIN (test code = 2201) 4.0 G/DL CALC GLOBULIN (test code = 2.7 G/DL 2239) CALC A/G RATIO (test code = 1.5 RATIO 2233) BILIRUBIN, TOTAL (test code = <0.2 MG/DL 2206) ALKALINE PHOSPHATASE (test 84 U/L code = 2204) AST (test code = 2218) 14 U/L ALT (test code = 2219) 15 U/L CBC W/AUTO [id number] 00:00:00 Test Item Value Reference Range Interpretation Comments WBC (test code = 1001) 8.3 K/UL RBC (test code = 1002) 3.72 M/UL HEMOGLOBIN (test code = 1003) 9.8 G/DL HEMATOCRIT (test code = 1004) 30.2 % MCV (test code = 1005) 81.2 fL MCH (test code = 1006) 26.3 PG MCHC (test code = 1007) 32.5 G/DL RDW (test code = 1038) 14.5 % NEUTROPHILS (test code = 1008) 35.9 % LYMPHOCYTES (test code = 1010) 44.6 % MONOCYTES (test code = 1011) 12.4 % EOSINOPHILS (test code = 1012) 5.5 % BASOPHILS (test code = 1013) 1.4 % IMMATURE GRANULOCYTES (test 0.2 % code = 1036) NUCLEATED RBCS (test code = 0.0 /100WBC'S 1065) PLATELET COUNT (test code = 619 K/UL 1015) ABSOLUTE NEUTROPHILS (test code 2.99 K/UL = 1066) ABSOLUTE LYMPHOCYTES (test code 3.72 K/UL = 1067) ABSOLUTE MONOCYTES (test code = 1.03 K/UL 1068) ABSOLUTE EOSINOPHILS (test code 0.46 K/UL = 1040) ABSOLUTE BASOPHILS (test code = 0.12 K/UL 1069) ABS IMMATURE GRANULOCYTES (test 0.02 K/UL code = 1020) ABS NUCLEATED RBCS (test code = 0.00 K/UL 16091) CBC W/AUTO [id number] 00:00:00 Test Item Value Reference Range Interpretation Comments WBC (test code = 1001) 8.3 K/UL RBC (test code = 1002) 3.72 M/UL HEMOGLOBIN (test code = 1003) 9.8 G/DL HEMATOCRIT (test code = 1004) 30.2 % MCV (test code = 1005) 81.2 fL MCH (test code = 1006) 26.3 PG MCHC (test code = 1007) 32.5 G/DL RDW (test code = 1038) 14.5 % NEUTROPHILS (test code = 1008) 35.9 % LYMPHOCYTES (test code = 1010) 44.6 % MONOCYTES (test code = 1011) 12.4 % EOSINOPHILS (test code = 1012) 5.5 % BASOPHILS (test code = 1013) 1.4 % IMMATURE GRANULOCYTES (test 0.2 % code = 1036) NUCLEATED RBCS (test code = 0.0 /100WBC'S 1065) PLATELET COUNT (test code = 619 K/UL 1015) ABSOLUTE NEUTROPHILS (test code 2.99 K/UL = 1066) ABSOLUTE LYMPHOCYTES (test code 3.72 K/UL = 1067) ABSOLUTE MONOCYTES (test code = 1.03 K/UL 1068) ABSOLUTE EOSINOPHILS (test code 0.46 K/UL = 1040) ABSOLUTE BASOPHILS (test code = 0.12 K/UL 1069) ABS IMMATURE GRANULOCYTES (test 0.02 K/UL code = 1020) ABS NUCLEATED RBCS (test code = 0.00 K/UL 85118) LIPID [id number] 00:00:00 Test Item Value Reference Range Interpretation Comments CHOLESTEROL (test code = 2210) 237 MG/DL TRIGLYCERIDES (test code = 2232) 274 MG/DL HDL CHOLESTEROL (test code = 2220) 35 MG/DL CALC LDL CHOL (test code = 2237) 157 MG/DL RISK RATIO LDL/HDL (test code = 4.49 RATIO 2238) COMPREHENSIVE METABOLIC [id number] 00:00:00 Test Item Value Reference Range Interpretation Comments GLUCOSE (test code = 2217) 103 MG/DL BUN (test code = 2208) 8 MG/DL CREATININE (test code = 2214) 0.73 MG/DL eGFR (2020 CKD-EPI) (test 107 ML/MIN/1.73 code = 25775) CALC BUN/CREAT (test code = 11 RATIO 2235) SODIUM (test code = 2231) 142 MEQ/L POTASSIUM (test code = 2228) 4.4 MEQ/L CHLORIDE (test code = 2215) 109 MEQ/L CARBON DIOXIDE (test code = 22 MEQ/L 2205) CALCIUM (test code = 2209) 9.2 MG/DL PROTEIN, TOTAL (test code = 6.7 G/DL 2228) ALBUMIN (test code = 2201) 4.0 G/DL CALC GLOBULIN (test code = 2.7 G/DL 2240) CALC A/G RATIO (test code = 1.5 RATIO 2234) BILIRUBIN, TOTAL (test code = <0.2 MG/DL 2206) ALKALINE PHOSPHATASE (test 84 U/L code = 2204) AST (test code = 2218) 14 U/L ALT (test code = 2219) 15 U/L COMPREHENSIVE METABOLIC [id number] 00:00:00 Test Item Value Reference Range Interpretation Comments GLUCOSE (test code = 2217) 103 MG/DL BUN (test code = 2208) 8 MG/DL CREATININE (test code = 2214) 0.73 MG/DL eGFR (2020 CKD-EPI) (test 107 ML/MIN/1.73 code = 85358) CALC BUN/CREAT (test code = 11 RATIO 2235) SODIUM (test code = 2231) 142 MEQ/L POTASSIUM (test code = 2228) 4.4 MEQ/L CHLORIDE (test code = 2215) 109 MEQ/L CARBON DIOXIDE (test code = 22 MEQ/L 2205) CALCIUM (test code = 2209) 9.2 MG/DL PROTEIN, TOTAL (test code = 6.7 G/DL 2228) ALBUMIN (test code = 2201) 4.0 G/DL CALC GLOBULIN (test code = 2.7 G/DL 0) CALC A/G RATIO (test code = 1.5 RATIO 4) BILIRUBIN, TOTAL (test code = <0.2 MG/DL 2206) ALKALINE PHOSPHATASE (test 84 U/L code = 2204) AST (test code = 2218) 14 U/L ALT (test code = 2219) 15 U/L CBC W/AUTO [id number] 00:00:00 Test Item Value Reference Range Interpretation Comments WBC (test code = 1001) 8.3 K/UL RBC (test code = 1002) 3.72 M/UL HEMOGLOBIN (test code = 1003) 9.8 G/DL HEMATOCRIT (test code = 1004) 30.2 % MCV (test code = 1005) 81.2 fL MCH (test code = 1006) 26.3 PG MCHC (test code = 1007) 32.5 G/DL RDW (test code = 1038) 14.5 % NEUTROPHILS (test code = 1008) 35.9 % LYMPHOCYTES (test code = 1010) 44.6 % MONOCYTES (test code = 1011) 12.4 % EOSINOPHILS (test code = 1012) 5.5 % BASOPHILS (test code = 1013) 1.4 % IMMATURE GRANULOCYTES (test 0.2 % code = 1036) NUCLEATED RBCS (test code = 0.0 /100WBC'S 1065) PLATELET COUNT (test code = 619 K/UL 1015) ABSOLUTE NEUTROPHILS (test code 2.99 K/UL = 1066) ABSOLUTE LYMPHOCYTES (test code 3.72 K/UL = 1067) ABSOLUTE MONOCYTES (test code = 1.03 K/UL 1068) ABSOLUTE EOSINOPHILS (test code 0.46 K/UL = 1040) ABSOLUTE BASOPHILS (test code = 0.12 K/UL 1069) ABS IMMATURE GRANULOCYTES (test 0.02 K/UL code = 1020) ABS NUCLEATED RBCS (test code = 0.00 K/UL 59494) CBC W/AUTO [id number] 00:00:00 Test Item Value Reference Range Interpretation Comments WBC (test code = 1001) 8.3 K/UL RBC (test code = 1002) 3.72 M/UL HEMOGLOBIN (test code = 1003) 9.8 G/DL HEMATOCRIT (test code = 1004) 30.2 % MCV (test code = 1005) 81.2 fL MCH (test code = 1006) 26.3 PG MCHC (test code = 1007) 32.5 G/DL RDW (test code = 1038) 14.5 % NEUTROPHILS (test code = 1008) 35.9 % LYMPHOCYTES (test code = 1010) 44.6 % MONOCYTES (test code = 1011) 12.4 % EOSINOPHILS (test code = 1012) 5.5 % BASOPHILS (test code = 1013) 1.4 % IMMATURE GRANULOCYTES (test 0.2 % code = 1036) NUCLEATED RBCS (test code = 0.0 /100WBC'S 1065) PLATELET COUNT (test code = 619 K/UL 1015) ABSOLUTE NEUTROPHILS (test code 2.99 K/UL = 1066) ABSOLUTE LYMPHOCYTES (test code 3.72 K/UL = 1067) ABSOLUTE MONOCYTES (test code = 1.03 K/UL 1068) ABSOLUTE EOSINOPHILS (test code 0.46 K/UL = 1040) ABSOLUTE BASOPHILS (test code = 0.12 K/UL 1069) ABS IMMATURE GRANULOCYTES (test 0.02 K/UL code = 1020) ABS NUCLEATED RBCS (test code = 0.00 K/UL 71718) CBC W/AUTO [id number] 00:00:00 Test Item Value Reference Range Interpretation Comments WBC (test code = 1001) 8.3 K/UL RBC (test code = 1002) 3.72 M/UL HEMOGLOBIN (test code = 1003) 9.8 G/DL HEMATOCRIT (test code = 1004) 30.2 % MCV (test code = 1005) 81.2 fL MCH (test code = 1006) 26.3 PG MCHC (test code = 1007) 32.5 G/DL RDW (test code = 1038) 14.5 % NEUTROPHILS (test code = 1008) 35.9 % LYMPHOCYTES (test code = 1010) 44.6 % MONOCYTES (test code = 1011) 12.4 % EOSINOPHILS (test code = 1012) 5.5 % BASOPHILS (test code = 1013) 1.4 % IMMATURE GRANULOCYTES (test 0.2 % code = 1036) NUCLEATED RBCS (test code = 0.0 /100WBC'S 1065) PLATELET COUNT (test code = 619 K/UL 1015) ABSOLUTE NEUTROPHILS (test code 2.99 K/UL = 1066) ABSOLUTE LYMPHOCYTES (test code 3.72 K/UL = 1067) ABSOLUTE MONOCYTES (test code = 1.03 K/UL 1068) ABSOLUTE EOSINOPHILS (test code 0.46 K/UL = 1040) ABSOLUTE BASOPHILS (test code = 0.12 K/UL 1069) ABS IMMATURE GRANULOCYTES (test 0.02 K/UL code = 1020) ABS NUCLEATED RBCS (test code = 0.00 K/UL 68525) LIPID [id number] 00:00:00 Test Item Value Reference Range Interpretation Comments CHOLESTEROL (test code = 2210) 237 MG/DL TRIGLYCERIDES (test code = 2232) 274 MG/DL HDL CHOLESTEROL (test code = 2220) 35 MG/DL CALC LDL CHOL (test code = 2237) 157 MG/DL RISK RATIO LDL/HDL (test code = 4.49 RATIO 2238) LIPID [id number] 00:00:00 Test Item Value Reference Range Interpretation Comments CHOLESTEROL (test code = 2210) 237 MG/DL TRIGLYCERIDES (test code = 2232) 274 MG/DL HDL CHOLESTEROL (test code = 2220) 35 MG/DL CALC LDL CHOL (test code = 2237) 157 MG/DL RISK RATIO LDL/HDL (test code = 4.49 RATIO 2238) SARS-CoV-2 (COVID-19), RT-PCR/[id number] 07:59:55 Test Item Value Reference Interpretation Comments Range SARS-CoV-2 NEGATIVE SEE NOTE SARS-CoV-2 RNA NOT INTERPRETATION DETECTEDNegat audrey (test code = 86626) results do not preclude SARS-C oV-2 infection and s hould notbe used as t he sole basis for patie nt management deci sions. Negativeresults must be combined wit h clinical observ ations, patient history ,and epidemiological information. Op timum specimen types and timingfor peak viral levels during infections caus ed by SARS-CoV-2 have notbeen determi layla. Collection of m ultiple specimens or ty pes ofspecimens may be necessary to de tect virus. Improper specimencollect ion and handling, seque nce variability und er primers/probes, or organism presen t below the limit of de tection may lead to falsenegative r esults. Positive and ne gative predictive valu es oftesting are h ighly dependent on prevalence. Fal se negative testre sults are more likely when prevalence is h igh. SOURCE (test code = NASOPHARYNGEAL Note: [place] [address]) Kourtney Ophelia [place] l-Time RT-PCR. The exp ected result or refer ence range is NEGATI VE (Not Detected). For more information reg arding COVID-19 testin g to include clinicalinforma tion, methodology det ail, intended use, F DA authorization andrecommended fact sheets for melodie ents or healthcare prov iders, see NewTest Announcement: SARS-CoV-2 (COV ID-19) by NAAT at URL below (note,fact shee ts are provided by met hod given in report:https:// www.[email or web address]/clinic ians/cl ient-communicat ions/ Alternatively, see downloadable PD F fact sheet at:https://www. [email or web address]/[email or web address]-19-R T-PCR UNLESS OTHERWIS E INDICATED, ALL TESTING PERFORMED [facility], [facility]. [address] [place] [id number] NAE MCKENNA DIRECTOR: DAVID HEATON M.D. CLIA NUMBER [id number] CAP ACCREDITATION N O. [id number] SARS-CoV-2 (COVID-19) by RT-PCR (HIGH RISK)2021-08-09 00:00:00 Test Item Value Reference Range Interpretation Comments SARS-CoV-2 INTERPRETATION NEGATIVE (test code = 40219) SOURCE (test code = 52356) NASOPHARYNGEAL SARS-CoV-2 (COVID-19) by RT-PCR (HIGH RISK)2021-08-09 00:00:00 Test Item Value Reference Range Interpretation Comments SARS-CoV-2 INTERPRETATION NEGATIVE (test code = 81500) SOURCE (test code = 36120) NASOPHARYNGEAL SARS-CoV-2 (COVID-19) by RT-PCR (HIGH RISK)2021-08-09 00:00:00 Test Item Value Reference Range Interpretation Comments SARS-CoV-2 INTERPRETATION NEGATIVE (test code = 46870) SOURCE (test code = 58518) NASOPHARYNGEAL SARS-CoV-2 (COVID-19) by RT-PCR (HIGH RISK)2021-03-23 00:00:00 Test Item Value Reference Range Interpretation Comments SARS-CoV-2 INTERPRETATION (test POSITIVE code = 05549) SOURCE (test code = 66512) NOT SPECIFIED SARS-CoV-2 (COVID-19) by RT-PCR (HIGH RISK)2021-03-23 00:00:00 Test Item Value Reference Range Interpretation Comments SARS-CoV-2 INTERPRETATION (test POSITIVE code = 01699) SOURCE (test code = 05992) NOT SPECIFIED SARS-CoV-2 (COVID-19) by RT-PCR (HIGH RISK)2021-03-23 00:00:00 Test Item Value Reference Range Interpretation Comments SARS-CoV-2 INTERPRETATION (test POSITIVE code = 85457) SOURCE (test code = 10193) NOT SPECIFIED SARS-CoV-2 (COVID-19) by RT-PCR (HIGH RISK)2019 00:00:00 Test Item Value Reference Range Interpretation Comments SARS-CoV-2 INTERPRETATION (test NEGATIVE code = 66698) SOURCE (test code = 04085) NOT SPECIFIED SARS-CoV-2 (COVID-19) by RT-PCR (HIGH RISK)2019 00:00:00 Test Item Value Reference Range Interpretation Comments SARS-CoV-2 INTERPRETATION (test NEGATIVE code = 44611) SOURCE (test code = 12284) NOT SPECIFIED SARS-CoV-2 (COVID-19) by RT-PCR (HIGH RISK)2019 00:00:00 Test Item Value Reference Range Interpretation Comments SARS-CoV-2 INTERPRETATION (test NEGATIVE code = 39600) SOURCE (test code = 67008) NOT SPECIFIED Culture, Blood [id number] 08:19:00Specimen: BloodCollected: 06/23/2017 04:30 Status: Final Last Updated: 06/28/2017 08:18 Culture Result (Final) (Final) No Growth After 5 DaysCulture, Blood [id number] 08:18:00Specimen: BloodCollected: 06/23/2017 04:15 Status: Final Last Updated: 06/28/2017 08:18 Culture Result (Final) (Final) No Growth After 5 DaysUric Acid, Urine Random 2017-06-26 06:06:00 Test Item Value Reference Range Interpretation Comments Uric Acid, Urine (test code = 28 mg/dL UAURRM) Magnesium, [id number] 05:40:00 Test Item Value Reference Range Interpretation Comments Magnesium (test code = MG) 1.8 mg/dL 1.7-2.5 N Basic Metabolic [id number] 05:40:00 Test Item Value Reference Range Interpretation [...] National Kidney Foundation,http ://nkd ep.nih.gov CBC with [id number] 05:28:00 Test Item Value Reference Range Interpretation [...] code = ALYMPH) 4.9 K/cumm 0.5-4.6 H Woodruff Abs (test code = AMONO) 1.1 K/cumm 0.0-1.2 N Eos Abs (test code = AEOS) 0.59 K/cumm 0.00-0.74 N Baso Abs (test code = ABASO) 0.1 K/cumm 0.00-0.21 N [id number] 05:20:00 Test Item Value Reference Range Interpretation Comments Phosphorus (test code = PO4) 3.3 mg/dL 2.70-4.50 N Basic Metabolic [id number] 05:20:00 Test Item Value Reference Range Interpretation [...] the National Kidney Foundation,http ://nkd ep.nih.gov Magnesium, [id number] 05:20:00 Test Item Value Reference Range Interpretation Comments Magnesium (test code = MG) 1.6 mg/dL 1.7-2.5 L CBC with [id number] 04:55:00 Test Item Value Reference Range Interpretation [...] code = ALYMPH) 4.7 K/cumm 0.5-4.6 H Woodruff Abs (test code = AMONO) 1.4 K/cumm 0.0-1.2 H Eos Abs (test code = AEOS) 0.46 K/cumm 0.00-0.74 N Baso Abs (test code = ABASO) 0.1 K/cumm 0.00-0.21 N Hypochromic (test code = HYPO) Slight Blood Gas+Lytes+Glu+Ca+Hgb+Hct+[id number] 12:34:00 Test Item Value Reference Range Interpretation [...] crit COMMENT) vals to Dr. Hoover @ 5225.dn Puncture Site (test code = Brachial. R PUNSITE) Drawing Tech ID (test code = dnguyen DRAWTECH) Lactic Acid, Blood Gas (test 1.3 mmol/L code = BGLA) iPAP (test code = IPAP) 0 cmH2O Peep (test code = RPEEP) 5 Respiratory Rate (test code 0 = RESP RATE) XR CHEST 1 [id number] 07:41:10EXAM: CHEST ONE VIEWINDICATION: IntubatedCOMPARISON: None availableTECHNIQUE: AP view of the chest.FINDINGS: The endotracheal tube and enteric tube are unchanged. Thecardiomediastinal silhouette is normal. There is mild diffuse pulmonaryedema. No pneumothorax or pleural effusion is identified. The osseousstructures are unremarkable.IMPRESSION: Mild diffuse pulmonary edema.LOCATION: B44Kpryk Metabolic [id number] 05:44:00 Test Item Value Reference Range Interpretation [...] by the National Kidney Foundation,http ://nkd ep.nih.gov [id number] 05:44:00 Test Item Value Reference Range Interpretation Comments Phosphorus (test code = PO4) 3.2 mg/dL 2.70-4.50 N Magnesium, [id number] 05:44:00 Test Item Value Reference Range Interpretation Comments Magnesium (test code = MG) 1.7 mg/dL 1.7-2.5 N CBC with [id number] 05:28:00 Test Item Value Reference Range Interpretation [...] code = ALYMPH) 2.4 K/cumm 0.5-4.6 N Woodruff Abs (test code = AMONO) 1.1 K/cumm 0.0-1.2 N Eos Abs (test code = AEOS) 0.50 K/cumm 0.00-0.74 N Baso Abs (test code = ABASO) 0.0 K/cumm 0.00-0.21 N Blood Gas+Lytes+Glu+Ca+Hgb+Hct+[id number] 05:12:00 Test Item Value Reference Range Interpretation [...] 0 code = RESP RATE) CBC with [id number] 05:34:00 Test Item Value Reference Range Interpretation [...] code 2.0 K/cumm 0.5-4.6 N = ALYMPH) Woodruff Abs (test code = 0.4 K/cumm 0.0-1.2 [...] = FT4) 0.83 ng/dL 0.930-1.700 L Urinalysis [id number] 05:26:00 Test Item Value Reference Range Interpretation Comments Color (test code = COLOR) Yellow Yellow,Straw,Pl N yellow Clarity (test code = Clear Clear N CLAR) Specific [place] (test 1.004 1.001-1.035 N code = SPGR) [...] Bacteria (test code = Few /HPF BACT) [id number] 05:20:00 Test Item Value Reference Range Interpretation Comments Phosphorus (test code = PO4) 1.7 mg/dL 2.70-4.50 L Comprehensive Metabolic [id number] 05:20:00 Test Item Value Reference Range Interpretation [...] the National Kidney Foundation,http ://nkd ep.nih.gov Magnesium, [id number] 05:20:00 Test Item Value Reference Range Interpretation Comments Magnesium (test code = MG) 1.7 mg/dL 1.7-2.5 N Blood Gas+Lytes+Glu+Ca+Hgb+Hct+[id number] 05:14:00 Test Item Value Reference Range Interpretation [...] = crit- po2/ rblv- COMMENT) jeffrey Logan Jeffclaudette @ 05 ebrown Puncture Site (test code = Brachial. R PUNSITE) Drawing Tech ID (test code ebrown = DRAWTECH) Lactic Acid, Blood Gas 2.2 mmol/L (test code = BGLA) iPAP (test code = IPAP) 0 cmH2O Peep (test code = RPEEP) 5 Respiratory Rate (test code 18 = RESP RATE) Tidal Volume (test code = 0.500 Liters TIDALVOL) CT HEAD OR BRAIN WO [id number] 02:06:48AFTER HOURS SERVICE ON: 06/23/2017 2:06 AMCT Scan of the Brain Without ContrastLocation Code [id number]: altered mental statusTechnique: Scans were performed on a helical scanner pre IV contrastonly. The study is limited secondary to lack of intravenous contrast,particularly for evaluation of masses. CT images were performed vgyllp45 hours at arrival to the facility. One or more of the following dose reduction techniques were used:Automated exposure control, adjustment of the mA and/or kV according topatient size, and/or utilization of iterative reconstruction technique.Findings: [...] blvver rblv code = LAC) Basic Metabolic [id number] 23:49:00 Test Item Value Reference Range Interpretation Comments Sodium (test code = 140 mmol/L 135-145 N NA) Potassium (test 5.4 mmol/L 3.5-5.1 H The value HE MO code = K) originally rele ased by [...] by the National Kidney Foundation,http ://nkd ep.nih.gov [id number] 23:46:00 Test Item Value Reference Range Interpretation Comments Acetaminophen (test code = ACET) <15.0 ug/mL 15.0-30.0 L [id number] 23:46:00 Test Item Value Reference Range Interpretation Comments Phosphorus (test code = PO4) 1.8 mg/dL 2.70-4.50 L Magnesium, [id number] 23:46:00 Test Item Value Reference Range Interpretation Comments Magnesium (test code = MG) 1.8 mg/dL 1.7-2.5 N CBC with [id number] 23:40:00 Test Item Value Reference Range Interpretation [...] code 1.5 K/cumm 0.5-4.6 N = ALYMPH) Woodruff Abs (test code 0.4 K/cumm 0.0-1.2 N = AMONO) Eos Abs (test code = 0.05 K/cumm 0.00-0.74 N AEOS) Baso Abs (test code 0.0 K/cumm 0.00-0.21 N = ABASO) Hypochromic (test Slight code = HYPO) Urinalysis [id number] 20:50:00 Test Item Value Reference Range Interpretation Comments Color (test code = Yellow Yellow,Straw,Pl N COLOR) yellow Clarity (test code = Clear Clear N CLAR) Specific [place] (test 1.028 1.001-1.035 N code = SPGR) [...] Hyaline 0-1 CASTS) Granular /HPF BHCG, Urine, [id number] 20:30:00 Test Item Value Reference Range Interpretation Comments Preg Qual [Ur] (test code = HUHCG) Negative Negative N [id number] 20:28:00 Test Item Value Reference Range Interpretation [...] N code = ETOHU) XR CHEST 1 [id number] 20:19:17CHEST X-RAY 1 VIEW Location: [id number] HISTORY: IntubationTechnique:2 frontal views of the chest were obtainedFindings:The bony structures are unremarkable. The aortic, hilar, and cardiacoutlines arenormal. ET tube projects over the trachea in satisfactoryposition. An NG tube is seen in the stomachprojecting in satisfactoryposition. There is mild central vascular congestion. The lungs are clearofinfiltrates or nodules. No pneumothorax. No pleural effusions. IMPRESSION:ET tube and NG tube project in satisfactory position. Mild centralvascular congestion.Partial Thromboplastin [id number] 20:14:00 Test Item Value Reference Range Interpretation Comments aPTT (test code = PTT) 29.10 seconds 24.39-37.25 N Prothrombin [id number] 20:14:00 Test Item Value Reference Range Interpretation Comments PT (test code = PT) 11.60 seconds 9.78-13.35 N INR (test code = INR) 1.02 Ratio 0.6-1.2 N CBC with [id number] 20:06:00 Test Item Value Reference Range Interpretation [...] code = ALYMPH) 2.4 K/cumm 0.5-4.6 N [place]ruff Abs (test code = AMONO) 0.8 K/cumm 0.0-1.2 N Eos Abs (test code = AEOS) 0.07 K/cumm 0.00-0.74 N Baso Abs (test code = ABASO) 0.0 K/cumm 0.00-0.21 N Hypochromic (test code = HYPO) Slight Blood Gas+Lytes+Glu+Ca+Hgb+Hct+[id number] 20:04:00 Test Item Value Reference Range Interpretation [...] = PTTEMP) Celcius Comment (test code = wilfredo.crit.vals.rblv. COMMENT) [email or web address] Puncture Site (test code = Brachial. L PUNSITE) Drawing Tech ID (test code jzozobrado = DRAWTECH) iPAP (test code = IPAP) 0 cmH2O Respiratory Rate (test 0 code = RESP RATE) Lactic Acid, Blood Gas 4.3 mmol/L (test code = BGLA) [id number] 20:03:00 Test Item Value Reference Range Interpretation Comments Acetaminophen (test code = ACET) <15.0 ug/mL 15.0-30.0 L [id number] 20:03:00 Test Item Value Reference Range Interpretation Comments Salicylate (test code <0.3 mg/dL 0.3-10.0 L Anayeli nge in unit of = SALI) measurement for Salicylate ( fr om ug/mL to mg/dL ) Comprehensive Metabolic [id number] 20:03:00 Test Item Value Reference Range Interpretation [...]
[2022-08-24] MEDS ORDERED: LIDOCAINE 1% MPF 5 ML VIAL ONE (17:24)
[2022-08-24] MEDS ORDERED: CLINDAMYCIN 900MG/D5W 900 MG/50 ML IVPB IV ONE (17:25)
[2022-08-24] MEDS ORDERED: BUPIVACAINE 0.5% PF 10 ML VIAL ONE (17:25)
[2022-08-24] MEDS ORDERED: MORPHINE 4 MG/ML SYR ONE (17:25)
[2022-08-24 17:31] LABS: Absolute Lymphocytes (CBC) 3.7 K/uL (0.7-4.9); Hematocrit 30.8 % (36.0-45.0); Lymphocytes % 39.7 % (15.3-44.8); MCV 85.5 fL (80-100); MPV 7.2 fL (7.6-11.3)
[2022-08-24 17:59] LABS: Potassium 3.7 mmol/L (3.5-5.1)
--- NOTE | 2022-08-24 18:11 | EDPHYS ---
Physician Documentation [facility] Name: Anamaria Baer Age: 41 yrs Sex: Female : 1980 Arrival Date: 08/24/2022 Time: 16:01 Bed 30 Private MD: ED Physician Erik Haro HPI: 08/24 17:00 This 41 yrs old Black Female presents to ER via Ambulatory with complaints of cp Toothache, Facial Swelling. 17:00 The patient presents with pain, swelling. The problem is located in the right lower cp jaw. Onset: The symptoms/episode began/occurred 5 day(s) ago. Duration: The symptoms are continuous, and are steadily getting worse. Associated signs and symptoms: Pertinent negatives: anorexia, dysphagia, fever, inability to eat, vomiting. Severity of symptoms: in the emergency department the symptoms are unchanged, despite home interventions. Historical: - Allergies: 16:12 Naproxen; aa5 - Home Meds: 16:12 Clonidine Oral [Active]; aa5 - PMHx: 16:12 Anxiety; Hypertension; aa5 - PSHx: 16:12 tubal ligation; aa5 - Immunization history:: Adult Immunizations unknown. - Social history:: Smoking status: Patient reports the use of cigarette tobacco products, 2 cigarettes a day . ROS: 17:05 Constitutional: Negative for body aches, chills, fever, poor PO intake. cp 17:05 Eyes: Negative for injury, pain, redness, and discharge. cp 17:05 ENT: Positive for dental pain, Negative for ear pain, sore throat, difficulty swallowing, difficulty handling secretions. 17:05 Cardiovascular: Negative for chest pain. 17:05 Respiratory: Negative for cough, shortness of breath, wheezing. 17:05 Abdomen/GI: Negative for abdominal pain, nausea, vomiting, and diarrhea. 17:05 Neuro: Negative for altered mental status, headache, weakness. 17:05 All other systems are negative. Exam: 17:10 Constitutional: The patient appears in no acute distress, alert, awake, non-toxic, well cp developed, well nourished, uncomfortable. 17:10 Head/face: Noted is swelling, that is mild, of the right lower jaw, tenderness, that is moderate. 17:10 Eyes: Periorbital structures: appear normal, Conjunctiva: normal, no exudate, no injection, Sclera: no appreciated abnormality, Lids and lashes: appear normal, bilaterally. 17:10 ENT: External ear(s): are unremarkable, Ear canal(s): are normal, clear, TM's: dullness, bilaterally, Nose: is normal, Mouth: Lips: moist, Oral mucosa: pink and intact, moist, Posterior pharynx: is normal, airway is patent, no erythema, no exudate, Dental exam: abscess, that is mild, specifically in the right lower outer gumline, dental caries, that is moderate, diffusely, fractured teeth are noted, specifically the lower right first molar (#30), pain, that is moderate, specifically in the lower right first molar (#30), Voice: is normal. 17:10 Neck: ROM/movement: is normal, is supple, without pain, no range of motions limitations.cp 17:10 Chest/axilla: Inspection: normal. 17:10 Cardiovascular: Rate: normal, Rhythm: regular. 17:10 Respiratory: the patient does not display signs of respiratory distress, Respirations: normal, no use of accessory muscles, no retractions, labored breathing, is not present, Breath sounds: are clear throughout, no decreased breath sounds, no stridor, no wheezing. 17:10 Abdomen/GI: Exam negative for discomfort, distension, guarding, Inspection: abdomen appears normal. 17:10 Skin: no rash present. 17:10 Neuro: Orientation: to person, place \T\ time. Mentation: is normal. Vital Signs: 16:12 BP 166 / 94; Pulse 81; Resp 16 S; Pulse Ox 99% on R/A; Height 5 ft. 5 in. (165.10 cm) aa5 (R); 16:18 Weight 97.52 kg (M); aa5 17:00 BP 153 / 92; Pulse 72; Resp 16; Pulse Ox 98% ; bp 18:00 BP 167 / 98; Pulse 87; Resp 16; Pulse Ox 99% ; bp 16:18 Body Mass Index 35.78 (97.52 kg, 165.10 cm) aa5 MDM: 16:21 Patient medically screened. cp 18:10 Data reviewed: vital signs, nurses notes, lab test result(s). cp 18:10 Differential diagnosis: dental caries, dental abscess, pericoronitis, sepsis. cp Consideration of Admission/Observation Escalation of care including admission/observation considered. I considered the following discharge prescriptions or medication management in the emergency department Medications were administered in the Emergency Department. See MAR. Test considered but Not performed: CT: facial bones. Counseling: I had a detailed discussion with the patient and/or guardian regarding: the historical points, exam findings, and any diagnostic results supporting the discharge/admit diagnosis, lab results, the need for outpatient follow up, for definitive care, a dentist, to return to the emergency department if symptoms worsen or persist or if there are any questions or concerns that arise at home. Response to treatment: the patient's symptoms have mildly improved after treatment, and as a result, I will discharge patient. 08/24 16:47 Order name: CBC with Diff; Complete Time: 18:08 cp 08/24 18:08 Interpretation: Normal except: RBC 3.60; HGB 10.0; HCT 30.8; PLT 509; RDW 16.0; MPV 7.2.cp 08/24 16:47 Order name: BMP; Complete Time: 18:08 cp 08/24 18:08 Interpretation: Normal except: CL 112; GFR 86; CA 8.2. cp 08/24 16:47 Order name: IV; Complete Time: 17:59 cp Administered Medications: 17:10 Drug: Clindamycin 900 mg Route: IVPB; Infused Over: 30 mins; Site: right antecubital; bp 18:57 Follow up: IV Status: Completed infusion; IV Intake: 50ml bp 17:10 Drug: Marcaine (bupivacaine) (0.5 %) 5 ml Volume: 10 ml; Route: Infiltration; bp 17:10 Drug: Lidocaine (1 %) 5 ml Volume: 5 ml; Route: Infiltration; bp 17:10 Drug: morphine 2 mg Route: IVP; Infused Over: 4 mins; Site: right antecubital; bp 18:57 Follow up: Response: No adverse reaction bp 17:10 Drug: morphine 2 mg Route: IVP; Infused Over: 4 mins; Site: right antecubital; bp 18:57 Follow up: Response: No adverse reaction bp Disposition Summary: 08/24/22 18:11 Discharge Ordered Location: Home cp Problem: new cp Symptoms: have improved cp Condition: Stable cp Diagnosis - Disorder of teeth and supporting structures, unspecified cp Followup: cp - With: Babak Davidson DDS - When: 2 - 3 days - Reason: Recheck today's complaints Discharge Instructions: - Discharge Summary Sheet cp - Dental Abscess cp - Dental Pain cp Forms: - Work release form as - Medication Reconciliation Form cp - Thank You Letter cp - Antibiotic Education cp - Prescription Opioid Use cp Prescriptions: - Clindamycin HCl 300 mg Oral Capsule - take 1 capsule by ORAL route every 6 hours for 10 days; 40 capsule; Refills: 0, cp Product Selection Permitted - Tramadol 50 mg Oral Tablet - take 1 tablet by ORAL route every 8 hours as needed; 12 tablet; Refills: 0, cp Product Selection Permitted Signatures: Dispatcher [employer] EDMS Isabela Nava RN RN aa5 Onel Fuchs PA PA Yasmani Daigle RN RN bp Corrections: (The following items were deleted from the chart) 08/25 16:08/23 17:10 Constitutional: The patient appears in no acute distress, alert, awake, cp non-toxic, well developed, well nourished, uncomfortable, cp 08/25 16:57 08/23 17:10 Head/face: Noted is swelling, that is mild, of the right lower jaw, cp tenderness, that is moderate, cp 08/25 15:57 08/23 17:10 Eyes: Periorbital structures: appear normal, Conjunctiva: normal, no cp exudate, no injection, Sclera: no appreciated abnormality, Lids and lashes: appear normal, bilaterally, cp 08/25 16:57 08/23 17:10 ENT: External ear(s): are unremarkable, Ear canal(s): are normal, clear, cp TM's: dullness, bilaterally, Nose: is normal, Mouth: Lips: moist, Oral mucosa: pink and intact, moist, Posterior pharynx: is normal, airway is patent, no erythema, no exudate, Dental exam: abscess, that is mild, specifically in the right lower outer gumline, dental caries, that is moderate, diffusely, fractured teeth are noted, specifically the lower right first molar (#30), pain, that is moderate, specifically in the lower right first molar (#30), Voice: is normal, cp
--- NOTE | 2022-08-24 18:11 | ER ---
Nurse's Notes [facility] Name: Anamaria Baer Age: 41 yrs Sex: Female : 1980 Arrival Date: 08/24/2022 Time: 16:01 Bed 30 Private MD: Diagnosis: Disorder of teeth and supporting structures, unspecified Presentation: 08/24 16:13 Chief complaint: Patient states: toothache with right jaw swelling that began "over the aa5 weekend". Coronavirus screen: At this time, the client does not indicate any symptoms associated with coronavirus-19. Ebola Screen: Patient denies travel to an Ebola-affected area in the 21 days before illness onset. Initial Sepsis Screen: Does the patient meet any 2 criteria? No. Patient's initial sepsis screen is negative. Does the patient have a suspected source of infection? No. Patient's initial sepsis screen is negative. Risk Assessment: Do you want to hurt yourself or someone else? Patient reports no desire to harm self or others. Onset of symptoms was July 2022. 16:13 Acuity: DEVONTE 4 aa5 16:13 Method Of Arrival: Ambulatory aa5 Triage Assessment: 16:15 General: Appears in no apparent distress. uncomfortable, Behavior is cooperative, bp appropriate for age, anxious. Pain: Complains of pain in right jaw. EENT: Reports pain in right jaw. Neuro: No deficits noted. Cardiovascular: No deficits noted. Respiratory: Airway is patent. GI: No signs and/or symptoms were reported involving the gastrointestinal system. : No signs and/or symptoms were reported regarding the genitourinary system. Derm: No deficits noted. Musculoskeletal: No deficits noted. Historical: - Allergies: 16:12 Naproxen; aa5 - Home Meds: 16:12 Clonidine Oral [Active]; aa5 - PMHx: 16:12 Anxiety; Hypertension; aa5 - PSHx: 16:12 tubal ligation; aa5 - Immunization history:: Adult Immunizations unknown. - Social history:: Smoking status: Patient reports the use of cigarette tobacco products, 2 cigarettes a day . Screenin:00 [facility] ED Fall Risk Assessment (Adult) History of falling in the last 3 months, bp including since admission No falls in past 3 months (0 pts). Abuse screen: Denies threats or abuse. Denies injuries from another. Nutritional screening: No deficits noted. Tuberculosis screening: No symptoms or risk factors identified. Assessment: 16:15 General: SEE TRIAGE NOTE. bp 18:00 Reassessment: No changes from previously documented assessment. Patient and/or family bp updated on plan of care and expected duration. Pain level reassessed. 18:56 Reassessment: PT DC HOME AMBULATORY. bp Vital Signs: 16:12 BP 166 / 94; Pulse 81; Resp 16 S; Pulse Ox 99% on R/A; Height 5 ft. 5 in. (165.10 cm) aa5 (R); 16:18 Weight 97.52 kg (M); aa5 17:00 BP 153 / 92; Pulse 72; Resp 16; Pulse Ox 98% ; bp 18:00 BP 167 / 98; Pulse 87; Resp 16; Pulse Ox 99% ; bp 16:18 Body Mass Index 35.78 (97.52 kg, 165.10 cm) aa5 ED Course: 16:01 Patient arrived in ED. as 16:01 Onel Fuchs PA is PHCP. cp 16:01 Erik Haro MD is Attending Physician. cp 16:12 Arm band placed on. aa5 16:13 Triage completed. aa5 16:53 Yasmani Torres, SAMAN is Primary Nurse. bp 17:00 Patient has correct armband on for positive identification. Bed in low position. Call bp light in reach. Side rails up X2. 17:10 Inserted saline lock: 20 gauge in right antecubital area, using aseptic technique. bp Blood collected. 18:11 Babak Davidson DDS is Referral Physician. cp 18:56 No provider procedures requiring assistance completed. IV discontinued, intact, bp bleeding controlled, No redness/swelling at site. Pressure dressing applied. Administered Medications: 17:10 Drug: Clindamycin 900 mg Route: IVPB; Infused Over: 30 mins; Site: right antecubital; bp 18:57 Follow up: IV Status: Completed infusion; IV Intake: 50ml bp 17:10 Drug: Marcaine (bupivacaine) (0.5 %) 5 ml Volume: 10 ml; Route: Infiltration; bp 17:10 Drug: Lidocaine (1 %) 5 ml Volume: 5 ml; Route: Infiltration; bp 17:10 Drug: morphine 2 mg Route: IVP; Infused Over: 4 mins; Site: right antecubital; bp 18:57 Follow up: Response: No adverse reaction bp 17:10 Drug: morphine 2 mg Route: IVP; Infused Over: 4 mins; Site: right antecubital; bp 18:57 Follow up: Response: No adverse reaction bp Intake: 18:57 IV: 50ml; Total: 50ml. bp Outcome: 18:11 Discharge ordered by . cp 18:56 Discharged to home ambulatory. bp 18:56 Condition: stable 18:56 Discharge instructions given to patient, Instructed on discharge instructions, follow up and referral plans. medication usage, Demonstrated understanding of instructions, follow-up care, medications, Prescriptions given X 2. 18:57 Patient left the ED. bp Signatures: Ellen Garcia Audri, RN RN aa5 Onel Fuchs PA PA Yasmani Daigle, RN RN bp Corrections: (The following items were deleted from the chart) 16:13 16:12 Pulse 81bpm; Resp 16bpm; Spontaneous; Pulse Ox 99% RA; Height 5 ft. 5 in. aa5 Reported; aa5
[2022-08-24 20:26] VITALS: BP 167/98; O2SAT 99
== END 2022-08-24 18:57 | disposition home or self-care (01) ==
LOC: ER 15:58
DX: K08.89 Other specified disorders of teeth and supporting structures (principal); I10 Essential (primary) hypertension; F41.9 Anxiety disorder, unspecified; F17.210 Nicotine dependence, cigarettes, uncomplicated; Z88.6 Allergy status to analgesic agent
CPT/HCPCS: 96365; 85025; 80048; 36415; 96375; 99284; 96366; J2001

== ENCOUNTER 2022-09-11 09:50 | Emergency (ER) | payer OTHER ==
--- OUTSIDE RECORDS SUMMARY | 2022-09-11 09:58 | XMS REPORT | Continuity of Care Document ---
:1980 Author Organization [facility] t Address [address] [place] [address] Care Team Providers Name Role Phone Maggy Mckeon Primary Care Physician [phone] BEATRIZ Attending Clinician Unavailable Ge Attending Clinician Unavailable MARIA E TRAORE MD, MCandelario., MARIA E RUFF M.D. Attending Maximiliani nician Unavailable BEATRIZ Admitting Clinician Unavailable Ge Admitting Clinician Unavailable MARIA E TRAORE MD MCandelario., MARIA E Meyer Admitting Clinician Unavailable Payers Payer Name Policy Type Policy Number Effective Date Expiration Date S shwetha [facility] [id number] 2019 COMMUNITY PLAN - 00:00:00 [facility] (MEDICAID HMO) [facility] [id number] 2019 2019 OF [place] - OPTION 00:00:00 00:00:00 PLUS (MEDICARE REPLACEMENT HMO) Problems Condition Condition Condition Status Onset Resolution Last Treating Co mments Source Name Details Category Date Date Treatment Clinician Date Chronic Chronic Problem Active [place] bipolar I Bipolar I 6-08 da disorder, 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, 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 00 al 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 Recent Health [...] 00:00: m 00 clavulanate 125 mg tablet lamotrigine lamotrigine No lamotrigin [place] 25 mg 25 mg e 25 mg da tablet tablet tablet [facility] h Program latuda 20 latuda 20 No latuda 20 [place] mg tabs mg tabs mg tabs da [facility] Program latuda 60 latuda 60 No latuda 60 [place] mg tabs mg tabs mg tabs da [facility] Program Latuda 40 Latuda 40 No Latuda 40 [place] mg tablet mg tablet mg tablet da [facility] Program Latuda 60 Latuda 60 No [...] 10 mg tabs 10 mg tabs da [facility] lisinopril lisinopril No lisinopril [place] 10 mg 10 mg 10 mg da tablet tablet tablet [facility] Program loratadine loratadine No loratadine [place] 10 mg tabs 10 mg tabs 10 mg tabs da [facility] h Program Lyrica 100 Lyrica 100 No Lyrica 100 [place] mg capsule mg capsule mg capsule [facility] Lyrica 50 Lyrica 50 No Lyrica 50 [place] mg capsule mg capsule mg capsule da [facility] ondansetron ondansetron No ondansetro [place] odt 4 mg odt 4 mg n odt 4 mg d a tbdp tbdp tbdp [facility] [...] 2 mg [facility] caps caps caps al Health Outre[facility] h [...] a tablet tablet mg tablet [facility] hydroxyzine hydroxyzine No hydroxyzin [place] hydrochlori hydrochlori e d a de 25 mg de 25 mg hydrochlor E piscop tabs tabs bryce 25 mg al tabs Health Outreac h Program ibuprofen ibuprofen No ibuprofen [place] 600 mg tabs 600 mg tabs 600 mg da tabs [facility] ibuprofen ibuprofen No ibuprofen [place] 600 mg 600 mg 600 mg da tablet tablet tablet [facility] indomethaci indomethaci No indomethac [place] n 50 mg n 50 mg in 50 mg da caps caps caps [facility] Vital Signs Vital Name Observation Time [...] Goal Plan of Care Note [code = 42256-9] Goal Plan of Care Note [code = 40326-9] Goal Plan of Care Note [code = 42773-2] Goal Plan of Care Note [code = 93676-0] Goal Plan of Care Note [code = 44594-5] Goal Plan of Care Note [code = 64118-9] Goal Plan of Care Note [code = 74875-2] Goal Plan of Care Note [code = 92208-3] Goal Plan of Care Note [code = 14077-6] Goal Plan of Care Note [code = 74971-6] Goal Plan of Care Note [code = 92127-0] Goal Plan of Care Note [code = 30513-1] Goal Plan of Care Note [code = 60561-8] Goal Plan of Care Note [code = 63593-5] Goal Plan of Care Note [code = 04109-8] Goal Plan of Care Note [code = 92209-2] Goal Plan of Care Note [code = 36423-2] Goal Plan of Care Note [code = 67209-4] Goal Plan of Care Note [code = 29054-3] Goal Plan of Care Note [code = 02682-4] Goal Plan of Care Note [code = 79779-2] Goal Plan of Care Note [code = 73923-6] Goal Plan of Care Note [code = 42869-5] Goal Plan of Care Note [code = 54970-4] Goal Plan of Care Note [code = 12086-1] Goal Plan of Care Note [code = 50413-9] Goal Plan of Care Note [code = 23917-2] Goal Plan of Care Note [code = 63837-9] Goal Plan of Care Note [code = 28402-5] Goal Plan of Care Note [code = 96897-6] Goal Plan of Care Note [code = 40460-9] Goal Plan of Care Note [code = 02747-0] Goal Plan of Care Note [code = 13813-2] Goal Plan of Care Note [code = 77375-1] Goal Plan of Care Note [code = 14994-0] Goal Plan of Care Note [code = 28076-8] Goal Plan of Care Note [code = 93415-2] Goal Plan of Care Note [code = 32854-2] Goal Plan of Care Note [code = 65665-9] Goal Plan of Care Note [code = 18015-4] Goal Plan of Care Note [code = 18851-1] Goal Plan of Care Note [code = 19476-5] Encounters Start End Encounter Admission Attending Care Care Encounter Source Date/Time Date/Time Type Type Clinicians Facility Department ID 2022-06-21 2022-06-21 Outpatient [facility] [id number] Naveed 08:08:21 08:08:21 [id number] F Sheng 2022-06-19 2022-06-19 Outpatient [facility] [id number] Naveed 17:03:34 17:03:34 1121 F Sheng 2022-06-19 2022-06-19 Outpatient [id number] 00:00:00 00:00:00 Visit 9z8m-46rg u9d-69cm-w -lw79-5s9 g50-4h295o [id number] 2e728i 2022-02-07 2022-02-07 Outpatient [id number] 00:00:00 00:00:00 Visit 81p7-9841 2v3-7798-2 -80eb-548 [id number] [id number] [id number] 2020-05-31 [place] [facility] [place] 106 [id number] [place] 11:40:00 11:40:00 H [id number] 2020-05-17 2020-05-17 Outpatient [facility] 106 [id number] [place] 02:20:00 02:20:00 H 25512 [facility] 2020-05-17 2020-05-17 [facility] [place] [id number] 00:00:00 00:00:00 Todd Weiner MD: Faith Epi scop [address] [facility] [place] [address] [facility] , Ph. ([phone]) --20072020-04-23 2020-04-23 Outpatient [facility] 106 [id number] [place] 10:21:00 10:21:[address] [facility] 2020-01-05 2020-01-05 Outpatient DESAI_W[facility] 106 [id number] [place] 03:51:00 03:51:[address] [facility] 2020-01-05 2020-01-05 [facility] [place] [id number] M [place] 00:00:00 00:00:00 Todd Weiner MD: Faith Epi scop [address] [facility] [place] [facility] [place] [address] [facility] , Ph. ([phone]) --20072019-11-25 2019-11-25 Outpatient VICKYAI_W[facility]Y [facility] 106 [id number] [place] 12:49:00 12:49:[address] [facility] 2019-08-26 2019-08-26 Outpatient Palermo_Gerson [facility] 106 [id number]- [place] 04:57:00 04:57:00 [address] [facility] 2019-08-26 2019-08-26 Outpatient Pal[place] 106 [id number] [place] 04:55:00 04:55:00 [place]lin [address] [facility] Results Test Description Test Time Test Comments Results Result Comments Source COMPREHENSIVE METABOLIC PANEL 2021-11-16 05:01:16 Test Item Value Reference Range Interpretation Comme nts GLUCOSE (test code = 2217) 103 MG/DL 70-99 H BUN (test code = 2208) 8 MG/DL 01-16 CREATININE (test code = 0.73 MG/DL 0.60-1.30 2213) eGFR (2020 CKD-EPI) (test 107 ML/MIN/1.73 >60 code = 39126) CALC BUN/CREAT (test code = 11 RATIO [...] code = 2219) 15 U/L 5-40 LIPID [id number] 05:01:16 Test Item Value Reference Range Interpretation [...] MOREINFORMATION , SEE CLIENT ANNOUNCE MENT AT [email or web address] RISK RATIO LDL/HDL 4.49 RATIO <3.22 H UNLESS O THERWISE (test code = 2238) INDICATED , ALL TESTING PERFORMED [facility], [place]. [address] [facility] [place] [address] [facility] VICTORIA DIRECTOR: Alec YUENIA NUMBER [id number] [facility] ACCREDITATION N O. [id number] CBC W/AUTO DIFF WITH [id number] 01:39:34 Test Item Value Reference Range Interpretation [...] RBCS 0.00 K/UL 0.00-0.11 (test code = 41515) COMPREHENSIVE METABOLIC [id number] 00:00:00 Test Item Value Reference Range Interpretation Comments GLUCOSE (test code = 2217) 103 MG/DL BUN (test code = 2208) 8 MG/DL CREATININE (test code = 2214) 0.73 MG/DL eGFR (2020 CKD-EPI) (test 107 ML/MIN/1.73 code = 85561) CALC BUN/CREAT (test code = 11 RATIO [...] code = 2219) 15 U/L CBC W/AUTO [id number] 00:00:00 Test Item Value Reference Range Interpretation [...] NUCLEATED RBCS (test code = 0.00 K/UL 11123) CBC W/AUTO [id number] 00:00:00 Test Item Value Reference Range Interpretation [...] NUCLEATED RBCS (test code = 0.00 K/UL 20308) LIPID [id number] 00:00:00 Test Item Value Reference Range Interpretation Comments CHOLESTEROL (test code = 2210) 237 MG/DL TRIGLYCERIDES (test code = 2232) 274 MG/DL HDL CHOLESTEROL (test code = 2220) 35 MG/DL CALC LDL CHOL (test code = 2237) 157 MG/DL RISK RATIO LDL/HDL (test code = 4.49 RATIO 2238) COMPREHENSIVE METABOLIC [id number] 00:00:00 Test Item Value Reference Range Interpretation Comments GLUCOSE (test code = 2217) 103 MG/DL BUN (test code = 2208) 8 MG/DL CREATININE (test code = 2214) 0.73 MG/DL eGFR (2020 CKD-EPI) (test 107 ML/MIN/1.73 code = 35296) CALC BUN/CREAT (test code = 11 RATIO [...] code = 2219) 15 U/L COMPREHENSIVE METABOLIC [id number] 00:00:00 Test Item Value Reference Range Interpretation Comments GLUCOSE (test code = 2217) 103 MG/DL BUN (test code = 2208) 8 MG/DL CREATININE (test code = 2214) 0.73 MG/DL eGFR (2020 CKD-EPI) (test 107 ML/MIN/1.73 code = 75325) CALC BUN/CREAT (test code = 11 RATIO [...] code = 2219) 15 U/L CBC W/AUTO [id number] 00:00:00 Test Item Value Reference Range Interpretation [...] NUCLEATED RBCS (test code = 0.00 K/UL 96234) CBC W/AUTO [id number] 00:00:00 Test Item Value Reference Range Interpretation [...] NUCLEATED RBCS (test code = 0.00 K/UL 07160) CBC W/AUTO [id number] 00:00:00 Test Item Value Reference Range Interpretation [...] NUCLEATED RBCS (test code = 0.00 K/UL 49344) LIPID [id number] 00:00:00 Test Item Value Reference Range Interpretation Comments CHOLESTEROL (test code = 2210) 237 MG/DL TRIGLYCERIDES (test code = 2232) 274 MG/DL HDL CHOLESTEROL (test code = 2220) 35 MG/DL CALC LDL CHOL (test code = 2237) 157 MG/DL RISK RATIO LDL/HDL (test code = 4.49 RATIO 2238) LIPID [id number] 00:00:00 Test Item Value Reference Range Interpretation Comments CHOLESTEROL (test code = 2210) 237 MG/DL TRIGLYCERIDES (test code = 2232) 274 MG/DL HDL CHOLESTEROL (test code = 2220) 35 MG/DL CALC LDL CHOL (test code = 2237) 157 MG/DL RISK RATIO LDL/HDL (test code = 4.49 RATIO 2238) SARS-CoV-2 (COVID-19), RT-PCR/[id number] 07:59:55 Test Item Value Reference Interpretation Comments Range SARS-CoV-2 NEGATIVE SEE NOTE SARS-CoV-2 RNA NOT INTERPRETATION DETECTEDNegat audrey (test code = 10103) results do not preclude SARS-C oV-2 infection [...] (test code = [place]OP[place]: [place] [address]) Kourtney Ophelia Aury l-Time RT-PCR. The exp ected result or [...] provided by met hod given in report:https:// www.[employer].com.com/clinic ians/cl ient-communicat ions/ Alternatively, see downloadable PD F fact sheet at:https://www. [employer]/COVID-19-R T-PCR UNLESS OTHERWIS E INDICATED, ALL TESTING PERFORMED [facility], [facility]. [address] [place] [address] NAE MCKENNA DIRECTOR: DAVID HEATON M.D. CLIA NUMBER [id number] CAP ACCREDITATION N O. [id number] SARS-CoV-2 (COVID-19) by RT-PCR (HIGH RISK)2021-08-09 00:00:00 Test Item Value Reference Range Interpretation Comments SARS-CoV-2 INTERPRETATION NEGATIVE (test code = 02780) SOURCE (test code = 79982) NASOPHARYNGEAL SARS-CoV-2 (COVID-19) by RT-PCR (HIGH RISK)2021-08-09 00:00:00 Test Item Value Reference Range Interpretation Comments SARS-CoV-2 INTERPRETATION NEGATIVE (test code = 73846) SOURCE (test code = 91971) NASOPHARYNGEAL SARS-CoV-2 (COVID-19) by RT-PCR (HIGH RISK)2021-08-09 00:00:00 Test Item Value Reference Range Interpretation Comments SARS-CoV-2 INTERPRETATION NEGATIVE (test code = 11976) SOURCE (test code = 42787) NASOPHARYNGEAL SARS-CoV-2 (COVID-19) by RT-PCR (HIGH RISK)2021-03-23 00:00:00 Test Item Value Reference Range Interpretation Comments SARS-CoV-2 INTERPRETATION (test POSITIVE code = 91489) SOURCE (test code = 65337) NOT SPECIFIED SARS-CoV-2 (COVID-19) by RT-PCR (HIGH RISK)2021-03-23 00:00:00 Test Item Value Reference Range Interpretation Comments SARS-CoV-2 INTERPRETATION (test POSITIVE code = 87233) SOURCE (test code = 20398) NOT SPECIFIED SARS-CoV-2 (COVID-19) by RT-PCR (HIGH RISK)2021-03-23 00:00:00 Test Item Value Reference Range Interpretation Comments SARS-CoV-2 INTERPRETATION (test POSITIVE code = 94135) SOURCE (test code = 32495) NOT SPECIFIED SARS-CoV-2 (COVID-19) by RT-PCR (HIGH RISK)2019 00:00:00 Test Item Value Reference Range Interpretation Comments SARS-CoV-2 INTERPRETATION (test NEGATIVE code = 74242) SOURCE (test code = 79172) NOT SPECIFIED SARS-CoV-2 (COVID-19) by RT-PCR (HIGH RISK)2019 00:00:00 Test Item Value Reference Range Interpretation Comments SARS-CoV-2 INTERPRETATION (test NEGATIVE code = 23066) SOURCE (test code = 10023) NOT SPECIFIED SARS-CoV-2 (COVID-19) by RT-PCR (HIGH RISK)2019 00:00:00 Test Item Value Reference Range Interpretation Comments SARS-CoV-2 INTERPRETATION (test NEGATIVE code = 56545) SOURCE (test code = 05155) NOT SPECIFIED Culture, Blood [id number] 08:19:00Specimen: BloodCollected: 06/23/2017 04:30 Status: Final Last Updated: 06/28/2017 08:18 Culture Result (Final) (Final) No Growth After 5 DaysCulture, Blood [id number] 08:18:00Specimen: BloodCollected: 06/23/2017 04:15 Status: Final Last Updated: 06/28/2017 08:18 Culture Result (Final) (Final) No Growth After 5 DaysUric Acid, Urine Random 2017-06-26 06:06:00 Test Item Value Reference Range Interpretation Comments Uric Acid, Urine (test code = 28 mg/dL UAURRM) Magnesium, [id number] 05:40:00 Test Item Value Reference Range Interpretation Comments Magnesium (test code = MG) 1.8 mg/dL 1.7-2.5 N Basic Metabolic [id number] 05:40:00 Test Item Value Reference Range Interpretation [...] National Kidney Foundation,http ://nkd ep.nih.gov CBC with [id number] 05:28:00 Test Item Value Reference Range Interpretation [...] code = ALYMPH) 4.9 K/cumm 0.5-4.6 H Scurry Abs (test code = AMONO) 1.1 K/cumm 0.0-1.2 N Eos Abs (test code = AEOS) 0.59 K/cumm 0.00-0.74 N Baso Abs (test code = ABASO) 0.1 K/cumm 0.00-0.21 N [id number] 05:20:00 Test Item Value Reference Range Interpretation Comments Phosphorus (test code = PO4) 3.3 mg/dL 2.70-4.50 N Basic Metabolic [id number] 05:20:00 Test Item Value Reference Range Interpretation [...] the National Kidney Foundation,http ://nkd ep.nih.gov Magnesium, [id number] 05:20:00 Test Item Value Reference Range Interpretation Comments Magnesium (test code = MG) 1.6 mg/dL 1.7-2.5 L CBC with [id number] 04:55:00 Test Item Value Reference Range Interpretation [...] code = ALYMPH) 4.7 K/cumm 0.5-4.6 H Scurry Abs (test code = AMONO) 1.4 K/cumm 0.0-1.2 H Eos Abs (test code = AEOS) 0.46 K/cumm 0.00-0.74 N Baso Abs (test code = ABASO) 0.1 K/cumm 0.00-0.21 N Hypochromic (test code = HYPO) Slight Blood Gas+Lytes+Glu+Ca+Hgb+Hct+[id number] 12:34:00 Test Item Value Reference Range Interpretation [...] crit COMMENT) vals to Dr. Hoover @ 4950.dn Puncture Site (test code = Brachial. R PUNSITE) Drawing Tech ID (test code = dnguyen DRAWTECH) Lactic Acid, Blood Gas (test 1.3 mmol/L code = BGLA) iPAP (test code = IPAP) 0 cmH2O Peep (test code = RPEEP) 5 Respiratory Rate (test code 0 = RESP RATE) XR CHEST 1 [id number] 07:41:10EXAM: CHEST ONE VIEWINDICATION: IntubatedCOMPARISON: None availableTECHNIQUE: AP view of the chest.FINDINGS: The endotracheal tube and enteric tube are unchanged. Thecardiomediastinal silhouette is normal. There is mild diffuse pulmonaryedema. No pneumothorax or pleural effusion is identified. The osseousstructures are unremarkable.IMPRESSION: Mild diffuse pulmonary edema.LOCATION: E91Jjqhv Metabolic [id number] 05:44:00 Test Item Value Reference Range Interpretation [...] by the National Kidney Foundation,http ://nkd ep.nih.gov [id number] 05:44:00 Test Item Value Reference Range Interpretation Comments Phosphorus (test code = PO4) 3.2 mg/dL 2.70-4.50 N Magnesium, [id number] 05:44:00 Test Item Value Reference Range Interpretation Comments Magnesium (test code = MG) 1.7 mg/dL 1.7-2.5 N CBC with [id number] 05:28:00 Test Item Value Reference Range Interpretation [...] code = ALYMPH) 2.4 K/cumm 0.5-4.6 N Scurry Abs (test code = AMONO) 1.1 K/cumm 0.0-1.2 N Eos Abs (test code = AEOS) 0.50 K/cumm 0.00-0.74 N Baso Abs (test code = ABASO) 0.0 K/cumm 0.00-0.21 N Blood Gas+Lytes+Glu+Ca+Hgb+Hct+[id number] 05:12:00 Test Item Value Reference Range Interpretation [...] 0 code = RESP RATE) CBC with [id number] 05:34:00 Test Item Value Reference Range Interpretation [...] code 2.0 K/cumm 0.5-4.6 N = ALYMPH) Scurry Abs (test code = 0.4 K/cumm 0.0-1.2 [...] = FT4) 0.83 ng/dL 0.930-1.700 L Urinalysis [id number] 05:26:00 Test Item Value Reference Range Interpretation Comments Color (test code = COLOR) Yellow Yellow,Straw,Pl N yellow Clarity (test code = Clear Clear N CLAR) Specific [place] (test 1.004 1.001-1.035 N code = SPGR) [...] Bacteria (test code = Few /HPF BACT) [id number] 05:20:00 Test Item Value Reference Range Interpretation Comments Phosphorus (test code = PO4) 1.7 mg/dL 2.70-4.50 L Comprehensive Metabolic [id number] 05:20:00 Test Item Value Reference Range Interpretation [...] the National Kidney Foundation,http ://nkd ep.nih.gov Magnesium, [id number] 05:20:00 Test Item Value Reference Range Interpretation Comments Magnesium (test code = MG) 1.7 mg/dL 1.7-2.5 N Blood Gas+Lytes+Glu+Ca+Hgb+Hct+[id number] 05:14:00 Test Item Value Reference Range Interpretation [...] Liters TIDALVOL) CT HEAD OR BRAIN WO [id number] 02:06:48AFTER HOURS SERVICE ON: 06/23/2017 2:06 AMCT Scan of the Brain Without ContrastLocation Code Q71Rswspos: altered mental statusTechnique: Scans were performed on a helical scanner pre IV contrastonly. The study is limited secondary to lack of intravenous contrast,particularly for evaluation of masses. CT images were performed hours at arrival to [...] blvver rblv code = LAC) Basic Metabolic [id number] 23:49:00 Test Item Value Reference Range Interpretation [...] by the National Kidney Foundation,http ://nkd ep.nih.gov [id number] 23:46:00 Test Item Value Reference Range Interpretation Comments Acetaminophen (test code = ACET) <15.0 ug/mL 15.0-30.0 L [id number] 23:46:00 Test Item Value Reference Range Interpretation Comments Phosphorus (test code = PO4) 1.8 mg/dL 2.70-4.50 L Magnesium, [id number] 23:46:00 Test Item Value Reference Range Interpretation Comments Magnesium (test code = MG) 1.8 mg/dL 1.7-2.5 N CBC with [id number] 23:40:00 Test Item Value Reference Range Interpretation [...] code 1.5 K/cumm 0.5-4.6 N = ALYMPH) Scurry Abs (test code 0.4 K/cumm 0.0-1.2 N = AMONO) Eos Abs (test code = 0.05 K/cumm 0.00-0.74 N AEOS) Baso Abs (test code 0.0 K/cumm 0.00-0.21 N = ABASO) Hypochromic (test Slight code = HYPO) Urinalysis [id number] 20:50:00 Test Item Value Reference Range Interpretation Comments Color (test code = Yellow Yellow,Straw,Pl N COLOR) yellow Clarity (test code = Clear Clear N CLAR) Specific [place] (test 1.028 1.001-1.035 N code = SPGR) [...] Hyaline 0-1 CASTS) Granular /HPF BHCG, Urine, [id number] 20:30:00 Test Item Value Reference Range Interpretation Comments Preg Qual [Ur] (test code = HUHCG) Negative Negative N [id number] 20:28:00 Test Item Value Reference Range Interpretation [...] N code = ETOHU) XR CHEST 1 [id number] 20:19:17CHEST X-RAY 1 VIEW Location: [id number] HISTORY: IntubationTechnique:2 frontal views of the chest [...] in satisfactory position. Mild centralvascular congestion.Partial Thromboplastin [id number] 20:14:00 Test Item Value Reference Range Interpretation Comments aPTT (test code = PTT) 29.10 seconds 24.39-37.25 N Prothrombin [id number] 20:14:00 Test Item Value Reference Range Interpretation Comments PT (test code = PT) 11.60 seconds 9.78-13.35 N INR (test code = INR) 1.02 Ratio 0.6-1.2 N CBC with [id number] 20:06:00 Test Item Value Reference Range Interpretation [...] code = ALYMPH) 2.4 K/cumm 0.5-4.6 N Scurry Abs (test code = AMONO) 0.8 K/cumm 0.0-1.2 N Eos Abs (test code = AEOS) 0.07 K/cumm 0.00-0.74 N Baso Abs (test code = ABASO) 0.0 K/cumm 0.00-0.21 N Hypochromic (test code = HYPO) Slight Blood Gas+Lytes+Glu+Ca+Hgb+Hct+[id number] 20:04:00 Test Item Value Reference Range Interpretation [...] Gas 4.3 mmol/L (test code = BGLA) [id number] 20:03:00 Test Item Value Reference Range Interpretation Comments Acetaminophen (test code = ACET) <15.0 ug/mL 15.0-30.0 L [id number] 20:03:00 Test Item Value Reference Range Interpretation Comments Salicylate (test code <0.3 mg/dL 0.3-10.0 L Anayeli nge in unit of = SALI) measurement for Salicylate ( fr om ug/mL to mg/dL ) Comprehensive Metabolic [id number] 20:03:00 Test Item Value Reference Range Interpretation [...]
--- NOTE | 2022-09-11 10:07 | EDPHYS ---
Physician Documentation [facility] Name: Anamaria Baer Age: 41 yrs Sex: Female : 1980 Arrival Date: 09/11/2022 Time: 09:53 Bed Waiting Private MD: ED Physician Tanner Collier HPI: 09/11 10:00 This 41 yrs old Black Female presents to ER via Ambulatory with complaints of Shoulder jh7 Pain, Ear Pain, Headache. 10:00 The patient or guardian complains of pain, that is acute. left shoulder. Context: The jh7 problem was sustained at home, resulted from lifting or carrying, a heavy object, The patient experiences decreased range of motion, when attempts to raise arm, The patient reports no obvious deformity. Onset: The symptoms/episode began/occurred 3 week(s) ago. 41-year-old female presents with shoulder pain for 3 weeks after lifting heavy trash bags, left ear pain, frontal headache, and sinus congestion. Reports that her left shoulder pain occurs when raising arm above 90 degrees.. 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 - Social history:: Smoking status: Patient denies any tobacco usage or history of. ROS: 10:00 Constitutional: Negative for fever, chills, and weight loss, Eyes: Negative for injury, jh7 pain, redness, and discharge, Neck: Negative for injury, pain, and swelling, Cardiovascular: Negative for chest pain, palpitations, and edema, Respiratory: Negative for shortness of breath, cough, wheezing, and pleuritic chest pain, Abdomen/GI: Negative for abdominal pain, nausea, vomiting, diarrhea, and constipation, Back: Negative for injury and pain, Skin: Negative for injury, rash, and discoloration. 10:00 ENT: Positive for ear pain, sinus congestion. 10:00 MS/extremity: Positive for decreased range of motion, pain, Negative for tenderness. 10:00 Neuro: Positive for headache. 10:00 All other systems are negative. Exam: 10:00 Constitutional: This is a well developed, well nourished patient who is awake, alert, jh7 and in no acute distress. Head/Face: Normocephalic, atraumatic. Eyes: Pupils equal round and reactive to light, extra-ocular motions intact. Lids and lashes normal. Conjunctiva and sclera are non-icteric and not injected. Cornea within normal limits. Periorbital areas with no swelling, redness, or edema. Cardiovascular: Regular rate and rhythm with a normal S1 and S2. No gallops, murmurs, or rubs. Normal PMI, no JVD. No pulse deficits. Respiratory: Lungs have equal breath sounds bilaterally, clear to auscultation and percussion. No rales, rhonchi or wheezes noted. No increased work of breathing, no retractions or nasal flaring. Abdomen/GI: Soft, non-tender, with normal bowel sounds. No distension or tympany. No guarding or rebound. No evidence of tenderness throughout. Back: No spinal tenderness. No costovertebral tenderness. Full range of motion. Skin: Warm, dry with normal turgor. Normal color with no rashes, no lesions, and no evidence of cellulitis. Neuro: Awake and alert, GCS 15, oriented to person, place, time, and situation. Motor strength 5/5 in all extremities. Sensory grossly intact. Cerebellar exam normal. Normal gait. 10:00 ENT: TM's: fluid levels, Effusion present posterior to left TM, Maxillary and frontal sinus tenderness to palpation. 10:00 Musculoskeletal/extremity: Left shoulder pain reproduced with abduction beyond 90 degrees. Pain is located at the anterior and posterior shoulder. Positive Neer and Collins sign. Pain also elicited when patient hangs her left shoulder down or attempts to lift anything. No swelling or tenderness to palpation.. Vital Signs: 10:01 BP 165 / 91; Pulse 98; Resp 18; Temp 98.6; Pulse Ox 100% ; Weight 97.52 kg; Height 5 iw ft. 5 in. (165.10 cm); Pain 8/10; 10:01 Body Mass Index 35.78 (97.52 kg, 165.10 cm) iw MDM: 09:55 Patient medically screened. [facility] 10:00 Differential diagnosis: DJD, tendonitis, Shoulder sprain, eustachian tube dysfunction, jh7 otitis media, sinusitis. Data reviewed: vital signs, nurses notes. I considered the following discharge prescriptions or medication management in the emergency department I discussed and recommended Over The Counter medications, See discharge instructions for prescribed medication. Counseling: I had a detailed discussion with the patient and/or guardian regarding: the historical points, exam findings, and any diagnostic results supporting the discharge/admit diagnosis, to return to the emergency department if symptoms worsen or persist or if there are any questions or concerns that arise at home. Administered Medications: No medications were administered Disposition: 09/12 07:10 Co-signature as Attending Physician, Tanner Collier MD I reviewed the patient's care rn provided by the Advanced Practice Provider and agree with the diagnosis and treatment plan. Disposition Summary: 09/11/22 10:06 Discharge Ordered Location: Home [facility] Problem: new [facility] Symptoms: are unchanged [facility] Condition: Stable [facility] Diagnosis - Acute sinusitis, unspecified jh7 - Sprain of shoulder joint [facility] Followup: [facility] - With: Private Physician - When: 2 - 3 days - Reason: Recheck today's complaints Discharge Instructions: - Discharge Summary Sheet 7 - Sinusitis, Adult 7 - Shoulder Sprain [facility] Forms: - Medication Reconciliation Form [facility] - Thank You Letter [facility] - Work release form iw Prescriptions: - Amoxicillin 875 mg Oral Tablet - take 1 tablet by ORAL route every 12 hours for 10 days; 20 tablet; Refills: 0, [facility] Product Selection Permitted - Zanaflex 4 mg Oral Tablet - take 1 tablet by ORAL route every 8 hours As needed; 20 tablet; Refills: 0, [facility] Product Selection Permitted - Medrol (Abraham) 4 mg Oral Tablets, Dose Pack - take 1 tablet by ORAL route as directed - follow package instructions; 1 [facility] packet; Refills: 0, Product Selection Permitted Signatures: Teresita Castro, Tanner Nelson RN, MD MD rn Hadash, Jennifer, STUDIO MODEL [place] [id number]
--- NOTE | 2022-09-11 10:07 | ER ---
Nurse's Notes [facility] Name: Anamaria Baer Age: 41 yrs Sex: Female : 1980 Arrival Date: 09/11/2022 Time: 09:53 Bed Waiting Private MD: Diagnosis: Acute sinusitis, unspecified;Sprain of shoulder joint Presentation: 09/11 10:01 Chief complaint: Patient states: 3 weeks of left shoulder pain from lifting heavy iw trash; x1 week of left ear pain causing a headache. Coronavirus screen: Vaccine status: Patient reports receiving the 2nd dose of the covid vaccine. Client denies travel out of the [place] in the last 14 days. Ebola Screen: Patient negative for fever greater than or equal to 101.5 degrees Fahrenheit, and additional compatible Ebola Virus Disease symptoms Patient denies exposure to infectious person. Patient denies travel to an Ebola-affected area in the 21 days before illness onset. Initial Sepsis Screen: Does the patient meet any 2 criteria? No. Patient's initial sepsis screen is negative. Does the patient have a suspected source of infection? No. Patient's initial sepsis screen is negative. Risk Assessment: Do you want to hurt yourself or someone else? Patient reports no desire to harm self or others. Onset of symptoms was July 2022. 10:01 Method Of Arrival: Ambulatory iw 10:01 Acuity: DEVONTE 3 iw Triage Assessment: 10:03 General: Appears uncomfortable, well groomed, well developed, Behavior is calm, iw cooperative, appropriate for age. Pain: Complains of pain in left shoulder, left ear. EENT: Reports nasal congestion pain. 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 - Social history:: Smoking status: Patient denies any tobacco usage or history of. Screenin:32 [facility] ED Fall Risk Assessment (Adult) History of falling in the last 3 months, iw including since admission. Abuse screen: Denies threats or abuse. Denies injuries from another. Nutritional screening: No deficits noted. Tuberculosis screening: No symptoms or risk factors identified. Vital Signs: 10:01 BP 165 / 91; Pulse 98; Resp 18; Temp 98.6; Pulse Ox 100% ; Weight 97.52 kg; Height 5 iw ft. 5 in. (165.10 cm); Pain 8/10; 10:01 Body Mass Index 35.78 (97.52 kg, 165.10 cm) iw ED Course: 09:53 Patient arrived in ED. as 09:55 [facility] 09:55 Tanner Collier MD is Attending Physician. 7 10:03 Triage completed. iw 10:03 Arm band placed on right wrist. iw 10:32 Patient has correct armband on for positive identification. iw 10:32 No provider procedures requiring assistance completed. Patient did not have IV access iw during this emergency room visit. Administered Medications: No medications were administered Medication: 10:32 VIS not applicable for this client. iw Outcome: 10:06 Discharge ordered by . 7 10:32 Discharged to home ambulatory. iw 10:32 Condition: good 10:32 Discharge instructions given to patient, Instructed on discharge instructions, follow up and referral plans. medication usage, safety practices, Demonstrated understanding of instructions, follow-up care, medications, Prescriptions given X 3. 10:32 Patient left the ED. iw Signatures: Ellen Garcia Irene, RN RN Ellen Joseph FNP FNP [facility]
[2022-09-11 10:54] VITALS: BP 165/91; TEMP 98.6; O2SAT 100
== END 2022-09-11 10:32 | disposition home or self-care (01) ==
LOC: ER 09:50
DX: S43.402A Unspecified sprain of left shoulder joint, initial encounter (principal); J01.90 Acute sinusitis, unspecified; I10 Essential (primary) hypertension; Z88.5 Allergy status to narcotic agent
CPT/HCPCS: 99282

== ENCOUNTER 2024-05-26 03:15 | Emergency (ER) | payer OTHER ==
[2024-05-26] MEDS ORDERED: LORazepam 2 MG/ML VIAL ONE (03:20)
[2024-05-26] MEDS ORDERED: cloNIDine HCL 0.1 MG TAB ONE (03:21)
--- OUTSIDE RECORDS SUMMARY | 2024-05-26 03:21 | XMS REPORT | Continuity of Care Document ---
Author Name Unknown Address [address] [facility] [place] [place] [address] [facility] thconnect Address [address] [facility] 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 Role Phone Yojana Causey Primary Care Physician [phone] MICHAEL_STEPHEN Attending Clinician Unavailable Palermo_Eulalioitallan Attending Clinician Unavailable JOANNA TRAORE MD, MNoman, JOANNA RUFF MNoman A ttending Clinician Unavailable DESANGELA_RADEMETRIA Admitting Clinician Unavailable Palermo_Kaitlin Admitting Clinician Unavailable JOANNA TRAORE MD MCandelario., JOANNA Frankelittin g Clinician Unavailable Payers Payer Name Policy Type Policy Number Effective Date Expirati on Date Source [facility] (MEDICAID HMO) [id number] 2019 00:00:00 [facility] (MEDICARE REPLACEMENT HMO) [id number] 2019 00:00:00 2019 00:00:00 Problems Condition Name Condition Details Condition Category Status Onset Date Resolution Date Last Treatment Date Treating Clinician Comments Source Chronic bipolar I disorder, most recent episode depressed Chronic Bipolar I Disorder, Most Recent Episode Depressed Problem Active 01-04 00:00: 00 [facility] Posttrauma tic stress disorder Posttrauma tic Stress Disorder Problem Active 01-04 00:00: 00 [facility] Allergies, Adverse Reactions, Alerts Allergy Name Allergy Type Status Severity Reaction(s) Onset Date Inactive Date Treating Clinician Comments Source none (Not Checked) Propensi ty to adverse reaction to drug Active 12-04 00:00: 00 Naveed Patricio n Propensi ty to adverse reaction to drug Active 17 00:00: 00 Naveed Patricio Naproxen - Oral Propensi ty to adverse reaction to drug Active 10-05 00:00: 00 Naveed Patricio Naproxen Propensi ty to adverse reaction to drug Inactiv e 09-28 00:00: 00 Naveed Patricio Medications Ordered Medication Name Filled Medication Name Start Date Stop Date Current Medication? Ordering Clinician Indication Dosage Frequency Signature (SIG) Comments Components Source clonidine HCl 0.3 mg tablet 04-24 00:00: 00 Yes mg Naveed Patricio omeprazole 40 mg capsule,del ayed release 04-24 00:00: 00 Yes 1mg Naveed Patricio Macrobid 100 mg capsule 04-24 00:00: 00 Yes 1mg Naveed Patricio atorvastati n 20 mg tablet -08 00:00: 00 Yes mg Naveed Patricio clonidine HCl 0.3 mg tablet 08 00:00: 00 Yes mg Naveed Patricio alprazolam 1 mg tablet -21 00:00: 00 Yes mg Naeved Patricio doxepin 50 mg capsule -18 00:00: 00 Yes mg Naveed Patricio TAKE 1 CAPSULE BY MOUTH EVERY DAY AT BEDTIME NEEDED FOR INSOMNIA -25 00:00: 00 Yes Naveed Patricio TAKE 1 TABLET BY MOUTH TWICE A DAY NEEDED FOR ANXIETY -25 00:00: 00 Yes Naveed Patricio atorvastati n 20 mg tablet 2-17 00:00: 00 Yes mg Naveed Patricio TAKE 1 TABLET AT BEDTIME. 2-16 00:00: 00 Yes 20 Naveed Patricio clonidine HCl 0.3 mg tablet 2-13 00:00: 00 Yes mg Naveed Patricio TAKE ONE (1) TABLET(S) BY MOUTH ONCE A DAY AT BEDTIME. 2022-07-24 00:00: 00 Yes Naveed Patricio TAKE 1 TABLET DAILY. 2022-07 1-16 00:00: 00 12-10 00:00 :00 No 10 Naveed Patricio PAROXETINE 2022-07 00:00: 00 Yes Naveed Patricio QUETIAPINE FUMARATE 100 MG TABS 2022-07 00:00: 00 Yes Naveed Patricio TAKE 1 TABLET TWICE DAILY NEEDED FOR ANXIETY 2022-07 00:00: 00 12-10 00:00 :00 No 25 Naveed Patricio TAKE 1 TABLET AT BEDTIME. 2022-07 00:00: 00 12-10 00:00 :00 No 20 Naveed Patricio TAKE 1 TABLET AT BEDTIME. 2022-07 00:00: 00 12-10 00:00 :00 No 100 Naveed Patricio TAKE 1 CAPSULE BY MOUTH ONCE DAILY 2022-07 00:00: 00 12-10 00:00 :00 No 10 Naveed Patricio TAKE 1 TABLET TWICE DAILY WITH FOOD. 2022-07 00:00: 00 12-10 00:00 :00 No [id number] Naveed Patricio TAKE 1 TABLET AT BEDTIME. 2022-07 00:00: 00 12-10 00:00 :00 No 3 Naveed Patricio TAKE 1 TABLET BY MOUTH EVERYDAY AT BEDTIME 2022-07 00:00: 00 Yes Naveed Patricio TAKE 1 TABLET BY MOUTH EVERYDAY AT BEDTIME 2022-07 00:00: 00 Yes Naveed Patricio TAKE 1 TABLET AT BEDTIME. 2022-07 00:00: 00 12-10 00:00 :00 No 20 Naveed Patricio TAKE 1 TABLET AT BEDTIME. 2022-07 00:00: 00 12-10 00:00 :00 No 100 Naveed Patricio TAKE 1 TABLET TWICE DAILY NEEDED FOR ANXIETY 2022-07 00:00: 00 12-10 00:00 :00 No 25 Naveed Patricio QUETIAPINE 2022-07 00:00: 00 Yes Naveed Patricio TAKE 1 TABLET BY MOUTH TWICE DAILY NEEDED FOR ANXIETY 2022-07 00:00: 00 Yes Naveed Patricio TAKE 1- 2 TABLET AT BEDTIME 2022-07 0-10 00:00: 00 12-10 00:00 :00 No 50 Naveed Patricio TAKE 1 CAPSULE TWICE DAILY. 8 00:00: 00 12-10 00:00 :00 No 300 Naveed Patricio TAKE 2 TABS DAILY THE FIRST 5 DAYS,THEN 1 TAB DAILY THE LAST 5 DAYS 8 00:00: 00 12-10 00:00 :00 No 20 Naveed Patricio TAKE 1 TABLET TWICE DAILY. 03-13 00:00: 00 12-10 00:00 :00 No 500 Naveed Patricio TAKE 1 TO 2 TABLETS 3 TIMES DAILY NEEDED. 03-13 00:00: 00 12-10 00:00 :00 No 5 Naveed Patricio ALPRAZOLAM 02-25 00:00: 00 Yes Naveed Patricio TAKE 1 TABLET DAILY 02-07 00:00: 00 Yes Naveed Patricio TAKE 1 TABLET DAILY. 02-07 00:00: 00 12-10 00:00 :00 No 50 Naveed Patricio TAKE 1 TABLET 3 TIMES DAILY NEEDED. 02-07 00:00: 00 12-10 00:00 :00 No 25 Naveed Patricio TAKE 1 TABLET AT BEDTIME. 02-07 00:00: 00 12-10 00:00 :00 No 1 Naveed Patricio ALPRAZOLAM 7- 00:00: 00 Yes Naveed Patricio QUETIAPINE 6- 00:00: 00 Yes Naveed Patricio QUETIAPINE 615 00:00: 00 Yes Naveed Patricio ALPRAZOLAM 6 00:00: 00 Yes Naveed Patricio TAKE 1 TABLET BY MOUTH EVERY DAY 12-28 00:00: 00 Yes Naveed Patricio TAKE 1 TABLET TWICE DAILY. 12-27 00:00: 00 12-10 00:00 :00 No 300 Naveed Patricio TAKE HALF A TABLET DAILY FOR THE FIRST 7 DAYS AND A FULL TABLET THE FOLLOWING 7 DAYS 12-27 00:00: 00 12-10 00:00 :00 No 100 Naveed Patricio TAKE 1 TABLET AT BEDTIME. 12-27 00:00: 00 12-10 00:00 :00 No 1 Naveedmerrill Patricio TAKE 1 TABLET DAILY. 12-27 00:00: 00 12-10 00:00 :00 No 300 Naveed Patricio TAKE 1 TABLET DAILY. 12-19 00:00: 00 12-10 00:00 :00 No 300 Naveed Patricio TAKE 1 TABLET TWICE DAILY. 12-19 00:00: 00 12-10 00:00 :00 No 300 Naveed Patricio TAKE 1 TABLET AT BEDTIME. 12-19 00:00: 00 12-10 00:00 :00 No 1 Naveed Patricio TAKE 1 TABLET DAILY. 12-07 00:00: 00 12-10 00:00 :00 No 300 Naveed Patricio TAKE 1 TABLET TWICE DAILY. 12-07 00:00: 00 12-10 00:00 :00 No 300 Naveed Patricio TAKE 1 TABLET AT BEDTIME. 12-07 00:00: 00 12-10 00:00 :00 No 1 Naveed Kizzy Patricio PAROXETINE 20 00:00: 00 Yes Naveed Patricio TAKE 1 TABLET BY MOUTH TWICE A DAY 20 00:00: 00 12-10 00:00 :00 No Naveed Kizzy Patricio QUETIAPINE 4-07 00:00: 00 12-10 00:00 :00 No Naveed Kizzy Patricio BUPROPION 4-06 00:00: 00 Yes Naveed Kizzy Patricio MIRTAZAPINE 4-06 00:00: 00 Yes Naveed Kizzy Patricio BUSPIRONE 4-06 00:00: 00 Yes Naveed Kizzy Patricio ALPRAZOLAM 3-28 00:00: 00 Yes 1 Naveed Kizzy Patricio CLONIDINE 3-11 00:00: 00 Yes Naveed Kizzy Patricio QUETIAPINE 3-11 00:00: 00 12-10 00:00 :00 No Naveedmerrill Patricio OXCARBAZEPI N 3-11 00:00: 00 12-10 00:00 :00 No Naveed Patricio TAKE 1 TABLET TWICE DAILY NEEDED. 2-27 00:00: 00 12-10 00:00 :00 No 10 Naveed Kizzy Patricio APPLY TO AFFECTED AREAS DIRECTED. 2-27 00:00: 00 12-10 00:00 :00 No 5 Naveedmerrill Patricio TAKE 1 TABLET AT BEDTIME. 2-15 00:00: 00 12-10 00:00 :00 No 3 Naveed Patricio TAKE 1 TABLET DAILY. 2-15 00:00: 00 12-10 00:00 :00 No 300 Naveed Patricio TAKE 1 TABLET TWICE DAILY. 2-15 00:00: 00 12-10 00:00 :00 No 300 Naveed Patricio TIZANIDINE HYDROCHLORI DE 4 MG TABS 2-13 00:00: 00 Yes Naveed Patricio METHYLPREDN ISOLONE DOSE PACK 4 MG TBPK 2-13 00:00: 00 Yes Naveed Patricio AMOXICILLIN 875 MG TABS 2-13 00:00: 00 Yes Naveed Patricio CLINDAMYCIN HCL 300 MG 1-26 00:00: 00 Yes Naveed Patricio TRAMADOL HCL 50 MG TABS 1-26 00:00: 00 Yes Naveed Patricio TAKE BY MOUTH DIRECTED BY PACKAGE INSTRUCTION S. 1-18 00:00: 00 Yes Naveed Patricio TAKE 1 TABLET AT BEDTIME. 1-16 00:00: 00 12-10 00:00 :00 No 3 Naveed Patricio TAKE 1 TABLET DAILY. 1-16 00:00: 00 12-10 00:00 :00 No 300 Naveed Patricio TAKE 1 TABLET TWICE A DAY 1-16 00:00: 00 12-10 00:00 :00 No Naveed Patricio TAKE 1 TABLET TWICE DAILY. 1-10 00:00: 00 Yes Shawna Patricio TAKE 1 TABLET DAILY. 1-10 00:00: 00 Yes 300 Naveed Patricio LEVOFLOXACI N 500 MG TABS 2021-07 2-16 00:00: 00 Yes Naveed Patricio TAKE 1 TABLET BY MOUTH EVERY 12 HOURS FOR 10 DAYS 2021-07 2- 00:00: 00 Yes Naveed Patricio TAKE 1 TABLET BY MOUTH NIGHTLY 2021-07- 00:00: 00 Yes Naveed Patricio LISINOPRIL 10 MG TABS 2021-07- 00:00: 00 Yes Naveed Patricio Dose Unknown 2021-07 00:00: 00 Yes Naveed Patricio TAKE 1 TABLET AT BEDTIME. 2021-07 00:00: 00 12-10 00:00 :00 No Naveed Patricio TAKE 1 TABLET BY MOUTH EVERY DAY 2021-07 00:00: 00 12-10 00:00 :00 No Naveed Patricio HYDROCODONE BITARTRATE/ ACETAMINOPH E N 5-325 MG TABS 2021-07 00:00: 00 Yes Naveed Patricio IBUPROFEN 600 MG TABS 2021-07 00:00: 00 Yes Naveed Patricio TRAMADOL HYDROCHLORI DE/ACETAMIN OPHE N 37.5-325 MG TABS 2021-07 00:00: 00 Yes Naveed Patricio TAKE 6 TABLETS ON DAY 1 DIRECTED ON PACKAGE AND DECREASE BY 1 TAB EACH DAY FOR A TOTAL OF 6 DAYS 2021-07 00:00: 00 Yes Naveed Patricio Dose Unknown 2021-07- 00:00: 00 Yes Naveed Patricio Dose Unknown 2021-07- 00:00: 00 12-10 00:00 :00 No Naveed Patricio TAKE 1 TABLET BY MOUTH EVERY DAY 2021-07- 00:00: 00 12-10 00:00 :00 No Naveed Patricio Dose Unknown 2021-07 00:00: 00 Yes Naveed Patricio TAKE ONE (1) TABLET(S) BY MOUTH TWICE A DAY. 2021-07 00:00: 00 Yes Naveed Patricio ALPRAZOLAM 1 MG TABS 2021-07 2-14 00:00: 00 Yes Naveed Patricio TAKE 1 TABLET BY MOUTH EVERY DAY 2021-07 2-14 00:00: 00 Yes Naveed Patricio TAKE 1 TABLET BY MOUTH NIGHTLY 2021-07 2-14 00:00: 00 Yes Naveed Patricio METHYLPREDN ISOLONE DOSE PACK 4 MG TBPK 2021-07 2-14 00:00: 00 Yes Naveed Patricio Dose Unknown 2021-07 2-14 00:00: 00 Yes Naveed Patricio AMOXICILLIN 875 MG TABS 2021-07-14 00:00: 00 Yes Naveed Patricio LORATADINE 10 MG TABS 2021-07-14 00:00: 00 Yes Naveed Patricio TAKE 1 TABLET BY MOUTH EVERY 6 HOURS NEEDED 2021-07- 00:00: 00 Yes Naveed Patricio QUETIAPINE FUMARATE 200 MG TABS 2021-07- 00:00: 00 Yes Naveed Patricio Dose Unknown 2021-07- 00:00: 00 Yes Naveed Patricio Dose Unknown 2021-07- 00:00: 00 Yes Naveed Patricio Dose Unknown 2021-07- 00:00: 00 Yes Naveed Patricio QUETIAPINE FUMARATE 50 MG TABS 2021-07-14 00:00: 00 Yes Naveed Patricio Dose Unknown 2021-07 2-14 00:00: 00 Yes Naveed Patricio Dose Unknown 2021-07 2-14 00:00: 00 Yes Naveed Patricio AMLODIPINE BESYLATE 5 MG TABS 2021-07 2-14 00:00: 00 Yes Naveed Patricio TAKE 1 TABLET BY MOUTH EVERY DAY FOR 8-10 DAYS 2021-07-14 00:00: 00 Yes Naveed Patricio Dose Unknown 2021-07 2-14 00:00: 00 Yes Naveed Patricio AMOXICILLIN /CLAVULANAT E POTASSIUM 875-125 MG TABS 2021-07-14 00:00: 00 Yes Naveed Patricio TAKE 1 TABLET BY MOUTH TWICE A DAY FOR 15 DAYS 2021-07 2-14 00:00: 00 Yes Naveed Patricio TAKE 1 TABLET BY MOUTH EVERY 12 HOURS FOR 15 DAYS 2021-07 2-14 00:00: 00 Yes Naveed Patricio TAKE 1 TABLET BY MOUTH EVERY 8 HOURS 2021-07 00:00: 00 Yes Naveed F Sheng Dose Unknown 2021-07 00:00: 00 Yes Naveed F Sheng Dose Unknown 2021-07 00:00: 00 Yes Naveed F Sheng Dose Unknown 2021-07 00:00: 00 Yes Naveed Kizyz Patricio TAKE 1 TABLET DAILY. 2021-07 00:00: 00 12-10 00:00 :00 No Naveed Kizzy Patricio TAKE 1 TABLET TWICE DAILY. 2021-07 00:00: 00 12-10 00:00 :00 No Naveed F Sheng Dose Unknown 2021-07 00:00: 00 12-10 00:00 :00 No Naveed F Sheng Dose Unknown 2021-07 00:00: 00 12-10 00:00 :00 No Naveed Kizzy Patricio FLUTICASONE PROPIONATE 50 MCG/ACT SUSP 2021-07 00:00: 00 Yes Naveed Patricio Dose Unknown 2021-07 00:00: 00 Yes Naveed Patricio TAKE 1 TABLET BY MOUTH EVERY 6 HOURS NEEDED FOR PAIN UP TO 5 DAYS, MAX OF 8 TABS PER DAY 2021-07 00:00: 00 Yes Naveed Patricio TAKE 1 TABLET BY MOUTH EVERY DAY 2021-07 00:00: 00 Yes Navede Patricio Dose Unknown 2021-07 00:00: 00 Yes Naveed Patricio TAKE 1 CAPSULE BY MOUTH THREE TIMES A DAY NEEDED 2021-07 00:00: 00 Yes Naveed Patricio TAKE 1 TABLET BY MOUTH EVERY DAY 2021-07 00:00: 00 Yes Naveed Patricio FLUTICASONE PROPIONATE 50 MCG/ACT SUSP 2021-07 00:00: 00 Yes Naveed Patricio CLONIDINE HYDROCHLORI DE 0.3 MG TABS 2021-07 00:00: 00 No 3 Dose Unknown 2021-07 00:00: 00 12-10 00:00 :00 No Naveed F Sheng Dose Unknown 2021-07 00:00: 00 Yes Naveed Kizzy Patricio TAKE BY MOUTH DIRECTED BY PACKAGE INSTRUCTION S. 2022-1 1-14 00:00: 00 No SPRAY 1 SQUIRT IN THE NOSTRILS TWICE A DAY USE FOR 5 DAYS ONLY 0 03-27 00:00: 00 Yes Naveed Patricio TAKE 1 TABLET BY MOUTH EVERYDAY AT BEDTIME 0 8- 00:00: 00 Yes 3 Naveed Patricio TAKE 1 TABLET BY MOUTH EVERY DAY NEEDED FOR PAIN 0 03-27 00:00: 00 Yes Naveed Patricio Dose Unknown 0 03-27 00:00: 00 No TAKE 1 TABLET BY MOUTH EVERYDAY AT BEDTIME 0 03-27 00:00: 00 No 3 TAKE 1 TABLET BY MOUTH THREE TIMES A DAY 0 03-27 00:00: 00 No TAKE 1 TABLET BY MOUTH EVERY 12 HOURS FOR 15 DAYS 0 8- 00:00: 00 Yes 20 Naveed Patricio TAKE 1 TABLET BY MOUTH EVERY 12 HOURS FOR 15 DAYS 0 03-22 00:00: 00 No 20 TAKE BY MOUTH DIRECTED BY PACKAGE INSTRUCTION S. 0 8- 00:00: 00 Yes 4 Naveed Patricio TAKE BY MOUTH DIRECTED BY PACKAGE INSTRUCTION S. 0 8 00:00: 00 No 4 TAKE 1 TABLET BY MOUTH THREE TIMES A DAY NEEDED FOR PAIN 0 8 00:00: 00 Yes 750 Naveed Patricio TAKE 1 TABLET BY MOUTH THREE TIMES A DAY NEEDED FOR PAIN 0 8 00:00: 00 No 750 SPRAY 1 SQUIRT IN THE NOSTRILS TWICE A DAY USE FOR 5 DAYS ONLY 0 02-24 00:00: 00 Yes Naveed Patricio SPRAY 1 SQUIRT IN THE NOSTRILS TWICE A DAY USE FOR 5 DAYS ONLY 0 02-24 00:00: 00 No TAKE 1 TABLET BY MOUTH NIGHTLY 0 02-16 00:00: 00 Yes 3 Naveed Patricio Dose Unknown 0 02-16 00:00: 00 Yes Naveed Patricio TAKE 1 TABLET BY MOUTH EVERY 6 HOURS NEEDED FOR PAIN UP TO 5 DAYS, MAX OF 8 TABS PER DAY 0 02-16 00:00: 00 Yes Naveed Patricio TAKE 1 TABLET BY MOUTH NIGHTLY 0 02-16 00:00: 00 No 3 Dose Unknown 02-16 00:00: 00 No TAKE 1 TABLET BY MOUTH EVERY 6 HOURS NEEDED FOR PAIN UP TO 5 DAYS, MAX OF 8 TABS PER DAY 02-16 00:00: 00 No &lt 0 - 00:00: 00 Yes 10 Naveed Patricio TAKE 1 TABLET BY MOUTH EVERY 8 HOURS NEEDED 0 02-08 00:00: 00 Yes 1 Naveed Patricio &lt 0 02-08 00:00: 00 No 10 TAKE 1 TABLET BY MOUTH EVERY 8 HOURS NEEDED 02-08 00:00: 00 No 1 TAKE ONE (1) TABLET(S) BY MOUTH EVERY EIGHT HOURS NEEDED. 02-07 00:00: 00 Yes 10 Naveed Patricio &lt 0 02-07 00:00: 00 Yes 800 Naveed Patricio &lt 0 02-07 00:00: 00 Yes 3 Naveed Patricio TAKE 1 TABLET BY MOUTH EVERY DAY FOR 8-10 DAYS 02-07 00:00: 00 Yes 500 Naveed Patricio TAKE BY MOUTH DIRECTED BY PACKAGE INSTRUCTION S. 02-07 00:00: 00 Yes 4 Naveed Patricio &lt 0 02-07 00:00: 00 Yes 200 Naveed Patricio &lt 02-07 00:00: 00 Yes 10 Naveed Patricio Dose Unknown 02-07 00:00: 00 Yes Naveed Patricoi TAKE 1 TABLET BY MOUTH EVERY DAY 02-07 00:00: 00 Yes 10 Naveed Patricio TAKE ONE (1) TABLET(S) BY MOUTH TWICE A DAY. 02-07 00:00: 00 Yes 75 Naveed Patricio &lt 0 02-07 00:00: 00 Yes 300 Naveed Patricio TAKE ONE (1) TABLET(S) BY MOUTH EVERY EIGHT HOURS NEEDED. 02-07 00:00: 00 No 10 &lt 0 - 00:00: 00 No 800 &lt 0 - 00:00: 00 No 3 TAKE 1 TABLET BY MOUTH EVERY DAY FOR 8-10 DAYS 02-07 00:00: 00 No 500 TAKE BY MOUTH DIRECTED BY PACKAGE INSTRUCTION S. 02-07 00:00: 00 No 4 &lt 0 - 00:00: 00 No 200 &lt 02-07 00:00: 00 No 10 Dose Unknown 02-07 00:00: 00 No TAKE 1 TABLET BY MOUTH EVERY DAY 02-07 00:00: 00 No 10 TAKE ONE (1) TABLET(S) BY MOUTH TWICE A DAY. 02-07 00:00: 00 No 75 &lt 02-07 00:00: 00 No 300 TAKE ONE (1) TABLET(S) BY MOUTH EVERY EIGHT HOURS NEEDED. 02-07 00:00: 00 No 10 &lt 02-07 00:00: 00 No 800 &lt 02-07 00:00: 00 No 3 TAKE 1 TABLET BY MOUTH EVERY DAY FOR 8-10 DAYS 02-07 00:00: 00 No 500 TAKE BY MOUTH DIRECTED BY PACKAGE INSTRUCTION S. 02-07 00:00: 00 No 4 &lt 0 02-07 00:00: 00 No 200 &lt 02-07 00:00: 00 No 10 Dose Unknown 02-07 00:00: 00 No TAKE 1 TABLET BY MOUTH EVERY DAY 02-07 00:00: 00 No 10 TAKE ONE (1) TABLET(S) BY MOUTH TWICE A DAY. 02-07 00:00: 00 No 75 &lt 02-07 00:00: 00 No 300 TAKE 6 TABLETS ON DAY 1 DIRECTED ON PACKAGE AND DECREASE BY 1 TAB EACH DAY FOR A TOTAL OF 6 DAYS 12-29 00:00: 00 Yes Naveed Patricio TAKE 1 TABLET BY MOUTH TWICE A DAY FOR 15 DAYS 12-29 00:00: 00 Yes Naveed Durand Sheng TAKE 1 TABLET BY MOUTH EVERY DAY 12-29 00:00: 00 Yes Naveed Durand Sheng TAKE 1 TABLET BY MOUTH EVERY DAY FOR 8-10 DAYS 12-29 00:00: 00 Yes Naveed Patricio TAKE 6 TABLETS ON DAY 1 DIRECTED ON PACKAGE AND DECREASE BY 1 TAB EACH DAY FOR A TOTAL OF 6 DAYS 12-29 00:00: 00 No TAKE 1 TABLET BY MOUTH TWICE A DAY FOR 15 DAYS 12-29 00:00: 00 No TAKE 1 TABLET BY MOUTH EVERY DAY 12-29 00:00: 00 No TAKE 6 TABLETS ON DAY 1 DIRECTED ON PACKAGE AND DECREASE BY 1 TAB EACH DAY FOR A TOTAL OF 6 DAYS 12-29 00:00: 00 No TAKE 1 TABLET BY MOUTH TWICE A DAY FOR 15 DAYS 12-29 00:00: 00 No TAKE 1 TABLET BY MOUTH EVERY DAY 12-29 00:00: 00 No TRAMADOL HYDROCHLORI DE/ACETAMIN OPHE N 37.5-325 MG TABS 12-21 00:00: 00 Yes Naveed Patricio Trileptal 300 mg tablet 12-20 00:00: 00 Yes 1mg Naveed Patricio clonidine HCl 0.3 mg tablet 12-20 00:00: 00 Yes 1mg Naveed Patricio Seroquel 300 mg tablet 12-20 00:00: 00 Yes 1mg Naveed Patricio Dose Unknown 12-20 00:00: 00 Yes 300 Naveed Patricio Trileptal 300 mg tablet 12-20 00:00: 00 No 1mg clonidine HCl 0.3 mg tablet 12-20 00:00: 00 No 1mg Seroquel 300 mg tablet 12-20 00:00: 00 No 1mg Trileptal 300 mg tablet 12-20 00:00: 00 No 1mg clonidine HCl 0.3 mg tablet 12-20 00:00: 00 No 1mg Seroquel 300 mg tablet 24 00:00: 00 No 1mg loratadine 10 mg tablet 12-13 00:00: 00 Yes 1mg Naveed Patricio loratadine 10 mg tablet 12-13 00:00: 00 No 1mg loratadine 10 mg tablet 12-13 00:00: 00 No 1mg Trileptal 300 mg tablet 12-06 00:00: 00 Yes 1mg Naveed Patricio clonidine HCl 0.3 mg tablet 2021-0 5-10 00:00: 00 Yes 1mg Naveed Patricio Trileptal 300 mg tablet 2021-0 5-10 00:00: 00 No 1mg clonidine HCl 0.3 mg tablet 2021-0 5-10 00:00: 00 No 1mg Trileptal 300 mg tablet 2021-0 5-10 00:00: 00 No 1mg clonidine HCl 0.3 mg tablet 2021-0 5-10 00:00: 00 No 1mg Trileptal 300 mg tablet 0 4-27 00:00: 00 Yes 1mg Naveed Patricio clonidine HCl 0.3 mg tablet 0 4-27 00:00: 00 Yes 1mg Naveed Patricio Trileptal 300 mg tablet 0 - 00:00: 00 No 1mg clonidine HCl 0.3 mg tablet 0 4- 00:00: 00 No 1mg Trileptal 300 mg tablet 2021-0 4- 00:00: 00 No 1mg clonidine HCl 0.3 mg tablet 0 -27 00:00: 00 No 1mg methocarbam ol 750 mg tablet 2021-0 4-18 00:00: 00 Yes 1mg Naveed Patricio ibuprofen 800 mg tablet 2021-0 4-18 00:00: 00 Yes 1mg Naveed Patricio Dose Unknown 0 4-18 00:00: 00 Yes 800 Naveed Patricio methocarbam ol 750 mg tablet 2021-0 4-18 00:00: 00 No 1mg ibuprofen 800 mg tablet 2021-0 4-18 00:00: 00 No 1mg methocarbam ol 750 mg tablet 2021-0 4-18 00:00: 00 No 1mg ibuprofen 800 mg tablet 2021-0 4-18 00:00: 00 No 1mg loratadine 10 mg tablet 2021-0 4-12 00:00: 00 Yes 1mg Naveed Patricio loratadine 10 mg tablet 2021-0 4-12 00:00: 00 No 1mg loratadine 10 mg tablet 2021-0 4-12 00:00: 00 No 1mg ibuprofen 800 mg tablet 2021-0 3-09 00:00: 00 Yes 1mg Naveed Patricio methocarbam ol 750 mg tablet 0 3 00:00: 00 Yes 1mg Naveed Patricio Dose Unknown 0 3- 00:00: 00 Yes Naveed Patricio Dose Unknown 0 3- 00:00: 00 No Dose Unknown 0 3- 00:00: 00 No ibuprofen 800 mg tablet 0 3 00:00: 00 No 1mg methocarbam ol 750 mg tablet 0 3 00:00: 00 No 1mg Dose Unknown 0 3 00:00: 00 No Dose Unknown 0 3 00:00: 00 No Dose Unknown 0 3 00:00: 00 No Dose Unknown 0 3 00:00: 00 No Dose Unknown 0 10-05 00:00: 00 No ibuprofen 800 mg tablet 0 3 00:00: 00 No 1mg methocarbam ol 750 mg tablet 0 10-05 00:00: 00 No 1mg Dose Unknown 0 3 00:00: 00 No Dose Unknown 0 10-05 00:00: 00 No Dose Unknown 0 10-05 00:00: 00 No TAKE 1 TABLET BY MOUTH EVERY 6 HOURS NEEDED FOR PAIN UP TO 5 DAYS, MAX OF 8 TABS PER DAY 10-03 00:00: 00 Yes Naveed Patricio Trileptal 300 mg tablet 09-28 00:00: 00 Yes 1mg Naveed Patricio clonidine HCl 0.3 mg tablet 09-28 00:00: 00 Yes 1mg Naveed Patricio Seroquel 200 mg tablet 09-28 00:00: 00 Yes 1mg Naveed Patricio QUETIAPINE FUMARATE 200 MG TABS 3- 00:00: 00 Yes Naveed Patricio Dose Unknown 09-28 00:00: 00 Yes 200 Naveed Patricio Trileptal 300 mg tablet 3 00:00: 00 No 1mg clonidine HCl 0.3 mg tablet 0 3- 00:00: 00 No 1mg Seroquel 200 mg tablet 0 3 00:00: 00 No 1mg Trileptal 300 mg tablet 2022-0 3-02 00:00: 00 No 1mg clonidine HCl 0.3 mg tablet 2022-0 3-02 00:00: 00 No 1mg Seroquel 200 mg tablet 2022-0 3-02 00:00: 00 No 1mg Dose Unknown 2022-0 2-07 00:00: 00 Yes Naveed Patricio Dose Unknown 2022-0 2-07 00:00: 00 Yes Naveed Patricio Dose Unknown 2022-0 2-07 00:00: 00 No Dose Unknown 2022-0 2-07 00:00: 00 No Dose Unknown 2022-0 2-07 00:00: 00 No Dose Unknown 2022-0 2-07 00:00: 00 No Dose Unknown 2022-0 2-07 00:00: 00 No Dose Unknown 2022-0 2-07 00:00: 00 No Dose Unknown 2022-0 1-24 00:00: 00 Yes Naveed Patricio Dose Unknown 2022-0 1-24 00:00: 00 Yes Naveed Patricio Dose Unknown 2022-0 1-24 00:00: 00 No Dose Unknown 2022-0 1-24 00:00: 00 No Dose Unknown 2022-0 1-24 00:00: 00 No Dose Unknown 2022-0 1-24 00:00: 00 No Dose Unknown 2022-0 1-24 00:00: 00 No Dose Unknown 2022-0 1-24 00:00: 00 No Dose Unknown 2022-0 1-05 00:00: 00 Yes Naveed Patricio Dose Unknown 2022-0 1-05 00:00: 00 Yes Naveed Patricio Dose Unknown 2022-0 1-05 00:00: 00 Yes Naveed Patricio Dose Unknown 2022-0 1-05 00:00: 00 No Dose Unknown 2022-0 1-05 00:00: 00 No Dose Unknown 2022-0 1-05 00:00: 00 No Dose Unknown 2022-0 1-05 00:00: 00 No Dose Unknown 2022-0 1-05 00:00: 00 No Dose Unknown 2022-0 1-05 00:00: 00 No Dose Unknown 2021-1 2-22 00:00: 00 Yes Naveed Patricio Dose Unknown 2021-1 2-22 00:00: 00 No Dose Unknown 2020-07 2 00:00: 00 No Dose Unknown 2020-07 2 00:00: 00 Yes Naveedmerrill Patricio Dose Unknown 2020-07 2 00:00: 00 Yes Naveed Kizzy Patricio Dose Unknown 2020-07 2 00:00: 00 No Dose Unknown 2020-07 2 00:00: 00 No Dose Unknown 2020-07 2 00:00: 00 No Dose Unknown 2020-07 2 00:00: 00 No methocarbam ol 750 mg tablet 2020-07 00:00: 00 Yes 1mg Naveed Patricio Dose Unknown 2020-07 00:00: 00 Yes Naveed Kizzy Patricio Dose Unknown 2020-07 00:00: 00 Yes Naveed Patricio methocarbam ol 750 mg tablet 2020-07 00:00: 00 No 1mg Dose Unknown 2020-07 00:00: 00 No Dose Unknown 2020-07 00:00: 00 No methocarbam ol 750 mg tablet 2020-07 00:00: 00 No 1mg Dose Unknown 2020-07 00:00: 00 No Dose Unknown 2020-07 00:00: 00 No amlodipine 5 mg tablet 2020-07 00:00: 00 Yes 1mg Naveed Patricio Dose Unknown 2020-07 00:00: 00 Yes Naveed Kizzy Patricio Dose Unknown 2020-07 00:00: 00 Yes Naveed Patricio Dose Unknown 2020-07 00:00: 00 Yes Naveed Patricio amlodipine 5 mg tablet 2020-07 00:00: 00 No 1mg Dose Unknown 2020-07 00:00: 00 No Dose Unknown 2020-07 00:00: 00 No Dose Unknown 2020-07 00:00: 00 No amlodipine 5 mg tablet 2020-07 00:00: 00 No 1mg Dose Unknown 2020-07 00:00: 00 No Dose Unknown 2020-07 00:00: 00 No Dose Unknown 2020-07 00:00: 00 No methocarbam ol 750 mg tablet 2020-07 0-19 00:00: 00 Yes 1mg Naveed Patricio methocarbam ol 750 mg tablet 2020-07 0-19 00:00: 00 No 1mg methocarbam ol 750 mg tablet 2020-07 0-19 00:00: 00 No 1mg Dose Unknown 2020-07 0-13 00:00: 00 Yes Naveed Patricio Dose Unknown 2020-07 0- 00:00: 00 No Dose Unknown 2020-07 0 00:00: 00 No Lamictal 150 mg tablet 2020-07 0-08 00:00: 00 Yes 1mg Naveed Patricio hydroxyzine HCl 10 mg tablet 2020-07 0-08 00:00: 00 Yes 1mg Naveed Patricio clonidine HCl 0.3 mg tablet 2020-07 0-08 00:00: 00 Yes 1mg Naveed Patricio Lamictal 150 mg tablet 2020-07 0-08 00:00: 00 No 1mg hydroxyzine HCl 10 mg tablet 2020-07 0-08 00:00: 00 No 1mg clonidine HCl 0.3 mg tablet 2020-07 0-08 00:00: 00 No 1mg Lamictal 150 mg tablet 2020-07 0-08 00:00: 00 No 1mg hydroxyzine HCl 10 mg tablet 2020-07 0-08 00:00: 00 No 1mg clonidine HCl 0.3 mg tablet 2020-07 0-08 00:00: 00 No 1mg Dose Unknown 04-22 00:00: 00 Yes Naveed Patricio Dose Unknown 04-22 00:00: 00 Yes Naveed Patricio Dose Unknown 04-22 00:00: 00 No Dose Unknown 04-22 00:00: 00 No Dose Unknown 0 04-22 00:00: 00 No Dose Unknown 0 04-22 00:00: 00 No Dose Unknown 04-18 00:00: 00 Yes Naveed Patricio Dose Unknown 04-18 00:00: 00 Yes Naveed Patricio Dose Unknown 04-18 00:00: 00 Yes Naveed Patricio Dose Unknown 04-18 00:00: 00 No Dose Unknown 2021-0 9-20 00:00: 00 No Dose Unknown 0 9-20 00:00: 00 No Dose Unknown 0 9-20 00:00: 00 No Dose Unknown 0 9- 00:00: 00 No Dose Unknown 0 9- 00:00: 00 No lisinopril 10 mg tablet 0 8- 00:00: 00 Yes 1mg Naveed Patricio lisinopril 10 mg tablet 0 8- 00:00: 00 No 1mg lisinopril 10 mg tablet 0 8 00:00: 00 No 1mg Lamictal 150 mg tablet 0 8-17 00:00: 00 Yes 1mg Naveed Patricio clonidine HCl 0.3 mg tablet 0 8- 00:00: 00 Yes 1mg Naveed Patricio Lamictal 150 mg tablet 0 8-17 00:00: 00 No 1mg clonidine HCl 0.3 mg tablet 0 8- 00:00: 00 No 1mg Lamictal 150 mg tablet 0 8-17 00:00: 00 No 1mg clonidine HCl 0.3 mg tablet 0 8-17 00:00: 00 No 1mg Lamictal 150 mg tablet 0 6- 00:00: 00 Yes 1mg Naveed Patricio clonidine HCl 0.3 mg tablet 0 6- 00:00: 00 Yes 1mg Naveed Patricio Lamictal 150 mg tablet 0 6- 00:00: 00 No 1mg clonidine HCl 0.3 mg tablet 0 6- 00:00: 00 No 1mg Lamictal 150 mg tablet 0 6- 00:00: 00 No 1mg clonidine HCl 0.3 mg tablet 0 6-22 00:00: 00 No 1mg clonidine HCl 0.3 mg tablet 0 5-12 00:00: 00 Yes 1mg Naveed Patricio clonidine HCl 0.3 mg tablet 0 5-12 00:00: 00 No 1mg clonidine HCl 0.3 mg tablet 0 5-12 00:00: 00 No 1mg Lamictal 150 mg tablet 0 4-29 00:00: 00 Yes 1mg Naveed Patricio doxepin 10 mg capsule 0 11-25 00:00: 00 Yes 1mg Naveed Patricio Lamictal 150 mg tablet 0 11-25 00:00: 00 No 1mg doxepin 10 mg capsule 0 11-25 00:00: 00 No 1mg Lamictal 150 mg tablet 0 11-25 00:00: 00 No 1mg doxepin 10 mg capsule 0 11-25 00:00: 00 No 1mg Lamictal 150 mg tablet 10-28 00:00: 00 Yes 1mg Naveed Patricio clonidine HCl 0.2 mg tablet 10-28 00:00: 00 Yes 1mg Naveed Patricio Lamictal 150 mg tablet 10-28 00:00: 00 No 1mg clonidine HCl 0.2 mg tablet 0 10-28 00:00: 00 No 1mg Lamictal 150 mg tablet 0 10-28 00:00: 00 No 1mg clonidine HCl 0.2 mg tablet 0 4- 00:00: 00 No 1mg Lamictal 150 mg tablet 0 3- 00:00: 00 Yes 1mg Naveed Patricio lisinopril 10 mg tablet 0 3-10 00:00: 00 Yes 1mg Naveed Patricio clonidine HCl 0.2 mg tablet 0 3-10 00:00: 00 Yes 1mg Naveed Patricio Lamictal 150 mg tablet 0 3-10 00:00: 00 No 1mg lisinopril 10 mg tablet 0 3-10 00:00: 00 No 1mg clonidine HCl 0.2 mg tablet 0 3-10 00:00: 00 No 1mg Lamictal 150 mg tablet 0 3-10 00:00: 00 No 1mg lisinopril 10 mg tablet 0 3-10 00:00: 00 No 1mg clonidine HCl 0.2 mg tablet 0 3-10 00:00: 00 No 1mg Lamictal 25 mg tablet 2019-07- 00:00: 00 Yes 1mg Naveed Patricio Lamictal 100 mg tablet 2019-07 00:00: 00 Yes 5mg Naveed F Sheng clonidine HCl 0.1 mg tablet 2019-07 00:00: 00 Yes 51mg Naveed Patricio Lamictal 25 mg tablet 2019-07 00:00: 00 No 1mg Lamictal 100 mg tablet 2019-07 00:00: 00 No 5mg clonidine HCl 0.1 mg tablet 2019-07 00:00: 00 No 51mg Lamictal 25 mg tablet 2019-07 00:00: 00 No 1mg Lamictal 100 mg tablet 2019-07 00:00: 00 No 5mg clonidine HCl 0.1 mg tablet 2019-07 00:00: 00 No 51mg Lamictal 25 mg tablet 814 00:00: 00 Yes 1mg Naveed Patricio Seroquel 50 mg tablet 03-12 00:00: 00 Yes 12mg Naveed Patricio Lyrica 150 mg capsule 0 8- 00:00: 00 Yes 1mg Naveed Patricio Lamictal 25 mg tablet 03-12 00:00: 00 No 1mg Seroquel 50 mg tablet 814 00:00: 00 No 12mg Lyrica 150 mg capsule 814 00:00: 00 No 1mg Lamictal 25 mg tablet 14 00:00: 00 No 1mg Seroquel 50 mg tablet 814 00:00: 00 No 12mg Lyrica 150 mg capsule 814 00:00: 00 No 1mg Dose Unknown 0 02-26 00:00: 00 Yes Naveed Patricio Dose Unknown 0 02-26 00:00: 00 Yes Naveed Patricio Dose Unknown 0 02-26 00:00: 00 No Dose Unknown 0 02-26 00:00: 00 No Dose Unknown 02-26 00:00: 00 No Dose Unknown 0 02-26 00:00: 00 No lisinopril 10 mg tablet 0 01-25 00:00: 00 Yes 1mg Naveed Patricio ibuprofen 600 mg tablet 0 6 00:00: 00 Yes 1mg Naveed Patricio lisinopril 10 mg tablet 01-25 00:00: 00 No 1mg ibuprofen 600 mg tablet 01-25 00:00: 00 No 1mg lisinopril 10 mg tablet 01-25 00:00: 00 No 1mg ibuprofen 600 mg tablet 01-25 00:00: 00 No 1mg lisinopril 10 mg tablet 01-22 00:00: 00 Yes 1mg Naveed Patricio ibuprofen 600 mg tablet 01-22 00:00: 00 Yes 1mg Naveed Patricio lisinopril 10 mg tablet 01-22 00:00: 00 No 1mg ibuprofen 600 mg tablet 01-22 00:00: 00 No 1mg lisinopril 10 mg tablet 01-22 00:00: 00 No 1mg ibuprofen 600 mg tablet 01-22 00:00: 00 No 1mg buspirone 15 mg tablet 01-19 00:00: 00 Yes 1mg Naveed Patricio Latuda 20 mg tablet 01-19 00:00: 00 Yes 1mg Naveed Patricio buspirone 15 mg tablet 01-19 00:00: 00 No 1mg Latuda 20 mg tablet 01-19 00:00: 00 No 1mg buspirone 15 mg tablet 01-19 00:00: 00 No 1mg Latuda 20 mg tablet 01-19 00:00: 00 No 1mg lisinopril 10 mg tablet 12-22 00:00: 00 Yes 1mg Naveed Patricio ciprofloxac in 500 mg tablet 12-22 00:00: 00 Yes 1mg Naveed Patricio ondansetron 4 mg disintegrat ing tablet 12-22 00:00: 00 Yes 12mg Naveed Patricio Dose Unknown 12-22 00:00: 00 Yes Naveed Patricio Bromfed DM 2 mg-30 mg-10 mg/5 mL oral syrup 12-22 00:00: 00 Yes 5mg/5 mL Naveed Patricio lisinopril 10 mg tablet 12-22 00:00: 00 No 1mg ciprofloxac in 500 mg tablet 12-22 00:00: 00 No 1mg ondansetron 4 mg disintegrat ing tablet 12-22 00:00: 00 No 12mg Dose Unknown 12-22 00:00: 00 No Bromfed DM 2 mg-30 mg-10 mg/5 mL oral syrup 12-22 00:00: 00 No 5mg/5 mL lisinopril 10 mg tablet 12-22 00:00: 00 No 1mg ciprofloxac in 500 mg tablet 12-22 00:00: 00 No 1mg ondansetron 4 mg disintegrat ing tablet 12-22 00:00: 00 No 12mg Dose Unknown 12-22 00:00: 00 No Bromfed DM 2 mg-30 mg-10 mg/5 mL oral syrup 12-22 00:00: 00 No 5mg/5 mL hydroxyzine HCl 50 mg tablet 11-24 00:00: 00 Yes 51mg Naveed Patricio Latuda 20 mg tablet 11-24 00:00: 00 Yes 1mg Naveed Patricio hydroxyzine HCl 50 mg tablet 11-24 00:00: 00 No 51mg Latuda 20 mg tablet 11-24 00:00: 00 No 1mg hydroxyzine HCl 50 mg tablet 11-24 00:00: 00 No 51mg Latuda 20 mg tablet 11-24 00:00: 00 No 1mg loratadine 10 mg tablet 11-23 00:00: 00 Yes 1mg Naveed Kizzy Patricio ibuprofen 600 mg tablet 11-23 00:00: 00 Yes 1mg Naveed Patricio Flonase Allergy Relief 50 mcg/actuati on nasal spray,suspe nsion 11-23 00:00: 00 Yes 1mcg/ac tuation Naveed Kizzy Patricio Flonase Allergy Relief 50 mcg/actuati on nasal spray,suspe nsion 11-23 00:00: 00 No 1mcg/ac tuation loratadine 10 mg tablet 11-23 00:00: 00 No 1mg ibuprofen 600 mg tablet 11-23 00:00: 00 No 1mg Flonase Allergy Relief 50 mcg/actuati on nasal spray,suspe nsion 11-23 00:00: 00 No 1mcg/ac tuation loratadine 10 mg tablet 11-23 00:00: 00 No 1mg ibuprofen 600 mg tablet 11-23 00:00: 00 No 1mg lisinopril 10 mg tablet 11-21 00:00: 00 Yes 1mg Naveed Patricio amoxicillin 875 mg-potassiu m clavulanate 125 mg tablet 11-21 00:00: 00 Yes 1mg Naveed Patricio lisinopril 10 mg tablet 11-21 00:00: 00 No 1mg amoxicillin 875 mg-potassiu m clavulanate 125 mg tablet 11-21 00:00: 00 No 1mg lisinopril 10 mg tablet 11-21 00:00: 00 No 1mg amoxicillin 875 mg-potassiu m clavulanate 125 mg tablet 11-21 00:00: 00 No 1mg alprazolam 0.25 mg tablet alprazolam 0.25 mg tablet No alprazolam 0.25 mg tablet [facility] alprazolam 0.5 mg tablet alprazolam 0.5 mg tablet No alprazolam 0.5 mg tablet [facility] amox/k clav tab 875-125 amox/k clav tab 875-125 No amox/k clav tab 875-125 [facility] amoxicillin 500 mg capsule amoxicillin 500 mg capsule No amoxicilli n 500 mg capsule [facility] brom/pse/dm syp brom/pse/dm syp No brom/pse/d m syp [facility] buspirone 15 mg tablet buspirone 15 mg tablet No buspirone 15 mg tablet [facility] buspirone hcl 15 mg tabs buspirone hcl 15 mg tabs No buspirone hcl 15 mg tabs [facility] ciprofloxac in hydrochlori de 500 mg tabs ciprofloxac in hydrochlori de 500 mg tabs No ciprofloxa nick hydrochlor bryce 500 mg tabs [facility] escitalopra m oxalate 10 mg tabs escitalopra m oxalate 10 mg tabs No escitalopr am oxalate 10 mg tabs [facility] fluticasone propionate 50 mcg/act susp fluticasone propionate 50 mcg/act susp No fluticason e propionate 50 mcg/act susp [facility] fluticasone propionate 50 mcg/actuati on nasal spray,suspe nsion fluticasone propionate 50 mcg/actuati on nasal spray,suspe nsion No fluticason e propionate 50 mcg/actuat ion nasal spray,susp ension [facility] hydrocodone 10 mg-acetamin ophen 325 mg tablet hydrocodone 10 mg-acetamin ophen 325 mg tablet No hydrocodon e 10 mg-acetami nophen 325 mg tablet [facility] hydrocodone 5 mg-acetamin ophen 325 mg tablet hydrocodone 5 mg-acetamin ophen 325 mg tablet No hydrocodon e 5 mg-acetami nophen 325 mg tablet [facility] hydroxyzine hcl 50 mg tabs hydroxyzine hcl 50 mg tabs No hydroxyzin e hcl 50 mg tabs [facility] hydroxyzine HCl 25 mg tablet Take 1 tablet 3 times a day by oral route as needed. hydroxyzine HCl 25 mg tablet Take 1 tablet 3 times a day by oral route as needed. No 1 TID hydroxyzin e HCl 25 mg tablet Take 1 tablet 3 times a day by oral route as needed. [facility] hydroxyzine HCl 50 mg tablet hydroxyzine HCl 50 mg tablet No hydroxyzin e HCl 50 mg tablet [facility] hydroxyzine hydrochlori de 25 mg tabs hydroxyzine hydrochlori de 25 mg tabs No hydroxyzin e hydrochlor bryce 25 mg tabs [facility] ibuprofen 600 mg tabs ibuprofen 600 mg tabs No ibuprofen 600 mg tabs [facility] ibuprofen 600 mg tablet ibuprofen 600 mg tablet No ibuprofen 600 mg tablet [facility] indomethaci n 50 mg caps indomethaci n 50 mg caps No indomethac in 50 mg caps [facility] lamotrigine 25 mg tablet lamotrigine 25 mg tablet No lamotrigin e 25 mg tablet [facility] latuda 20 mg tabs latuda 20 mg tabs No latuda 20 mg tabs [facility] latuda 60 mg tabs latuda 60 mg tabs No latuda 60 mg tabs [facility] Latuda 40 mg tablet Latuda 40 mg tablet No Latuda 40 mg tablet [facility] Latuda 60 mg tablet Take 1 tablet every day by oral route at bedtime. Latuda 60 mg tablet Take 1 tablet every day by oral route at bedtime. No 1 Q1D Latuda 60 mg tablet Take 1 tablet every day by oral route at bedtime. [facility] Lexapro 10 mg tablet Take 1 tablet every day by oral route in the morning. Lexapro 10 mg tablet Take 1 tablet every day by oral route in the morning. No 1 Q1D Lexapro 10 mg tablet Take 1 tablet every day by oral route in the morning. [facility] lisinopril 10 mg tabs lisinopril 10 mg tabs No lisinopril 10 mg tabs [facility] lisinopril 10 mg tablet lisinopril 10 mg tablet No lisinopril 10 mg tablet [facility] loratadine 10 mg tabs loratadine 10 mg tabs No loratadine 10 mg tabs [facility] Lyrica 100 mg capsule Lyrica 100 mg capsule No Lyrica 100 mg capsule [facility] Lyrica 50 mg capsule Lyrica 50 mg capsule No Lyrica 50 mg capsule [facility] ondansetron odt 4 mg tbdp ondansetron odt 4 mg tbdp No ondansetro n odt 4 mg tbdp [facility] prazosin 2 mg capsule Take 1 capsule every day by oral route at bedtime. prazosin 2 mg capsule Take 1 capsule every day by oral route at bedtime. No 1capsul e(s) Q1D prazosin 2 mg capsule Take 1 capsule every day by oral route at bedtime. [facility] prazosin hydrochlori de 2 mg caps prazosin hydrochlori de 2 mg caps No prazosin hydrochlor bryce 2 mg caps [facility] pregabalin 150 mg capsule pregabalin 150 mg capsule No pregabalin 150 mg capsule [facility] tizanidine 4 mg tablet tizanidine 4 mg tablet No [facility]izanidine 4 mg tablet [facility] tizanidine hydrochlori de 4 mg tabs tizanidine hydrochlori de 4 mg tabs No tizanidine hydrochlor bryce 4 mg tabs [facility] tramadol 50 mg tablet tramadol 50 mg tablet No tramadol 50 mg tablet [facility] Vanacof DM 10 mg-18 mg-200 mg/15 mL oral liquid Vanacof DM 10 mg-18 mg-200 mg/15 mL oral liquid No Vanacof DM 10 mg-18 mg-200 mg/15 mL oral liquid [facility] Immunizations Ordered Immunization Name Filled Immunization Name Date Status Comments Source MMR MMR 2023-08-06 00:00:00 Bob Patricio Influenza, injectable, Madin Montgomery Canine Kidney, preservative-free, quadrivalent Influenza, injectable, Madin Montgomery Canine Kidney, preservative-free, quadrivalent 2023-06-14 00:00:00 Bob Patricio Spikevax 12+ ( formula) Spikevax 12+ ( formula) 2023-06-14 00:00:00 Bob Patricio Tdap Tdap 2023-06-14 00:00:00 Bob Patricio Vital Signs Vital Name Observation Time Observation Value Comments S ourgloria BP Systolic 2024-04-24 08:53:00 188 mm[Hg] Step hen F Sheng BP Diastolic 2024-04-24 08:53:00 117 mm[Hg] Jayden phen F Sheng Weight Measured 2024-04-24 08:53:00 215.00 pounds Naveed F Sheng Height Measured 2024-04-24 08:53:00 65.00 inches Naveed F Sheng Body Temperature 2024-04-24 08:53:00 98.20 degrees Naveed F Sheng Heart Rate 2024-04-24 08:53:00 106.00 /min Step hen F Sheng Respiratory Rate 2024-04-24 08:53:00 16.00 /min Naveed F Sheng BP Systolic 2023-12-05 11:37:00 122 mm[Hg] Step hen F Sheng BP Diastolic 2023-12-05 11:37:00 79 mm[Hg] Jayden phen F Sheng Weight Measured 2023-12-05 11:37:00 222.20 pounds Naveed F Sheng Height Measured 2023-12-05 11:37:00 65.00 inches Naveed F Sheng Body Temperature 2023-12-05 11:37:00 97.40 degrees Naveed F Sheng Heart Rate 2023-12-05 11:37:00 706.00 /min Step hen F Sheng Respiratory Rate 2023-12-05 11:37:00 18.00 /min Naveed F Sheng BP Systolic 2023-09-11 11:12:00 158 mm[Hg] Step hen F Sheng BP Diastolic 2023-09-11 11:12:00 100 mm[Hg] Jayden phen F Sheng Weight Measured 2023-09-11 11:12:00 224.20 pounds Naveed F Sheng Height Measured 2023-09-11 11:12:00 65.00 inches Naveed F Sheng Body Temperature 2023-09-11 11:12:00 98.20 degrees Naveed F Sheng Heart Rate 2023-09-11 11:12:00 95.00 /min Britt en F Sheng Respiratory Rate 2023-09-11 11:12:00 18.00 /min Naveed F Sheng BP Systolic 2023-06-16 09:13:00 136 mm[Hg] Step hen F Sheng BP Diastolic 2023-06-16 09:13:00 93 mm[Hg] Jayden phen F Sheng Weight Measured 2023-06-16 09:13:00 221.80 pounds Naveed F Sheng Height Measured 2023-06-16 09:13:00 65.00 inches Naveed F Sheng Body Temperature 2023-06-16 09:13:00 98.00 degrees Naveed F Sheng Heart Rate 2023-06-16 09:13:00 104.00 /min Step hen F Sheng Respiratory Rate 2023-06-16 09:13:00 Naveed F Sheng BP Systolic 2023-06-14 15:46:00 155 mm[Hg] Step hen F Sheng BP Diastolic 2023-06-14 15:46:00 114 mm[Hg] Jayden phen F Sheng Weight Measured 2023-06-14 15:46:00 224.80 pounds Naveed F Sheng Height Measured 2023-06-14 15:46:00 65.00 inches Naveed F Sheng Body Temperature 2023-06-14 15:46:00 98.20 degrees Naveed F Sheng Heart Rate 2023-06-14 15:46:00 108.00 /min Step hen F Sheng Respiratory Rate 2023-06-14 15:46:00 Naveed F Sheng BP Systolic 2023-05-31 13:33:00 Step hen F Sheng BP Diastolic 2023-05-31 13:33:00 Jayden phen F Sheng Weight Measured 2023-05-31 13:33:00 Naveed F Sheng Height Measured 2023-05-31 13:33:00 Naveed F Shegn Body Temperature 2023-05-31 13:33:00 Naveed F Sheng Heart Rate 2023-05-31 13:33:00 Britt en F Sheng Respiratory Rate 2023-05-31 13:33:00 Naveed F Sheng BP Systolic 2022-09-25 08:35:00 155 mm[Hg] Step hen F Sheng BP Diastolic 2022-09-25 08:35:00 97 mm[Hg] Jayden phen F Sheng Weight Measured 2022-09-25 08:35:00 221.20 pounds Naveed F Sheng Height Measured 2022-09-25 08:35:00 65.00 inches Naveed F Sheng Body Temperature 2022-09-25 08:35:00 98.60 degrees Naveed F Sheng Heart Rate 2022-09-25 08:35:00 104.00 /min Step hen F Sheng Respiratory Rate 2022-09-25 08:35:00 18.00 /min Naveed F Sheng BP Systolic 2021-11-14 16:28:00 116 mm[Hg] Step hen F Sheng BP Diastolic 2021-11-14 16:28:00 70 mm[Hg] Jayden phen F Sheng Weight Measured 2021-11-14 16:28:00 227.00 pounds Naveed F Hseng Height Measured 2021-11-14 16:28:00 65.00 inches Naveed F Sheng Body Temperature 2021-11-14 16:28:00 97.30 degrees Naveed F Sheng Heart Rate 2021-11-14 16:28:00 91.00 /min Britt en F Sheng Respiratory Rate 2021-11-14 16:28:00 21.00 /min Naveed F Sheng BP Systolic 2021-08-05 17:28:00 Step hen F Sheng BP Diastolic 2021-08-05 17:28:00 Jayden phen F Sheng Weight Measured 2021-08-05 17:28:00 213.00 pounds Naveed F Sheng Height Measured 2021-08-05 17:28:00 65.00 inches Naveed F Sheng Body Temperature 2021-08-05 17:28:00 Naveed F Sheng Heart Rate 2021-08-05 17:28:00 Britt en F Sheng Respiratory Rate 2021-08-05 17:28:00 Naveed F Sheng BP Systolic 2021-06-02 10:07:00 Step hen F Sheng BP Diastolic 2021-06-02 10:07:00 Jayden phen F Sheng Weight Measured 2021-06-02 10:07:00 224.00 pounds Naveed F Sheng Height Measured 2021-06-02 10:07:00 65.00 inches Naveed F Sheng Body Temperature 2021-06-02 10:07:00 Naveed F Sheng Heart Rate 2021-06-02 10:07:00 Britt en F Sheng Respiratory Rate 2021-06-02 10:07:00 Naveed F Sheng BP Systolic 2021-05-18 11:39:00 104 mm[Hg] Step hen F Sheng BP Diastolic 2021-05-18 11:39:00 70 mm[Hg] Jayden phen F Sheng Weight Measured 2021-05-18 11:39:00 224.80 pounds Naveed Patricio Height Measured 2021-05-18 11:39:00 458.27 inches Naveed F Sheng Body Temperature 2021-05-18 11:39:00 98.40 degrees Naveed F Sheng Heart Rate 2021-05-18 11:39:00 89.00 /min Britt slaughter F Sheng Respiratory Rate 2021-05-18 11:39:00 Naveed F Sheng BP Systolic 2021-05-17 09:35:00 132 mm[Hg] BP [...] /min Respiratory Rate 2019-11-24 09:07:00 16.00 /min Plan of Care Planned Activity Planned Date Details Comments Source Goal Plan of Care Note [code = 88512-1] Goal Plan of Care Note [code = 44121-7] Goal Plan of Care Note [code = 79937-0] Goal Plan of Care Note [code = 33986-0] Goal Plan of Care Note [code = 67277-0] Goal Plan of Care Note [code = 67093-7] Goal Plan of Care Note [code = 60093-1] Goal Plan of Care Note [code = 83054-0] Goal Plan of Care Note [code = 04695-6] Goal Plan of Care Note [code = 04967-3] Goal Plan of Care Note [code = 03147-3] Goal Plan of Care Note [code = 55581-2] Goal Plan of Care Note [code = 99628-8] Goal Plan of Care Note [code = 35176-2] Goal Plan of Care Note [code = 52100-0] Goal Plan of Care Note [code = 75302-3] Goal Plan of Care Note [code = 21858-0] Goal Plan of Care Note [code = 14109-2] Goal Plan of Care Note [code = 37694-3] Goal Plan of Care Note [code = 02872-3] Goal Plan of Care Note [code = 53622-9] Goal Plan of Care Note [code = 84198-9] Goal Plan of Care Note [code = 42650-4] Goal Plan of Care Note [code = 66445-9] Goal Plan of Care Note [code = 04121-4] Goal Plan of Care Note [code = 19569-2] Goal Plan of Care Note [code = 97137-7] Goal Plan of Care Note [code = 47520-2] Goal Plan of Care Note [code = 90232-0] Goal Plan of Care Note [code = 90148-7] Goal Plan of Care Note [code = 07144-2] Goal Plan of Care Note [code = 87950-7] Goal Plan of Care Note [code = 00518-1] Goal Plan of Care Note [code = 54115-8] Goal Plan of Care Note [code = 54579-6] Goal Plan of Care Note [code = 62915-9] Goal Plan of Care Note [code = 78746-6] Goal Plan of Care Note [code = 32587-5] Goal Plan of Care Note [code = 25509-7] Goal Plan of Care Note [code = 98199-3] Goal Plan of Care Note [code = 74967-3] Goal Plan of Care Note [code = 75705-8] Encounters Start Date/Time End Date/Time Encounter Type Admission Type Attending [facility] Care Department Encounter ID Source 2023-08-23 18:01:30 Outpatient ROM CUETO [id number] [facility] 2024-04-24 08:47:03 2024-04-24 08:47:03 Outpatient SFA SFA [id number] Naveed Durand Sheng 2024-04-24 00:00:00 2024-04-24 00:00:00 Outpatient Visit SFA [id number] Naveed Durand Sheng 2023-12-05 13:00:28 2023-12-05 13:00:28 Outpatient SFA SFA [id number] Naveed Durand Sheng 2023-12-05 00:00:00 2023-12-05 00:00:00 Outpatient Visit SFA [id number] Naveed Durand Sheng 2023-09-14 08:42:22 2023-09-14 08:42:22 Outpatient SFA SFA [id number] Naveed Durand Fordyce 2023-09-11 11:05:04 2023-09-11 11:05:04 Outpatient SFA SFA [id number] Naveed Durand Sheng 2023-08-06 12:04:17 2023-08-06 12:04:17 Outpatient SFA SFA [id number] Naveed Durand Sheng 2023-08-04 09:17:02 2023-08-04 09:17:02 Outpatient SFA SFA [id number] Naveed Durand Fordyce 2023-07-31 09:48:51 2023-07-31 09:48:51 Outpatient SFA SFA [id number] Naveed Durand Sheng 2023-06-16 08:54:47 2023-06-16 08:54:47 Outpatient SFA SFA [id number] Naveed Durand Sheng 2023-06-14 15:33:39 2023-06-14 15:33:39 Outpatient SFA SFA [id number] Naveed Durand Sheng 2023-06-06 09:03:12 2023-06-06 09:03:12 Outpatient SFA SFA [id number] Naveed Patricio 2023-05-31 13:32:42 2023-05-31 13:32:42 Outpatient SFA SFA [id number] Naveed Patricio 2023-05-22 08:26:55 2023-05-22 08:26:55 Outpatient SFA SFA [id number] Naveed Patricio 2023-05-08 08:12:09 2023-05-08 08:12:09 Outpatient SFA SFA [id number] Naveed Patricio 2022-10-06 12:58:16 2022-10-06 12:58:16 Outpatient SFA SFA [id number] Naveed Patricio 2022-09-25 08:25:47 2022-09-25 08:25:47 Outpatient SFA SFA [id number] Naveed Patricio 2022-06-21 08:08:21 2022-06-21 08:08:21 Outpatient SFA SFA [id number] Naveed Patricio 2022-06-19 17:03:34 2022-06-19 17:03:34 Outpatient SFA SFA [id number] Naveed Patricio 2022-06-19 00:00:00 2022-06-19 00:00:00 Outpatient Visit [id number] 2022-02-07 00:00:00 2022-02-07 00:00:00 Outpatient Visit [id number] 2422-11-02 11:40:00 2020-05-31 11:40:00 Outpatient [facility] [id number] [facility] 2020-05-17 02:20:00 2020-05-17 02:20:00 Outpatient DESAI[facility] [id number] [facility] 2020-05-17 00:00:00 2020-05-17 00:00:00 Stephen Weiner MD: [address] [place] [address] , Ph. [phone] [facility] [id number] [facility] 2020-04-23 10:21:00 2020-04-23 10:21:[address] [facility] [id number] [facility] 2020-01-05 03:51:00 2020-01-05 03:51:[address] [facility] [id number] [facility] 2020-01-05 00:00:00 2020-01-05 00:00:00 Stephen Weiner MD: [address] [place] [address] , Ph. [phone] [facility] [id number] [facility] 2019-11-25 12:49:00 2019-11-25 12:49:00 Outpatient [facility] [id number] [facility] 2019-08-26 04:57:00 2019-08-26 04:57:00 Outpatient [place] [facility] [id number] [facility] 2019-08-26 04:55:00 2019-08-26 04:55:00 Outpatient [place] [facility] [id number] [facility] Results Test Description Test Time Test Comments Results Result Co mments Source QUANTIFER[facility] TB GOLD [id number] 00:00:00* Test Item Value Reference Range Interpretation Comme nts QUANTIFERON TB GOLD PLUS (te st code = 14736) NEGATIVE TB1-NIL (test code = 88602) 0.098 IU/ML TB2-NIL (test code = 96166) 0.079 IU/ML MITOGEN-NIL (test code = 70642) 9.951 IU/ML NIL (test code = 20134) 0.0495 IU/ML Naveed PatricioQUANTIFERON TB GOLD [id number] 00:00:00* Test Item Value Reference Range Interpretation Comme nts QUANTIFERON TB GOLD PLUS (te st code = 22230) NEGATIVE TB1-NIL (test code = 48110) 0.098 IU/ML TB2-NIL (test code = 95195) 0.079 IU/ML MITOGEN-NIL (test code = 73339) 9.951 IU/ML NIL (test code = 36010) 0.0495 IU/ML Naveed PatricioCOMPREHENSIVE METABOLIC [id number] 04:35:57* Test Item Value Reference Range Interpretation Comme nts GLUCOSE (test code = 2217) 89 MG/DL 70-99 BUN (test code = 220) 8 MG/DL 6-20 CREATININE (test code = 2214) 0.76 MG/DL 0.60-1.30 eGFR (2020 CKD-EPI) (test code = 38085) 100 ML/MIN/1.73 >60 CALC BUN/CREAT (test code = 2235) 11 RATIO 6-28 SODIUM (test code = 223) 140 MEQ/L 133-146 POTASSIUM (test code = 2228) 4.2 MEQ/L 3.5-5.4 CHLORIDE (test code = 2215) 108 MEQ/L 95-107 H CARBON DIOXIDE (test code = 2206) 22 MEQ/L 19-31 CALCIUM (test code = 2209) 9.1 MG/DL 8.5-10.5 PROTEIN, TOTAL (test code = 222) 7.1 G/DL 6.1-8.3 ALBUMIN (test code = 2201) 4.4 G/DL 3.5-5.2 CALC GLOBULIN (test code = 2240) 2.7 G/DL 1.9-3.7 CALC A/G RATIO (test code = 2234) 1.6 RATIO 1.0-2.6 BILIRUBIN, TOTAL (test code = 2207) <0.2 MG/DL <=1.2 ALKALINE PHOSPHATASE (test code = 2204) 81 U/L 40-113 AST (test code = 2218) 20 U/L 9-40 ALT (test code = 2219) 20 U/L 5-40 LIPID [id number] 04:35:57* Test Item Value Reference Range Interpretation Comme nts CHOLESTEROL (test code = 2210) 231 MG/DL <200 H TRIGLYCERIDES (test code = 2232) 263 MG/DL <150 H HDL CHOLESTEROL (test code = 2220) 39 MG/DL >39 L CALC LDL CHOL (test code = 2237) 149 MG/DL <100 H NOTE: CALCULATED LDL IS BASED ON MELISA-DIAZ METHOD WHICHINCLUDES ADJUSTABLE TRIGLYCERIDE:VLDL CHOLESTEROL RATIO.THIS FACTOR VARIES BY MEASURED TRIGLYCERIDE AND NON-HDLCHOLESTEROL CONCENTRATIONS WITH INCREASED CALCULATED LDL SEENIN HIGHER TRIGLYCERIDE OR LOWER NON-HDL SPECIMENS. FOR MOREINFORMATION, SEE CLIENT ANNOUNCEMENT AT [email or web address] RISK RATIO LDL/HDL (test code = 2238) 3.82 RATIO <3.22 H UNLESS OTHERW ISE INDICATED, ALL TESTING PERFORMED AT [facility] [address] [place] [address] CONCERT SINGER: JAME BERNARDO M.D. CLIA NUMBER [id number] [facility] [place]. [id number] LIPID [id number] 00:00:00* Test Item Value Reference Range Interpretation Comme nts CHOLESTEROL (test code = 2210) 231 MG/DL TRIGLYCERIDES (test code = 2232) 263 MG/DL HDL CHOLESTEROL (test code = 2220) 39 MG/DL CALC LDL CHOL (test code = 2237) 149 MG/DL RISK RATIO LDL/HDL (test cod e = 2238) 3.82 RATIO Naveed PatricioCOMPREHENSIVE METABOLIC [id number] 00:00:00* Test Item Value Reference Range Interpretation Comme nts GLUCOSE (test code = 2217) 89 MG/DL BUN (test code = 2208) 8 MG/DL CREATININE (test code = 2214) 0.76 MG/DL eGFR (2020 CKD-EPI) (test code = 55402) 100 ML/MIN/1.73 CALC BUN/CREAT (test code = 2235) 11 RATIO SODIUM (test code = 2231) 140 MEQ/L POTASSIUM (test code = 2228) 4.2 MEQ/L CHLORIDE (test code = 2215) 108 MEQ/L CARBON DIOXIDE (test code = 2206) 22 MEQ/L CALCIUM (test code = 2209) 9.1 MG/DL PROTEIN, TOTAL (test code = 2229) 7.1 G/DL ALBUMIN (test code = 2201) 4.4 G/DL CALC GLOBULIN (test code = 2240) 2.7 G/DL CALC A/G RATIO (test code = 2234) 1.6 RATIO BILIRUBIN, TOTAL (test code = 2207) <0.2 MG/DL ALKALINE PHOSPHATASE (test code = 2204) 81 U/L AST (test code = 2218) 20 U/L ALT (test code = 2219) 20 U/L Naveed Durand FordyceLIPID [id number] 00:00:00* Test Item Value Reference Range Interpretation Comme nts CHOLESTEROL (test code = 2210) 231 MG/DL TRIGLYCERIDES (test code = 2232) 263 MG/DL HDL CHOLESTEROL (test code = 2220) 39 MG/DL CALC LDL CHOL (test code = 2237) 149 MG/DL RISK RATIO LDL/HDL (test cod e = 2238) 3.82 RATIO Naveed Durand ShengCOMPREHENSIVE METABOLIC [id number] 00:00:00* Test Item Value Reference Range Interpretation Comme nts GLUCOSE (test code = 2217) 89 MG/DL BUN (test code = 2208) 8 MG/DL CREATININE (test code = 2214) 0.76 MG/DL eGFR (2020 CKD-EPI) (test code = 62984) 100 ML/MIN/1.73 CALC BUN/CREAT (test code = 2235) 11 RATIO SODIUM (test code = 2231) 140 MEQ/L POTASSIUM (test code = 2228) 4.2 MEQ/L CHLORIDE (test code = 2215) 108 MEQ/L CARBON DIOXIDE (test code = 2206) 22 MEQ/L CALCIUM (test code = 2209) 9.1 MG/DL PROTEIN, TOTAL (test code = 2229) 7.1 G/DL ALBUMIN (test code = 2201) 4.4 G/DL CALC GLOBULIN (test code = 2240) 2.7 G/DL CALC A/G RATIO (test code = 2234) 1.6 RATIO BILIRUBIN, TOTAL (test code = 2207) <0.2 MG/DL ALKALINE PHOSPHATASE (test code = 2204) 81 U/L AST (test code = 2218) 20 U/L ALT (test code = 2219) 20 U/L Naveed Goodman IgG AND [id number] 23:30:50* Test Item Value Reference Range Interpretation Comme nts MUMPS VIRUS IgG (test code = 68948) <5.0 AU/mL INTERPRETIVE INF ORMATION: Mumps Ab, IgG by JACKIE 8.9 AU/mL or less .... Negative - No significant level of detectable IgG mumps virus antibody 9.0-10.9 AU/mL ....... Equivocal - Repeat testing in 10-14 days may be helpful 11.0 AU/mL or greater: Positive - IgG antibody to mumps virus detected, which may indicate a current or past exposure/ immunization to mumps virus. The best evidence for current infection is a significant change on two appropriately timed specimens, where both tests are done in the same laboratory at the same time. TESTING PERFORMED AT [facility], [facility] [address], [place] [address] [place]. [id number] CLIA NO. [id number] MUMPS VIRUS IgM (test code = 4587) 0.24 IV <=0.79 INTERPRETIVE INFORMATION: Mumps Virus Antibody, IgM 0.79 IV or less: Negative - No significant level of detectable IgM antibody to mumps virus. 0.80 - 1.20 IV: Equivocal - Borderline levels of IgM antibody to mumps virus. Repeat testing in 10-14 days may be helpful. 1.21 IV or greater: Positive - Presence of IgM antibody to mumps virus detected, which may indicate a current or recent infection. However, low levels of IgM antibody may occasionally persist for more than 12 months post-infection or immunization. TESTING PERFORMED AT [facility], [facility] [address] [place], [place] [address] [place]. [id number] CLIA NO. [id number] RUBEOLA AB, [id number] 14:56:11* Test Item Value Reference Range Interpretation Comme nts RUBEOLA AB, IgG (test code = 49307) 65.2 AU/ML SEE BELOW INTERPRETATION U NITS RANGE ----- ----- NEGATIVE AU/ML <13.5 EQUIVOCAL AU/ML 13.5-16.4 NOTE: CONSIDER RETESTING IN A CLINICALLY SUITABLE PERIOD OF TIME, NO SOONER THAN 1-2 WEEKS. POSITIVE AU/ML >=16.5 VARICELLA ZOSTER [id number] 14:56:11* Test Item Value Reference Range Interpretation Comme nts VARICELLA ZOSTER IgG (test code = 18314) 529 INDEX SEE BELOW INTERPRETATI ON VZV IgG NEGATIVE . . . . . . . . . . . . INDEX <135 EQUIVOCAL. . . . . . . . . . . . INDEX 135-164 NOTE: CONSIDER RETESTING IN A CLINICALLY SUITABLE PERIOD OF TIME, NO SOONER THAN 1-2 WEEKS. POSITIVE . . . . . . . . . . . . INDEX >=165 UNLESS OTHERWISE INDICATED, ALL TESTING PERFORMED AT [facility] [address] [place] [address] CONCERT SINGER: JAME BERNARDO M.D. CLIA NUMBER [id number] [place]. [id number] MUMPS IgG AND [id number] 00:00:00* Test Item Value Reference Range Interpretation Comme nts MUMPS VIRUS IgG (test code = 44600) <5.0 AU/mL MUMPS VIRUS IgM (test code = 4587) 0.24 IV Naveed Durand AustinRUBEOLA IgG [id number] 00:00:00* Test Item Value Reference Range Interpretation Comme nts RUBEOLA AB, IgG (test code = 13953) 65.2 AU/ML Naveed Durand AustinVARICELLA ZOSTER [id number] 00:00:00* Test Item Value Reference Range Interpretation Comme nts VARICELLA ZOSTER IgG (test c ode = 90605) 529 INDEX Naveed Durand AustinMUMPS IgG AND [id number] 00:00:00* Test Item Value Reference Range Interpretation Comme nts MUMPS VIRUS IgG (test code = 74150) <5.0 AU/mL MUMPS VIRUS IgM (test code = 4587) 0.24 IV Naveed Durand AustinRUBEOLA IgG [id number] 00:00:00* Test Item Value Reference Range Interpretation Comme nts RUBEOLA AB, IgG (test code = 83250) 65.2 AU/ML Naveed Durand AustinVARICELLA ZOSTER [id number] 00:00:00* Test Item Value Reference Range Interpretation Comme nts VARICELLA ZOSTER IgG (test c ode = 85727) 529 INDEX Naveed Durand AustinHEPATITIS B SURFACE [id number] 03:52:17* Test Item Value Reference Range Interpretation Comme nts HEPATITIS B SURFACE AB (test code = 2737) REACTIVE NON-REACTIVE A RUBELLA ANTIBODY [id number] 03:52:17* Test Item Value Reference Range Interpretation Comme nts RUBELLA ANTIBODY SCREEN (test code = 4600) 79 IU/ML SEE BELOW RUBELLA IgG INTERP (test code = 94834) REACTIVE REACTIVE INTERPRETATI ON UNITS RANGE NON-REACTIVE/NON-IMMUNE IU/ML <10 REACTIVE/IMMUNE IU/ML >=10 RUBELLA ANTIBODY [id number] 00:00:00* Test Item Value Reference Range Interpretation Comme nts RUBELLA ANTIBODY SCREEN (cecy t code = 4600) 79 IU/ML RUBELLA IgG INTERP (test cod e = 67813) REACTIVE Naveed Durand AustinHEPATITIS B SURFACE [id number] 00:00:00* Test Item Value Reference Range Interpretation Comme nts HEPATITIS B SURFACE AB (test code = 2737) REACTIVE Naveed Durand AustinRUBELLA ANTIBODY [id number] 00:00:00* Test Item Value Reference Range Interpretation Comme nts RUBELLA ANTIBODY SCREEN (cecy t code = 4600) 79 IU/ML RUBELLA IgG INTERP (test cod e = 31211) REACTIVE Naveed Durand AustinHEPATITIS B SURFACE [id number] 00:00:00* Test Item Value Reference Range Interpretation Comme nts HEPATITIS B SURFACE AB (test code = 2737) REACTIVE Naveed Durand AustinCOMPREHENSIVE METABOLIC [id number] 05:01:16* Test Item Value Reference Range Interpretation Comme nts GLUCOSE (test code = 2217) 103 MG/DL 70-99 H BUN (test code = 2208) 8 MG/DL 6-20 CREATININE (test code = 2214) 0.73 MG/DL 0.60-1.30 eGFR (2020 CKD-EPI) (test code = 40308) 107 ML/MIN/1.73 >60 CALC BUN/CREAT (test code = 2234) 11 RATIO 6-28 SODIUM (test code = 2230) 142 MEQ/L 133-146 POTASSIUM (test code = 2228) 4.4 MEQ/L 3.5-5.4 CHLORIDE (test code = 2214) 109 MEQ/L 95-107 H CARBON DIOXIDE (test code = 6) 22 MEQ/L 19-31 CALCIUM (test code = 2208) 9.2 MG/DL 8.5-10.5 PROTEIN, TOTAL (test code = 2228) 6.7 G/DL 6.1-8.3 ALBUMIN (test code = 2200) 4.0 G/DL 3.5-5.2 CALC GLOBULIN (test code = 2239) 2.7 G/DL 1.9-3.7 CALC A/G RATIO (test code = 2233) 1.5 RATIO 1.0-2.6 BILIRUBIN, TOTAL (test code = 2206) <0.2 MG/DL See_Comment [Automated me ssage] The system which generated this result transmitted reference range: <=1.2. The reference range was not used to interpret this result as normal/abnormal. ALKALINE PHOSPHATASE (test code = 2203) 84 U/L 40-112 AST (test code = 2217) 14 U/L 9-40 ALT (test code = 221) 15 U/L 5-40 LIPID [id number] 05:01:16* Test Item Value Reference Range Interpretation Comme nts CHOLESTEROL (test code = 2210) 237 MG/DL <200 H TRIGLYCERIDES (test code = 2231) 274 MG/DL <150 H HDL CHOLESTEROL (test code = 0) 35 MG/DL >39 L CALC LDL CHOL (test code = 7) 157 MG/DL <100 H NOTE: CALCULATED LDL IS BASED ON MELISA-DIAZ METHOD WHICHINCLUDES ADJUSTABLE TRIGLYCERIDE:VLDL CHOLESTEROL RATIO.THIS FACTOR VARIES BY MEASURED TRIGLYCERIDE AND NON-HDLCHOLESTEROL CONCENTRATIONS WITH INCREASED CALCULATED LDL SEENIN HIGHER TRIGLYCERIDE OR LOWER NON-HDL SPECIMENS. FOR MOREINFORMATION, SEE CLIENT ANNOUNCEMENT AT [email or web address] RISK RATIO LDL/HDL (test code = 2238) 4.49 RATIO <3.22 H UNLESS OTHERW ISE INDICATED, [facility] [address] [place] [address] CONCERT SINGER: DAVID HEATON M.D. CLIA NUMBER [id number] [facility] [place]. [id number] CBC W/AUTO DIFF WITH [id number] 01:39:34* Test Item Value Reference Range Interpretation Comme nts WBC (test code = 1001) 8.3 K/UL 3.5-11.0 RBC (test code = 1002) 3.72 M/UL 3.80-5.40 L HEMOGLOBIN (test code = 1003) 9.8 G/DL 11.5-15.5 L HEMATOCRIT (test code = 1004) 30.2 % 34.0-45.0 L MCV (test code = 1005) 81.2 fL 80.0-99.0 MCH (test code = 1006) 26.3 PG 25.0-33.0 MCHC (test code = 1007) 32.5 G/DL 31.0-36.0 RDW (test code = 1038) 14.5 % 11.5-15.0 NEUTROPHILS (test code = 1008) 35.9 % LYMPHOCYTES (test code = 1010) 44.6 % MONOCYTES (test code = 1011) 12.4 % EOSINOPHILS (test code = 1012) 5.5 % BASOPHILS (test code = 1013) 1.4 % IMMATURE GRANULOCYTES (test code = 1036) 0.2 % NUCLEATED RBCS (test code = 1065) 0.0 /100 WBC'S See_Comment [Automated Precipioa ge] The system which generated this result transmitted reference range: 0.0. The reference range was not used to interpret this result as normal/abnormal. PLATELET COUNT (test code = 1015) 619 K/UL 130-400 H ABSOLUTE NEUTROPHILS (test code = 1066) 2.99 K/UL 1.50-7.50 ABSOLUTE LYMPHOCYTES (test code = 1067) 3.72 K/UL 1.00-4.00 ABSOLUTE MONOCYTES (test code = 1068) 1.03 K/UL 0.20-1.00 H ABSOLUTE EOSINOPHILS (test code = 1040) 0.46 K/UL 0.00-0.50 ABSOLUTE BASOPHILS (test code = 1069) 0.12 K/UL 0.00-0.20 ABS IMMATURE GRANULOCYTES (test code = 1020) 0.02 K/UL 0.00-0.10 ABS NUCLEATED RBCS (test code = 72726) 0.00 K/UL 0.00-0.11 LIPID [id number] 00:00:00* Test Item Value Reference Range Interpretation Comme nts CHOLESTEROL (test code = 2210) 237 MG/DL TRIGLYCERIDES (test code = 2232) 274 MG/DL HDL CHOLESTEROL (test code = 2220) 35 MG/DL CALC LDL CHOL (test code = 2237) 157 MG/DL RISK RATIO LDL/HDL (test cod e = 2238) 4.49 RATIO Naveed PatricioCOMPREHENSIVE METABOLIC [id number] 00:00:00* Test Item Value Reference Range Interpretation Comme nts GLUCOSE (test code = 2217) 103 MG/DL BUN (test code = 2208) 8 MG/DL CREATININE (test code = 2214) 0.73 MG/DL eGFR (2020 CKD-EPI) (test code = 35636) 107 ML/MIN/1.73 CALC BUN/CREAT (test code = 2235) 11 RATIO SODIUM (test code = 2231) 142 MEQ/L POTASSIUM (test code = 2228) 4.4 MEQ/L CHLORIDE (test code = 2215) 109 MEQ/L CARBON DIOXIDE (test code = 2206) 22 MEQ/L CALCIUM (test code = 2209) 9.2 MG/DL PROTEIN, TOTAL (test code = 2229) 6.7 G/DL ALBUMIN (test code = 2201) 4.0 G/DL CALC GLOBULIN (test code = 2240) 2.7 G/DL CALC A/G RATIO (test code = 2234) 1.5 RATIO BILIRUBIN, TOTAL (test code = 2207) <0.2 MG/DL ALKALINE PHOSPHATASE (test code = 2204) 84 U/L AST (test code = 2218) 14 U/L ALT (test code = 2219) 15 U/L Naveed Durand ShengCBC W/AUTO [id number] 00:00:00* Test Item Value Reference Range Interpretation Comme nts WBC (test code = 1001) 8.3 K/UL [...] = 1013) 1.4 % IMMATURE GRANULOCYTES (test code = 1036) 0.2 % NUCLEATED RBCS (test code = 1065) 0.0 /100WBC'S PLATELET COUNT (test code = 1015) 619 K/UL ABSOLUTE NEUTROPHILS (test c ode = 1066) 2.99 K/UL ABSOLUTE LYMPHOCYTES (test c ode = 1067) 3.72 K/UL ABSOLUTE MONOCYTES (test cod e = 1068) 1.03 K/UL ABSOLUTE EOSINOPHILS (test c ode = 1040) 0.46 K/UL ABSOLUTE BASOPHILS (test cod e = 1069) 0.12 K/UL ABS IMMATURE GRANULOCYTES (t est code = 1020) 0.02 K/UL ABS NUCLEATED RBCS (test cod e = 34094) 0.00 K/UL Naveed PatricioLIPID [id number] 00:00:00* Test Item Value Reference Range Interpretation Comme nts CHOLESTEROL (test code = 2210) 237 MG/DL TRIGLYCERIDES (test code = 2232) 274 MG/DL HDL CHOLESTEROL (test code = 2220) 35 MG/DL CALC LDL CHOL (test code = 2237) 157 MG/DL RISK RATIO LDL/HDL (test cod e = 2238) 4.49 RATIO Naveed Durand ShengCOMPREHENSIVE METABOLIC [id number] 00:00:00* Test Item Value Reference Range Interpretation Comme nts GLUCOSE (test code = 2217) 103 MG/DL BUN (test code = 2208) 8 MG/DL CREATININE (test code = 2214) 0.73 MG/DL eGFR (2020 CKD-EPI) (test code = 74390) 107 ML/MIN/1.73 CALC BUN/CREAT (test code = 2235) 11 RATIO SODIUM (test code = 2231) 142 MEQ/L POTASSIUM (test code = 2228) 4.4 MEQ/L CHLORIDE (test code = 2215) 109 MEQ/L CARBON DIOXIDE (test code = 2206) 22 MEQ/L CALCIUM (test code = 2209) 9.2 MG/DL PROTEIN, TOTAL (test code = 2229) 6.7 G/DL ALBUMIN (test code = 2201) 4.0 G/DL CALC GLOBULIN (test code = 2240) 2.7 G/DL CALC A/G RATIO (test code = 2234) 1.5 RATIO BILIRUBIN, TOTAL (test code = 2207) <0.2 MG/DL ALKALINE PHOSPHATASE (test code = 2204) 84 U/L AST (test code = 2218) 14 U/L ALT (test code = 2219) 15 U/L Naveed Durand [facility]AUTO [id number] 00:00:00* Test Item Value Reference Range Interpretation Comme nts WBC (test code = 1001) 8.3 K/UL [...] = 1013) 1.4 % IMMATURE GRANULOCYTES (test code = 1036) 0.2 % NUCLEATED RBCS (test code = 1065) 0.0 /100WBC'S PLATELET COUNT (test code = 1015) 619 K/UL ABSOLUTE NEUTROPHILS (test c ode = 1066) 2.99 K/UL ABSOLUTE LYMPHOCYTES (test c ode = 1067) 3.72 K/UL ABSOLUTE MONOCYTES (test cod e = 1068) 1.03 K/UL ABSOLUTE EOSINOPHILS (test c ode = 1040) 0.46 K/UL ABSOLUTE BASOPHILS (test cod e = 1069) 0.12 K/UL ABS IMMATURE GRANULOCYTES (t est code = 1020) 0.02 K/UL ABS NUCLEATED RBCS (test cod e = 46178) 0.00 K/UL Naveed PatricioCOMPREHENSIVE METABOLIC [id number] 00:00:00* Test Item Value Reference Range Interpretation Comme nts GLUCOSE (test code = 2217) 103 MG/DL BUN (test code = 2208) 8 MG/DL CREATININE (test code = 2214) 0.73 MG/DL eGFR (2020 CKD-EPI) (test code = 41057) 107 ML/MIN/1.73 CALC BUN/CREAT (test code = 2235) 11 RATIO SODIUM (test code = 2231) 142 MEQ/L POTASSIUM (test code = 2228) 4.4 MEQ/L CHLORIDE (test code = 2215) 109 MEQ/L CARBON DIOXIDE (test code = 2206) 22 MEQ/L CALCIUM (test code = 2209) 9.2 MG/DL PROTEIN, TOTAL (test code = 2229) 6.7 G/DL ALBUMIN (test code = 2201) 4.0 G/DL CALC GLOBULIN (test code = 2240) 2.7 G/DL CALC A/G RATIO (test code = 2234) 1.5 RATIO BILIRUBIN, TOTAL (test code = 2207) <0.2 MG/DL ALKALINE PHOSPHATASE (test code = 2204) 84 U/L AST (test code = 2218) 14 U/L ALT (test code = 2219) 15 U/L CBC W/AUTO [id number] 00:00:00* Test Item Value Reference Range Interpretation Comme nts WBC (test code = 1001) 8.3 K/UL [...] = 1013) 1.4 % IMMATURE GRANULOCYTES (test code = 1036) 0.2 % NUCLEATED RBCS (test code = 1065) 0.0 /100WBC'S PLATELET COUNT (test code = 1015) 619 K/UL ABSOLUTE NEUTROPHILS (test c ode = 1066) 2.99 K/UL ABSOLUTE LYMPHOCYTES (test c ode = 1067) 3.72 K/UL ABSOLUTE MONOCYTES (test cod e = 1068) 1.03 K/UL ABSOLUTE EOSINOPHILS (test c ode = 1040) 0.46 K/UL ABSOLUTE BASOPHILS (test cod e = 1069) 0.12 K/UL ABS IMMATURE GRANULOCYTES (t est code = 1020) 0.02 K/UL ABS NUCLEATED RBCS (test cod e = 80616) 0.00 K/UL LIPID [id number] 00:00:00* Test Item Value Reference Range Interpretation Comme nts CHOLESTEROL (test code = 2210) 237 MG/DL TRIGLYCERIDES (test code = 2232) 274 MG/DL HDL CHOLESTEROL (test code = 2220) 35 MG/DL CALC LDL CHOL (test code = 2237) 157 MG/DL RISK RATIO LDL/HDL (test cod e = 2238) 4.49 RATIO COMPREHENSIVE METABOLIC [id number] 00:00:00* Test Item Value Reference Range Interpretation Comme nts GLUCOSE (test code = 2217) 103 MG/DL BUN (test code = 2208) 8 MG/DL CREATININE (test code = 2214) 0.73 MG/DL eGFR (2020 CKD-EPI) (test code = 48362) 107 ML/MIN/1.73 CALC BUN/CREAT (test code = 2235) 11 RATIO SODIUM (test code = 2231) 142 MEQ/L POTASSIUM (test code = 2228) 4.4 MEQ/L CHLORIDE (test code = 2215) 109 MEQ/L CARBON DIOXIDE (test code = 2206) 22 MEQ/L CALCIUM (test code = 2209) 9.2 MG/DL PROTEIN, TOTAL (test code = 2229) 6.7 G/DL ALBUMIN (test code = 2201) 4.0 G/DL CALC GLOBULIN (test code = 2240) 2.7 G/DL CALC A/G RATIO (test code = 2234) 1.5 RATIO BILIRUBIN, TOTAL (test code = 2207) <0.2 MG/DL ALKALINE PHOSPHATASE (test code = 2204) 84 U/L AST (test code = 2218) 14 U/L ALT (test code = 2219) 15 U/L CBC W/AUTO [id number] 00:00:00* Test Item Value Reference Range Interpretation Comme nts WBC (test code = 1001) 8.3 K/UL [...] = 1013) 1.4 % IMMATURE GRANULOCYTES (test code = 1036) 0.2 % NUCLEATED RBCS (test code = 1065) 0.0 /100WBC'S PLATELET COUNT (test code = 1015) 619 K/UL ABSOLUTE NEUTROPHILS (test c ode = 1066) 2.99 K/UL ABSOLUTE LYMPHOCYTES (test c ode = 1067) 3.72 K/UL ABSOLUTE MONOCYTES (test cod e = 1068) 1.03 K/UL ABSOLUTE EOSINOPHILS (test c ode = 1040) 0.46 K/UL ABSOLUTE BASOPHILS (test cod e = 1069) 0.12 K/UL ABS IMMATURE GRANULOCYTES (t est code = 1020) 0.02 K/UL ABS NUCLEATED RBCS (test cod e = 24731) 0.00 K/UL LIPID [id number] 00:00:00* Test Item Value Reference Range Interpretation Comme nts CHOLESTEROL (test code = 2210) 237 MG/DL TRIGLYCERIDES (test code = 2232) 274 MG/DL HDL CHOLESTEROL (test code = 2220) 35 MG/DL CALC LDL CHOL (test code = 2237) 157 MG/DL RISK RATIO LDL/HDL (test cod e = 2238) 4.49 RATIO SARS-CoV-2 (COVID-19), RT-PCR/[id number] 07:59:55* Test Item Value Reference Range Interpretation Comments SARS-CoV-2 INTERPRETATION (test code = 59472) NEGATIVE SEE NOTE SARS-CoV-2 R NA NOT DETECTEDNegative results do not preclude SARS-CoV-2 infection and should notbe used as the sole basis for patient management decisions. Negativeresults must be combined with clinical observations, patient history,and epidemiological information. Optimum specimen types and timingfor peak viral levels during infections caused by SARS-CoV-2 have notbeen determined. Collection of multiple specimens or types ofspecimens may be necessary to detect virus. Improper specimencollection and handling, sequence variability under primers/probes,or organism present below the limit of detection may lead to falsenegative results. Positive and negative predictive values oftesting are highly dependent on prevalence. False negative testresults are more likely when prevalence is high. SOURCE (test code = 84662) NASOPHARYNGEAL Note: Methodolog y is Kourtney Ophelia Real-Time RT-PCR. The expected result or reference range is NEGATIVE (Not Detected). For more information regarding COVID-19 testing to include clinicalinformation, methodology detail, intended use, FDA authorization andrecommended fact sheets for patients or healthcare providers, see [email or web address] Announcement: SARS-CoV-2 (COVID-19) by NAAT at URL below (note,fact sheets are provided by method given in report:[email or web address]/ Alternatively, see downloadable PDF fact sheet at:[email or web address]-PCR UNLESS OTHERWISE INDICATED, ALL TESTING PERFORMED [facility], [facility]. [address] [place] [address] CONCERT SINGER: DAVID HEATON M.D. CLIA NUMBER [id number] [facility] [place]. [id number] SARS-CoV-2 (COVID-19) by RT-PCR (HIGH RISK)2021-08-09 00:00:00* Test Item Value Reference Range Interpretation Comme nts SARS-CoV-2 INTERPRETATION (test code = 87602) NEGATIVE SOURCE (test code = 33529) NASOPHARYNGEAL Naveed PatricioSARS-CoV-2 (COVID-19) by RT-PCR (HIGH RISK)2021-08-09 00:00:00* Test Item Value Reference Range Interpretation Comme nts SARS-CoV-2 INTERPRETATION (test code = 87353) NEGATIVE SOURCE (test code = 06088) NASOPHARYNGEAL Naveed F [id number] (COVID-19) by RT-PCR (HIGH RISK)2021-08-09 00:00:00* Test Item Value Reference Range Interpretation Comme nts SARS-CoV-2 INTERPRETATION (test code = 15827) NEGATIVE SOURCE (test code = 56146) NASOPHARYNGEAL SARS-CoV-2 (COVID-19) by RT-PCR (HIGH RISK)2021-08-09 00:00:00* Test Item Value Reference Range Interpretation Comme nts SARS-CoV-2 INTERPRETATION (test code = 42761) NEGATIVE SOURCE (test code = 29918) NASOPHARYNGEAL SARS-CoV-2 (COVID-19) by RT-PCR (HIGH RISK)2021-03-23 00:00:00* Test Item Value Reference Range Interpretation Comme nts SARS-CoV-2 INTERPRETATION (t est code = 37442) POSITIVE SOURCE (test code = 96020) NOT SPECIFIED Naveed F CavbovUXNL-SwF-2 (COVID-19) by RT-PCR (HIGH RISK)2021-03-23 00:00:00* Test Item Value Reference Range Interpretation Comme nts SARS-CoV-2 INTERPRETATION (t est code = 77780) POSITIVE SOURCE (test code = 91544) NOT SPECIFIED Naveed F HeybjaXOYV-SgB-9 (COVID-19) by RT-PCR (HIGH RISK)2021-03-23 00:00:00* Test Item Value Reference Range Interpretation Comme nts SARS-CoV-2 INTERPRETATION (t est code = 53102) POSITIVE SOURCE (test code = 32889) NOT SPECIFIED SARS-CoV-2 (COVID-19) by RT-PCR (HIGH RISK)2021-03-23 00:00:00* Test Item Value Reference Range Interpretation Comme nts SARS-CoV-2 INTERPRETATION (t est code = 43618) POSITIVE SOURCE (test code = 10455) NOT SPECIFIED SARS-CoV-2 (COVID-19) by RT-PCR (HIGH RISK)2019 00:00:00* Test Item Value Reference Range Interpretation Comme nts SARS-CoV-2 INTERPRETATION (t est code = 42684) NEGATIVE SOURCE (test code = 47791) NOT SPECIFIED Naveed F AxbsvnGBUR-UjJ-8 (COVID-19) by RT-PCR (HIGH RISK)2019 00:00:00* Test Item Value Reference Range Interpretation Comme nts SARS-CoV-2 INTERPRETATION (t est code = 04407) NEGATIVE SOURCE (test code = 43143) NOT SPECIFIED Naveed PatricioSARS-CoV-2 (COVID-19) by RT-PCR (HIGH RISK)2019 00:00:00* Test Item Value Reference Range Interpretation Comme nts SARS-CoV-2 INTERPRETATION (t est code = 35014) NEGATIVE SOURCE (test code = 40929) NOT SPECIFIED SARS-CoV-2 (COVID-19) by RT-PCR (HIGH RISK)2019 00:00:00* Test Item Value Reference Range Interpretation Comme nts SARS-CoV-2 INTERPRETATION (t est code = 80768) NEGATIVE SOURCE (test code = 52271) NOT SPECIFIED Culture, Blood [id number] 08:19:00Specimen: BloodCollected: 06/23/2017 04:30 Status: Final Last Updated: 06/28/2017 08:18 Culture Result (Final) (Final) No Growth After 5 DaysCulture, Blood [id number] 08:18:00Specimen: BloodCollected: 06/23/2017 04:15 Status: Final Last Updated: 06/28/2017 08:18 Culture Result (Final) (Final) No Growth After 5 DaysUric Acid, Urine Random 2017-06-26 06:06:00* Test Item Value Reference Range Interpretation Comme nts Uric Acid, Urine (test code = UAURRM) 28 mg/dL Magnesium, [id number] 05:40:00* Test Item Value Reference Range Interpretation Comme nts Magnesium (test code = MG) 1.8 mg/dL 1.7-2.5 N Basic Metabolic [id number] 05:40:00* Test Item Value Reference Range Interpretation Comme nts Sodium (test code = NA) 139 mmol/L 135-145 N Potassium (test code = K) 3.7 mmol/L 3.5-5.1 N Chloride (test code = CL) 103 mmol/L 98-105 N Carbon Dioxide (test code = CO2) 24 mmol/L 22-29 N Glucose (test code = GLU) 96 mg/dL 70-115 N Blood Urea Nitrogen (test code = BUN) 5 mg/dL 6-20 L Creatinine (test code = CREAT) 0.7 mg/dL 0.5-0.9 N Calcium (test code = CA) 8.6 mg/dL 8.3-10.5 N BUN/Creatinine Ratio (test code = BCRATIO) 7.1 Anion Gap (test code = AGAP) 12 mmol/L 7-16 N Estimated GFR (test code = GFR) >60 mL/min/1.73m2 eGFR (estimated Glomerular Filtration Rate) is an estimated value,calculated from the patient's serum creatinine using the MDRD equation.It is NOT the patient's actual GFR. The eGFR provides a more clinicallyuseful measure of kidney disease than serum creatinine alone.This calculation takes sex and race into account, if the informationis provided. If the race is not provided, and the patient isAfrican-Bruneian, multiply by 1.212. If sex is not provided, and thepatient is female, multiply by 0.742. Results for patients <18 years ofage have not been validated by the MDRD study and should be interpretedwith caution.eGFR Result Interpretation:eGFR > or = 60 is in the Normal RangeeGFR < 60 may mean kidney diseaseeGFR < 15 may mean kidney failureRanges recommended by the National Kidney Foundation,http://nkdep .nih.gov CBC with [id number] 05:28:00* Test Item Value Reference Range Interpretation Comme nts WBC (test code = WBC) 14.9 K/cumm [...] 11.5-14.5 N Platelet Count (test code = PLTCT) 336 K/cumm 140-440 N MPV (test code = MPV) 10.1 fL [...] code = ALYMPH) 4.9 K/cumm 0.5-4.6 H [place] Abs (test code = AMONO) 1.1 K/cumm 0.0-1.2 N Eos Abs (test code = AEOS) 0.59 K/cumm 0.00-0.74 N Baso Abs (test code = ABASO) 0.1 K/cumm 0.00-0.21 N [id number] 05:20:00* Test Item Value Reference Range Interpretation Comme nts Phosphorus (test code = PO4) 3.3 mg/dL 2.70-4.50 N Basic Metabolic [id number] 05:20:00* Test Item Value Reference Range Interpretation Comme nts Sodium (test code = NA) 139 mmol/L 135-145 N Potassium (test code = K) 3.5 mmol/L 3.5-5.1 N Chloride (test code = CL) 106 mmol/L 98-105 H Carbon Dioxide (test code = CO2) 22 mmol/L 22-29 N Glucose (test code = GLU) 94 mg/dL 70-115 N Blood Urea Nitrogen (test code = BUN) 6 mg/dL 6-20 N Creatinine (test code = CREAT) 0.8 mg/dL 0.5-0.9 N Calcium (test code = CA) 8.0 mg/dL 8.3-10.5 L BUN/Creatinine Ratio (test code = BCRATIO) 7.5 Anion Gap (test code = AGAP) 11 mmol/L 7-16 N Estimated GFR (test code = GFR) >60 mL/min/1.73m2 eGFR (estimated Glomerular Filtration Rate) is an estimated value,calculated from the patient's serum creatinine using the MDRD equation.It is NOT the patient's actual GFR. The eGFR provides a more clinicallyuseful measure of kidney disease than serum creatinine alone.This calculation takes sex and race into account, if the informationis provided. If the race is not provided, and the patient isAfrican-Bruneian, multiply by 1.212. If sex is not provided, and thepatient is female, multiply by 0.742. Results for patients <18 years ofage have not been validated by the MDRD study and should be interpretedwith caution.eGFR Result Interpretation:eGFR > or = 60 is in the Normal RangeeGFR < 60 may mean kidney diseaseeGFR < 15 may mean kidney failureRanges recommended by the National Kidney Foundation,http://nkdep .nih.gov Magnesium, [id number] 05:20:00* Test Item Value Reference Range Interpretation Comme nts Magnesium (test code = MG) 1.6 mg/dL 1.7-2.5 L CBC with [id number] 04:55:00* Test Item Value Reference Range Interpretation Comme nts WBC (test code = WBC) 17.9 K/cumm [...] 11.5-14.5 N Platelet Count (test code = PLTCT) 299 K/cumm 140-440 N MPV (test code = MPV) 9.7 fL [...] code = ALYMPH) 4.7 K/cumm 0.5-4.6 H [place] Abs (test code = AMONO) 1.4 K/cumm 0.0-1.2 H Eos Abs (test code = AEOS) 0.46 K/cumm 0.00-0.74 N Baso Abs (test code = ABASO) 0.1 K/cumm 0.00-0.21 N Hypochromic (test code = HYPO) Slight Blood Gas+Lytes+Glu+Ca+Hgb+Hct+[id number] 12:34:00* Test Item Value Reference Range Interpretation Comme nts pH, Blood Gas (test code = BGPH) 7.412 pH Units 7.35-7.45 N pCO2 (test code = PCO2) 39.9 mm Hg 35-45 N pO2 (test code = PO2) 103.0 mm Hg 80-100 HH Bicarbonate (test code = HCO3) 25.4 mmol/L 22.0-26.0 N Base Excess (test code = BE) 0.7 mmol/L O2 Saturation (test code = O2SAT) 98.5 % 80.0-100.0 N Sodium, Blood Gas (test code = BGNA) 146 mmol/L 135-145 H Potassium, Blood Gas (test code = BGK) 3.7 mmol/L 3.5-4.5 N Chloride, Blood Gas (test code = BGCL) 113 mmol/L 98-105 H Calcium, Ionized, Blood Gas (test code = BGCAI) 1.20 mmol/L 1.00-1.50 N Glucose, Blood Gas (test code = BGGLU) 118 mg/dL 75-115 H tHB (test code = RTHB) 10.6 gm/dL 12.2-17.4 L Hematocrit, Blood Gas (test code = BGHCT) 32.5 % 34.0-52.0 L O2Hb (test code = RO2HB) 97 80-100 N Carboxyhemoglobin (test code = CARHGB) 1.3 % 0.0-20.0 N Methemoglobin (test code = METHGB) 0.7 % 0.0-20.0 N FIO2 % (test code = FIO2) 30 % Patient Temperature (test code = PTTEMP) 37.0 Degrees Celcius Comment (test code = COMMENT) qns rblv crit vals to Dr. Hoover @ [phone].dn Puncture Site (test code = PUNSITE) Brachial. R Drawing Tech ID (test code = DRAWTECH) [email or web address] Lactic Acid, Blood Gas (test code = BGLA) 1.3 mmol/L iPAP (test code = IPAP) 0 cmH2O Peep (test code = RPEEP) 5 Respiratory Rate (test code = RESP RATE) 0 XR CHEST 1 [id number] 07:41:10EXAM: CHEST ONE VIEWINDICATION: IntubatedCOMPARISON: None availableTECHNIQUE: AP view of the chest.FINDINGS: The endotracheal tube and enteric tube are unchanged. Thecardiomediastinal silhouette is normal. There is mild diffuse pulmonaryedema. No pneumothorax or pleural effusion is identified. The osseousstructures are unremarkable.IMPRESSION: Mild diffuse pulmonary edema.LOCATION: [id number] Metabolic [id number] 05:44:00* Test Item Value Reference Range Interpretation Comme nts Sodium (test code = NA) 143 mmol/L 135-145 N Potassium (test code = K) 3.3 mmol/L 3.5-5.1 L Chloride (test code = CL) 111 mmol/L 98-105 H Carbon Dioxide (test code = CO2) 25 mmol/L 22-29 N Glucose (test code = GLU) 109 mg/dL 70-115 N Blood Urea Nitrogen (test code = BUN) 6 mg/dL 6-20 N Creatinine (test code = CREAT) 0.6 mg/dL 0.5-0.9 N Calcium (test code = CA) 8.5 mg/dL 8.3-10.5 N BUN/Creatinine Ratio (test code = BCRATIO) 10.0 Anion Gap (test code = AGAP) 7 mmol/L 7-16 N Estimated GFR (test code = GFR) >60 mL/min/1.73m2 eGFR (estimated Glomerular Filtration Rate) is an estimated value,calculated from the patient's serum creatinine using the MDRD equation.It is NOT the patient's actual GFR. The eGFR provides a more clinicallyuseful measure of kidney disease than serum creatinine alone.This calculation takes sex and race into account, if the informationis provided. If the race is not provided, and the patient isAfrican-Bruneian, multiply by 1.212. If sex is not provided, and thepatient is female, multiply by 0.742. Results for patients <18 years ofage have not been validated by the MDRD study and should be interpretedwith caution.eGFR Result Interpretation:eGFR > or = 60 is in the Normal RangeeGFR < 60 may mean kidney diseaseeGFR < 15 may mean kidney failureRanges recommended by the National Kidney Foundation,http://nkdep .nih.gov Ngmegzlirf0665-06-12 05:44:00* Test Item Value Reference Range Interpretation Comme nts Phosphorus (test code = PO4) 3.2 mg/dL 2.70-4.50 N Magnesium, [id number] 05:44:00* Test Item Value Reference Range Interpretation Comme nts Magnesium (test code = MG) 1.7 mg/dL 1.7-2.5 N CBC with [id number] 05:28:00* Test Item Value Reference Range Interpretation Comme nts WBC (test code = WBC) 17.0 K/cumm [...] 11.5-14.5 N Platelet Count (test code = PLTCT) 349 K/cumm 140-440 N MPV (test code = MPV) 9.6 fL [...] code = ALYMPH) 2.4 K/cumm 0.5-4.6 N [place] Abs (test code = AMONO) 1.1 K/cumm 0.0-1.2 N Eos Abs (test code = AEOS) 0.50 K/cumm 0.00-0.74 N Baso Abs (test code = ABASO) 0.0 K/cumm 0.00-0.21 N Blood Gas+Lytes+Glu+Ca+Hgb+Hct+[id number] 05:12:00* Test Item Value Reference Range Interpretation Comme nts pH, Blood Gas (test code = BGPH) 7.371 pH Units 7.35-7.45 N pCO2 (test code = PCO2) 43.6 mm Hg 35-45 N pO2 (test code = PO2) 105.0 mm Hg 80-100 HH Bicarbonate (test code = HCO3) 25.2 mmol/L 22.0-26.0 N Base Excess (test code = BE) -0.2 mmol/L O2 Saturation (test code = O2SAT) 98.4 % 80.0-100.0 N Sodium, Blood Gas (test code = BGNA) 147 mmol/L 135-145 H Potassium, Blood Gas (test code = BGK) 3.4 mmol/L 3.5-4.5 L Chloride, Blood Gas (test code = BGCL) 115 mmol/L 98-105 H Calcium, Ionized, Blood Gas (test code = BGCAI) 1.23 mmol/L 1.00-1.50 N Glucose, Blood Gas (test code = BGGLU) 112 mg/dL 75-115 N tHB (test code = RTHB) 10.2 gm/dL 12.2-17.4 L Hematocrit, Blood Gas (test code = BGHCT) 31.1 % 34.0-52.0 L O2Hb (test code = RO2HB) 96 80-100 N Carboxyhemoglobin (test code = CARHGB) 1.3 % 0.0-20.0 N Methemoglobin (test code = METHGB) 0.7 % 0.0-20.0 N FIO2 % (test code = FIO2) 30 % Patient Temperature (test code = PTTEMP) 37.0 Degrees Celcius Comment (test code = COMMENT) qns.crit.p02.rblv.o doreen@[id number]/ .jz Puncture Site (test code = PUNSITE) Radial. R Drawing Tech ID (test code = DRAWTECH) jzozobrado Lactic Acid, Blood Gas (test code = BGLA) 0.8 mmol/L iPAP (test code = IPAP) 0 cmH2O Peep (test code = RPEEP) 5 Respiratory Rate (test code = RESP RATE) 0 CBC with [id number] 05:34:00* Test Item Value Reference Range Interpretation Comme nts WBC (test code = WBC) 10.4 K/cumm 4.4-10.5 N RBC (test code = RBC) 3.71 M/cumm 3.75-5.20 L Hemoglobin (test code = HGB) 10.9 gm/dL 12.2-14.8 L Hematocrit (test code = HCT) 33.2 % 36.5-44.4 L MCV (test code = MCV) 89.5 fL 80-100 N MCH (test code = MCH) 29.5 pg 27.0-32.5 N MCHC (test code = MCHC) 32.9 g/dL 32.0-37.5 N RDW (test code = RDW) 13.7 % 11.5-14.5 N Platelet Count (test code = PLTCT) 309 K/cumm 140-440 N VERIFIED BY REPE AT TESTINGREAD BACK LAB VALUESPLT DELTA CHECKED WITH Celina MARTINEZ /RN @ 7817 ON 06/23/2017 BY ED MPV (test code = MPV) 9.9 fL Diff Method (test code = DIFFM) Auto Neutrophil (test code = NEUT) 75.8 % 36-70 H Lymphocyte (test code = LYMPH) 18.9 % 12-44 N Monocyte (test code = MONO) 3.8 % 0-11 N Eosinophil (test code = EOS) 1.4 % 0-7 N Basophil (test code = BASO) 0.2 % 0-2 N Neutro Abs (test code = ANEUT) 7.9 K/cumm 1.6-7.4 H Lymph Abs (test code = ALYMPH) 2.0 K/cumm 0.5-4.6 N [place] Abs (test code = AMONO) 0.4 K/cumm 0.0-1.2 N Eos Abs (test code = AEOS) 0.14 K/cumm 0.00-0.74 N Baso Abs (test code = ABASO) 0.0 K/cumm 0.00-0.21 N Thyroid Stimulating Hormone (TSH)2017-06-23 05:31:00* Test Item Value Reference Range Interpretation Comme nts TSH (test code = TSH) 0.24 mIU/mL 0.270-4.200 L Free T4 (Free Thyroxine)2017-06-23 05:31:00* Test Item Value Reference Range Interpretation Comme nts T4, Free (test code = FT4) 0.83 ng/dL 0.930-1.700 L Urinalysis [id number] 05:26:00* Test Item Value Reference Range Interpretation Comme nts Color (test code = COLOR) Yellow Yellow ,Straw,Pl yellow N Clarity (test code = CLAR) Clear Clear N Specific [place] (test code = SPGR) 1.004 1.001-1.035 N pH (test code = PH) 6.0 5.0-9.0 N Ketone (test code = KET) Negative mg/dL Negative N Glucose (test code = GLUCUR) Negative mg/dL Negative N Protein (test code = PROT) Negative mg/dL Negative N Bilirubin (test code = BILI) Negative mg/dL Negative N Occult Blood (test code = UDOB) Moderate Negative A Urobilinogen (test code = UROB) 0.2 mg/dL 0.2-1.0 N Nitrite (test code = NIT) Negative Negative N Leuk Esterase (test code = LEUK) Small Negative A Micros Exam (test code = MEXAM) Indicated Epithelial Cells (test code = EPI) Few /LPF 0-30 A WBC, Urine (test code = UWBC) 6-10 /HPF 0-5 A RBC, Urine (test code = URBC) 3-5 /HPF 0-5 A Bacteria (test code = BACT) Few /HPF [id number] 05:20:00* Test Item Value Reference Range Interpretation Comme nts Phosphorus (test code = PO4) 1.7 mg/dL 2.70-4.50 L Comprehensive Metabolic [id number] 05:20:00* Test Item Value Reference Range Interpretation Comme nts Sodium (test code = NA) 145 mmol/L 135-145 N Potassium (test code = K) 3.9 mmol/L 3.5-5.1 N Chloride (test code = CL) 112 mmol/L 98-105 H Carbon Dioxide (test code = CO2) 24 mmol/L 22-29 N Glucose (test code = GLU) 97 mg/dL 70-115 N Blood Urea Nitrogen (test code = BUN) 8 mg/dL 6-20 N Creatinine (test code = CREAT) 0.7 mg/dL 0.5-0.9 N Calcium (test code = CA) 8.7 mg/dL 8.3-10.5 N Prot Total (test code = TP) 5.3 g/dL 6.4-8.3 L Albumin (test code = ALB) 3.2 g/dL 3.5-5.2 L A/G Ratio (test code = AGRATIO) 1.5 Ratio Globulin (test code = GLOB) 2.1 2.9-3.1 L Bili Total (test code = TBIL) 0.3 mg/dL 0.1-0.9 N Alk Phos (test code = APHOS) 62 U/L 35-104 N AST (test code = AST) 79 U/L 1-32 H ALT (test code = ALT) 31 U/L 1-33 N BUN/Creatinine Ratio (test code = BCRATIO) 11.4 Anion Gap (test code = AGAP) 9 mmol/L 7-16 N Estimated GFR (test code = GFR) >60 mL/min/1.73m2 eGFR (estimated Glomerular Filtration Rate) is an estimated value,calculated from the patient's serum creatinine using the MDRD equation.It is NOT the patient's actual GFR. The eGFR provides a more clinicallyuseful measure of kidney disease than serum creatinine alone.This calculation takes sex and race into account, if the informationis provided. If the race is not provided, and the patient isAfrican-[place], multiply by 1.212. If sex is not provided, and thepatient is female, multiply by 0.742. Results for patients <18 years ofage have not been validated by the MDRD study and should be interpretedwith caution.eGFR Result Interpretation:eGFR > or = 60 is in the Normal RangeeGFR < 60 may mean kidney diseaseeGFR < 15 may mean kidney failureRanges recommended by the National Kidney Foundation,http://nkdep .nih.gov Magnesium, [id number] 05:20:00* Test Item Value Reference Range Interpretation Comme nts Magnesium (test code = MG) 1.7 mg/dL 1.7-2.5 N Blood Gas+Lytes+Glu+Ca+Hgb+Hct+[id number] 05:14:00* Test Item Value Reference Range Interpretation Comme nts pH, Blood Gas (test code = BGPH) 7.408 pH Units 7.35-7.45 N pCO2 (test code = PCO2) 38.0 mm Hg 35-45 N pO2 (test code = PO2) 155.0 mm Hg 80-100 HH Bicarbonate (test code = HCO3) 24.0 mmol/L 22.0-26.0 N Base Excess (test code = BE) -0.5 mmol/L O2 Saturation (test code = O2SAT) 99.8 % 80.0-100.0 N Sodium, Blood Gas (test code = BGNA) 148 mmol/L 135-145 H Potassium, Blood Gas (test code = BGK) 3.7 mmol/L 3.5-4.5 N Chloride, Blood Gas (test code = BGCL) 117 mmol/L 98-105 H Calcium, Ionized, Blood Gas (test code = BGCAI) 1.25 mmol/L 1.00-1.50 N Glucose, Blood Gas (test code = BGGLU) 99 mg/dL 75-115 N tHB (test code = RTHB) 10.2 gm/dL 12.2-17.4 L Hematocrit, Blood Gas (test code = BGHCT) 31.3 % 34.0-52.0 L O2Hb (test code = RO2HB) 98 80-100 N Carboxyhemoglobin (test code = CARHGB) 1.2 % 0.0-20.0 N Methemoglobin (test code = METHGB) 0.8 % 0.0-20.0 N FIO2 % (test code = FIO2) 50 % Patient Temperature (test code = PTTEMP) 37.0 Degrees Celcius Comment (test code = COMMENT) crit- po2/ rblv- rn- Doreen [place] @ 0545 ebrown Puncture Site (test code = PUNSITE) Brachial. R Drawing Tech ID (test code = DRAWTECH) ebrown Lactic Acid, Blood Gas (test code = BGLA) 2.2 mmol/L iPAP (test code = IPAP) 0 cmH2O Peep (test code = RPEEP) 5 Respiratory Rate (test code = RESP RATE) 18 Tidal Volume (test code = TIDALVOL) 0.[address] HEAD OR BRAIN WO [id number] 02:06:48AFTER HOURS SERVICE ON: 06/23/2017 2:06 AMCT Scan of the Brain Without ContrastLocation Code N94Pehbwey: altered mental statusTechnique: Scans were performed on a helical scanner pre IV contrastonly.The study is limited secondary to lack of intravenous contrast,particularly for evaluation of masses. CT images were performed hkyaug07 hours at arrival to the facility. One or more of the following dose reduction techniques were used:Automated exposure control, adjustment of the mA and/or kV according topatient size, and/or utilization of iterative reconstruction technique.Findings: There is no hydrocephalus. Basal cisterns are patent. There is nointracranial hyperdense hemorrhage. There is nomidline shift or masseffect. No effacement of the mcgrath-white matter junction to indicateacute infarction. Air-fluid level noted in the left sphenoid sinus. Impression:No acute intracranial CT findings.Acute sphenoid sinusitis.Lactic Acid Bld 2017-06-23 00:55:00* Test Item Value Reference Range Interpretation Comme nts Lactic Acid, Bld (test code = LAC) 4.5 mmol/L 0.5-1.9 HH александр rblvver rblv Basic Metabolic [id number] 23:49:00* Test Item Value Reference Range Interpretation Comme nts Sodium (test code = NA) 140 mmol/L 135-145 N Potassium (test code = K) 5.4 mmol/L 3.5-5.1 H The value HEMO originally released by MAREK on 06/22/2017 23:46 waschanged to 5.4 by MAREK on 06/22/2017 23:48hemolyzed Chloride (test code = CL) 107 mmol/L 98-105 H Carbon Dioxide (test code = CO2) 22 mmol/L 22-29 N Glucose (test code = GLU) 120 mg/dL 70-115 H Blood Urea Nitrogen (test code = BUN) 9 mg/dL 6-20 N Creatinine (test code = CREAT) 0.9 mg/dL 0.5-0.9 N Calcium (test code = CA) 8.6 mg/dL 8.3-10.5 N BUN/Creatinine Ratio (test code = BCRATIO) 10.0 Anion Gap (test code = AGAP) 11 mmol/L 7-16 N Estimated GFR (test code = GFR) >60 mL/min/1.73m2 eGFR (estimated Glomerular Filtration Rate) is an estimated value,calculated from the patient's serum creatinine using the MDRD equation.It is NOT the patient's actual GFR. The eGFR provides a more clinicallyuseful measure of kidney disease than serum creatinine alone.This calculation takes sex and race into account, if the informationis provided. If the race is not provided, and the patient isAfrican-[place], multiply by 1.212. If sex is not provided, and thepatient is female, multiply by 0.742. Results for patients <18 years ofage have not been validated by the MDRD study and should be interpretedwith caution.eGFR Result Interpretation:eGFR > or = 60 is in the Normal RangeeGFR < 60 may mean kidney diseaseeGFR < 15 may mean kidney failureRanges recommended by the National Kidney Foundation,http://nkdep .nih.gov [id number] 23:46:00* Test Item Value Reference Range Interpretation Comme nts Acetaminophen (test code = ACET) <15.0 ug/mL 15.0-30.0 L [id number] 23:46:00* Test Item Value Reference Range Interpretation Comme nts Phosphorus (test code = PO4) 1.8 mg/dL 2.70-4.50 L Magnesium, [id number] 23:46:00* Test Item Value Reference Range Interpretation Comme nts Magnesium (test code = MG) 1.8 mg/dL 1.7-2.5 N CBC with [id number] 23:40:00* Test Item Value Reference Range Interpretation Comme nts WBC (test code = WBC) 6.8 K/cumm 4.4-10.5 N RBC (test code = RBC) 3.76 M/cumm 3.75-5.20 N Hemoglobin (test code = HGB) 11.2 gm/dL 12.2-14.8 L Hematocrit (test code = HCT) 33.9 % 36.5-44.4 L MCV (test code = MCV) 90.2 fL 80-100 N MCH (test code = MCH) 29.8 pg 27.0-32.5 N MCHC (test code = MCHC) 33.1 g/dL 32.0-37.5 N RDW (test code = RDW) 13.4 % 11.5-14.5 N Platelet Count (test code = PLTCT) 74 K/cumm 140-440 L VERIFIED BY REPE AT TESTINGREAD BACK LAB VALUESPLATELET DELTA CHECKED WITH Ewelina CURTIS/RN @8248 ON 06/22/2017REASON UNKNOWN PER NURSE MPV (test code = MPV) 10.6 fL Diff Method (test code = DIFFM) Auto Neutrophil (test code = NEUT) 70.9 % 36-70 H Lymphocyte (test code = LYMPH) 22.7 % 12-44 N Monocyte (test code = MONO) 5.3 % 0-11 N Eosinophil (test code = EOS) 0.7 % 0-7 N Basophil (test code = BASO) 0.3 % 0-2 N Neutro Abs (test code = ANEUT) 4.8 K/cumm 1.6-7.4 N Lymph Abs (test code = ALYMPH) 1.5 K/cumm 0.5-4.6 N [place] Abs (test code = AMONO) 0.4 K/cumm 0.0-1.2 N Eos Abs (test code = AEOS) 0.05 K/cumm 0.00-0.74 N Baso Abs (test code = ABASO) 0.0 K/cumm 0.00-0.21 N Hypochromic (test code = HYPO) Slight Urinalysis [id number] 20:50:00* Test Item Value Reference Range Interpretation Comme nts Color (test code = COLOR) Yellow Yellow,Straw,Pl yellow N Clarity (test code = CLAR) Clear Clear N Specific [place] (test code = SPGR) 1.028 1.001-1.035 N pH (test code = PH) 5.0 5.0-9.0 N Ketone (test code = KET) 5 mg/dL Negative A Glucose (test code = GLUCUR) Negative mg/dL Negative N Protein (test code = PROT) 75 mg/dL Negative A Bilirubin (test code = BILI) Negative mg/dL Negative N Occult Blood (test code = UDOB) Mod to Large Negative A Urobilinogen (test code = UROB) 0.2 mg/dL 0.2-1.0 N Nitrite (test code = NIT) Negative Negative N Leuk Esterase (test code = LEUK) Small Negative A Micros Exam (test code = MEXAM) Indicated Epithelial Cells (test code = EPI) 0-2 /LPF 0-30 A WBC, Urine (test code = UWBC) 6-10 /HPF 0-5 A RBC, Urine (test code = URBC) 21-30 /HPF 0-5 A Bacteria (test code = BACT) Few /HPF Casts (test code = CASTS) 25-50 Hyaline 0-1 Granular /HPF BHCG, Urine, [id number] 20:30:00* Test Item Value Reference Range Interpretation Comme nts Preg Qual [Ur] (test code = HUHCG) Negative Negative N [id number] 20:28:00* Test Item Value Reference Range Interpretation Comme nts Amphetamine (test code = AMPH) Negative Negative N For diagnostic purposes only, positive results should always be assessedin conjunctionwith the patient's medical history,clinical examination and otherfindings.To fulfill legal requirements, a more specific alternate chemical methodmust be used inorder to obtain a Confirmed analytical result. GC/MS is the preferred confirmatory method. Barbiturates (test code = KLARISSA) Negative Negative N Benzodiazepine (test code = HAMLET) POSITIVE Negative A Cocaine (test code = COCA) Negative Negative N Methadone (test code = MTHD) Negative Negative N Opiates (test code = OPIA) POSITIVE Negative A PCP (test code = PCP) Negative Negative N Propoxyphene (test code = PROPOX) Negative Negative N THC (test code = THC) Negative Negative N Alcohol, Urine (test code = ETOHU) <0.01 g/dL 0.00-0.01 N XR CHEST 1 [id number] 20:19:17CHEST X-RAY 1 VIEW Location: [id number] HISTORY: IntubationTechnique:2 frontal views of the chest [...] in satisfactory position. Mild centralvascular congestion.Partial Thromboplastin [id number] 20:14:00* Test Item Value Reference Range Interpretation Comme nts aPTT (test code = PTT) 29.10 seconds 24.39-37.25 N Prothrombin [id number] 20:14:00* Test Item Value Reference Range Interpretation Comme nts PT (test code = PT) 11.60 seconds 9.78-13.35 N INR (test code = INR) 1.02 Ratio 0.6-1.2 N CBC with [id number] 20:06:00* Test Item Value Reference Range Interpretation Comme nts WBC (test code = WBC) 11.2 K/cumm [...] 11.5-14.5 N Platelet Count (test code = PLTCT) 397 K/cumm 140-440 N MPV (test code = MPV) 9.3 fL [...] code = ALYMPH) 2.4 K/cumm 0.5-4.6 N [place] Abs (test code = AMONO) 0.8 K/cumm 0.0-1.2 N Eos Abs (test code = AEOS) 0.07 K/cumm 0.00-0.74 N Baso Abs (test code = ABASO) 0.0 K/cumm 0.00-0.21 N Hypochromic (test code = HYPO) Slight Blood Gas+Lytes+Glu+Ca+Hgb+Hct+[id number] 20:04:00* Test Item Value Reference Range Interpretation Comme nts pH, Blood Gas (test code = BGPH) 7.208 pH Units 7.35-7.45 L pCO2 (test code = PCO2) 54.5 mm Hg 35-45 H pO2 (test code = PO2) 530.0 mm Hg 80-100 HH Bicarbonate (test code = HCO3) 21.7 mmol/L 22.0-26.0 LL Base Excess (test code = BE) -6.6 mmol/L O2 Saturation (test code = O2SAT) 100.6 % 80.0-100.0 H Sodium, Blood Gas (test code = BGNA) 142 mmol/L 135-145 N Potassium, Blood Gas (test code = BGK) 4.1 mmol/L 3.5-4.5 N Chloride, Blood Gas (test code = BGCL) 111 mmol/L 98-105 H Calcium, Ionized, Blood Gas (test code = BGCAI) 1.28 mmol/L 1.00-1.50 N Glucose, Blood Gas (test code = BGGLU) 148 mg/dL 75-115 H tHB (test code = RTHB) 12.0 gm/dL 12.2-17.4 L Hematocrit, Blood Gas (test code = BGHCT) 36.8 % 34.0-52.0 N O2Hb (test code = RO2HB) 97 80-100 N Carboxyhemoglobin (test code = CARHGB) 3.3 % 0.0-20.0 N Methemoglobin (test code = METHGB) 0.7 % 0.0-20.0 N FIO2 % (test code = FIO2) 100 % FLOW (LPM) (test code = FLOW) 15 L/min Patient Temperature (test code = PTTEMP) 37.0 Degrees Celcius Comment (test code = COMMENT) [email or web address] Puncture Site (test code = PUNSITE) Brachial. L Drawing Tech ID (test code = DRAWTECH) [email or web address] iPAP (test code = IPAP) 0 cmH2O Respiratory Rate (test code = RESP RATE) 0 Lactic Acid, Blood Gas (test code = BGLA) 4.3 mmol/L [id number] 20:03:00* Test Item Value Reference Range Interpretation Comme nts Acetaminophen (test code = ACET) <15.0 ug/mL 15.0-30.0 L [id number] 20:03:00* Test Item Value Reference Range Interpretation Comme nts Salicylate (test code = SALI) <0.3 mg/dL 0.3-10.0 L Change in uni t of measurement for Salicylate ( from ug/mL to mg/dL ) Comprehensive Metabolic [id number] 20:03:00* Test Item Value Reference Range Interpretation Comme nts Sodium (test code = NA) 142 mmol/L 135-145 N Potassium (test code = K) 4.0 mmol/L 3.5-5.1 N Chloride (test code = CL) 105 mmol/L 98-105 N Carbon Dioxide (test code = CO2) 25 mmol/L 22-29 N Glucose (test code = GLU) 139 mg/dL 70-115 H Blood Urea Nitrogen (test code = BUN) 10 mg/dL 6-20 N Creatinine (test code = CREAT) 1.1 mg/dL 0.5-0.9 H Calcium (test code = CA) 9.1 mg/dL 8.3-10.5 N Prot Total (test code = TP) 6.7 g/dL 6.4-8.3 N Albumin (test code = ALB) 4.2 g/dL 3.5-5.2 N A/G Ratio (test code = AGRATIO) 1.7 Ratio Globulin (test code = GLOB) 2.5 2.9-3.1 L Bili Total (test code = TBIL) <0.1 mg/dL 0.1-0.9 L Alk Phos (test code = APHOS) 69 U/L 35-104 N AST (test code = AST) 20 U/L 1-32 N ALT (test code = ALT) 19 U/L 1-33 N BUN/Creatinine Ratio (test code = BCRATIO) 9.1 Anion Gap (test code = AGAP) 12 mmol/L 7-16 N Estimated GFR (test code = GFR) >60 mL/min/1.73m2 eGFR (estimated Glomerular Filtration Rate) is an estimated value,calculated from the patient's serum creatinine using the MDRD equation.It is NOT the patient's actual GFR. The eGFR provides a more clinicallyuseful measure of kidney disease than serum creatinine alone.This calculation takes sex and race into account, if the informationis provided. If the race is not provided, and the patient isAfrican-Bruneian, multiply by 1.212. If sex is not provided, and thepatient is female, multiply by 0.742. Results for patients <18 years ofage have not been validated by the MDRD study and should be interpretedwith caution.eGFR Result Interpretation:eGFR > or = 60 is in the Normal RangeeGFR < 60 may mean kidney diseaseeGFR < 15 may mean kidney failureRanges recommended by the National Kidney Foundation,http://nkdep .nih.gov Notes Date/Time Note Provider Source Naveed Swanson [facility]2024-05-08 00:00:00 Naveed Swanson [facility]2017-12-02 10:51:15[facility] Progress Note PATIENT NAME: ANGELIC WEIR PHYSICIAN: Joanna Traore MD Admitted: MR NUMBER: [id number] DISCHARGED: PROGRESS NOTE DATE OF SERVICE: 06/25/2017 SUBJECTIVE: The patient was seen and examined. The patient is back to her baseline mental status at this time. Alert, awake, oriented x4, no respiratory distress. Denies any cardiorespiratory symptoms. No GI symptoms. The patient says it was an unintentional drug overdose because of lot of emotional, as well as personal issues going on in her life. PHYSICAL EXAMINATION: VITAL SIGNS: Afebrile temperature, pulse of 96, respiratory rate 29, blood pressure with MAP of 99. GENERAL: Alert, awake, oriented x4. LUNGS: Vesicular breath sounds. No wheezing, some creps at the base. HEART: S1 and S2 plus regular. No murmurs. ABDOMEN: Soft, nontender, and nondistended. Bowel sounds normoactive. EXTREMITIES: Lower extremities, no edema. LABORATORY DATA: Magnesium 1.6. Rest of the electrolytes are within acceptable limits. WBC is 17.9. PROBLEM LIST: 1. Altered mental status with encephalopathy - Metabolic encephalopathy, resolved. 2. Acute hypoxic hypercapnic respiratory failure in the setting of drug overdose - status post extubation. 3. Drug overdose with benzodiazepine, [place], opioids, and muscle relaxants, now back to baseline. 4. Bipolar disorder/depression, management per Dr. Interiano. 5. Question of aspiration pneumonia present at the time of admission with leukocytosis. PLAN: Medications, orders, and labs reviewed and addressed as needed. The patient says she has a history of gout, which is why she is on multiple pain medications. The patient says she is on Lyrica and [place] for her gout. At this time, there is no joint swelling, edema, or erythema, though she does complain of subjective tenderness, subjective pain in the left first metatarsal joint. Uric acid has been ordered with a.m. labs. Continue with Levaquin. Continue with GI prophylaxis. The hospitalist team will resume primary care of this patient once she gets downgraded. Assessment and plan discussed with nursing staff. Joanna rTaore MD [facility] Progress Note PATIENT NAME: ANGELIC WEIR PHYSICIAN: Joanna Traore MD Admitted: MR NUMBER: [id number] DISCHARGED: PROGRESS NOTE DATE OF SERVICE: 06/25/2017 SUBJECTIVE: The patient was seen and examined. The patient is back to her baseline mental status at this time. Alert, awake, oriented x4, no respiratory distress. Denies any cardiorespiratory symptoms. No GI symptoms. The patient says it was an unintentional drug overdose because of lot of emotional, as well as personal issues going on in her life. PHYSICAL EXAMINATION: VITAL SIGNS: Afebrile temperature, pulse of 96, respiratory rate 29, blood pressure with MAP of 99. GENERAL: Alert, awake, oriented x4. LUNGS: Vesicular breath sounds. No wheezing, some creps at the base. HEART: S1 and S2 plus regular. No murmurs. ABDOMEN: Soft, nontender, and nondistended. Bowel sounds normoactive. EXTREMITIES: Lower extremities, no edema. LABORATORY DATA: Magnesium 1.6. Rest of the electrolytes are within acceptable limits. WBC is 17.9. PROBLEM LIST: 1. Altered mental status with encephalopathy - Metabolic encephalopathy, resolved. 2. Acute hypoxic hypercapnic respiratory failure in the setting of drug overdose - status post extubation. 3. Drug overdose with benzodiazepine, [place], opioids, and muscle relaxants, now back to baseline. 4. Bipolar disorder/depression, management per Dr. Interiano. 5. Question of aspiration pneumonia present at the time of admission with leukocytosis. PLAN: Medications, orders, and labs reviewed and addressed as needed. The patient says she has a history of gout, which is why she is on multiple pain medications. The patient says she is on Lyrica and [place] for her gout. At this time, there is no joint swelling, edema, or erythema, though she does complain of subjective tenderness, subjective pain in the left first metatarsal joint. Uric acid has been ordered with a.m. labs. Continue with Levaquin. Continue with GI prophylaxis. The hospitalist team will resume primary care of this patient once she gets downgraded. Assessment and plan discussed with nursing staff. Joanna Traore MD Patient Name: ANGELIC WEIR DN/ELLIS TD: 06/25/2017 16:55 Patient Name: ANGELIC WEIR DN/ELLIS TD: 06/25/2017 16:55 Electronically Authenticated by: Joanna Traore MD On 06/30/2017 10:51 AM [id number] 10:30:25[facility] PATIENT NAME: ANGELIC WEIR PHYSICIAN: Joanna Traore MD Admitted: MR NUMBER: [id number] DISCHARGED: 06/26/2017 05:47:00 DATE OF NOTE: 06/26/2017 The patient was seen and examined today. Please refer to H and P and consultation notes for more details. BRIEF HOSPITAL COURSE: This is a 36-year-old obese lady, who was brought in after she was found overdosed on prescription drugs that is [place] and muscle relaxant, tizanidine and the patient was in respiratory acidosis. Given her unresponsiveness she was intubated for airway protection and given her respiratory acidosis as well and she was monitored in the ICU. Over the next 48 hours, the patient was extubated and her mental status gradually returned back to baseline. She did have some leukocytosis, likely as from aspiration and she has been started on broad spectrum antibiotics with Levaquin and the white count is trending down. Dr. Interiano from psychiatry was consulted to rule out suicide. She has been on one-on-one since her hospitalization: Dr. Interiano diagnosed her with bipolar affective disorder, depressed state, however, no medications were started during her hospitalization. At this time, Dr. Interiano has spoken to her today. He has cleared her from psychiatric standpoint. He did not recommend a transfer to inpatient psychiatric facility. At this time, the patient has a primary psychiatrist by name, Dr. Montanez, whom she follows as outpatient. At this time, a recommendation from psychiatry is to followup with Dr. Montanez as soon as possible and to resume her home medications for bipolar disorder. Her [place] and tizanidine has been discontinued. The patient follows also with the friction paint machine tender and PCP as outpatient and I have told her to continue with the same as soon as possible. Her medications have been reconciled. Today, she is completely back to her baseline and denies any complaints except for some soreness in her throat area, likely from intubation. Medications have been reconciled. Necessary prescriptions have been provided to the patient. PHYSICAL EXAMINATION: VITAL SIGNS: Temperature is 99.2, pulse 76, respiratory rate 18, blood pressure 136/81. GENERAL: She is alert, awake, oriented to time, place, and person. LUNGS: Bilateral good breath sounds, some creps at the bases. No wheezing. HEART: S1, S2 plus regular. No murmurs. ABDOMEN: Soft, nontender, nondistended. Bowel sounds normoactive. EXTREMITIES: Lower extremities, no edema. BACK: No CVA tenderness. GENITOURINARY: The patient denies any urinary tract infection symptoms at this time, apparently had a fungal infection in the vaginal area for which she was treated. DIAGNOSES AT THE TIME OF DISCHARGE: 1. Acute hypercapnic respiratory failure in the setting of respiratory acidosis present on admission secondary to drug overdose from [place] and muscle relaxant. [facility] Discharge Summary PATIENT NAME: ANGELIC WEIR PHYSICIAN: Joanna Traore MD Admitted: MR NUMBER: [id number] DISCHARGED: 06/26/2017 05:47:00 DATE OF NOTE: 06/26/2017 The patient was seen and examined today. Please refer to H and P and consultation notes for more details. BRIEF HOSPITAL COURSE: This is a 36-year-old obese lady, who was brought in after she was found overdosed on prescription drugs that is [place] and muscle relaxant, tizanidine and the patient was in respiratory acidosis. Given her unresponsiveness she was intubated for airway protection and given her respiratory acidosis as well and she was monitored in the ICU. Over the next 48 hours, the patient was extubated and her mental status gradually returned back to baseline. She did have some leukocytosis, likely as from aspiration and she has been started on broad spectrum antibiotics with Levaquin and the white count is trending down. Dr. Interiano from psychiatry was consulted to rule out suicide. She has been on one-on-one since her hospitalization: Dr. Interiano diagnosed her with bipolar affective disorder, depressed state, however, no medications were started during her hospitalization. At this time, Dr. Interiano has spoken to her today. He has cleared her from psychiatric standpoint. He did not recommend a transfer to inpatient psychiatric facility. At this time, the patient has a primary psychiatrist by name, Dr. Montanez, whom she follows as outpatient. At this time, a recommendation from psychiatry is to followup with Dr. Montanez as soon as possible and to resume her home medications for bipolar disorder. Her [place] and tizanidine has been discontinued. The patient follows also with the friction paint machine tender and PCP as outpatient and I have told her to continue with the same as soon as possible. Her medications have been reconciled. Today, she is completely back to her baseline and denies any complaints except for some soreness in her throat area, likely from intubation. Medications have been reconciled. Necessary prescriptions have been provided to the patient. PHYSICAL EXAMINATION: VITAL SIGNS: Temperature is 99.2, pulse 76, respiratory rate 18, blood pressure 136/81. GENERAL: She is alert, awake, oriented to time, place, and person. LUNGS: Bilateral good breath sounds, some creps at the bases. No wheezing. HEART: S1, S2 plus regular. No murmurs. ABDOMEN: Soft, nontender, nondistended. Bowel sounds normoactive. EXTREMITIES: Lower extremities, no edema. BACK: No CVA tenderness. GENITOURINARY: The patient denies any urinary tract infection symptoms at this time, apparently had a fungal infection in the vaginal area for which she was treated. DIAGNOSES AT THE TIME OF DISCHARGE: 1. Acute hypercapnic respiratory failure in the setting of respiratory acidosis present on admission secondary to drug overdose from [place] and muscle relaxant. Patient Name: ANGELIC WEIR 2. Altered mental status/metabolic encephalopathy present at the time of admission, now resolved. 3. Aspiration pneumonia with leukocytosis on empiric broad spectrum antibiotic therapy. 4. Bipolar affective disorder, depressed state. 5. History of gout. Further management as outpatient with PCP. 6. Dehydration, status post volume resuscitation. 7. Hypokalemia and hypomagnesemia from yesterday corrected. 8. Acute pulmonary edema - resolved. DISCHARGE MEDICATIONS: 1. She has been counseled to take her home medication regimen for her psychiatric comorbidities. 2. We will continue with menthol lozenges for symptomatic relief 3. Levaquin 750 mg daily for 7 days. 4. Protonix 40 mg daily for 7 days. 5. The rest of her opiates and muscle relaxants have been discontinued. DISCHARGE DIET: Cardiac diet. DISCHARGE ACTIVITY: As tolerated. DISCHARGE INSTRUCTIONS: PCP as well as a psychiatrist primary OSWALDO. DISCHARGE ACTIVITY: As tolerated. RELEVANT LABS: Sodium 139, potassium 3.7, bicarbonate 24, BUN 5, creatinine 0.7, calcium 8.6, glucose 96. WBC 14.9, was more than 17,000 yesterday, hemoglobin 10.7, and platelet count 336. DISCHARGE PLAN: As outlined above. Medications, orders, labs reviewed and addressed as needed. The patient at this time is stable from medical standpoint for discharge. Continuation of antibiotics and outpatient followup for her medical comorbidities and with her primary psychiatrist, Dr. Montanez for her bipolar affective disorder. Please see orders for more details. Assessment and plan discussed with nursing staff. Joanna Traore MD Patient Name: ANGELIC WEIR 2. Altered mental status/metabolic encephalopathy present at the time of admission, now resolved. 3. Aspiration pneumonia with leukocytosis on empiric broad spectrum antibiotic therapy. 4. Bipolar affective disorder, depressed state. 5. History of gout. Further management as outpatient with PCP. 6. Dehydration, status post volume resuscitation. 7. Hypokalemia and hypomagnesemia from yesterday corrected. 8. Acute pulmonary edema - resolved. DISCHARGE MEDICATIONS: 1. She has been counseled to take her home medication regimen for her psychiatric comorbidities. 2. We will continue with menthol lozenges for symptomatic relief 3. Levaquin 750 mg daily for 7 days. 4. Protonix 40 mg daily for 7 days. 5. The rest of her opiates and muscle relaxants have been discontinued. DISCHARGE DIET: Cardiac diet. DISCHARGE ACTIVITY: As tolerated. DISCHARGE INSTRUCTIONS: PCP as well as a psychiatrist primary OSWALDO. DISCHARGE ACTIVITY: As tolerated. RELEVANT LABS: Sodium 139, potassium 3.7, bicarbonate 24, BUN 5, creatinine 0.7, calcium 8.6, glucose 96. WBC 14.9, was more than 17,000 yesterday, hemoglobin 10.7, and platelet count 336. DISCHARGE PLAN: As outlined above. Medications, orders, labs reviewed and addressed as needed. The patient at this time is stable from medical standpoint for discharge. Continuation of antibiotics and outpatient followup for her medical comorbidities and with her primary psychiatrist, Dr. Montanez for her bipolar affective disorder. Please see orders for more details. Assessment and plan discussed with nursing staff. Joanna Traore MD Patient Name: ANGELIC WEIR DN/HECTOR TD: 06/26/2017 20:22 Patient Name: ANGELIC WEIR DN/HECTOR TD: 06/26/2017 20:22 Electronically Authenticated by: Joanna Traore MD On 06/30/2017 10:30 AM [id number] 07:31:57[facility] Progress Note PATIENT NAME: ANGELIC WEIR PHYSICIAN: Theodore Hoover MD Admitted: MR NUMBER: [id number] DISCHARGED: DATE OF SERVICE: 06/25/2017 SUBJECTIVE: The patient is seen and examined at bedside. Overnight events, nursing documentation as well as EMR documentation is reviewed. No significant events overnight. The patient was extubated yesterday without incident. Complains of sore throat. MEDICATIONS: Reviewed by me. Please see MAR for full details. Of note, the patient is on, 1. Levaquin. 2. Heparin for DVT prophylaxis. PHYSICAL EXAMINATION: Vital Signs: Blood pressure 153/64, heart rate 84, respiratory rate 24, oxygenation 94% on room air. General: The patient is awake, alert, oriented x3, in no acute distress. HEENT: No adenopathy. No JVD. CVS: S1 and S2 heard. Regular rate and rhythm. Lungs: Decreased air entry bilaterally. No wheezing. Extremities: No edema. LABORATORY DATA AND IMAGING: Potassium 3.5, creatinine 0.8, magnesium 1.6. WBC 17.9, hemoglobin 9.6, platelet 299. ASSESSMENT: 1. Acute respiratory failure requiring mechanical ventilation, now resolved. 2. Acute drug overdose. 3. Major depression. PLAN: The patient's clinical status is improved, she is now extubated and her respiratory status is stable. Primary hospitalist has initiated antibiotic therapy for presumption of pneumonia for which I would recommend 5-7 day treatment. The patient is clinically stable for transfer to floor. Follow up with psychiatry consultant internship, she will go with a sitter for patient safety. Theodore Hoover MD CARO/SUB TD: 06/25/2017 09:50 [facility] Progress Note PATIENT NAME: ANGELIC WEIR PHYSICIAN: Theodore Hoover MD Admitted: MR NUMBER: [id number] DISCHARGED: DATE OF SERVICE: 06/25/2017 SUBJECTIVE: The patient is seen and examined at bedside. Overnight events, nursing documentation as well as EMR documentation is reviewed. No significant events overnight. The patient was extubated yesterday without incident. Complains of sore throat. MEDICATIONS: Reviewed by me. Please see MAR for full details. Of note, the patient is on, 1. Levaquin. 2. Heparin for DVT prophylaxis. PHYSICAL EXAMINATION: Vital Signs: Blood pressure 153/64, heart rate 84, respiratory rate 24, oxygenation 94% on room air. General: The patient is awake, alert, oriented x3, in no acute distress. HEENT: No adenopathy. No JVD. CVS: S1 and S2 heard. Regular rate and rhythm. Lungs: Decreased air entry bilaterally. No wheezing. Extremities: No edema. LABORATORY DATA AND IMAGING: Potassium 3.5, creatinine 0.8, magnesium 1.6. WBC 17.9, hemoglobin 9.6, platelet 299. ASSESSMENT: 1. Acute respiratory failure requiring mechanical ventilation, now resolved. 2. Acute drug overdose. 3. Major depression. PLAN: The patient's clinical status is improved, she is now extubated and her respiratory status is stable. Primary hospitalist has initiated antibiotic therapy for presumption of pneumonia for which I would recommend 5-7 day treatment. The patient is clinically stable for transfer to floor. Follow up with psychiatry consultant internship, she will go with a sitter for patient safety. MD GORDO Fernandez/DOUGLAS TD: 06/25/2017 09:50 Electronically Authenticated by: Theodore Hoover MD On 06/28/2017 07:31 AM [id number] 07:31:53[facility] Progress Note PATIENT NAME: ANGELIC WEIR PHYSICIAN: Theodore Hoover MD Admitted: MR NUMBER: [id number] DISCHARGED: DATE OF SERVICE: 06/24/2017 SUBJECTIVE: The patient was seen and examined at bedside. Overnight events, nursing documentation as well as EMR documentation is reviewed. No significant events overnight. The patient is more awake today, able to follow simple commands. With myself at bedside, the patient was able to tolerate pressure support overnight and minimal settings this morning, plan for extubation. MEDICATIONS: Reviewed by me. Please see MAR for full details. Of note, the patient is on heparin for DVT prophylaxis. OBJECTIVE: VITAL SIGNS: Blood pressure 153/88, heart rate 86, respiratory rate 15, oxygenation 100 percent. Ventilator settings, please see respiratory care notes. GENERAL: The patient is awake, intubated, following commands, in no acute distress. HEENT: No adenopathy. No JVD. Orotracheal intubation. CARDIOVASCULAR: S1, S2 heard. Regular rate and rhythm. LUNGS: Slight decrease in air entry bilaterally. Bibasilar crackles. ABDOMEN: Bowel sounds positive. No organomegaly. EXTREMITIES: No edema. LABORATORY DATA AND IMAGING: Magnesium 1.7. Potassium 3.3, creatinine 0.6. WBC 17, hemoglobin 10.2 and platelet 349. ABG - pH 7.37/43/105. ASSESSMENT: 1. Acute respiratory failure requiring mechanical ventilation. 2. Polysubstance overdose with suicide attempt. 3. Major depression. PLAN: The patient's neurologic status has returned to baseline, she likely has metabolized her overdose medications. Plan to proceed with extubation. We will obtain psychiatry consultation once the patient's mental clarity improves. She will require one-to-one for patient safety upon transfer to the floor if she remains stable post extubation. MD GORDO Fernandez/TANK TD: 06/24/2017 12:51 [facility] Progress Note PATIENT NAME: ANGELIC WEIR PHYSICIAN: Theodore Hoover MD Admitted: MR NUMBER: [id number] DISCHARGED: DATE OF SERVICE: 06/24/2017 SUBJECTIVE: The patient was seen and examined at bedside. Overnight events, nursing documentation as well as EMR documentation is reviewed. No significant events overnight. The patient is more awake today, able to follow simple commands. With myself at bedside, the patient was able to tolerate pressure support overnight and minimal settings this morning, plan for extubation. MEDICATIONS: Reviewed by me. Please see MAR for full details. Of note, the patient is on heparin for DVT prophylaxis. OBJECTIVE: VITAL SIGNS: Blood pressure 153/88, heart rate 86, respiratory rate 15, oxygenation 100 percent. Ventilator settings, please see respiratory care notes. GENERAL: The patient is awake, intubated, following commands, in no acute distress. HEENT: No adenopathy. No JVD. Orotracheal intubation. CARDIOVASCULAR: S1, S2 heard. Regular rate and rhythm. LUNGS: Slight decrease in air entry bilaterally. Bibasilar crackles. ABDOMEN: Bowel sounds positive. No organomegaly. EXTREMITIES: No edema. LABORATORY DATA AND IMAGING: Magnesium 1.7. Potassium 3.3, creatinine 0.6. WBC 17, hemoglobin 10.2 and platelet 349. ABG - pH 7.37/43/105. ASSESSMENT: 1. Acute respiratory failure requiring mechanical ventilation. 2. Polysubstance overdose with suicide attempt. 3. Major depression. PLAN: The patient's neurologic status has returned to baseline, she likely has metabolized her overdose medications. Plan to proceed with extubation. We will obtain psychiatry consultation once the patient's mental clarity improves. She will require one-to-one for patient safety upon transfer to the floor if she remains stable post extubation. MD GORDO Fernandez/TANK TD: 06/24/2017 12:51 Electronically Authenticated by: Theodore Hoover MD On 06/28/2017 07:31 AM [id number] 07:31:18[facility] Consultation PATIENT NAME: DESTINANGELIC PHYSICIAN: Theodore Hoover MD Admitted: MR NUMBER: [id number] DISCHARGED: DATE OF SERVICE: 06/23/2017 REASON FOR CONSULTATION: Acute respiratory failure, suicide attempt. HISTORY OF PRESENT ILLNESS: Briefly, the patient is a 36-year-old female, who was brought in initially by EMS for possible overdose. I am unable to obtain history directly from the patient due to her current intubated state. Reportedly, per EMS, the patient was found unresponsive in her bathtub with an empty bottle of hydrocodone and tizanidine. EMS did provide the patient with Narcan with initial improvement in her symptoms; however, the patient became progressively more unresponsive, presented to the emergency department in severe respiratory acidosis and failure, intubated for airway protection. The patient's Tylenol level was negative, NAC protocol was deferred on admission. The patient remains intubated, unresponsive in the ICU. REVIEW OF SYSTEMS: Unable to obtain. PAST MEDICAL HISTORY: Unable to obtain. PAST SURGICAL HISTORY: Unable to obtain. ALLERGIES: UNABLE TO OBTAIN. HOME MEDICATIONS: Unable to obtain other than presumptive prescription for tizanidine and hydrocodone. PAST SURGICAL HISTORY: Unable to obtain. PHYSICAL EXAMINATION: VITAL SIGNS: Blood pressure 116/62, heart rate 80, respiratory rate 18, oxygenation 100%. Ventilator settings, please see respiratory care notes. GENERAL: The patient is intubated, off sedation in the ICU, unresponsive, grimaces to pain intermittently, cough with suctioning. HEENT: No adenopathy, orotracheal intubation. HEART: S1, S2 heard, regular rate and rhythm. LUNGS: Slight decreased air entry bilaterally, scattered crackles. ABDOMEN: Bowel sounds positive. No organomegaly. EXTREMITIES: No edema. LABORATORY DATA AND IMAGING: [facility] Consultation ABG pH 7.40/38/155, lactic acid 2.2. WBC 10.4, hemoglobin 10.9, platelets 309. Potassium 3.9, creatinine 0.7, magnesium 1.7. Urinalysis: Small leukocyte esterase. CT of the brain - no acute intracranial findings. Phosphorus 1.8. Acetaminophen level negative. Initial lactic acid 4.5. Urine drug screen positive for opiates and benzodiazepines. Chest x-ray - upon my review, no obvious infiltrates or effusions. ASSESSMENT: 1. Acute respiratory failure requiring mechanical ventilation. 2. Polysubstance overdose, presumably with tizanidine and hydrocodone. 3. Possible suicide attempt. PLAN: The patient with polysubstance overdose. She does not have significant metabolic acidosis or anion gap, which may suggest coingestion with other substances. Tylenol level is negative, LFTs are stable. We will continue with mechanical ventilatory support, the patient remains off of sedation. We will continue to monitor neurologic status. We will make adjustments to the ventilator based on the patient's ABG and physiologic changes. Once the patient's mental clarity improves, we will obtain psychiatry consultation to further elucidate the etiology of her overdose. Critical care time 35 minutes. MD GORDO Fernandez/SADIQ/MAGUI TD: 06/23/2017 13:11 Electronically Authenticated and Edited by: Theodore Hoover MD On 06/28/2017 07:31 AM [id number] 07:20:57[facility] Consultation PATIENT NAME: MARIA ELENA WEIRDELMY PHYSICIAN: Romeo Interiano MD Admitted: MR NUMBER: [id number] DISCHARGED: DATE OF ADMISSION: 06/22/2017. DATE OF EXAM: 06/25/2017. TIME: At 6 o'clock in the morning. TYPE OF CONSULTATION: Psychiatric. REASON FOR CONSULTATION: The patient overdosed on medications. There was a question as whether this was intentional and suicidal or unintentional because of overtaking her medications. BRIEF HISTORY: The patient is a 36-year-old female, who says she is being treated for bipolar disorder with Xanax and Ambien. She says she normally takes 1 mg of Xanax twice daily and 2 mg at night as well as Ambien. She also says she takes hydrocodone for gout. She does see a psychiatrist and she says that lately things have been getting stressful because of her four kids and one of them, the 20-year-old daughter is and that is also a stress to her, but she says she had no intentions of killing herself. She does not know how she ended up taking that amount of medicine that she did. The patient why this happened and again vehemently denies any suicidal thinking. The patient does not use illicit drugs or alcohol as far as she tells me. MENTAL STATUS EXAMINATION: The patient is slightly unkempt in her appearance. Her rate of speech is normal. Her affect is depressed. Thought content, she is not homicidal, suicidal, delusional, or hallucinating. Sensorium is clear. Judgment and insight into nature of problem is fair. No gross deficits in short or long-term memory. Intellectual functioning is average. Again, she says she is not suicidal, although she is depressed. IMPRESSION: PSYCHIATRIC ILLNESS: Bipolar affective disorder, depressed state. PLAN AND RECOMMENDATION: We will go ahead and follow along with her while she recovers from her overdose and may or may not be needed to be transferred to a psychiatric unit at this time. She says that she is sad and depressed, but she is not suicidal. Obviously, I will see her again tomorrow. Thank you very much for this consultation. [facility] Consult[facility] PATIENT NAME: ANGELIC WEIR PHYSICIAN: Romeo Interiano MD Admitted: MR NUMBER: [id number] DISCHARGED: DATE OF ADMISSION: 06/22/2017. DATE OF EXAM: 06/25/2017. TIME: At 6 o'clock in the morning. TYPE OF CONSULTATION: Psychiatric. REASON FOR CONSULTATION: The patient overdosed on medications. There was a question as whether this was intentional and suicidal or unintentional because of overtaking her medications. BRIEF HISTORY: The patient is a 36-year-old female, who says she is being treated for bipolar disorder with Xanax and Ambien. She says she normally takes 1 mg of Xanax twice daily and 2 mg at night as well as Ambien. She also says she takes hydrocodone for gout. She does see a psychiatrist and she says that lately things have been getting stressful because of her four kids and one of them, the 20-year-old daughter is and that is also a stress to her, but she says she had no intentions of killing herself. She does not know how she ended up taking that amount of medicine that she did. The patient why this happened and again vehemently denies any suicidal thinking. The patient does not use illicit drugs or alcohol as far as she tells me. MENTAL STATUS EXAMINATION: The patient is slightly unkempt in her appearance. Her rate of speech is normal. Her affect is depressed. Thought content, she is not homicidal, suicidal, delusional, or hallucinating. Sensorium is clear. Judgment and insight into nature of problem is fair. No gross deficits in short or long-term memory. Intellectual functioning is average. Again, she says she is not suicidal, although she is depressed. IMPRESSION: PSYCHIATRIC ILLNESS: Bipolar affective disorder, depressed state. PLAN AND RECOMMENDATION: We will go ahead and follow along with her while she recovers from her overdose and may or may not be needed to be transferred to a psychiatric unit at this time. She says that she is sad and depressed, but she is not suicidal. Obviously, I will see her again tomorrow. Thank you very much for this consultation. Patient Name: ANGELIC WEIR MD AISHWARYA Terrell/MARGARITO/KURTIS TD: 06/25/2017 06:09 CC:Romeo Interiano MD([employer]md[employer]) Patient Name: DESTINANGELIC MD AISHWARYA Terrell/MARGARITO/KURTIS TD: 06/25/2017 06:09 CC:Romeo Interiano MD([employer]) Electronically Authenticated by: Romeo Interiano MD On 06/25/2017 07:20 AM [id number] 20:00:30[facility] History and Physical PATIENT NAME: ANGELIC WEIR PHYSICIAN: Abe hCe MD Admitted: MR NUMBER: [id number] DISCHARGED: DATE OF ADMISSION: 06/22/2017 PLACE OF EXAMINATION: ER room 1. CHIEF COMPLAINT: Status post overdose on prescription medication. HISTORY OF PRESENT ILLNESS: Anamaria is a 36-year-old female who was brought by the EMS to the ER with the complaint of possible overdose. As per EMS, the patient was found in her bathtub unresponsive and with empty bottle of hydrocodone and tizanidine, approximately 16 hydrocodone/acetaminophen were missing as per the EMS report and tizanidine 4 mg bottle was completely empty which was filled on 06/19/2017. EMS gave her 2 mg of Narcan with improvement in her respiration. In the ER, the patient was noted to be in respiratory acidosis. The patient is subsequently intubated in the ER. The patient is now intubated and is on vent support. The ER physician already spoke with the ICU physician, Dr. Hoover and the patient is now being admitted. Poison Control was also called. Initial level of acetaminophen remained less than 15. The patient's sister and one niece is present, but did not have any further information. PAST MEDICAL HISTORY: Some psych problems and on medication as per family. PAST SURGICAL HISTORY: None. ALLERGIES: UNABLE TO OBTAIN. FAMILY HISTORY: Unable to obtain. SOCIAL HISTORY: Detailed social history unable to obtain. REVIEW OF SYSTEMS: Unable to obtain as the patient is intubated and on vent. PHYSICAL EXAMINATION: GENERAL: Young female lying in bed with endotracheal tube and on vent support, unarousable. VITAL SIGNS: Blood pressure 134/75, pulse 78, respiration 18, temperature 94.3. HEENT: Head is atraumatic and normocephalic. Pupils are equal and reactive. Endotracheal tube noted. NECK: Supple. No thyromegaly or JVD seen. [facility] History and Physical PATIENT NAME: ANGELIC WEIR PHYSICIAN: Abe Che MD Admitted: MR NUMBER: [id number] DISCHARGED: DATE OF ADMISSION: 06/22/2017 PLACE OF EXAMINATION: ER room 1. CHIEF COMPLAINT: Status post overdose on prescription medication. HISTORY OF PRESENT ILLNESS: Anamaria is a 36-year-old female who was brought by the EMS to the ER with the complaint of possible overdose. As per EMS, the patient was found in her bathtub unresponsive and with empty bottle of hydrocodone and tizanidine, approximately 16 hydrocodone/acetaminophen were missing as per the EMS report and tizanidine 4 mg bottle was completely empty which was filled on 06/19/2017. EMS gave her 2 mg of Narcan with improvement in her respiration. In the ER, the patient was noted to be in respiratory acidosis. The patient is subsequently intubated in the ER. The patient is now intubated and is on vent support. The ER physician already spoke with the ICU physician, Dr. Hoover and the patient is now being admitted. Poison Control was also called. Initial level of acetaminophen remained less than 15. The patient's sister and one niece is present, but did not have any further information. PAST MEDICAL HISTORY: Some psych problems and on medication as per family. PAST SURGICAL HISTORY: None. ALLERGIES: UNABLE TO OBTAIN. FAMILY HISTORY: Unable to obtain. SOCIAL HISTORY: Detailed social history unable to obtain. REVIEW OF SYSTEMS: Unable to obtain as the patient is intubated and on vent. PHYSICAL EXAMINATION: GENERAL: Young female lying in bed with endotracheal tube and on vent support, unarousable. VITAL SIGNS: Blood pressure 134/75, pulse 78, respiration 18, temperature 94.3. HEENT: Head is atraumatic and normocephalic. Pupils are equal and reactive. Endotracheal tube noted. NECK: Supple. No thyromegaly or JVD seen. Patient Name: ANGELIC WEIR LUNGS: Clear to auscultation anteriorly. HEART: Normal S1, S2. No murmurs or gallops. ABDOMEN: Obese, nontender, nondistended. EXTREMITIES: No edema or cyanosis. CENTRAL NERVOUS SYSTEM: Unable to evaluate. LABORATORY DATA AND IMAGING: CBC showed hemoglobin of 11.2, hematocrit 33.9, WBC 6.8 and platelets are 74. Acetaminophen level is less than 15. Chemistry showed sodium 142, potassium is 4.0, chloride is 105, carbon dioxide 25, glucose 139, BUN 10, creatinine 1.1. INR is 1.02. Chest x-ray: ET tube and NG tube is in satisfactory position and mild vascular congestion. UA showed 6 to 10 white blood cells and urine drug screen is positive for opiates and benzodiazepine. Magnesium is 1.8. ASSESSMENT: This is a young female with the following problems: 1. Overdose on prescription medication, intentional. 2. Acute respiratory failure, status post intubation and on vent support. PLAN: Plan is to admit the patient to the ICU. ER physician already contacted the ICU physician and monitor vitals as per ICU protocol and continue with the current vent management. We will check acetaminophen level again just to make sure that it remains in the normal range. Follow electrolytes and labs. Start the patient on Protonix for GI prophylaxis and heparin for DVT prophylaxis. We will get a psych consult once the patient extubated and medically stable before discharge. The patient is FULL CODE. MD SUKHDEV Oneill/WENDY TD: 06/23/2017 00:50 Patient Name: ANGELIC WEIR LUNGS: Clear to auscultation anteriorly. HEART: Normal S1, S2. No murmurs or gallops. ABDOMEN: Obese, nontender, nondistended. EXTREMITIES: No edema or cyanosis. CENTRAL NERVOUS SYSTEM: Unable to evaluate. LABORATORY DATA AND IMAGING: CBC showed hemoglobin of 11.2, hematocrit 33.9, WBC 6.8 and platelets are 74. Acetaminophen level is less than 15. Chemistry showed sodium 142, potassium is 4.0, chloride is 105, carbon dioxide 25, glucose 139, BUN 10, creatinine 1.1. INR is 1.02. Chest x-ray: ET tube and NG tube is in satisfactory position and mild vascular congestion. UA showed 6 to 10 white blood cells and urine drug screen is positive for opiates and benzodiazepine. Magnesium is 1.8. ASSESSMENT: This is a young female with the following problems: 1. Overdose on prescription medication, intentional. 2. Acute respiratory failure, status post intubation and on vent support. PLAN: Plan is to admit the patient to the ICU. ER physician already contacted the ICU physician and monitor vitals as per ICU protocol and continue with the current vent management. We will check acetaminophen level again just to make sure that it remains in the normal range. Follow electrolytes and labs. Start the patient on Protonix for GI prophylaxis and heparin for DVT prophylaxis. We will get a psych consult once the patient extubated and medically stable before discharge. The patient is FULL CODE. MD SUKHDEV Oneill/WENDY TD: 06/23/2017 00:50 Electronically Authenticated by: Abe Che MD On 06/24/2017 08:00 PM [id number] 14:20:18[facility] Progress Note PATIENT NAME: ANGELIC WEIR PHYSICIAN: Joanna Traore MD Admitted: MR NUMBER: [id number] DISCHARGED: DATE OF SERVICE: 06/24/2017 SUBJECTIVE: The patient was seen and examined today. The patient has been extubated today. She is still drowsy, but responds to verbal stimuli. PHYSICAL EXAMINATION: VITAL SIGNS: Temperature of 100.5, pulse 98, respiratory rate 23, blood pressure with MAP of 88. She is off the Juan Hugger. GENERAL: Obese, drowsy, but easily arousable. No distress. LUNGS: Bilateral air entry present. Some creps at the base. HEART: S1, S2 plus regular. ABDOMEN: Soft, obese, nontender. Bowel sounds normoactive. EXTREMITIES: Lower extremities, no edema. LABORATORY DATA: From today reviewed. WBC of 17,000. Electrolytes accepted. PROBLEM LIST: 1. Acute respiratory failure with respiratory acidosis on admission - now extubated. 2. Drug overdose with tizanidine and [place] present at the time of admission. 3. ?Aspiration pneumonia with leukocytosis. 4. Deconditioning. PLAN: Prognosis remains guarded. Once she is a little more awake and alert, she will need a psychiatric evaluation. I will go ahead and start the patient on Levaquin. Continue with Protonix for GI prophylaxis. Continue with DVT prophylaxis. Management per project asst while in the ICU once she gets downgraded to the medical floor. Hospitalist team will resume care of this patient. Please see orders for details. Joanna Traore MD DN/PAD TD: 06/24/2017 13:53 [facility] Progress Note PATIENT NAME: ANGELIC WEIR PHYSICIAN: Joanna Traore MD Admitted: MR NUMBER: [id number] DISCHARGED: DATE OF SERVICE: 06/24/2017 SUBJECTIVE: The patient was seen and examined today. The patient has been extubated today. She is still drowsy, but responds to verbal stimuli. PHYSICAL EXAMINATION: VITAL SIGNS: Temperature of 100.5, pulse 98, respiratory rate 23, blood pressure with MAP of 88. She is off the Juan Hugger. GENERAL: Obese, drowsy, but easily arousable. No distress. LUNGS: Bilateral air entry present. Some creps at the base. HEART: S1, S2 plus regular. ABDOMEN: Soft, obese, nontender. Bowel sounds normoactive. EXTREMITIES: Lower extremities, no edema. LABORATORY DATA: From today reviewed. WBC of 17,000. Electrolytes accepted. PROBLEM LIST: 1. Acute respiratory failure with respiratory acidosis on admission - now extubated. 2. Drug overdose with tizanidine and [place] present at the time of admission. 3. ?Aspiration pneumonia with leukocytosis. 4. Deconditioning. PLAN: Prognosis remains guarded. Once she is a little more awake and alert, she will need a psychiatric evaluation. I will go ahead and start the patient on Levaquin. Continue with Protonix for GI prophylaxis. Continue with DVT prophylaxis. Management per project asst while in the ICU once she gets downgraded to the medical floor. Hospitalist team will resume care of this patient. Please see orders for details. Joanna Traore MD DN/PAD TD: 06/24/2017 13:53 Electronically Authenticated by: Joanna Traore MD On 06/24/2017 02:20 PM [id number] 18:10:59[facility] Progress Note PATIENT NAME: ANGELIC WEIR PHYSICIAN: Joanna Traore MD Admitted: MR NUMBER: [id number] DISCHARGED: DATE OF SERVICE: 06/23/2017 SUBJECTIVE: The patient was seen and examined today. INTERVAL HISTORY: The patient still remains obtunded and intubated depending on ventilatory support. Her mother was at her bedside. According to the mother, she has not attempted suicide in the past. Hospital course was explained to her and all of her questions and concerns were addressed. Apparently, the mom does not live with her daughter. She is from out of town. PHYSICAL EXAMINATION: VITAL SIGNS: She was hypothermic when she was admitted to the ICU. Currently, temperature is 97.8, pulse 74, respiratory rate 18, and blood pressure 127/61. GENERAL: She is obtunded. LUNGS: Bilateral conducted breath sounds. No wheezing, no creps. HEART: S1, S2 plus regular. ABDOMEN: Soft. Bowel sounds appreciated. No voluntary guarding. EXTREMITIES: Lower extremities, no edema. LABORATORY DATA: Labs from today reviewed. Respiratory acidosis has resolved. PROBLEM LIST: 1. Acute respiratory failure with respiratory acidosis present at the time of admission. 2. Drug overdose with tizanidine and [place] present at the time of admission. 3. Respiratory acidosis - improved on intubation. PLAN: Prognosis is extremely guarded. The patient remains critically ill and management is as per the ICU team. Once the patient gets downgraded to the medical floor, hospitalist team will resume care of this patient. Continue with management per ICU/project asst protocol. Joanna Traore MD DN/OBED TD: 06/23/2017 13:53 [facility] Progress Note PATIENT NAME: ANGELIC WEIR PHYSICIAN: Joanna Traore MD Admitted: MR NUMBER: [id number] DISCHARGED: DATE OF SERVICE: 06/23/2017 SUBJECTIVE: The patient was seen and examined today. INTERVAL HISTORY: The patient still remains obtunded and intubated depending on ventilatory support. Her mother was at her bedside. According to the mother, she has not attempted suicide in the past. Hospital course was explained to her and all of her questions and concerns were addressed. Apparently, the mom does not live with her daughter. She is from out of town. PHYSICAL EXAMINATION: VITAL SIGNS: She was hypothermic when she was admitted to the ICU. Currently, temperature is 97.8, pulse 74, respiratory rate 18, and blood pressure 127/61. GENERAL: She is obtunded. LUNGS: Bilateral conducted breath sounds. No wheezing, no creps. HEART: S1, S2 plus regular. ABDOMEN: Soft. Bowel sounds appreciated. No voluntary guarding. EXTREMITIES: Lower extremities, no edema. LABORATORY DATA: Labs from today reviewed. Respiratory acidosis has resolved. PROBLEM LIST: 1. Acute respiratory failure with respiratory acidosis present at the time of admission. 2. Drug overdose with tizanidine and [place] present at the time of admission. 3. Respiratory acidosis - improved on intubation. PLAN: Prognosis is extremely guarded. The patient remains critically ill and management is as per the ICU team. Once the patient gets downgraded to the medical floor, hospitalist team will resume care of this patient. Continue with management per ICU/project asst protocol. Joanna Traore MD DN/OBED TD: 06/23/2017 13:53 Electronically Authenticated by: Joanna Traore MD On 06/23/2017 06:10 PM [facility]
[2024-05-26 03:40] LABS: PT Prothrombin Time 11.6 SECONDS (9.4-12.5); Protime INR 1.04
[2024-05-26 03:42] LABS: Absolute Basophils 0.1 K/uL (0-0.5); Absolute Eosinophils 0.4 K/uL (0-0.5); Absolute Lymphocytes (CBC) 6.3 K/uL (0.7-4.9); Absolute Monocytes 0.7 K/uL (0.1-1.3); Absolute Neutrophil 2.9 K/uL (1.8-8.0); Eosinophils % 3.6 % (0-4.4); Lymphocytes % 60.3 % (15.3-44.8); MCH 29.2 pg (27.0-35.0); MCHC 31.6 g/dL (32.0-36.0); MCV 92.3 fL (80-100); MPV 7.9 fL (7.6-11.3); Neutrophils % 28.1 % (41.7-73.7); Nucleated Red Blood Cells % 0.1 % (0-0); Platelets 349 thou/uL (152-406); RBC Red Blood Cell Count 4.12 M/uL (3.86-4.86); Red Cell Distribution Width 14.5 % (12.1-15.2)
[2024-05-26 03:57] LABS: Anion Gap 13.4 mEq/L (5.0-15.0); Potassium 3.4 mEq/L (3.5-5.1); Troponin High Sensitivity 11.6 pg/mL (<58.9)
[2024-05-26 04:40] LABS: Differential Total Cells Count 100; Eosinophils 2 % (0-3); Lymphocytes 62 % (15-42); Reactive Lymphocytes 8 %; Segmented Neutrophils 28 % (40-80)
[2024-05-26 04:41] LABS: Blood Morphology Comment NOT SEEN (NOT SEEN); Monocytes 0 % (0-10); Platelet Estimate ADEQ
[2024-05-26] MEDS ORDERED: MORPHINE 4 MG/ML SYR ONE (05:14)
--- NOTE | 2024-05-26 05:34 | RAD REPORT ---
CLINICAL HISTORY: Chest pain. COMPARISON: None. TECHNIQUE: XR CHEST 1 VIEW 05/26/2024 3:18 AM CDT FINDINGS: Cardiac silhouette is normal in size. Lungs are clear without consolidation, atelectasis, mass or attila ma. There is no pleural effusion. There is no pneumothorax. There are no acute osseous findings. IMPRESSION: Clear lungs. Electronically signed by: Manuel Mariano MD 05/26/2024 04:27 AM CDT RP Due to temporary technical issues with the PACS/[employer] reporting system, reports are being patrica d by the in-house radiologist without review as a courtesy to ensure prompt reporting the interpreting radiologist is fully responsible for the content of the report. Transcribed Date/Time: 05/26/2024 5:33 AM
--- NOTE | 2024-05-26 06:03 | ER ---
Nurse's Notes [facility] Name: Anamaria Baer Age: 43 yrs Sex: Female : 1980 Arrival Date: 05/26/2024 Time: 03:15 Bed 4 Private MD: Diagnosis: Essential (primary) hypertension;Anxiety disorder, unspecified;Chest pain, unspecified Presentation: 05/26 03:22 Chief complaint: EMS states: woke up with heart racing and numbness. When we arrived vc1 blood pressure was 217/120. Pt states this happens once a year because her son was killed around this time. Coronavirus screen: Client denies travel out of the [place] in the last 14 days. At this time, the client does not indicate any symptoms associated with coronavirus-19. Ebola Screen: Patient negative for fever greater than or equal to 101.5 degrees Fahrenheit, and additional compatible Ebola Virus Disease symptoms Patient denies exposure to infectious person. Patient denies travel to an Ebola-affected area in the 21 days before illness onset. No symptoms or risks identified at this time. Initial Sepsis Screen: Does the patient meet any 2 criteria? No. Patient's initial sepsis screen is negative. Does the patient have a suspected source of infection? No. Patient's initial sepsis screen is negative. Risk Assessment: Do you want to hurt yourself or someone else? Patient reports no desire to harm self or others. Onset of symptoms was May 26, 2024 at 02:30. Care prior to arrival: None. Activity prior to arrival: None. Mechanism of Injury: No Mechanism of Injury. Transition of care: patient was not received from another setting of care. 03:22 Method Of Arrival: EMS: [facility] vc1 03:22 Acuity: DEVONTE 3 vc1 Triage Assessment: 03:27 General: Appears uncomfortable, obese, well groomed, Behavior is cooperative, anxious. vc1 Pain: Complains of pain in anterior aspect of right upper chest Pain does not radiate. Pain currently is 8 out of 10 on a pain scale. Quality of pain is described as Tightness Pain began suddenly, 1 hour ago. Is continuous. EENT: No deficits noted. No signs and/or symptoms were reported regarding the EENT system. Neuro: Level of Consciousness is awake, alert, obeys commands, Oriented to person, place, time, situation, Appropriate for age. Cardiovascular: No deficits noted. Respiratory: Airway is patent Respiratory effort is even, unlabored, Respiratory pattern is regular, symmetrical. GI: No deficits noted. No signs and/or symptoms were reported involving the gastrointestinal system. : No deficits noted. No signs and/or symptoms were reported regarding the genitourinary system. Derm: Skin is intact, Skin is clammy, Skin is normal, Skin temperature is cool. Musculoskeletal: No deficits noted. No signs and/or symptoms reported regarding the musculoskeletal system. 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 - Infectious Disease History:: Denies. Denies. - Family history:: not pertinent. - Social history:: Smoking status: Patient reports the use of cigarette tobacco products, smokes one-half pack cigarettes per day, Smoking status: Patient reports the use of cigarette tobacco products, smokes one-half pack cigarettes per day. - Hospitalizations: : No recent hospitalization is reported. Screenin:31 [facility] ED Fall Risk Assessment (Adult) History of falling in the last 3 months, lg3 including since admission No falls in past 3 months (0 pts) Confusion or Disorientation No (0 pts) Intoxicated or Sedated No (0 pts) Impaired Gait No (0 pts) Mobility Assist Device Used No (0 pt) Altered Elimination No (0 pt) Score/Fall Risk Level 0 - 2 = Low Risk Oriented to surroundings, Maintained a safe environment, Educated pt \T\ family on fall prevention, incl call for assistance when getting out of bed, Assessed \T\ reinforced patient's understanding of fall precautions. Abuse screen: Denies threats or abuse. Denies injuries from another. Nutritional screening: No deficits noted. Tuberculosis screening: No symptoms or risk factors identified. Assessment: 03:26 General: Appears in no apparent distress. uncomfortable, Behavior is cooperative, lg3 anxious. Pain: Complains of pain in chest Pain does not radiate. Quality of pain is described as pressure. Neuro: No deficits noted. Ricketts Agitation-Sedation Scale (RASS): 0 - Alert and Calm Level of Consciousness is awake, alert, obeys commands, Oriented to person, place, time, situation. Cardiovascular: Reports chest pain, shortness of breath, Heart tones S1 S2 present Capillary refill < 3 seconds Clubbing of nail beds is absent JVD is absent Patient's skin is warm and dry. Chest pain is described as mild, quality is heaviness, pressure, is located in substernal area. Respiratory: No deficits noted. Airway is patent Respiratory effort is even, unlabored, Respiratory pattern is regular, symmetrical. GI: No deficits noted. No signs and/or symptoms were reported involving the gastrointestinal system. Abdomen is round non-distended, obese. : No signs and/or symptoms were reported regarding the genitourinary system. EENT: No deficits noted. No signs and/or symptoms were reported regarding the EENT system. Derm: No deficits noted. No signs and/or symptoms reported regarding the dermatologic system. Skin is intact, is healthy with good turgor, Skin is dry, Skin is normal, Skin temperature is warm. Musculoskeletal: No deficits noted. No signs and/or symptoms reported regarding the musculoskeletal system. Circulation, motion, and sensation intact. Range of motion: intact in all extremities. 05:01 Reassessment: Patient appears in no apparent distress at this time. No changes from lg3 previously documented assessment. Patient and/or family updated on plan of care and expected duration. Pain level reassessed. Patient is alert, oriented x 3, equal unlabored respirations, skin warm/dry/pink. 06:04 Reassessment: Patient appears in no apparent distress at this time. No changes from bm8 previously documented assessment. Patient and/or family updated on plan of care and expected duration. Pain level reassessed. Patient is alert, oriented x 3, equal unlabored respirations, skin warm/dry/pink. Vital Signs: 03:22 BP 156 / 101; Pulse 91; Resp 20; Temp 98; Pulse Ox 100% ; Weight 99.79 kg; Height 5 ft. vc1 5 in. ; Pain 8/10; 03:41 BP 133 / 71; Pulse 98; rn 04:19 BP 158 / 102; Pulse 90; Resp 17 S; Pulse Ox 98% on R/A; lg3 05:01 BP 140 / 94; Pulse 89; Resp 19; Pulse Ox 99% ; vc1 05:55 BP 151 / 75; Pulse 85; Resp 17 S; Pulse Ox 100% on R/A; lg3 03:22 Body Mass Index 36.61 (99.79 kg, 165.1 cm) vc1 03:22 Pain Scale: Adult vc1 [place] Coma Score: 06:04 Eye Response: spontaneous(4). Motor Response: obeys commands(6). Verbal Response: bm8 oriented(5). Total: 15. ED Course: 03:17 Patient arrived in ED. rn 03:17 Tanner Collier MD is Attending Physician. rn 03:26 Priscilla Jacobs RN is Primary Nurse. lg3 03:26 Triage completed. vc1 03:27 Arm band placed on right wrist. vc1 03:29 Basic Metabolic Panel Sent. vk 03:31 Patient has correct armband on for positive identification. Placed in gown. Bed in low lg3 position. Call light in reach. Side rails up X 1. Client placed on continuous cardiac and pulse oximetry monitoring. NIBP monitoring applied. monitor and storage bin tender on. Door closed. Noise minimized. Warm blanket given. Pillow given. 03:31 Initial lab(s) drawn, by me, sent to lab. EKG done, by ED staff, reviewed by Tanner Collier MD. Inserted saline lock: 20 gauge in right antecubital area, using aseptic technique. Blood collected. Patient maintains SpO2 saturation greater than 95% on room air. 03:39 XRAY Chest (1 view) In Process Unspecified. EDMS 05:02 Provided Education on: anxiety; blood pressure medication. vc1 05:02 No provider procedures requiring assistance completed. vc1 05:07 CT Aorta for Dissection In Process Unspecified. EDMS 06:04 IV discontinued, intact, bleeding controlled, No redness/swelling at site. Pressure bm8 dressing applied. Administered Medications: 03:33 Drug: cloNIDine PO 0.2 mg PO once Route: PO; lg3 05:18 Follow up: Response: No adverse reaction bm8 03:33 Drug: Ativan IVP 0.5 mg IVP once Route: IVP; Site: right antecubital; lg3 05:18 Follow up: Response: No adverse reaction bm8 05:18 Drug: morphine IVP or IV 4 mg IVP once over 4 mins Route: IVP; Infused Over: 4 mins; bm8 Site: right antecubital; 05:56 Follow up: Response: No adverse reaction; Marked relief of symptoms; Pain is decreased lg3 Medication: 05:02 VIS not applicable for this client. vc1 Outcome: 06:02 Discharge ordered by . rn 06:04 Discharged to home ambulatory, bm8 06:04 Condition: stable bm8 06:04 Discharge instructions given to patient, Instructed on discharge instructions, follow up and referral plans. medication usage, safety practices, Demonstrated understanding of instructions, follow-up care, medications, 06:13 Prescriptions given X 1, bm8 06:16 Patient left the ED. lg3 Signatures: Dispatcher [employer] EDMS Tanner Collier MD MD rn Able, Lacie, RN RN lg3 Trini Lopez RN RN vc1 Maggy Quinn Brad RN RN bm8 Corrections: (The following items were deleted from the chart) 05:25 05:24 Reassessment: Patient appears in no apparent distress at this time. No changes lg3 from previously documented assessment. Patient and/or family updated on plan of care and expected duration. Pain level reassessed. Patient is alert, oriented x 3, equal unlabored respirations, skin warm/dry/pink. lg3
--- NOTE | 2024-05-26 06:03 | EDPHYS ---
Physician Documentation [facility] Name: Anamaria Baer Age: 43 yrs Sex: Female : 1980 Arrival Date: 05/26/2024 Time: 03:15 Bed 4 Private MD: ED Physician Tanner Collier HPI: 05/26 03:20 This 43 yrs old Black Female presents to ER via Unassigned with complaints of heart rn racing, hypertension, anxiety. 03:20 The patient presents with a history of heart racing. Context: The symptoms occur with rn anxiety. Onset: The symptoms/episode began/occurred just prior to arrival. Duration: The patient or guardian reports a single episode. Modifying factors: The symptoms are aggravated by nothing. The symptoms are alleviated by nothing. Severity of symptoms: At their worst the symptoms were moderate in the emergency department the symptoms have improved. The patient has not experienced similar symptoms in the past. The patient has not recently seen a physician. Patient reports woke up from sleep with heart racing, and numbness and tingling all over, worse in the right arm. Patient with history of bad anxiety, stems from murder of her son in the past. Reports mild chest tightness with episode. EMS report blood pressure with a diastolic over 100. Patient takes clonidine and last took her clonidine at 10 PM. Patient states felt fine when she went to bed. No fever or illness.. 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 - Infectious Disease History:: Denies. Denies. - Family history:: not pertinent. - Social history:: Smoking status: Patient reports the use of cigarette tobacco products, smokes one-half pack cigarettes per day, Smoking status: Patient reports the use of cigarette tobacco products, smokes one-half pack cigarettes per day. - Hospitalizations: : No recent hospitalization is reported. ROS: 03:20 Constitutional: Negative for fever, chills, and weight loss, Neck: Negative for injury, rn pain, and swelling, Cardiovascular: Positive for palpitations and chest pain Respiratory: Negative for shortness of breath, cough, wheezing, and pleuritic chest pain, Abdomen/GI: Negative for abdominal pain, nausea, vomiting, diarrhea, and constipation, MS/Extremity: Negative for injury and deformity, Skin: Negative for injury, rash, and discoloration, Neuro: Negative for headache, weakness, and seizure, Exam: 03:20 Constitutional: This is a well developed, well nourished patient who is awake, alert, rn hyperventilating and able to slow her breaths with coaching Head/Face: Normocephalic, atraumatic. Eyes: Pupils equal round and reactive to light, extra-ocular motions intact. Neck: No Meningismus. Cardiovascular: Regular rate and rhythm. No pulse deficits. Respiratory: Mild tachypnea Abdomen/GI: soft, non-tender, no retractions MS/ Extremity: Pulses equal, no cyanosis. Equal circumference. Neuro: Awake and alert, GCS 15, oriented to person, place, time, and situation. Cranial nerves II-XII grossly intact. Motor strength 5/5 in all extremities. Sensory grossly intact. Cerebellar exam normal. 05:19 ECG was reviewed by the Attending Physician. rn Vital Signs: 03:22 BP 156 / 101; Pulse 91; Resp 20; Temp 98; Pulse Ox 100% ; Weight 99.79 kg; Height 5 ft. vc1 5 in. ; Pain 8/10; 03:41 BP 133 / 71; Pulse 98; rn 04:19 BP 158 / 102; Pulse 90; Resp 17 S; Pulse Ox 98% on R/A; lg3 05:01 BP 140 / 94; Pulse 89; Resp 19; Pulse Ox 99% ; vc1 05:55 BP 151 / 75; Pulse 85; Resp 17 S; Pulse Ox 100% on R/A; lg3 03:22 Body Mass Index 36.61 (99.79 kg, 165.1 cm) vc1 03:22 Pain Scale: Adult vc1 [place] Coma Score: 06:04 Eye Response: spontaneous(4). Motor Response: obeys commands(6). Verbal Response: bm8 oriented(5). Total: 15. MDM: 03:17 Medical Screening Exam initiated rn 06:01 Differential diagnosis: arrythmia, dehydration, stress disorder. Data reviewed: vital rn signs, nurses notes, lab test result(s), EKG, radiologic studies, CT scan, plain films, and as a result, I will discharge patient. Counseling: I had a detailed discussion with the patient and/or guardian regarding the historical points, exam findings, and any diagnostic results supporting the discharge/admit diagnosis, lab results, radiology results, the need for outpatient follow up, to return to the emergency department if symptoms worsen or persist or if there are any questions or concerns that arise at home. Response to treatment: the patient's symptoms have markedly improved after treatment, and as a result, I will discharge patient. Special discussion: Based on the patient's history, exam, and Dx evaluation, there is no indication for emergent intervention or inpatient Tx. It is understood by the patient/guardian that if the Sx's persist or worsen they need to return immediately for re-evaluation. I discussed with the patient/guardian in detail that at this point there is no indication for admission to the hospital. It is understood, however, that if the symptoms persist or worsen the patient needs to return immediately for re-evaluation. 06:01 ED course: No acute findings in CT aorta or labs. Troponin negative. No ischemia on rn ECG. Improved after blood pressure medication and Ativan. I have personally reviewed all of the results, including but not limited to blood tests and imaging deemed necessary to safely discharge this patient at this time. All results given to and printed out for patient. I personally went over all the results with the patient and answered all questions. Patient will follow-up with PCP and or specialist as discussed. Return precautions given and understood.. 05/26 03:18 Order name: Basic Metabolic Panel; Complete Time: 04:48 rn 05/26 03:18 Order name: CBC with Diff; Complete Time: 04:48 rn 05/26 03:18 Order name: NT PRO-BNP; Complete Time: 04:48 rn 05/26 03:18 Order name: PT-INR; Complete Time: 04:48 rn 05/26 03:18 Order name: Troponin HS; Complete Time: 04:48 rn 05/26 04:12 Order name: Manual Differential; Complete Time: 04:48 EDMS 05/26 03:18 Order name: XRAY Chest (1 view) rn 05/26 03:18 Order name: CT Aorta for Dissection rn 05/26 03:18 Order name: Cardiac monitoring; Complete Time: 03:29 rn 05/26 03:18 Order name: EKG - Nurse/Tech; Complete Time: 03:29 rn 05/26 03:18 Order name: IV Saline Lock; Complete Time: 03: rn 05/26 03:18 Order name: Labs collected and sent; Complete Time: 03: rn 05/26 03:18 Order name: O2 Per Protocol; Complete Time: 03: rn 05/26 03:18 Order name: O2 Sat Monitoring; Complete Time: 03:29 rn EC:19 Rate is 91 beats/min. Rhythm is regular. QRS [place] is Normal. CA interval is normal. QRS rn interval is normal. QT interval is normal. No Q waves. T waves are Normal. No ST changes noted. Clinical impression: NSR w/ Non-specific ST/T Changes. Interpreted by me. Reviewed by me. Administered Medications: 03:33 Drug: cloNIDine PO 0.2 mg PO once Route: PO; lg3 05:18 Follow up: Response: No adverse reaction bm8 03:33 Drug: Ativan IVP 0.5 mg IVP once Route: IVP; Site: right antecubital; lg3 05:18 Follow up: Response: No adverse reaction bm8 05:18 Drug: morphine IVP or IV 4 mg IVP once over 4 mins Route: IVP; Infused Over: 4 mins; bm8 Site: right antecubital; 05:56 Follow up: Response: No adverse reaction; Marked relief of symptoms; Pain is decreased lg3 Disposition Summary: 05/26/24 06:02 Discharge Ordered Notes: Location: Home rn Problem: new rn Symptoms: have improved rn Condition: Stable rn Diagnosis - Essential (primary) hypertension rn - Anxiety disorder, unspecified rn - Chest pain, unspecified rn Followup: rn - With: Private Physician - When: As needed - Reason: Recheck today's complaints, Re-evaluation by your physician Discharge Instructions: - Discharge Summary Sheet rn - Nonspecific Chest Pain, Adult rn - Hypertension, Adult rn - Managing Your Hypertension rn Forms: - Medication Reconciliation Form rn - Antibiotic 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 EDMS EDMS 03:19 03:18 CBC+H.LAB.BRZ ordered. EDMS EDMS 03:19 03:18 PROBNP+C.LAB.BRZ ordered. EDMS EDMS 03:19 03:18 PROTIME (+INR)+COAG.LAB.BRZ ordered. EDMS EDMS 03:19 03:18 Troponin High Sensitivity+C.LAB.BRZ ordered. EDMS EDMS 03:19 03:19 Chest Single View+RAD.RAD.BRZ ordered. EDMS EDMS 03:19 03:19 Angio Aorta For Dissection+CT.RAD.BRZ ordered. EDMS EDMS
--- NOTE | 2024-05-26 06:35 | RAD REPORT ---
EXAMINATION: CT CHEST ABDOMEN PELVIS ANGIOGRAPHY WITH IV CONTRAST INDICATION: Female, 43 years old, chest pain, HTN, right arm tingling COMPARISON(S): Same-day chest radiograph; CT abdomen/pelvis 02/18/2024 (report only available at the t clara of dictation) TECHNIQUE: CT acquisition of the chest, abdomen, and pelvis following the administration of IV contra st in angiographic phase. Coronal and sagittal reformatted images provided. Maximal intensity projection and/or 3D sequences were created by the technologist. This exam was performed according to departmental dose-optimization program which includes automated exposure control, adjustment of the mA and/or kV according to patient size, and/or use of iterative reconstruction technique. FINDINGS: SUPPORT DEVICES: None. LOWER NECK: Unremarkable. Photon starvation results in low [id number] and limits assessment. Suboptimal contrast bolus tarsha ing further limits evaluation of the abdominal and pelvic viscera and vascular structures. VASCULAR: Aorta: No evidence of dissection. Normal caliber. No significant atherosclerosis. Aortic branches: Patent. Pulmonary arteries: No evidence of central embolism. Veins: Limited unremarkable assessment due to contrast bolus timing. CHEST: Mediastinum/dipika: No evident thoracic adenopathy. Unremarkable esophagus. Heart: Normal size. No pericardial thickening or effusion. No coronary artery calcifications. Lungs: No pulmonary consolidation. No suspicious pulmonary nodule. Central airways are clear. Pleural Space: No pleural effusion or pneumothorax. ABDOMEN AND PELVIS: Liver: Diffuse hypoenhancement relative to the spleen. Length measures 21 cm. Gallbladder and bile ducts: Normal. Pancreas: Normal. Spleen: Normal. Adrenal glands: Normal. Kidneys and ureters: No acute finding. Subtle scarring of the right upper renal pole. Bladder: Normal. Reproductive organs: Unremarkable. GI tract: Normal caliber without wall thickening. Normal appendix. Lymph nodes: No evident adenopathy. Peritoneum: No evidence of ascites, fluid collection, or free air. Abdominal wall: No significant hernia. MUSCULOSKELETAL: No acute osseous abnormality. No significant degenerative changes. IMPRESSION: 1. No dissection or other acute finding of the aorta within the exam limitations. 2. No acute finding of the chest, abdomen, or pelvis. Electronically signed by: Chris Licea MD 05/26/2024 05:57 AM CDT RP Due to temporary technical issues with the [employer] reporting system, reports are being patrica d by the in-house radiologist without review as a courtesy to ensure prompt reporting the interpreting radiologist is fully responsible for the content of the report. Transcribed Date/Time: 05/26/2024 6:35 AM
[2024-05-26 08:46] VITALS: TEMP 98
[2024-05-26 08:50] VITALS: BP 151/75; O2SAT 100
--- NOTE | 2024-05-26 12:34 | EKG ---
Test Date: 2024-05-26 Test Time: 03:18:04 [employer] Extension Educator: [place] MEASUREMENT RESULTS: Intervals: Rate: 91 [place]: 164 QRSD: 68 QT: 340 QTc: 418 [place]: P: 42 [place]: 164 QRS: 29 T: 92 INTERPRETIVE STATEMENTS: Normal sinus rhythm Possible Left atrial enlargement Cannot rule out Anterior infarct, age undetermined Abnormal ECG Compared to ECG 04/20/2024 11:02:20 Myocardial infarct finding now present Sinus tachycardia no longer present Electronically Signed On 05-26-24 12:34:08 CDT by Jose Singh
== END 2024-05-26 06:16 | disposition home or self-care (01) ==
LOC: ER 03:15
DX: R07.9 Chest pain, unspecified (principal); I10 Essential (primary) hypertension; F41.9 Anxiety disorder, unspecified; F17.210 Nicotine dependence, cigarettes, uncomplicated
CPT/HCPCS: 93005; 85025; 80048; 36415; 85610; 84484; 83880; 71275; 74175; 71045; Q9967; 96374; 96375; 99285